=== PATIENT | male | born 1950 | race Caucasian/White ===

== ENCOUNTER 2024-08-19 22:07 | Inpatient (IN) | payer MEDICARE, OTHER ==
[2024-08-19 23:11] LABS: Basophils # (A) 0.01 10*3/uL (0.00-0.10); Basophils % (A) 0.1 %; HCT 27.6 % (39.6-50.0); HGB 8.9 g/dL (13.0-17.0); Lymphocytes # (A) 0.27 10*3/uL (0.90-5.00); MCH 24.3 pg (27.0-32.0); MCHC 32.2 g/dL (32.0-37.0); MCV 75.4 fL (80.0-97.0); Mean Platelet Volume 8.6 fL (9.5-12.2); Monocytes # (A) 0.36 10*3/uL (0.20-1.00); Monocytes % (A) 5.3 %; Neutrophils % (A) 90.2 %; Platelet Count 349 10*3/uL (140-440); RBC 3.66 10*6/uL (4.40-5.60); RDW 15.1 % (11.5-14.5); WBC 6.77 10*3/uL (4.50-10.00)
[2024-08-19] MEDS: MORPHINE SULFATE 4 MG/ML SYRINGE IVP STA (23:29)
--- NOTE | 2024-08-19 23:40 | ED ---
SOB HPI - General Chief Complaint: Shortness of Breath Stated Complaint: difficulty breathing and pain Time Seen by Provider: 08/19/24 22:28 Source: patient Mode of arrival: wheelchair Limitations: no limitations - History of Present Illness Initial Comments: 73-year-old male presenting as a transfer from [facility]. Patient reports that he initially presented to their ER because he was having right- sided rib pain. This has been ongoing for few days. Reports that a few days ago he was choking on some oatmeal and had a fairly bad coughing fit. He has been having a persistent cough and persistent pain over the right lower ribs. CT was performed at that ask that found findings concerning for metastatic disease to both adrenal glands with a right adrenal mass measuring up to 5 cm. There are also bilateral pleural effusions and evidence of pulmonary mass. Patient does have a pathological fracture involving right rib 9. He has destru ctive osseous lesions involving the right iliac bone with associated soft tissue extension asymmetric enlargement of the right iliac. Patient was sent here for further oncologic workup. He is complaining of 7 out of 10 rib pain at this time. He reports a remote history of smoking 25 years ago. - Related Data Allergies Allergy/AdvReac Type Severity Reaction Status Date / Time No Known Allergies Allergy Verified 08/19/24 22:16 Review of Systems ROS Statement: Those systems with pertinent positive or pertinent negative responses have been documented in the HPI. ROS Other: All systems not noted in ROS Statement are negative. Past Medical History Past Medical History: Coronary Artery Disease (CAD), COPD, Diabetes Mellitus Additional Past Medical History / Comment(s): type 2 DM, hiatal hernia Past Surgical History: Hernia Repair Additional Past Surgical History / Comment(s): loop recorder, hernia x 3 Past Psychological History: No Psychological Hx Reported Smoking Status: Former smoker Past Alcohol Use History: Rare Past Drug Use History: None Reported General Exam Limitations: no limitations General appearance: alert, in no apparent distress Head exam: Present: atraumatic, normocephalic, normal inspection Eye exam: Present: normal appearance, EOMI Neck exam: Present: normal inspection. Absent: meningismus Respiratory exam: Present: normal lung sounds bilaterally, chest wall tender ness. Absent: respiratory distress, wheezes, rales, rhonchi, stridor Cardiovascular Exam: Present: regular rate, normal rhythm, normal heart sounds. Absent: systolic murmur, diastolic murmur, rubs, gallop, clicks Neurological exam: Present: alert, oriented X3 Psychiatric exam: Present: normal affect, normal mood Skin exam: Present: warm, dry Course Vital Signs 08/19/24 22:17 Temperature 97.7 F Pulse Rate 109 H Respiratory 16 Rate Blood Pressure 135/77 O2 Sat by Pulse 96 Oximetry Medical Decision Making - Medical Decision Making Was pt. sent in by a medical professional or institution (, PA, ASSOCIATE SOFTWARE ENGINEER, urgent care, hospital, or shelter...) When possible be specific @ -Transfer from [facility] Did you speak to anyone other than the patient for history (EMS, parent, family, police, friend...)? What history was obtained from this source @ -Son and daughter Did you review nursing and triage notes (agree or disagree)? Why? @ -I reviewed and agree with nursing and triage notes Were old charts reviewed (outside hosp., previous admission, EMS record, old EKG, old radiological studies, urgent care reports/EKG's, shelter records)? Report findings @ -I reviewed the documents from [facility] including the provider note and CT scan Differential Diagnosis (chest pain, altered mental status, abdominal pain women, abdominal pain men, vaginal bleeding, weakness, fever, dyspnea, syncope, headache, dizziness, GI bleed, back pain, seizure, CVA, palpatations, mental health, musculoskeletal)? @ -[facility] Differential Chest Pain: Stable Angina, Unstable Angina, STEMI, NSTEMI Aortic Dissection, Pneumothorax, Musculoskeletal, Esophageal Spasm GERD, Cholecystitis, Pancreatitis, Zosterâ€¦ This is not meant to be an all-inclusive list. EKG interpreted by me (3pts min.). @ -As above X-rays interpreted by me (1pt min.). @ -None done CT interpreted by me (1pt min.). @ -None done U/S interpreted by me (1pt. min.). @ -None done What testing was considered but not performed or refused? (CT, X-rays, U/S, labs)? Why? @ -None What meds were considered but not given or refused? Why? @ -None Did you discuss the management of the patient with other professionals (professionals i.e. , EHSAN, ASSOCIATE SOFTWARE ENGINEER, lab, RT, psych nurse, social insurance adviser, shirt hemmer, teacher, title officer, family caseworker)? Give summary @ -Spoke with the sound provider on-call who accepts admission Was smoking cessation discussed for >3mins.? @ -No Was critical care preformed (if so, how long)? @ -No Were there social determinants of health that impacted care today? How? (Homelessness, low income, unemployed, alcoholism, drug addiction, transportation, low edu. Level, literacy, decrease access to med. care, [facility], rehab)? @ -No Was there de-escalation of care discussed even if they declined (Discuss DNR or withdrawal of care, Hospice)? DNR status @ -No What co-morbidities impacted this encounter? (DM, HTN, Smoking, COPD, CAD, Cancer, CVA, ARF, Chemo, Hep., AIDS, mental health diagnosis, sleep apnea, morbid obesity)? @ -None Was patient admitted / discharged? Hospital course, mention meds given and route, prescriptions, significant lab abnormalities, going to OR and other pertinent info. @ -73-year-old male presenting as a transfer from [facility]. Patient requires oncologic workup after discovering evidence of metastatic disease on CT scan. Patient is provided with pain medication and will be admitted. Consults placed to oncology and pulmonology. Patient is agreeable with this plan. I discussed this case with my attending Dr. Tena Undiagnosed new problem with uncertain prognosis? @ -No Drug Therapy requiring intensive monitoring for toxicity (Heparin, Nitro, Insulin, Cardizem)? @ -No Were any procedures done? @ -No Diagnosis/symptom? @ -Metastatic disease, pulmonary mass, pathologic rib fracture Acute, or Chronic, or Acute on Chronic? @ -Acute Uncomplicated (without systemic symptoms) or Complicated (systemic symptoms)? @ -Complicated Side effects of treatment? @ -No Exacerbation, Progression, or Severe Exacerbation? @ -No Poses a threat to life or bodily function? How? (Chest pain, USA, SD, pneumonia, PE, COPD, DKA, ARF, appy, cholecystitis, CVA, Diverticulitis, Homicidal, Suicidal, threat to staff... and all critical care pts) @ -Yes - Lab Data Result diagrams: 08/19/24 22:54 Lab Results 08/19/24 Range/Units 22:54 WBC 6.77 (4.50-10.00) 10*3/uL RBC 3.66 L (4.40-5.60) 10*6/uL Hgb 8.9 L (13.0-17.0) g/dL Hct 27.6 L (39.6-50.0) % MCV 75.4 L (80.0-97.0) fL MCH 24.3 L (27.0-32.0) pg MCHC 32.2 (32.0-37.0) g/dL Plt Count 349 (140-440) 10*3/uL MPV 8.6 L (9.5-12.2) fL Immature Gran % (Auto) 0.4 % Neutrophils % 90.2 % Lymphocytes % 4.0 % Monocytes % 5.3 % Eosinophils % 0.0 % Basophils % 0.1 % Immature Gran # 0.03 (0.00-0.04) 10*3/uL Neutrophils # 6.10 (1.80-7.70) 10*3/uL Lymphocytes # 0.27 L (0.90-5.00) 10*3/uL Monocytes # 0.36 (0.20-1.00) 10*3/uL Eosinophils # 0.00 L (0.04-0.35) 10*3/uL Basophils # 0.01 (0.00-0.10) 10*3/uL Disposition Clinical Impression: Metastatic disease, Pathologic rib fracture Disposition: ADMITTED IP TO THIS [facility] Condition: Serious Referrals: Wellington Smiley, BUNNY [Primary Care Provider] - 1-2 days Time of Disposition: 23:45
[2024-08-19 23:49] LABS: ALT 12 U/L (4-49); AST 16 U/L (17-59); African American GFR (CKD) >90 (>60 ml/min/1.73 sqM); Alkaline Phosphatase 100 U/L (38-126); Anion Gap 11 mmol/L; Blood Urea Nitrogen 19 mg/dL (9-20); Calcium 8.5 mg/dL (8.4-10.2); Carbon Dioxide 28 mmol/L (22-30); Chloride 91 mmol/L (98-107); Glucose 284 mg/dL (74-99); Non-African American GFR(CKD) >90 (>60 ml/min/1.73 sqM); Potassium 4.4 mmol/L (3.5-5.1); Sodium 130 mmol/L (137-145); Total Bilirubin 0.7 mg/dL (0.2-1.3); Total Protein 6.2 g/dL (6.3-8.2)
[2024-08-19] MEDS ORDERED: NALOXONE 0.4 MG/ML 1 ML VIAL IV PRN (23:50)
[2024-08-19] MEDS ORDERED: ACETAMINOPHEN TAB 325 MG TAB PO PRN (23:50)
[2024-08-20] MEDS ORDERED: RX INFO: IV CONTRAST WAS GIVEN 1 EACH MISC MISCELLANE PRN (00:33)
[2024-08-20] MEDS ORDERED: DEXTROSE 50% SYRINGE 50 ML IVP PRN ×2 (02:36)
--- NOTE | 2024-08-20 02:48 | P.HPIM ---
History of Present Illness H&P Date: 08/20/24 History of present illness; 73-year-old man with PMH of atrial fibrillation maintained on Eliquis, CHF, hypertension, [id number] diabetes mellitus with peripheral neuropathy, hyperlipidemia, anxiety/depression who presents to the emergency department as a transfer from [facility] for further workup after he underwent a CT abdomen/pelvis which showed findings most concerning for met astatic malignancy. He states that this overall story began approximately 1 year ago when he began having some right hip discomfort. Last fall, he noted feeling as though he had pneumonia often. He underwent a workup at [facility] which he states he underwent a CT scan of the chest as well as a PET scan, and an effort was made to biopsy a spot located in his lung. He states that at that time they were unable to get a biopsy sample. There was no additional follow-up after that until 08/19/2024. The patient notes that he choked on oatmeal, and as a result of this coughing fit had terrible right sided pain which he localizes to his right ribs. It was due to this for the patient presented to the emergency department and underwent this CT scan as mentioned above. Additionally, he endorses having had poor appetite and a 4050 lbs weight loss over the past 1-2 months. Social history: - Smoking: On and off smoker, 1.5 packs per day for ~30+ years, quit 25-30 years ago - Alcohol use: Socially - Recreational drug use: Denies Labratory review: - WBC 6.77, hemoglobin 8.9, hematocrit 27.6, MCV 75.4, platelet 349; sodium 130, potassium 4.4, chloride 91, bicarb 28, BUN 19, creatinine 0.65, lactic acid 1.5, calcium 8.5, total bilirubin 0.7, AST 16, ALT 12, alkaline phosphatase 100 Imaging: - CT abdomen/pelvis at [facility] showed concern for metastatic disease of both adrenal glands, right adrenal mass measuring up to 5.0 cm; bilateral pleural effusions and pericardial effusion (previous CTs show pulmonary masses, primary pulmonary malignancy not excluded); destructive osseous lesions involving the right iliac bone with associated soft tissue extension and asymmetric enlargement of the right iliac musculature, findings most consistent with osseous metastatic disease; fracture, possible pathological fracture involving rib #9 on the right side; recommend PET/CT for best evaluation of findings Vitals: - Blood pressure 135/77, heart rate 109, respiratory rate 16, SpO2 96% on room air Patient admitted to internal medicine service REVIEW OF SYSTEMS: Pertinent positives and negatives noted in HPI. The rest of the 14-point review of systems is negative. Physical Exam: General: nontoxic, no distress, appears at stated age Derm: warm, dry, intact Head: atraumatic, normocephalic, symmetric Eyes: EOMI, anicteric sclera Mouth: no lip lesion, mucus membranes moist Cardiovascular: S1 S2 reg, no murmur, rubs, or gallops Lungs: Some crackles bilaterally in the lower lobes, decreased breath sounds on left side Abdominal: soft, non-tender to palpataion, with distention present Extremities: no gross muscle atrophy; nonpitting edema of the bilateral lower extremities Neuro: Alert, Oriented, CNII-XII grossly intact, gait normal Psych: well appearing, appropriate affect Assessment and plan 73-year-old man with PMH of atrial fibrillation maintained on Eliquis, CHF, hypertension, [id number] diabetes mellitus with peripheral neuropathy, hyperlipidemia, anxiety/depression who presents to the emergency department as a transfer from [facility] for further workup after he underwent a CT abdomen/pelvis which showed findings most concerning for metastatic malignancy. #Diffuse metastatic disease with unknown primary - CT abdomen/pelvis ar [facility] showed concern for metastatic disease of both adrenal glands, right adrenal mass measuring up to 5.0 cm; bilateral pleural effusions and pericardial effusion (previous CTs show pulmonary masses, primary pulmonary malignancy not excluded); destructive osseous lesions involving the right iliac bone with associated soft tissue extension and asymmetric enlargement of the right iliac musculature, findings most consistent with osseous metastatic disease; fracture, possible pathological fracture involving rib #9 on the right side; recommend PET/CT for best evaluation of findings - CT chest w/contrast ordered, currently pending - Zofran as needed for nausea, [place] [id number] for pain control - Hematology/oncology and pulmonology consulted - Interventional radiology consulted for possible biopsy #Microcytic anemia - Hgb 8.9, MCV 75.4; without any previous labs and a baseline - Continue to monitor hemoglobin, if<7 transfusions - Iron studies ordered, currently pending next-continue monitor CBC #Hyponatremia - Sodium on arrival 130 - Continue to monitor BMP - Cautious with fluids secondary to history of CHF #[id number] diabetes mellitus with peripheral neuropathy - Avoid oral antihyperglycemic agents - Accu-Cheks ACHS - Sliding scale initiated - Hemoglobin A1c ordered, currently pending - Monitor for hypoglycemia #Atrial fibrillation, maintained on Eliquis - Resume Eliquis 5 mg twice daily - States he has previously had a Watchman device placed - Cardiac monitoring Chronic conditions: #CHF #Hypertension #Hyperlipidemia #Anxiety/depression - Resume home medications once verified by pharmacy GI prophylaxis: None DVT prophylaxis: Eliquis 5 mg twice daily The patient is admitted with an anticipated less than than 2 midnight stay for evaluation of metastatic malignancy. Discussed with: Patient Anticipated discharge place: Home Dictation was produced using [employer] dictation software. please excuse any grammatical, word or spelling errors. Paul Conley MD PGY-1 IM Past Medical History Past Medical History: Coronary Artery Disease (CAD), COPD, Diabetes Mellitus Additional Past Medical History / Comment(s): type 2 DM, hiatal hernia Past Surgical History: Hernia Repair Additional Past Surgical History / Comment(s): loop recorder, hernia x 3 Past Psychological History: No Psychological Hx Reported Smoking Status: Former smoker Past Alcohol Use History: Rare Past Drug Use History: None Reported Medications and Allergies Allergies Allergy/AdvReac Type Severity Reaction Status Date / Time No Known Allergies Allergy Verified 08/19/24 22:16 Physical Exam Vitals: Vital Signs Temp Pulse Resp BP Pulse Ox 08/19/24 22:17 97.7 F 109 H 16 135/77 96 Intake and Output 08/19/24 08/19/24 08/20/24 14:59 22:59 06:59 Other: Weight 92.533 kg Results CBC & Chem 7: 08/19/24 22:54 08/19/24 22:54 Labs: Abnormal Lab Results - Last 24 Hours (Table) 08/19/24 08/19/24 Range/Units 22:54 22:54 RBC 3.66 L (4.40-5.60) 10*6/uL Hgb 8.9 L (13.0-17.0) g/dL Hct 27.6 L (39.6-50.0) % MCV 75.4 L (80.0-97.0) fL MCH 24.3 L (27.0-32.0) pg MPV 8.6 L (9.5-12.2) fL Lymphocytes # 0.27 L (0.90-5.00) 10*3/uL Eosinophils # 0.00 L (0.04-0.35) 10*3/uL Sodium 130 L (137-145) mmol/L Chloride 91 L (98-107) mmol/L Creatinine 0.65 L (0.66-1.25) mg/dL Glucose 284 H (74-99) mg/dL AST 16 L (17-59) U/L Total Protein 6.2 L (6.3-8.2) g/dL Albumin 3.0 L (3.5-5.0) g/dL
[2024-08-20 03:53] LABS: Glucose,Whole Blood 334 mg/dL (70-110)
--- NOTE | 2024-08-20 04:40 | CT ---
EXAM: CT Chest With Intravenous Contrast CLINICAL HISTORY: ITS.REASON CT Reason: malignancy TECHNIQUE: Axial computed tomography images of the chest with intravenous contrast. CTDI is 12.3 mGy and DLP is 579.6 mGy-cm. This CT exam was performed using one or more of the following dose reduction techniques: automated exposure control, adjustment of the mA and/or kV according to patient size, and/or use of iterative reconstruction technique. COMPARISON: None FINDINGS: Lungs: Heterogeneous mass in the lingula measuring 5.2 x 5.0 x 8.5 cm, concerning for neoplasm. Additional 1.8 cm nodule in the left upper lobe is concerning for metastasis. Atelectasis in the left lower lobe. Pleural space: Moderate left and small right pleural effusions. No pneumothorax. Heart: Moderate pericardial effusion. Mild cardiomegaly. Coronary artery and mitral annular and aortic valve calcifications. Mediastinum: Enlarged mediastinal and left hilar lymph nodes and possible cardiophrenic lymph node, concerning for danielle metastases. Bones/joints: Degenerative changes of the spine. No acute fracture. Soft tissues: Unremarkable. Vasculature: Mild atherosclerotic changes in the aorta. No aortic aneurysm or dissection. Lymph nodes: See above. Liver: Cirrhotic liver. Spleen: Splenomegaly. Kidneys and ureters: Nonspecific hypodense lesion partially seen in the right kidney. Further evaluation could be performed with contrast- enhanced MRI or ultrasound. Excreting contrast partially seen in the renal collecting systems. IMPRESSION: 1. Heterogeneous mass in the lingula measuring 5.2 x 5.0 x 8.5 cm, concerning for neoplasm. 2. Additional 1.8 cm nodule in the left upper lobe is concerning for metastasis. 3. Enlarged mediastinal and left hilar lymph nodes and possible cardiophrenic lymph node, concerning for danielle metastases. 4. Moderate pericardial effusion. 5. Nonspecific hypodense lesion partially seen in the right kidney. Further evaluation could be performed with contrast-enhanced MRI or ultrasound. 6. Moderate left and small right pleural effusions. 7. Cirrhotic liver. 8. Splenomegaly.
--- NOTE | 2024-08-20 05:25 | P.CNPUL ---
History of Present Illness Consult date: 08/20/24 Requesting physician: Charles Reynolds Reason for consult: lung mass History of present illness: Patient transferred from [facility]. Originally, presented to the outside facility with right-sided rib pain after choking on oatmeal. Additionally, he was having issues with constipation. Workup at the outside facility including CT of the abdomen/pelvis with findings consistent with diffuse metastatic disease to both adrenal glands, with the right adrenal mass measuring up to 5 cm. Destructive osseous lesion involving the right iliac bone with associated soft tissue extension and asymmetric enlargement of the right iliac musculature. Right rib 9 fracture, possibly pathologic. Bilateral pleural effusions left greater than right. Also, a small pericardial effusion was partially visualized. Patient denies history of prior diagnosed malignancies, but states he has previously had attempted biopsies of a spot on his lung. He was recommended to get an outpatient PET scan. Patient never followed up due to insu mariann reasons. This was over 6 months ago. His primary care provider is Wellington Smiley out of the [facility]. Past medical history significant for COPD, former tobacco smoker. He quit smoking over 30 years ago, still carries a significant smoking history of over 30 pack years. Other medical history including atrial fibrillation anticoagulated on Eliquis, heart failure, hyperlipidemia, diabetes mellitus. Labs done at our facility including a CBC with a WBC count of 6.8, hemoglobin 8.9, platelets 349. CMP: Sodium 130, potassium 4.4, chloride 91, serum bicarb 28, BUN 19, creatinine 0.65, glucose 284. Lactic 1.5. LFTs unremarkable. Patient currently being evaluated in the emergency department. He is resting comfortably on room air. Does not appear in any respiratory distress. States the primary reason he came for evaluation at the outside facility was right-sided rib pain as reported above. Currently rated 7 on a 10 point numerical scale. He has also had difficulty ambulating and complaining of right hip pain. States his breathing may be slightly worse than baseline. Especially with exertion. He occasionally uses his rescue inhaler. Reports coughing with white to yellow phlegm production. Denies hemoptysis or chest pain. Denies fever/chills. Denies difficulty swallowing. His appetite has been poor. Unintentional weight loss of approximately 40 pounds in the last sheeba h. No nausea or vomiting. His last normal bowel movement was on Ashu. Denies any abdominal pain, hematochezia, melena. Does admit history of heart failure. He has lower extremity swelling. Takes Lasix on an outpatient basis. Current vital signs: Temperature 97.7 F, heart rate 109 bpm, blood pressure 135/77 mmHg, nontachypneic, SpO2 recorded 96% on room air. Review of Systems Constitutional: Reports fatigue, Reports poor appetite, Reports weight loss, Denies chills, Denies fever, Denies night sweats, Denies weight gain Ears, nose, mouth and throat: Denies dysphagia, Denies headache, Denies nasal congestion, Denies nasal discharge, Denies post-nasal drip, Denies sinus pain, Denies sinus pressure, Denies sore throat, Denies voice changes Cardiovascular: Reports leg edema, Denies chest pain, Denies lightheadedness, Denies palpitations, Denies paroxysmal nocturnal dyspnea, Denies syncope Respiratory: Reports as per HPI Gastrointestinal: Reports as per HPI Genitourinary: Denies dysuria, Denies hematuria Musculoskeletal: Reports gait dysfunction, Reports leg numbness/tingling (Chronic), Denies arm numbness/tingling, Denies limitation of motion Musculoskeletal: right: hip pain (Worse with ambulation), hip stiffness Integumentary: Denies rash, Denies unusual bruising Neurological: Reports paresthesias (Chronic bilateral lower extremity numbness/tingling), Denies head injury, Denies headaches, Denies paralysis, De nies seizures, Denies syncope, Denies visual changes Psychiatric: Denies anxiety, Denies depression Past Medical History Past Medical History: Coronary Artery Disease (CAD), COPD, Diabetes Mellitus Additional Past Medical History / Comment(s): type 2 DM, hiatal hernia Past Surgical History: Hernia Repair Additional Past Surgical History / Comment(s): loop recorder, hernia x 3 Past Psychological History: No Psychological Hx Reported Smoking Status: Former smoker Past Alcohol Use History: Rare Past Drug Use History: None Reported Medications and Allergies Allergies Allergy/AdvReac Type Severity Reaction Status Date / Time No Known Allergies Allergy Verified 08/20/24 09:56 Physical Exam Vitals: Vital Signs Temp Pulse Resp BP Pulse Ox 08/19/24 22:17 97.7 F 109 H 16 135/77 96 Intake and Output 08/19/24 08/19/24 08/20/24 14:59 22:59 06:59 Other: Weight 92.533 kg GENERAL EXAM: Alert, 73-year-old male fairly, comfortable in no apparent distress. HEAD: Normocephalic and atraumatic EYES: Normal reaction of pupils, equal size. NOSE: Clear with pink turbinates. THROAT: No erythema or exudates. NECK: No masses, no JVD. CHEST: No chest wall deformity. LUNGS: Equal air entry with bibasilar dullness. No wheezes, rhonchi, crackles. On room air. No conversational dyspnea or accessory muscle use.. CVS: S1 and S2 normal with no audible murmur, irregular rhythm. No extra heart sounds ABDOMEN: No hepatosplenomegaly, active bowel sounds, no guarding or rigidity. SPINE: No scoliosis or deformity SKIN: No rashes CENTRAL NERVOUS SYSTEM: No focal deficits, tone is normal in all 4 extremities. EXTREMITIES: There is bilateral 1+ pitting edema of the lower extremities. No clubbing or cyanosis. Peripheral pulses are intact. Results - Laboratory Findings CBC and BMP: 08/20/24 06:47 08/20/24 06:47 Abnormal lab findings: Abnormal Labs 08/19/24 08/19/24 22:54 22:54 RBC 3.66 L Hgb 8.9 L Hct 27.6 L MCV 75.4 L MCH 24.3 L MPV 8.6 L Lymphocytes # 0.27 L Eosinophils # 0.00 L Sodium 130 L Chloride 91 L Creatinine 0.65 L Glucose 284 H AST 16 L Total Protein 6.2 L Albumin 3.0 L - Diagnostic Findings CT scan - chest: image reviewed Assessment and Plan Assessment: 5.2 x 5 x 8.5 cm heterogenous mass in the lingula concerning for neoplasm, possible primary; CT of the chest showing a 5.2 x 5 x 8.5 cm heterogenous mass in the lingula, concerning for neoplasm. Additional 1.8 cm nodule in the left upper lobe. Enlarged mediastinal and left hilar lymph nodes and possible cardiophrenic lymph node enlargement concerning for metastasis. Bilateral small to moderate-sized pleural effusions left greater than right. Moderate pericardial effusion. Nonspecific hypodense lesion partially seen in the right kidney. Multiple additional findings concerning for diffuse metastatic disease; CT of the abdomen/pelvis done at outside facility remarkable for bilateral adrenal lesions, osseous involvement of the right iliac bone with associated soft tissue extension and asymmetric enlargement of the right iliac musculature, right rib 9 fracture, possibly pathologic. Bilateral pleural effusions left greater than right. Small pericardial effusion was also partially visualized. Bilateral pleural effusions left greater than right, possibly malignant fluid versus CHF Acute dyspnea, secondary to above Unintentional weight loss, 40 pounds over approximately 1 month timeframe Former tobacco smoker Chronic obstructive pulmonary disease History of heart failure, with unknown ejection Atrial fibrillation with controlled ventricular response, normally ant icoagulated on Eliquis Diabetes mellitus type 2 Microcytic anemia Hyponatremia, appears hypervolemic on clinical examination, however, consider SIADH given concerning findings for malignancy Plan: Patient CT findings reviewed with patient. Concerns for malignancy. Patient may be candidate for diagnostic left-sided thoracentesis. Last dose of Eliquis reportedly yesterday morning, continue to hold Case to be reviewed with Dr. Shukla, and further recommendations to follow Medical oncology also consulted I have personally seen and examined the patient, performed the documentation and the assessment and plan as written. Number of minutes spent on the visit:20 This is a joint evaluation that was done along with the nurse practitioner. This patient is having constitutional symptoms and weight loss in addition to worsening shortness of breath. He presented to the hospital and a CAT scan of the chest was done and showed a 5 x 8.5 heterogeneous mass in the lingula concerning for neoplasm. Additional 1.8 nodule was seen in the left upper lobe. The patient also had findings concerning for metastatic disease including osseous involvement involving the right iliac and the patient had bilateral pleural effusion. Anticoagulation is on hold and the patient will have a bedside thoracentesis for therapeutic and diagnostic purposes. He is also scheduled to undergo an iliac biopsy by interventional radiology. He is currently on 2 L of oxygen by nasal cannula with a pulse ox of 95%. Rest of the home medications have been resumed. He is receiving morphine for skeletal chest wall pain. I will plan to do the bedside thoracentesis today. Consent will be obtained. Time with Patient: Greater than 30
[2024-08-20] MEDS: HYDROcodone/APAP 5-325MG 1 EACH TAB PO PRN (06:02)
[2024-08-20 07:13] LABS: Basophils # (A) 0.01 10*3/uL (0.00-0.10); Basophils % (A) 0.1 %; HCT 33.1 % (39.6-50.0); HGB 10.3 g/dL (13.0-17.0); Lymphocytes # (A) 0.44 10*3/uL (0.90-5.00); Lymphocytes % (A) 5.2 %; MCH 23.9 pg (27.0-32.0); MCHC 31.1 g/dL (32.0-37.0); MCV 76.8 fL (80.0-97.0); Mean Platelet Volume 8.9 fL (9.5-12.2); Monocytes # (A) 0.56 10*3/uL (0.20-1.00); Monocytes % (A) 6.6 %; Neutrophils # (A) 7.44 10*3/uL (1.80-7.70); Neutrophils % (A) 87.3 %; Platelet Count 443 10*3/uL (140-440); RBC 4.31 10*6/uL (4.40-5.60); RDW 15.2 % (11.5-14.5); WBC 8.52 10*3/uL (4.50-10.00)
[2024-08-20 07:21] LABS: INR 1.2 (<1.2)
[2024-08-20 07:30] LABS: Chloride 93 mmol/L (98-107); Glucose 283 mg/dL (74-99); Potassium 3.7 mmol/L (3.5-5.1); Sodium 132 mmol/L (137-145)
[2024-08-20 07:31] LABS: African American GFR (CKD) >90 (>60 ml/min/1.73 sqM); Anion Gap 9 mmol/L; Blood Urea Nitrogen 20 mg/dL (9-20); Calcium 8.4 mg/dL (8.4-10.2); Carbon Dioxide 30 mmol/L (22-30); Magnesium 2.1 mg/dL (1.6-2.3); Non-African American GFR(CKD) >90 (>60 ml/min/1.73 sqM); Phosphorus 3.9 mg/dL (2.5-4.5)
[2024-08-20 08:24] LABS: Glucose,Whole Blood 266 mg/dL (70-110)
[2024-08-20] MEDS: INSULIN LISPRO (HumaLOG) 100 UNIT/ML 10 mL VL SQ SCH (08:58)
[2024-08-20] MEDS ORDERED: APIXABAN 5 MG TAB PO SCH (09:00)
[2024-08-20] MEDS: MORPHINE SULFATE 4 MG/ML SYRINGE IV PRN (09:03)
[2024-08-20] MEDS ORDERED: CYCLOBENZAPRINE 10 MG TAB PO PRN (10:31)
[2024-08-20] MEDS ORDERED: FLUTICASONE NASAL 50MCG/SPRAY 16GM BTL EA NOSTRIL PRN (10:31)
[2024-08-20 10:55] LABS: % Iron Saturation 13.81 (15.00-50.00); Iron 29 UG/DL (65-175); Total Iron Binding Capacity 210 UG/DL (228-460)
[2024-08-20 12:07] LABS: Glucose,Whole Blood 118 mg/dL (70-110)
[2024-08-20] MEDS: DILTIAZEM CD 120 MG CAP.ER.24H PO SCH (12:09)
[2024-08-20] MEDS: PARoxetine 20 MG TAB PO SCH (12:09)
[2024-08-20] MEDS: ATORVASTATIN 10 MG TAB PO SCH (12:09)
--- NOTE | 2024-08-20 13:26 | XR ---
EXAMINATION TYPE: XR chest 1V portable DATE OF EXAM: 08/20/2024 CLINICAL INDICATION: Male, 73 years old with history of post thoracentesis. TECHNIQUE: Single AP portable upright view of the chest is obtained. COMPARISON: Chest CT from earlier today FINDINGS: No pneumothorax after left-sided thoracentesis. Persistent cardiomegaly and overlying left sided loop recorder. Persistent suspicious 1.8 cm left lung pulmonary nodule. Persistent small left greater than right pleural effusions. Osseous structures are intact. IMPRESSION: No pneumothorax after left-sided thoracentesis. [facility], , 08/20/2024 1:24 PM
--- NOTE | 2024-08-20 14:47 | CT ---
EXAMINATION TYPE: CT biopsy bone superficial DATE OF EXAM: 08/20/2024 2:32 PM COMPARISON: CT CLINICAL INDICATION:Male, 73 years old with history of right iliac bone lesion; right iliac bone lesi on TECHNIQUE: CT guided percutaneous right iliac bone mass using coaxial method. One or more CT dose reduction stra tegies were utilized during this examination CT DLP: 934 mGycm, Automated exposure control for dose reduction was used. FINDINGS: The procedure was explained to the patient including risks of bleeding, bruising, infection, damage t o nearby organs and need for additional therapy including potential surgery. All questions were answ ered and consent was obtained. The previous studies were reviewed. The patient was placed on the CT couch in the supine position. The overlying skin was marked and prepped using sterile method. Timeout was taken per protocol. Follo wing administration of conscious sedation and local anesthesia a 19 gauge coaxial needle was introd uced on the right iliac bone soft tissue mass. The coaxial needle tip was directed into the mass wit h CT guidance. Multiple 20 gauge coaxial biopsies were then obtained. Touch prep of portions of th e specimen were reviewed by pathology department personnel during the procedure to evaluate for cellu larity of the samples. The biopsy samples were sent in appropriate containers for lab analysis. F ollowing the procedure the needle was removed and sterile dressing was applied to the percutaneous si te. Post biopsy imaging demonstrated no evidence of hemorrhage. Patient was taken for postprocedure observation in stable condition. IMPRESSIONS: Status post percutaneous LOCATION mass biopsy as described above. Pathology results pending. no SEDATION TECHNIQUE: CT guided percutaneous biopsy of using coaxial method. One or more CT dose reduction strategies were utilized during this examination. Total CT dose mGycm. Total fluoroscopy time was seconds. FINDINGS: The procedure was explained to the patient including risks of bleeding, bruising, infection, damage t o nearby organs and need for additional therapy including potential surgery. All questions were answ ered and consent was obtained. The previous studies were reviewed. The patient was placed on the CT couch in the supine position. The overlying skin was marked and prepped using sterile method. Timeout was taken per protocol. Follo wing administration of local anesthesia a 17 gauge coaxial needle was introduced on the . The coaxia l needle tip was directed into the mass with CT guidance. Multiple 18 gauge coaxial biopsies were th en obtained. Following the procedure the needle was removed and sterile dressing was applied to th e percutaneous site. Post biopsy imaging demonstrated no evidence of . Patient was taken for postpro cedure observation in stable condition. IMPRESSIONS: Status post percutaneous LOCATION mass biopsy as described above. Pathology results pending. [facility], , 08/20/2024 2:45 PM
--- NOTE | 2024-08-20 15:37 | P.PN ---
Subjective Progress Note Date: 08/20/24 Hospital course: Patient is a very pleasant 73-year-old male with a past medical history of CAD, paroxysmal atrial fibrillation on anticoagulation with Eliquis, CHF, hypertension, hyperlipidemia, Beatties mellitus, peripheral neuropathy, and anxiety with depression. He presented to the emergency department on 08/19/2024 as a transfer from [facility] where he initially presented with coughing/choking episode and right side abdominal/hip pain and underwent workup including CT abdomen and pelvis which revealed findings consistent with metastatic malignancy. Patient reported that this overall story began approximately 1 year ago when he began having some right hip discomfort. Last fall, he noted feeling as though he had pneumonia often. He underwent a workup at [facility] which he states he underwent a CT scan of the chest as well as a PET scan, and an effort was made to biopsy a spot located in his lung. He states that at that time they were unable to get a biopsy sample. There was no additional follow-up after that until 08/19/2024. The patient notes that he choked on oatmeal, and as a result of this coughing fit had terrible right sided pain which he localizes to his right ribs. It was due to this for the patient presented to the emergency department and underwent this CT scan as mentioned above. Additionally, he endorses having had poor appetite and a 4050 lbs weight loss over the past 1-2 months. Upon arrival to our facility, patient underwent evaluation in the emergency department. Vital signs on arrival show blood pressure 135/77, heart rate 109, respiratory rate 16, temp 97.7 F, and SpO2 of 96% on room air. EKG completed showing sinus tachycardia at 103 bpm. Labs completed and reviewed. CBC showing microcytic anemia with hemoglobin of 8.9. BMP showing hypochloremic hyponatremia with sodium of 130 and chloride of 91. Blood glucose 284. Lactic acid 1.5. BMP 2360. CT chest completed showing heterogeneous mass in the lingula measuring 5.2 x 5.0 x 8.5 cm concerning for neoplasm with additional 1.8 cm nodule in the left upper lobe, enlarged medi astinal and left hilar lymph nodes and possible cardiophrenic lymph node concerning for danielle metastasis, moderate pericardial effusion, nonspecific hypodense lesion partially seen in the right kidney, and moderate left and small right pleural effusions with cirrhotic liver and splenomegaly. Patient mated under services with consultation to oncology and pulmonology. Physical exam: Patient seen and evaluated at bedside this morning. He reports having a rough night and no sleep in the emergency department. Patient sitting upright in chair at this time and states he is trying to get some rest. Currently reports pain is controlled after pain medication administered by RN this morning. Vital signs reviewed and stable. General: Nontoxic, no distress and appears stated age. Derm: Skin warm and dry, normal coloration for ethnicity. Head: Atraumatic, normocephalic and symmetric. Eyes: EOM's intact, no lid lag, and anicteric sclera Mouth: no lip lesions, mucus membranes moist Cardiovascular: regular rate and rhythm with normal S1S2, no murmur, positive posterior tibial pulses bilaterally, and cap refill < 2 seconds. Lungs: Respirations even, regular, and unlabored on room air. Lungs diminished at bases, no wheezes, rhonchi, or rales noted. Abdominal: soft distended bowel sounds x 4, nontender to palpation, no guarding, no appreciable organomegaly Ext: ROM intact. No gross muscle atrophy, Bilateral lower extremity edema, no contractures Neuro: Speech clear, face symmetrical and CN II-XII grossly intact with no noted focal neuro deficits Psych: Alert and oriented to person, place, time, and situation. Appropriate and pleasant affect. Assessment and Plan of Care: Diffuse metastatic disease, unknown primary source Bilateral pleural effusions Moderate pericardial effusion Hypochloremic hyponatremia -Pulmonology consulted, Eliquis to remain held pending possible thoracentesis -Oncology consulted, appreciate recommendations -Continue symptomatic care and pain management with Tylenol 650 mg p.o. every 6 hours as needed for mild pain/fever, Carpenter 5-325 mg tablets every 4 hours as needed for moderate pain, and morphine 4 mg IVP every 4 hours as needed for severe. -Telemetry monitoring -DVT prophylaxis with RUBÉN damone and SCDs -Echocardiogram to be completed secondary to CT reports of moderate pericardial effusion Microcytic anemia, iron deficiency -Iron profile showing iron 29, TIBC 210, iron percentage saturation 13.81, and transferrin 150. -Patient started on IV Ferrlecit 125 mg daily Type II [id number] diabetes mellitus with hyperglycemia Diabetic peripheral neuropathy -Hold metformin, glipizide and pioglitazone. Patient placed on glycemic protocol with Humalog sliding scale. Paroxysmal atrial fibrillation -Eliquis held at this time pending possible thoracentesis. Patient to continue diltiazem 120 mg daily. Congestive heart failure, unknown type Hypertension Hyperlipidemia -Echocardiogram to be completed secondary to CT findings showing concerns of moderate-sized pericardial effusion. -Continue cardiac medication regimen with diltiazem 120 mg daily and simvastatin 20 mg daily. Data and imaging reviewed: Labs reviewed. Iron profile showing iron 29, TIBC 210, iron percentage saturation 13.81, and transferrin 150. CBC showing Thrombocytosis with platelet count of 443 and microcytic anemia with hemoglobin of 10.3, hematocrit 33.1, MCV 76.8, MCH 23.9, and MCHC 31.1 with RDW of 15.2. BMP showing slight improvement of hypochloremic hyponatremia with sodium of 132 and chloride of 93. Blood glucose 283. Magnesium 2.1. proBNP 2360. Vital signs reviewed. Blood pressure 130/76, heart rate 93, respiratory rate 20, temp 97.7 F, and SpO2 of 99% on room air. CODE STATUS: Full code DVT prophylaxis: RUBÉN claire and SCDs, Tessy held pending possible thoracentesis Anticipated discharge date: Pending clinical course Anticipated discharge place: Pending clinical course Patient was seen independently by Nurse Pracitioner. This document was prepared using [employer] dictation software. Please allow for errors in mica spreader, while rare they do occur. Ángel Bowling NP rendered care for this patient independently, reviewed the findings and plan as documented in the note above and agree with plan. I did not physically speak with or examine the patient on this date. Objective - Vital Signs Vital signs: Vital Signs Temp 97.7 F 08/19/24 22:17 Pulse 102 H 08/20/24 06:00 Resp 17 08/20/24 06:00 BP 135/83 08/20/24 06:00 Pulse Ox 95 08/20/24 06:00 FiO2 Intake & Output 08/19/24 08/20/24 08/20/24 18:59 06:59 18:59 Weight 92.533 kg - Labs CBC & Chem 7: 08/20/24 06:47 08/20/24 06:47 Labs: Abnormal Lab Results - Last 24 Hours (Table) 08/19/24 08/19/24 08/20/24 Range/Units 22:54 22:54 03:51 RBC 3.66 L (4.40-5.60) 10*6/uL Hgb 8.9 L (13.0-17.0) g/dL Hct 27.6 L (39.6-50.0) % MCV 75.4 L (80.0-97.0) fL MCH 24.3 L (27.0-32.0) pg MCHC (32.0-37.0) g/dL RDW (11.5-14.5) % Plt Count (140-440) 10*3/uL MPV 8.6 L (9.5-12.2) fL Immature Gran # (0.00-0.04) 10*3/uL Lymphocytes # 0.27 L (0.90-5.00) 10*3/uL Eosinophils # 0.00 L (0.04-0.35) 10*3/uL PT (10.0-12.5) sec INR (<1.2) Sodium 130 L (137-145) mmol/L Chloride 91 L (98-107) mmol/L Creatinine 0.65 L (0.66-1.25) mg/dL Glucose 284 H (74-99) mg/dL POC Glucose (mg/dL) 334 H (70-110) mg/dL AST 16 L (17-59) U/L Total Protein 6.2 L (6.3-8.2) g/dL Albumin 3.0 L (3.5-5.0) g/dL 08/20/24 08/20/24 08/20/24 Range/Units 06:47 06:47 06:47 RBC 4.31 L (4.40-5.60) 10*6/uL Hgb 10.3 L (13.0-17.0) g/dL Hct 33.1 L (39.6-50.0) % MCV 76.8 L (80.0-97.0) fL MCH 23.9 L (27.0-32.0) pg MCHC 31.1 L (32.0-37.0) g/dL RDW 15.2 H (11.5-14.5) % Plt Count 443 H (140-440) 10*3/uL MPV 8.9 L (9.5-12.2) fL Immature Gran # 0.07 H (0.00-0.04) 10*3/uL Lymphocytes # 0.44 L (0.90-5.00) 10*3/uL Eosinophils # 0.00 L (0.04-0.35) 10*3/uL PT 13.0 H (10.0-12.5) sec INR 1.2 H (<1.2) Sodium 132 L (137-145) mmol/L Chloride 93 L (98-107) mmol/L Creatinine (0.66-1.25) mg/dL Glucose 283 H (74-99) mg/dL POC Glucose (mg/dL) (70-110) mg/dL AST (17-59) U/L Total Protein (6.3-8.2) g/dL Albumin (3.5-5.0) g/dL 08/20/24 Range/Units 08:22 RBC (4.40-5.60) 10*6/uL Hgb (13.0-17.0) g/dL Hct (39.6-50.0) % MCV (80.0-97.0) fL MCH (27.0-32.0) pg MCHC (32.0-37.0) g/dL RDW (11.5-14.5) % Plt Count (140-440) 10*3/uL MPV (9.5-12.2) fL Immature Gran # (0.00-0.04) 10*3/uL Lymphocytes # (0.90-5.00) 10*3/uL Eosinophils # (0.04-0.35) 10*3/uL PT (10.0-12.5) sec INR (<1.2) Sodium (137-145) mmol/L Chloride (98-107) mmol/L Creatinine (0.66-1.25) mg/dL Glucose (74-99) mg/dL POC Glucose (mg/dL) 266 H (70-110) mg/dL AST (17-59) U/L Total Protein (6.3-8.2) g/dL Albumin (3.5-5.0) g/dL
[2024-08-20] MEDS: SODIUM FERRIC GLUCONAT-SUCROSE 125 MG in SODIUM CHLORIDE 0.9% 100 ML IVPB SCH (16:01)
[2024-08-20] MEDS: GABAPENTIN 300 MG CAP PO PRN (16:02)
[2024-08-20 17:34] LABS: Glucose,Whole Blood 244 mg/dL (70-110)
--- NOTE | 2024-08-20 18:09 | P.PCN ---
Date of Procedure: 08/20/24 Preoperative Diagnosis: Pleural effusion, left Postoperative Diagnosis: Pleural effusion, left Procedure(s) Performed: Thoracentesis, left Anesthesia: local Surgeon: Armando Shukla IV fluids (ml): 0 Pathology: other Condition: stable Disposition: floor Operative Findings: A time out was performed and the chest x-ray was reviewed, the appropriate side was confirmed and marked. My hands were washed immediately prior to the procedure. I wore a surgical cap, mask with protective eyewear, sterile gown and sterile gloves throughout the procedure. The patient was prepped and draped in a sterile manner using chlorhexidine scrub after the appropriate level was percussed and confirmed by ultrasound. 1% lidocaine was used to anesthesize the skin, subcutaneous tissue, superior aspect of the rib periosteum and parietal pleura. A finder needle was then introduced over the superior aspect of the rib to locate the pleural fluid; 2colored fluid was aspirated at a depth of approximately 2 cm. A 10-blade scalpel was used to ron the skin at the insertion site. The [id number] needle was then introduced through the skin incision into the pleural space using negative aspiration pressure and the red colometric indicator to confirm appropriate positioning of the needle. The tho racentesis catheter was then threaded without difficulty. 1700 ml of turbid colored fluid was removed without difficulty. The catheter was then removed. No immediate complications were noted during the procedure. A post-procedure chest x-ray is pending at the time of this note. The fluid will be sent for studies. Estimated blood loss is 0cc
[2024-08-20 20:35] LABS: Glucose,Whole Blood 231 mg/dL (70-110)
[2024-08-20 21:00] LABS: Appearance,BF Slightly Hazy (Clear)
--- NOTE | 2024-08-20 21:39 | P.CONS ---
History of Present Illness - Reason for Consult Consult date: 08/20/24 metastatic disease, further work up Requesting physician: Charles Reynolds - Chief Complaint SOB, back/rt flank/rib pain - History of Present Illness Mr. Pugh is a pleasant 73-year-old male we have been asked to see as a transfer from [place]. He came to the hospital with complaints of shortness of breath as well as right flank/rib pain after some significant coughing. This pain does radiate from the back. Patient had a CT showing adrenal masses, pleural effusion, pathological fracture of the ninth rib as well as a right iliac soft tissue lesion. CT of the chest showed a large lingular mass, lymphadenopathy as well as liver cirrhosis. Patient reported that he had no significant changes in his health prior to admission but, on further questioning, he reports a 45 pound weight loss in about 2 months, some early satiety and decreased appetite. He reported that his is handicapped and is a large woman and she fell on him about a year ago when they had some difficulty with transporting. He states that it has been "downhill" ever since. He denies any fevers or sweats, no pain with swallowing but he did note that he was choking on his food a few days prior. No nausea or vomiting, abdominal pain or bloating, acute changes in bowel habits. His father was at 58 for unknown causes, mother at 62 because of colon cancer. Patient has no personal history of colon cancer. Patient states that he was overall a light smoker, quitting more than 30 years ago. He does have a significant history of large colon polyps dating back to hi s 30s. He has had numerous colonoscopies, he thinks he has had at least 30. The pain in his ribs can be significant especially when he coughs or moves. No other acute physical complaints. Review of Systems 14 point review of systems is as stated in HPI Past Medical History Past Medical History: Coronary Artery Disease (CAD), COPD, Diabetes Mellitus Additional Past Medical History / Comment(s): type 2 DM, hiatal hernia, significant for large colon polyps, multiple removed History of Any Multi-Drug Resistant Organisms: None Reported Past Surgical History: Hernia Repair Additional Past Surgical History / Comment(s): loop recorder, hernia x 3,, multiple colon polyps removed Past Psychological History: No Psychological Hx Reported Smoking Status: Former smoker Past Alcohol Use History: Rare Past Drug Use History: None Reported - Past Family History Mother Family Medical History: Cancer (Colon cancer) Additional Family Medical History / Comment(s): Colon cancer Father Family Medical History: COPD, Pneumonia Medications and Allergies Home Medications Medication Instructions Recorded Confirmed Type Acetaminophen-Codeine 300-30mg 1 tab PO Q6H PRN 08/20/24 08/20/24 History [Tylenol w/codeine #3] Albuterol Inhaler [Ventolin Hfa 2 puff INHALATION RT-Q4H PRN 08/20/24 08/20/24 History Inhaler] Apixaban [Eliquis] 5 mg PO BID 08/20/24 08/20/24 History Celecoxib [CeleBREX] 200 mg PO DAILY 08/20/24 08/20/24 History Cyclobenzaprine [Flexeril] 10 mg PO BID PRN 08/20/24 08/20/24 History Fluticasone Nasal [place] [Flonase 1 spray EA NOSTRIL BID PRN 08/20/24 08/20/24 History Nasal Revere] Gabapentin 600 mg PO Q8H PRN 08/20/24 08/20/24 History Ibuprofen [Motrin] 800 mg PO Q6H PRN 08/20/24 08/20/24 History Ipratropium-Albuterol Nebulize 3 ml INHALATION RT-TID 08/20/24 08/20/24 History [Duoneb 0.5 mg-3 mg/3 ml Soln] PARoxetine [Paxil] 20 mg PO DAILY 08/20/24 08/20/24 History Pioglitazone [Actos] 30 mg PO DAILY 08/20/24 08/20/24 History Potassium Chloride ER [K-Dur 20] 20 meq PO DAILY 08/20/24 08/20/24 History Simvastatin [Zocor] 20 mg PO DAILY 08/20/24 08/20/24 History dilTIAZem HCL [Tiazac] 120 mg PO DAILY 08/20/24 08/20/24 History glipiZIDE XL [Glucotrol Xl] 10 mg PO BID 08/20/24 08/20/24 History metFORMIN HCL [Glucophage] 1,000 mg PO BID 08/20/24 08/20/24 History Allergies Allergy/AdvReac Type Severity Reaction Status Date / Time No Known Allergies Allergy Verified 08/20/24 09:56 Physical Exam Vitals: Vital Signs Temp Pulse Pulse Resp BP BP Pulse Ox 08/20/24 19:32 97.6 F 98 16 131/89 93 L 08/20/24 14:32 99 16 137/77 95 08/20/24 14:20 102 H 16 142/79 97 08/20/24 14:12 105 H 16 137/78 96 08/20/24 12:52 97.6 F 100 20 122/69 93 L 08/20/24 08:00 97.7 F 93 20 130/76 99 08/20/24 06:00 102 H 17 135/83 95 08/20/24 02:32 104 H 18 131/65 92 L 08/19/24 22:17 97.7 F 109 H 16 135/77 96 Intake and Output 08/20/24 08/20/24 08/20/24 06:59 14:59 22:59 Output Total 1800 Balance -1800 Output: Other 1800 Other: Voiding Method Toilet # Voids 2 Weight 92.533 kg - Constitutional General appearance: average body habitus, cooperative, no acute distress - EENT Eyes: anicteric sclerae, EOMI ENT: hearing grossly normal, normal oropharynx - Neck Neck: no lymphadenopathy - Respiratory Respiratory: bilateral: CTA, diminished - Cardiovascular Rhythm: regular Heart sounds: normal: S1, S2 Abnormal Heart Sounds: no systolic murmur, no diastolic murmur, no rub, no S3 Gallop, no S4 Gallop, no click, no other leg Peripheral Edema: bilateral: 1+ (Legs are very tight) - Gastrointestinal General gastrointestinal: no absent bowel sounds, no decreased bowel sounds, no distended, no hepatomegaly, no hyperactive bowel sounds, normal bowel sounds, no organomegaly, no rigid, no scaphoid, soft, no splenomegaly, no tenderness, no umbilical hernia, no ventral hernia - Integumentary Integumentary: normal - Neurologic Neurologic: CNII-XII intact - Musculoskeletal Musculoskeletal: generalized weakness, strength equal bilaterally - Psychiatric Psychiatric: A&O x's 3, appropriate affect, intact judgment & insight Results CBC & Chem 7: 08/20/24 06:47 08/20/24 06:47 Labs: Abnormal Lab Results - Last 24 Hours (Table) 08/19/24 08/19/24 08/20/24 Range/Units 22:54 22:54 03:51 RBC 3.66 L (4.40-5.60) 10*6/uL Hgb 8.9 L (13.0-17.0) g/dL Hct 27.6 L (39.6-50.0) % MCV 75.4 L (80.0-97.0) fL MCH 24.3 L (27.0-32.0) pg MCHC (32.0-37.0) g/dL RDW (11.5-14.5) % Plt Count (140-440) 10*3/uL MPV 8.6 L (9.5-12.2) fL Immature Gran # (0.00-0.04) 10*3/uL Lymphocytes # 0.27 L (0.90-5.00) 10*3/uL Eosinophils # 0.00 L (0.04-0.35) 10*3/uL PT (10.0-12.5) sec INR (<1.2) Sodium 130 L (137-145) mmol/L Chloride 91 L (98-107) mmol/L Creatinine 0.65 L (0.66-1.25) mg/dL Glucose 284 H (74-99) mg/dL POC Glucose (mg/dL) 334 H (70-110) mg/dL Iron (65-175) UG/DL TIBC (228-460) UG/DL % Saturation (15.00-50.00) Transferrin (204.0-354.0) mg/dL AST 16 L (17-59) U/L Total Protein 6.2 L (6.3-8.2) g/dL Albumin 3.0 L (3.5-5.0) g/dL Fluid Appearance (Clear) 08/20/24 08/20/24 08/20/24 Range/Units 06:47 06:47 06:47 RBC 4.31 L (4.40-5.60) 10*6/uL Hgb 10.3 L (13.0-17.0) g/dL Hct 33.1 L (39.6-50.0) % MCV 76.8 L (80.0-97.0) fL MCH 23.9 L (27.0-32.0) pg MCHC 31.1 L (32.0-37.0) g/dL RDW 15.2 H (11.5-14.5) % Plt Count 443 H (140-440) 10*3/uL MPV 8.9 L (9.5-12.2) fL Immature Gran # 0.07 H (0.00-0.04) 10*3/uL Lymphocytes # 0.44 L (0.90-5.00) 10*3/uL Eosinophils # 0.00 L (0.04-0.35) 10*3/uL PT 13.0 H (10.0-12.5) sec INR 1.2 H (<1.2) Sodium 132 L (137-145) mmol/L Chloride 93 L (98-107) mmol/L Creatinine (0.66-1.25) mg/dL Glucose 283 H (74-99) mg/dL POC Glucose (mg/dL) (70-110) mg/dL Iron 29 L (65-175) UG/DL TIBC 210 L (228-460) UG/DL % Saturation 13.81 L (15.00-50.00) Transferrin 150.0 L (204.0-354.0) mg/dL AST (17-59) U/L Total Protein (6.3-8.2) g/dL Albumin (3.5-5.0) g/dL Fluid Appearance (Clear) 08/20/24 08/20/24 08/20/24 Range/Units 08:22 12:05 13:00 RBC (4.40-5.60) 10*6/uL Hgb (13.0-17.0) g/dL Hct (39.6-50.0) % MCV (80.0-97.0) fL MCH (27.0-32.0) pg MCHC (32.0-37.0) g/dL RDW (11.5-14.5) % Plt Count (140-440) 10*3/uL MPV (9.5-12.2) fL Immature Gran # (0.00-0.04) 10*3/uL Lymphocytes # (0.90-5.00) 10*3/uL Eosinophils # (0.04-0.35) 10*3/uL PT (10.0-12.5) sec INR (<1.2) Sodium (137-145) mmol/L Chloride (98-107) mmol/L Creatinine (0.66-1.25) mg/dL Glucose (74-99) mg/dL POC Glucose (mg/dL) 266 H 118 H (70-110) mg/dL Iron (65-175) UG/DL TIBC (228-460) UG/DL % Saturation (15.00-50.00) Transferrin (204.0-354.0) mg/dL AST (17-59) U/L Total Protein (6.3-8.2) g/dL Albumin (3.5-5.0) g/dL Fluid Appearance Slightly Hazy A (Clear) 08/20/24 08/20/24 Range/Units 17:32 20:32 RBC (4.40-5.60) 10*6/uL Hgb (13.0-17.0) g/dL Hct (39.6-50.0) % MCV (80.0-97.0) fL MCH (27.0-32.0) pg MCHC (32.0-37.0) g/dL RDW (11.5-14.5) % Plt Count (140-440) 10*3/uL MPV (9.5-12.2) fL Immature Gran # (0.00-0.04) 10*3/uL Lymphocytes # (0.90-5.00) 10*3/uL Eosinophils # (0.04-0.35) 10*3/uL PT (10.0-12.5) sec INR (<1.2) Sodium (137-145) mmol/L Chloride (98-107) mmol/L Creatinine (0.66-1.25) mg/dL Glucose (74-99) mg/dL POC Glucose (mg/dL) 244 H 231 H (70-110) mg/dL Iron (65-175) UG/DL TIBC (228-460) UG/DL % Saturation (15.00-50.00) Transferrin (204.0-354.0) mg/dL AST (17-59) U/L Total Protein (6.3-8.2) g/dL Albumin (3.5-5.0) g/dL Fluid Appearance (Clear) Chest x-ray: report reviewed CT scan - chest: report reviewed Assessment and Plan (1) Pathologic rib fracture Current Visit: Yes Status: Acute Priority: High Code(s): M84.48XA - PATHOLOGICAL FRACTURE, OTHER SITE, INIT ENCNTR FOR FRACTURE SNOMED Code(s): 942044275 Plan: Rib pain. Pathological rib fracture, imaging findings concerning for malignancy and metastatic disease -Patient presented with rib pain. CT reported in documentation (as it was done at an outside facility) as concerning for metastatic disease to both adrenal glands, right adrenal mass measuring up to 5 cm. Bilateral pleural effusions. Pathological fracture of the ninth rib. Destructive osseous lesion involving the right iliac bone with associated soft tissue extension. CT of the chest with contrast performed at this facility reports a heterogenous mass in the lingula measuring 5.2 x 5 x 8.5 cm. 1.8 cm left upper lobe nodule. Moderate left and small right pleural effusion. Enlarged mediastinal and left hilar lymph nodes, possible cardiophrenic lymph node. Cirrhotic liver. Splenomegaly. - Reviewed the concerning findings with the patient. Explained that biopsy is necessary for diagnosis of what the underlying causes. Patient verbalized understanding and is agreeable to the same. - Was contacted by Interventional Radiology nurse. Interventional radiologist is going to perform a core biopsy of the iliac mass. Molecular testing can be performed on the tissue sample. - Pulmonary performed thoracentesis, fluid being sent for cytology. - It was explained to patient that once we know what the diagnosis is that we need to know where all of the disease is. From the imaging reports so far, multiple organs appear to be involved-lungs, adrenal glands, bones. Will collect information regarding what all scans have been performed. Further imaging will be ordered as necessary. Possibly PET scan outpatient, MRI of the brain. Will update the chart once we have that information and order the appropriate staging testing. -Will follow-up with the patient. -In regards to pain control, will add a Lidoderm patch. - Referral/consult to Radiation Oncology once we have diagnosis. They will likely be able to provide palliative radiation for pain control.
[2024-08-20 21:55] LABS: Glucose, Body Fluid 236 mg/dL; Total Protein, Body Fluid 3590 mg/dL
[2024-08-20] MEDS: LIDOCAINE 4% PATCH TOPICAL SCH (21:59)
[2024-08-20 22:28] LABS: Glucose, BF Source Pleural fluid; LDH, Body Fluid Source Pleural fluid; T. Protein, Body Fluid Source Pleural fluid
[2024-08-21 07:40] LABS: Glucose,Whole Blood 148 mg/dL (70-110)
[2024-08-21 08:15] LABS: HCT 33.3 % (39.6-50.0); HGB 9.8 g/dL (13.0-17.0); MCH 23.7 pg (27.0-32.0); MCHC 29.4 g/dL (32.0-37.0); MCV 80.4 FL (80.0-97.0); Mean Platelet Volume 8.9 FL (9.5-12.2); NRBC Per 100 WBC 0 X 10*3/uL (0.00-0.01); Platelet Count 418 X 10*3/uL (140-440); RBC 4.14 X 10*6/uL (4.40-5.60); RDW 15.3 % (11.5-14.5); WBC 7.28 X 10*3/uL (4.50-10.00)
[2024-08-21 08:30] LABS: ALT 7 U/L (10-49); AST 13 U/L (14-35); Albumin/Globulin Ratio 0.97 Ratio (1.60-3.17); Alkaline Phosphatase 93 U/L (41-126); BUN/Creat Ratio 21.29 Ratio (12.00-20.00); Blood Urea Nitrogen 14.9 mg/dL (9.0-27.0); Calcium 8.5 mg/dL (8.7-10.3); Chloride 94 mmol/L (96-109); Globulin 3.1 g/dL (1.6-3.3); Glucose 158 mg/dL (70-110); Magnesium 2.2 mg/dL (1.5-2.4); Potassium 4.5 mmol/L (3.5-5.5); Sodium 134 mmol/L (135-145); Total Bilirubin 0.5 mg/dL (0.3-1.2); Total Protein 6.1 g/dL (6.2-8.2)
--- NOTE | 2024-08-21 11:34 | CA ---
Transthoracic Echo Report Name: Kd Pugh Age: 73 Gender: M : 1950 Exam Date: 08/20/2024 13:07 Exam Location: [facility] Ht (in): 69 Wt (lb): 204 Ordering Physician: Ángel Bowling Attending/Referring Phys: Scooper Becky Estrada RDCS Procedure CPT: Indications: ct showing mod pericardial effusion, please eval, Pericardial effusion (noninflammatory) Cardiac Hx: Technical Quality: Fair Contrast 1: Total Dose (mL): Contrast 2: Total Dose (mL): MEASUREMENTS (Male / Female) Normal Values 2D ECHO LV Diastolic Diameter PLAX 5.3 cm 4.2 - 5.9 / 3.9 - 5.3 cm LV Systolic Diameter PLAX 3.8 cm IVS Diastolic Thickness 1.4 cm 0.6 - 1.0 / 0.6 - 0.9 cm LVPW Diastolic Thickness 1.5 cm 0.6 - 1.0 / 0.6 - 0.9 cm LV Relative Wall Thickness 0.6 RV Internal Dim ED PLAX 2.8 cm LVOT Diameter 2.3 cm Aortic Root Diameter 3.7 cm LA Systolic Diameter LX 5.6 cm 3.0 - 4.0 / 2.7 - 3.8 cm LV Diastolic Volume MOD BP 57.4 cm??? 67 - 155 / 56 - 104 cm??? LV Systolic Volume MOD BP 33.4 cm??? 22 - 58 / 19 - 49 cm??? LV Ejection Fraction MOD BP 41.9 % >= 55 % LV Diastolic Volume MOD 4C 69.5 cm??? LV Systolic Volume MOD 4C 36.6 cm??? LV Ejection Fraction MOD 4C 47.3 % LV Diastolic Length 4C 6.8 cm LV Systolic Length 4C 6.6 cm LV Diastolic Volume MOD 2C 47.4 cm??? LV Systolic Volume MOD 2C 21.3 cm??? LV Ejection Fraction MOD 2C 54.9 % LV Diastolic Length 2C 6.8 cm LV Systolic Length 2C 5.4 cm LA Volume 100.7 cm??? 18 - 58 / 22 - 52 cm??? LA Volume Index 46.9 cm???/m??? 16 - 28 cm???/m??? M-MODE Aortic Root Diameter MM 3.6 cm LA Systolic Diameter MM 5.1 cm LA Ao Ratio MM 1.4 AV Cusp Separation MM 1.4 cm DOPPLER AV Peak Velocity 229.1 cm/s AV Peak Gradient 21.0 mmHg AV Mean Velocity 153.1 cm/s AV Mean Gradient 10.9 mmHg AV Velocity Time Integral 42.4 cm LVOT Peak Velocity 124.9 cm/s LVOT Peak Gradient 6.2 mmHg LVOT Velocity Time Integral 22.6 cm LVOT Stroke Volume 94.3 cm??? LVOT Stroke Volume Index 45.3 ml/m??? AV Area Cont Eq vti 2.2 cm??? AV Area Cont Eq pk 2.3 cm??? MV Area PHT 3.5 cm??? Mitral E Point Velocity 123.9 cm/s Mitral A Point Velocity 1.9 cm/s Mitral E to A Ratio 66.9 MV Deceleration Time 218.2 ms TR Peak Velocity 327.2 cm/s TR Peak Gradient 42.8 mmHg Right Ventricular Systolic Press 52.8 mmHg FINDINGS Left Ventricle Left ventricular ejection fraction is estimated at 45-50 %. Moderately increased septal wall thickness. Moderately decreased left ventricular ejection fraction. Left ventricular cavity size normal. Right Ventricle Mild RV dilatation with mild dysfunction. Moderate pulmonary hypertension. Right Atrium Moderate right atrial dilatation. Left Atrium Severely increased left atrial diameter. Severely increased left atrial volume. Mildly increased left atrial area. Mitral Valve Structurally normal mitral valve. Mild mitral regurgitation. No mitral stenosis. Mitral annular calcification. Aortic Valve Trileaflet aortic valve. Mild aortic stenosis with a peak gradient of 21mmHg and a mean gradient of 11 mmHg. Tricuspid Valve Structurally normal tricuspid valve. Mild tricuspid regurgitation. No tricuspid stenosis. Pulmonic Valve Structurally normal pulmonic valve. Mild pulmonic regurgitation. No pulmonic stenosis. Pericardium Moderate pericardial effusion. No pleural effusion. Respiratory variation of tricuspid flow. Aorta Aorta at upper limits of normal. CONCLUSIONS LVEF 45 to 50% Mild concentric LVH Mild RV dilatation with reduced systolic function. Moderate pulmonary hypertension. RVSP estimated at 53 mmHg Moderate biatrial dilatation Mild mitral regurgitation, mild tricuspid regurgitation Mild aortic stenosis mean gradient of 11 mmHg Moderate pericardial effusion with respiratory variation of tricuspid inflow suggestive of mild tamponade physiology. Dilated IVC with lack of respiratory variation Previewed by: Dr Colton Levine (Electronically Signed) Final Date: 21 August 2024 11:33
[2024-08-21 12:23] VITALS: BMI 30.1
[2024-08-21 12:43] LABS: Glucose,Whole Blood 224 mg/dL (70-110)
--- NOTE | 2024-08-21 16:12 | P.PN ---
Subjective Progress Note Date: 08/21/24 Patient transferred from [facility]. Originally, presented to the outside facility with right-sided rib pain after choking on oatmeal. Additionally, he was having issues with constipation. Workup at the outside facility including CT of the abdomen/pelvis with findings consistent with diffuse metastatic disease to both adrenal glands, with the right adrenal mass measuring up to 5 cm. Destructive osseous lesion involving the right iliac bone with associated soft tissue extension and asymmetric enlargement of the right iliac musculature. Right rib 9 fracture, possibly pathologic. Bilateral pleural effusions left greater than right. Also, a small pericardial effusion was partially visualized. Patient denies history of prior diagnosed malignancies, but states he has previously had attempted biopsies of a spot on his lung. He was recommended to get an outpatient PET scan. Patient never followed up due to insurance reasons. This was over 6 months ago. His primary care provider is Wellington Smiley out of the [facility]. Past medical history significant for COPD, former tobacco smoker. He quit smoking over 30 years ago, still carries a significant smoking history of over 30 pack years. Other medical history including atrial fibrillation anticoagulated on Eliquis, heart failure, hyperlipidemia, diabetes mellitus. Labs done at our facility including a CBC with a WBC count of 6.8, hemoglobin 8.9, platelets 349. CMP: Sodium 130, potassium 4.4, chloride 91, serum bicarb 28, BUN 19, creatinine 0.65, glucose 284. Lactic 1.5. LFTs unremarkable. Patient currently being evaluated in the emergency department. He is resting comfortably on room air. Does not appear in any respiratory dis tress. States the primary reason he came for evaluation at the outside facility was right-sided rib pain as reported above. Currently rated 7 on a 10 point numerical scale. He has also had difficulty ambulating and complaining of right hip pain. States his breathing may be slightly worse than baseline. Especially with exertion. He occasionally uses his rescue inhaler. Reports coughing with white to yellow phlegm production. Denies hemoptysis or chest pain. Denies fever/chills. Denies difficulty swallowing. His appetite has been poor. Unintentional weight loss of approximately 40 pounds in the last month. No nausea or vomiting. His last normal bowel movement was on Monday. Denies any abdominal pain, hematochezia, melena. Does admit history of heart failure. He has lower extremity swelling. Takes Lasix on an outpatient basis. Current vital signs: Temperature 97.7 F, heart rate 109 bpm, blood pressure 135/77 mmHg, nontachypneic, SpO2 recorded 96% on room air. On today's evaluation of 08/21/2024, the patient is stable. Feels slightly improved compared to yesterday and the patient seems to be less short of breath as the patient underwent a thoracentesis yesterday and the procedure was successful with a total of 1.7 L of fluid being removed. The patient also has a iliac bone biopsy, awaiting final pathology. The patient was also seen by medical oncology. Awaiting final pathology results. The white cell count 7.2 with a hemoglobin 9.8 and platelet count of 418. BUN is 14 with a creatinine of 0.7 and the sodium level is 134. LFTs are not elevated. Albumin level is at 3.0. The patient remains on oxygen and is currently on 2 L with a pulse ox of 95%. Home medication resumed. Objective - Vital Signs Vital signs: Vital Signs Temp 97.8 F 08/21/24 07:47 Pulse 88 08/21/24 07:47 Resp 20 08/21/24 07:47 BP 111/69 08/21/24 07:47 Pulse Ox 97 08/21/24 07:47 FiO2 Intake & Output 08/20/24 08/21/24 08/21/24 18:59 06:59 18:59 Intake Total 240 Output Total 1800 Balance -1800 240 Weight 92.533 kg Intake: Oral 240 Output: Other 1800 Other: Voiding Method Toilet Toilet # Voids 2 1 - Exam GENERAL EXAM: Alert, 73-year-old male fairly, comfortable in no apparent distress. HEAD: Normocephalic and atraumatic EYES: Normal reaction of pupils, equal size. NOSE: Clear with pink turbinates. THROAT: No erythema or exudates. NECK: No masses, no JVD. CHEST: No chest wall deformity. LUNGS: Equal air entry with bibasilar dullness. No wheezes, rhonchi, crackles. On room air. No conversational dyspnea or accessory muscle use.. CVS: S1 and S2 normal with no audible murmur, irregular rhythm. No extra heart sounds ABDOMEN: No hepatosplenomegaly, active bowel sounds, no guarding or rigidity. SPINE: No scoliosis or deformity SKIN: No rashes CENTRAL NERVOUS SYSTEM: No focal deficits, tone is normal in all 4 extremities. EXTREMITIES: There is bilateral 1+ pitting edema of the lower extremities. No clubbing or cyanosis. Peripheral pulses are intact. - Labs CBC & Chem 7: 08/21/24 05:25 08/21/24 05:25 Labs: Abnormal Lab Results - Last 24 Hours (Table) 08/20/24 08/20/24 08/20/24 Range/Units 12:05 13:00 17:32 RBC (4.40-5.60) X 10*6/uL Hgb (13.0-17.0) g/dL Hct (39.6-50.0) % MCH (27.0-32.0) pg MCHC (32.0-37.0) g/dL RDW (11.5-14.5) % MPV (9.5-12.2) FL Sodium (135-145) mmol/L Chloride (96-109) mmol/L BUN/Creatinine Ratio (12.00-20.00) Ratio Glucose (70-110) mg/dL POC Glucose (mg/dL) 118 H 244 H (70-110) mg/dL Hemoglobin A1c (<=6.0) % Calcium (8.7-10.3) mg/dL Ferritin (22.0-322.0) ng/mL AST (14-35) U/L ALT (10-49) U/L Total Protein (6.2-8.2) g/dL Albumin (3.8-4.9) g/dL Albumin/Globulin Ratio (1.60-3.17) Ratio Fluid Appearance Slightly Hazy A (Clear) 08/20/24 08/21/24 08/21/24 Range/Units 20:32 05:25 05:25 RBC 4.14 L (4.40-5.60) X 10*6/uL Hgb 9.8 L (13.0-17.0) g/dL Hct 33.3 L (39.6-50.0) % MCH 23.7 L (27.0-32.0) pg MCHC 29.4 L (32.0-37.0) g/dL RDW 15.3 H (11.5-14.5) % MPV 8.9 L (9.5-12.2) FL Sodium (135-145) mmol/L Chloride (96-109) mmol/L BUN/Creatinine Ratio (12.00-20.00) Ratio Glucose (70-110) mg/dL POC Glucose (mg/dL) 231 H (70-110) mg/dL Hemoglobin A1c 7.5 H (<=6.0) % Calcium (8.7-10.3) mg/dL Ferritin (22.0-322.0) ng/mL AST (14-35) U/L ALT (10-49) U/L Total Protein (6.2-8.2) g/dL Albumin (3.8-4.9) g/dL Albumin/Globulin Ratio (1.60-3.17) Ratio Fluid Appearance (Clear) 08/21/24 08/21/24 Range/Units 05:25 07:38 RBC (4.40-5.60) X 10*6/uL Hgb (13.0-17.0) g/dL Hct (39.6-50.0) % MCH (27.0-32.0) pg MCHC (32.0-37.0) g/dL RDW (11.5-14.5) % MPV (9.5-12.2) FL Sodium 134 L (135-145) mmol/L Chloride 94 L (96-109) mmol/L BUN/Creatinine Ratio 21.29 H (12.00-20.00) Ratio Glucose 158 H (70-110) mg/dL POC Glucose (mg/dL) 148 H (70-110) mg/dL Hemoglobin A1c (<=6.0) % Calcium 8.5 L (8.7-10.3) mg/dL Ferritin 725.0 H (22.0-322.0) ng/mL AST 13 L (14-35) U/L ALT 7 L (10-49) U/L Total Protein 6.1 L (6.2-8.2) g/dL Albumin 3.0 L (3.8-4.9) g/dL Albumin/Globulin Ratio 0.97 L (1.60-3.17) Ratio Fluid Appearance (Clear) Microbiology - Last 24 Hours (Table) 08/20/24 13:00 Gram Stain - Preliminary Pleural Fluid Body Fluid Culture - Preliminary Assessment and Plan Assessment: 5.2 x 5 x 8.5 cm heterogenous mass in the lingula concerning for neoplasm, possible primary; CT of the chest showing a 5.2 x 5 x 8.5 cm heterogenous mass in the lingula, concerning for neoplasm. Additional 1.8 cm nodule in the left upper lobe. Enlarged mediastinal and left hilar lymph nodes and possible cardiophrenic lymph node enlargement concerning for metastasis. Bilateral pleural effusion left more than right status post thoracentesis and removal of 1.7 L of pleural fluid. Awaiting pleural fluid cytology. Multiple additional findings concerning for diffuse metastatic disease; CT of the abdomen/pelvis done at outside facility remarkable for bilateral adrenal lesions, osseous involvement of the right iliac bone with associated soft tissue extension and asymmetric enlargement of the right iliac musculature, right rib 9 fracture, possibly pathologic. Bilateral pleural effusions left greater than right. Small pericardial effusion was also partially visualized. Right iliac bone metastatic lesion post IR guided biopsy, awaiting final pathology. History of congestion heart failure Acute dyspnea, secondary to above, improved postthoracentesis Unintentional weight loss, 40 pounds over approximately 1 month timeframe Former tobacco smoker Chronic obstructive pulmonary disease History of heart failure, with unknown ejection Atrial fibrillation with controlled ventricular response, normally anticoagulated on Eliquis Diabetes mellitus type 2 Microcytic anemia Hyponatremia, appears hypervolemic on clinical examination, however, consider SIADH given concerning findings for malignancy Plan: Thoracentesis was done with a total of 1.7 L of fluid removed from the left lung, awaiting final cytology Right iliac bone biopsy was done by interventional radiology, awaiting final pathology May restart anticoagulation with Eliquis Shortness of breath is improved postthoracentesis and this was done without any complications Currently on 2 L of oxygen by nasal cannula Medical oncology also consulted He is receiving morphine for skeletal chest wall pain. Will continue to follow.
[2024-08-21 17:13] LABS: Glucose,Whole Blood 207 mg/dL (70-110)
--- NOTE | 2024-08-21 17:17 | P.PN ---
Subjective Progress Note Date: 08/21/24 Hospital course: Patient is a very pleasant 73-year-old male with a past medical history of CAD, paroxysmal atrial fibrillation on anticoagulation with Eliquis, CHF, hypertension, hyperlipidemia, Beatties mellitus, peripheral neuropathy, and anxiety with depression. He presented to the emergency department on 08/19/2024 as a transfer from [facility] where he initially presented with coughing/choking episode and right side abdominal/hip pain and underwent workup including CT abdomen and pelvis which revealed findings consistent with metastatic malignancy. Patient reported that this overall story began approximately 1 year ago when he began having some right hip discomfort. Last fall, he noted feeling as though he had pneumonia often. He underwent a workup at [facility] which he states he underwent a CT scan of the chest as well as a PET scan, and an effort was made to biopsy a spot located in his lung. He states that at that time they were unable to get a biopsy sample. There was no additional follow-up after that until 08/19/2024. The patient notes that he choked on oatmeal, and as a result of this coughing fit had terrible right sided pain which he localizes to his right ribs. It was due to this for the patient presented to the emergency department and underwent this CT scan as mentioned above. Additionally, he endorses having had poor appetite and a 4050 lbs weight loss over the past 1-2 months. Upon arrival to our facility, patient underwent evaluation in the emergency department. Vital signs on arrival show blood pressure 135/77, heart rate 109, respiratory rate 16, temp 97.7 F, and SpO2 of 96% on room air. EKG completed showing sinus tachycardia at 103 bpm. Labs completed and reviewed. CBC showing microcytic anemia with hemoglobin of 8.9. BMP showing hypochloremic hyponatremia with sodium of 130 and chloride of 91. Blood glucose 284. Lactic acid 1.5. BMP 2360. CT chest completed showing heterogeneous mass in the lingula measuring 5.2 x 5.0 x 8.5 cm concerning for neoplasm with additional 1.8 cm nodule in the left upper lobe, enlarged medi astinal and left hilar lymph nodes and possible cardiophrenic lymph node concerning for danielle metastasis, moderate pericardial effusion, nonspecific hypodense lesion partially seen in the right kidney, and moderate left and small right pleural effusions with cirrhotic liver and splenomegaly. Patient admitted under services with consultation to oncology and pulmonology. Pulmonology performed thoracentesis on 08/20/2024 with removal of a documented 1700 cc of pleural fluid. Patient also underwent CT-guided percutaneous right iliac bone mass biopsy by interventional radiology on 08/20/2024. Pathology specimens pending. Physical exam: Patient seen and evaluated at bedside this morning. He was sitting up in chair visiting with family at bedside. Patient reports having a much better night la night and states he is amazed with how well he is able to move and breathe this morning. Vital signs reviewed and stable. General: Nontoxic, no distress and appears stated age. Derm: Skin warm and dry, normal coloration for ethnicity. Head: Atraumatic, normocephalic and symmetric. Eyes: EOM's intact, no lid lag, and anicteric sclera Mouth: no lip lesions, mucus membranes moist Cardiovascular: regular rate and rhythm with normal S1S2, no murmur, positive posterior tibial pulses bilaterally, and cap refill < 2 seconds. Lungs: Respirations even, regular, and unlabored on room air. Lungs diminished at bases, no wheezes, rhonchi, or rales noted. Abdominal: soft distended bowel sounds x 4, nontender to palpation, no guarding, no appreciable organomegaly Ext: ROM intact. No gross muscle atrophy, Bilateral lower extremity edema, no contractures Neuro: Speech clear, face symmetrical and CN II-XII grossly intact with no noted focal neuro deficits Psych: Alert and oriented to person, place, time, and situation. Appropriate and pleasant affect. Assessment and Plan of Care: Diffuse metastatic disease, unknown primary source Bilateral pleural effusions Moderate pericardial effusion Hypochloremic hyponatremia -Pulmonology following and performed thoracentesis on 08/20/2024 with removal of 1700 cc of pleural fluid -Interventional radiology was consulted and performed CT-guided percutaneous right iliac bone mass biopsy on 08/20/2024. Pathology specimens pending. 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 every 6 hours as needed for mild pain/fever, Cosby 5-325 mg tablets every 4 hours as needed for moderate pain, and morphine 4 mg IVP every 4 hours as needed for severe. -Telemetry monitoring -DVT prophylaxis with RUBÉN claire and SCDs -Echocardiogram completed showing an EF of 45 to 50% with moderate pulmonary hypertension, mild right ventricular dilation, moderate biatrial dilation, mild tricuspid and mitral regurgitation, and mild aortic stenosis with moderate pericardial effusion with respiratory variation of tricuspid inflow suggestive of mild tamponade physiology. -Cardiology consulted Microcytic anemia, iron deficiency -Iron profile showing iron 29, TIBC 210, iron percentage saturation 13.81, and transferrin 150. -Patient started on IV Ferrlecit 125 mg daily Type II [id number] diabetes mellitus with hyperglycemia Diabetic peripheral neuropathy -Hold metformin, glipizide and pioglitazone. Continue glycemic protocol with Humalog sliding scale. Hemoglobin A1c 8.5% Paroxysmal atrial fibrillation -Eliquis held at this time pending possible thoracentesis. Patient to continue diltiazem 120 mg daily. Congestive heart failure, unknown type Hypertension Hyperlipidemia -Echocardiogram to be completed secondary to CT findings showing concerns of moderate-sized pericardial effusion. -Continue cardiac medication regimen with diltiazem 120 mg daily and simvastatin 20 mg daily. Data and imaging reviewed: Morning labs reviewed. CBC showing stable anemia with hemoglobin of 9.8. BMP showing sodium 134, chloride 94 and blood glucose of 158. Hemoglobin A1c was elevated at 8.5%. Vital signs reviewed. Blood pressure 111/69, heart rate 88, respiratory rate 20, temp 97.8 F, and SpO2 of 97% on room air. Echocardiogram completed showing an EF of 45 to 50% with moderate pulmonary hypertension, mild right ventricular dilation, moderate biatrial dilation, mild tricuspid and mitral regurgitation, and mild aortic stenosis with moderate pericardial effusion with respiratory variation of tricuspid inflow suggestive of mild tamponade physiology. CODE STATUS: Full code DVT prophylaxis: RUBÉN [place] and SCDs, Eliquis held pending evaluation by cardiology for moderate-sized pericardial effusion with reports of respiratory variation of tricuspid inflow suggestive of mild tamponade physiology Anticipated discharge date: Pending clinical course Anticipated discharge place: Pending clinical course Patient was seen independently by Nurse Pracitioner. This document was prepared using [employer] dictation software. Please allow for errors in medication aid, while rare they do occur. Ángel Bowling NP rendered care for this patient independently, reviewed the findings and plan as documented in the note above and agree with plan. I did not physically speak with or examine the patient on this date. Objective - Vital Signs Vital signs: Vital Signs Temp 97.8 F 08/21/24 07:47 Pulse 88 08/21/24 07:47 Resp 20 08/21/24 07:47 BP 111/69 08/21/24 07:47 Pulse Ox 97 08/21/24 07:47 FiO2 Intake & Output 08/20/24 08/21/24 08/21/24 18:59 06:59 18:59 Intake Total 240 Output Total 1800 Balance -1800 240 Weight 92.533 kg Intake: Oral 240 Output: Other 1800 Other: Voiding Method Toilet Toilet # Voids 2 1 - Labs CBC & Chem 7: 08/21/24 05:25 08/21/24 05:25 Labs: Abnormal Lab Results - Last 24 Hours (Table) 08/20/24 08/20/24 08/20/24 Range/Units 06:47 12:05 13:00 RBC (4.40-5.60) X 10*6/uL Hgb (13.0-17.0) g/dL Hct (39.6-50.0) % MCH (27.0-32.0) pg MCHC (32.0-37.0) g/dL RDW (11.5-14.5) % MPV (9.5-12.2) FL Sodium (135-145) mmol/L Chloride (96-109) mmol/L BUN/Creatinine Ratio (12.00-20.00) Ratio Glucose (70-110) mg/dL POC Glucose (mg/dL) 118 H (70-110) mg/dL Hemoglobin A1c (<=6.0) % Calcium (8.7-10.3) mg/dL Iron 29 L (65-175) UG/DL TIBC 210 L (228-460) UG/DL % Saturation 13.81 L (15.00-50.00) Transferrin 150.0 L (204.0-354.0) mg/dL Ferritin (22.0-322.0) ng/mL AST (14-35) U/L ALT (10-49) U/L Total Protein (6.2-8.2) g/dL Albumin (3.8-4.9) g/dL Albumin/Globulin Ratio (1.60-3.17) Ratio Fluid Appearance Slightly Hazy A (Clear) 08/20/24 08/20/24 08/21/24 Range/Units 17:32 20:32 05:25 RBC (4.40-5.60) X 10*6/uL Hgb (13.0-17.0) g/dL Hct (39.6-50.0) % MCH (27.0-32.0) pg MCHC (32.0-37.0) g/dL RDW (11.5-14.5) % MPV (9.5-12.2) FL Sodium (135-145) mmol/L Chloride (96-109) mmol/L BUN/Creatinine Ratio (12.00-20.00) Ratio Glucose (70-110) mg/dL POC Glucose (mg/dL) 244 H 231 H (70-110) mg/dL Hemoglobin A1c 7.5 H (<=6.0) % Calcium (8.7-10.3) mg/dL Iron (65-175) UG/DL TIBC (228-460) UG/DL % Saturation (15.00-50.00) Transferrin (204.0-354.0) mg/dL Ferritin (22.0-322.0) ng/mL AST (14-35) U/L ALT (10-49) U/L Total Protein (6.2-8.2) g/dL Albumin (3.8-4.9) g/dL Albumin/Globulin Ratio (1.60-3.17) Ratio Fluid Appearance (Clear) 08/21/24 08/21/24 08/21/24 Range/Units 05:25 05:25 07:38 RBC 4.14 L (4.40-5.60) X 10*6/uL Hgb 9.8 L (13.0-17.0) g/dL Hct 33.3 L (39.6-50.0) % MCH 23.7 L (27.0-32.0) pg MCHC 29.4 L (32.0-37.0) g/dL RDW 15.3 H (11.5-14.5) % MPV 8.9 L (9.5-12.2) FL Sodium 134 L (135-145) mmol/L Chloride 94 L (96-109) mmol/L BUN/Creatinine Ratio 21.29 H (12.00-20.00) Ratio Glucose 158 H (70-110) mg/dL POC Glucose (mg/dL) 148 H (70-110) mg/dL Hemoglobin A1c (<=6.0) % Calcium 8.5 L (8.7-10.3) mg/dL Iron (65-175) UG/DL TIBC (228-460) UG/DL % Saturation (15.00-50.00) Transferrin (204.0-354.0) mg/dL Ferritin 725.0 H (22.0-322.0) ng/mL AST 13 L (14-35) U/L ALT 7 L (10-49) U/L Total Protein 6.1 L (6.2-8.2) g/dL Albumin 3.0 L (3.8-4.9) g/dL Albumin/Globulin Ratio 0.97 L (1.60-3.17) Ratio Fluid Appearance (Clear) Microbiology - Last 24 Hours (Table) 08/20/24 13:00 Gram Stain - Preliminary Pleural Fluid Body Fluid Culture - Preliminary
[2024-08-21 20:47] LABS: Glucose,Whole Blood 223 mg/dL (70-110)
--- NOTE | 2024-08-21 22:13 | P.PN ---
Subjective Progress Note Date: 08/21/24 Principal diagnosis: Intractable rib pain, bone lesions, pleural effusion, adrenal masses In follow-up today patient reports little better pain control, he is trying to get moving the little more, he is tolerating oral intake, denies any fevers, nausea or vomiting, chest pain. No acute changes in bowel or bladder habits. Objective - Vital Signs Vital signs: Vital Signs Temp 97.9 F 08/21/24 13:11 Pulse 111 H 08/21/24 13:11 Resp 20 08/21/24 13:11 BP 106/55 08/21/24 13:11 Pulse Ox 95 08/21/24 13:11 FiO2 Intake & Output 08/20/24 08/21/24 08/21/24 18:59 06:59 18:59 Intake Total 240 Output Total 1800 Balance -1800 240 Weight 92.533 kg 92.533 kg Intake: Oral 240 Output: Other 1800 Other: Voiding Method Toilet Toilet # Voids 2 1 - Constitutional General appearance: Present: average body habitus, cooperative, no acute distress - EENT Eyes: Present: anicteric sclerae, EOMI ENT: Present: hearing grossly normal - Respiratory Details: resp mildly labored with minimal activity - Cardiovascular Details: skin warm, well perfused - Peripheral edema leg Peripheral Edema: bilateral: 1+ - Integumentary Integumentary: Present: normal - Neurologic Neurologic: Present: CNII-XII intact - Musculoskeletal Musculoskeletal: Present: generalized weakness - Psychiatric Psychiatric: Present: A&O x's 3, appropriate affect, intact judgment & insight - Labs CBC & Chem 7: 08/21/24 05:25 08/21/24 05:25 Labs: Abnormal Lab Results - Last 24 Hours (Table) 08/20/24 08/20/24 08/20/24 Range/Units 13:00 17:32 20:32 RBC (4.40-5.60) X 10*6/uL Hgb (13.0-17.0) g/dL Hct (39.6-50.0) % MCH (27.0-32.0) pg MCHC (32.0-37.0) g/dL RDW (11.5-14.5) % MPV (9.5-12.2) FL Sodium (135-145) mmol/L Chloride (96-109) mmol/L BUN/Creatinine Ratio (12.00-20.00) Ratio Glucose (70-110) mg/dL POC Glucose (mg/dL) 244 H 231 H (70-110) mg/dL Hemoglobin A1c (<=6.0) % Calcium (8.7-10.3) mg/dL Ferritin (22.0-322.0) ng/mL AST (14-35) U/L ALT (10-49) U/L Total Protein (6.2-8.2) g/dL Albumin (3.8-4.9) g/dL Albumin/Globulin Ratio (1.60-3.17) Ratio Fluid Appearance Slightly Hazy A (Clear) 08/21/24 08/21/24 08/21/24 Range/Units 05:25 05:25 05:25 RBC 4.14 L (4.40-5.60) X 10*6/uL Hgb 9.8 L (13.0-17.0) g/dL Hct 33.3 L (39.6-50.0) % MCH 23.7 L (27.0-32.0) pg MCHC 29.4 L (32.0-37.0) g/dL RDW 15.3 H (11.5-14.5) % MPV 8.9 L (9.5-12.2) FL Sodium 134 L (135-145) mmol/L Chloride 94 L (96-109) mmol/L BUN/Creatinine Ratio 21.29 H (12.00-20.00) Ratio Glucose 158 H (70-110) mg/dL POC Glucose (mg/dL) (70-110) mg/dL Hemoglobin A1c 7.5 H (<=6.0) % Calcium 8.5 L (8.7-10.3) mg/dL Ferritin 725.0 H (22.0-322.0) ng/mL AST 13 L (14-35) U/L ALT 7 L (10-49) U/L Total Protein 6.1 L (6.2-8.2) g/dL Albumin 3.0 L (3.8-4.9) g/dL Albumin/Globulin Ratio 0.97 L (1.60-3.17) Ratio Fluid Appearance (Clear) 06/07/1208/21/24 08/21/24 Range/Units 07:38 12:41 17:11 RBC (4.40-5.60) X 10*6/uL Hgb (13.0-17.0) g/dL Hct (39.6-50.0) % MCH (27.0-32.0) pg MCHC (32.0-37.0) g/dL RDW (11.5-14.5) % MPV (9.5-12.2) FL Sodium (135-145) mmol/L Chloride (96-109) mmol/L BUN/Creatinine Ratio (12.00-20.00) Ratio Glucose (70-110) mg/dL POC Glucose (mg/dL) 148 H 224 H 207 H (70-110) mg/dL Hemoglobin A1c (<=6.0) % Calcium (8.7-10.3) mg/dL Ferritin (22.0-322.0) ng/mL AST (14-35) U/L ALT (10-49) U/L Total Protein (6.2-8.2) g/dL Albumin (3.8-4.9) g/dL Albumin/Globulin Ratio (1.60-3.17) Ratio Fluid Appearance (Clear) Microbiology - Last 24 Hours (Table) 08/20/24 13:00 Gram Stain - Preliminary Pleural Fluid Body Fluid Culture - Preliminary Assessment and Plan (1) Pathologic rib fracture Current Visit: Yes Status: Acute Priority: High Code(s): M84.48XA - PATHOLOGICAL FRACTURE, OTHER SITE, INIT ENCNTR FOR FRACTURE SNOMED Code(s): 363346427 Plan: Rib pain. Pathological rib fracture, imaging findings concerning for malignancy and metastatic disease -Patient presented with rib pain. CT reported in documentation (as it was done at an outside facility) as concerning for metastatic disease to both adrenal glands, right adrenal mass measuring up to 5 cm. Bilateral pleural effusions. Pathological fracture of the ninth rib. Destructive osseous lesion involving the right iliac bone with associated soft tissue extension. CT of the chest with contrast performed at this facility reports a heterogenous mass in the lingula measuring 5.2 x 5 x 8.5 cm. 1.8 cm left upper lobe nodule. Moderate left and small right pleural effusion. Enlarged mediastinal and left hilar lymph nodes, possible cardiophrenic lymph node. Cirrhotic liver. Splenomegaly. - Reviewed the concerning findings with the patient previously. He is status post core biopsy of the iliac mass as well as thoracentesis. Pathology/cytology pending. -MRI of the brain has been ordered to complete staging. - Follow-up with Medical Oncology once all of the information has been obtained, radiation has been completed, and molecular testing has been performed, for a final treatment plan Malignancy related pain - Patient is currently on Chrisman, Neurontin, Lidoderm patch for pain, only used a few doses of IV morphine. - Medications added for the prevention of narcotic induced constipation - Referral/consult to Radiation Oncology once we have diagnosis. They will likely be able to provide palliative radiation for pain control.
[2024-08-22] MEDS: SENNOSIDES-DOCUSATE SODIUM 1 EACH TAB PO SCH (00:13)
[2024-08-22 07:21] LABS: Glucose,Whole Blood 176 mg/dL (70-110)
[2024-08-22 08:59] LABS: HCT 31.3 % (39.6-50.0); HGB 9.4 g/dL (13.0-17.0); MCH 23.7 pg (27.0-32.0); MCV 78.8 FL (80.0-97.0); Mean Platelet Volume 8.9 FL (9.5-12.2); NRBC Per 100 WBC 0 X 10*3/uL (0.00-0.01); Platelet Count 375 X 10*3/uL (140-440); RBC 3.97 X 10*6/uL (4.40-5.60); RDW 15.3 % (11.5-14.5); WBC 6.79 X 10*3/uL (4.50-10.00)
[2024-08-22 09:01] LABS: ALT 6 U/L (10-49); AST 12 U/L (14-35); Albumin 2.9 g/dL (3.8-4.9); Alkaline Phosphatase 97 U/L (41-126); Blood Urea Nitrogen 12.6 mg/dL (9.0-27.0); Calcium 8.4 mg/dL (8.7-10.3); Chloride 93 mmol/L (96-109); Globulin 2.9 g/dL (1.6-3.3); Glucose 164 mg/dL (70-110); Magnesium 2.2 mg/dL (1.5-2.4); Potassium 3.7 mmol/L (3.5-5.5); Sodium 133 mmol/L (135-145); Total Bilirubin 0.6 mg/dL (0.3-1.2); Total Protein 5.8 g/dL (6.2-8.2)
[2024-08-22] MEDS: FUROSEMIDE 20 MG TAB PO SCH (11:05)
[2024-08-22] MEDS: METOPROLOL TARTRATE 50 MG TAB PO SCH (11:05)
[2024-08-22] MEDS: DAPAGLIFLOZIN PROPANEDIOL 10 MG TABLET PO SCH (11:05)
[2024-08-22] MEDS: SPIRONOLACTONE 25 MG TAB PO SCH (11:05)
--- NOTE | 2024-08-22 11:26 | P.CRDCN ---
History of Present Illness History of present illness: HISTORY OF PRESENT ILLNESS: This is a 73-year-old male with a past medical history significant for paroxysmal atrial fibrillation, diabetes, and hyperlipidemia. Patient does not follow with a scallop shucker. We have been asked to see the patient in consultation for moderate pericardial effusion. Patient examined at the bedside. Patient initially presented to the hospital with right sided rib pain. He also reports choking on some oatmeal and having a cough. Patient underwent CT which was concerning for malignancy. He underwent thoracentesis and cytology is currently pending. He also underwent CT-guided percutaneous right iliac bone mass biopsy. Pathology is currently pending. At the time of examination, patient currently denies chest pain or pressure. He denies shortness of breath. He does report having some lower extremity edema. Denies having any palpitations. DIAGNOSTICS: - EKG reveals atrial fibrillation with nonspecific ST-T wave changes. - Chest xray 08/20/2024 no pneumothorax after left-sided thoracentesis - Laboratory data: WBC 6.79. Hemoglobin 9.4. Platelet count 375. Sodium 133. Potassium 3.7. BUN 12.6. Creatinine 0.7. proBNP 2360. - Current home cardiac medications include Cardizem 120 mg daily, simvastatin 20 mg daily, Eliquis 5 mg twice a day. - Echocardiogram completed on 08/20/2024 revealing ejection fraction 45 to 50%, moderate pulmonary hypertension, mild MR, mild aortic stenosis with peak gradient 21 mmHg mean gradient 11 mmHg, mild TR, and moderate pericardial effusion with respiratory variation of tricuspid inflow suggestive of mild tamponade physiology. - Cardiac catheterization history: Unknown REVIEW OF SYSTEMS: At the time of my exam: CONSTITUTIONAL: Denies fever or chills. HEENT: Denies blurred vision, vision changes, or eye pain. Denies hemoptysis CARDIOVASCULAR: Denies chest pain. Denies orthopnea. Denies PND. Denies palpitations RESPIRATORY: Denies shortness of breath. GASTROINTESTINAL: Denies abdominal pain. Denies nausea or vomiting. HEMATOLOGIC: Denies bleeding disorders. GENITOURINARY: Denies any blood in urine. SKIN: Denies pruitis. Denies rash. PHYSICAL EXAM: VITAL SIGNS: Reviewed. GENERAL: Well-developed in no acute distress. HEENT: Head is normocephalic. Pupils are equal, round. Sclerae anicteric. Mucous membranes of the mouth are moist. Neck supple. Mild JVD LUNGS: Respirations even and unlabored. Lungs essentially clear to auscultation bilaterally. HEART: Irregular rate and rhythm. S1 and S2 heard. ABDOMEN: Soft. Nondistended. Nontender. EXTREMITIES: Normal range of motion. No clubbing or cyanosis. Peripheral pulses intact. 1+ bilateral pitting lower extremity edema NEUROLOGIC: Awake and alert. Oriented x 3. ASSESSMENT: Diffuse metastatic disease, unknown primary source, status post CT-guided percutaneous right iliac bone mass biopsy, pathology pending Bilateral pleural effusion status post thoracentesis, cytology pending, exudative fluid Moderate pericardial effusion Mild cardiomyopathy, 45%, ischemic versus nonischemic Mild acute heart failure with mildly reduced EF 45% Paroxysmal atrial fibrillation, on Eliquis outpatient Moderate pulmonary hypertension Hyperlipidemia Diabetes Microcytic anemia Hyponatremia, improving PLAN: Discontinue Cardizem Add metoprolol tartrate 50 mg twice daily Add Farxiga 10 mg daily Add Aldactone 12.5 mg daily Add Lasix 20 mg daily Okay to resume Eliquis per primary medicine No plans for pericardial drainage at this time Further recommendations pending patient course Nurse practitioner note has been reviewed by physician. Signing provider agrees with the documented findings, assessment, and plan of care documented by [employer] as a scribe. Past Medical History Past Medical History: Coronary Artery Disease (CAD), COPD, Diabetes Mellitus Additional Past Medical History / Comment(s): type 2 DM, hiatal hernia, significant for large colon polyps, multiple removed History of Any Multi-Drug Resistant Organisms: None Reported Past Surgical History: Hernia Repair Additional Past Surgical History / Comment(s): loop recorder, hernia x 3,, multiple colon polyps removed Past Psychological History: No Psychological Hx Reported Smoking Status: Former smoker Past Alcohol Use History: Rare Past Drug Use History: None Reported - Past Family History Mother Family Medical History: Cancer (Colon cancer) Additional Family Medical History / Comment(s): Colon cancer Father Family Medical History: COPD, Pneumonia Medications and Allergies Home Medications Medication Instructions Recorded Confirmed Type Acetaminophen-Codeine 300-30mg 1 tab PO Q6H PRN 08/20/24 08/20/24 History [Tylenol w/codeine #3] Albuterol Inhaler [Ventolin Hfa 2 puff INHALATION RT-Q4H PRN 08/20/24 08/20/24 History Inhaler] Apixaban [Eliquis] 5 mg PO BID 08/20/24 08/20/24 History Celecoxib [CeleBREX] 200 mg PO DAILY 08/20/24 08/20/24 History Cyclobenzaprine [Flexeril] 10 mg PO BID PRN 08/20/24 08/20/24 History Fluticasone Nasal [place] [Flonase 1 spray EA NOSTRIL BID PRN 08/20/24 08/20/24 History Nasal [place]] Gabapentin 600 mg PO Q8H PRN 08/20/24 08/20/24 History Ibuprofen [Motrin] 800 mg PO Q6H PRN 08/20/24 08/20/24 History Ipratropium-Albuterol Nebulize 3 ml INHALATION RT-TID 08/20/24 08/20/24 History [Duoneb 0.5 mg-3 mg/3 ml Soln] PARoxetine [Paxil] 20 mg PO DAILY 08/20/24 08/20/24 History Pioglitazone [Actos] 30 mg PO DAILY 08/20/24 08/20/24 History Potassium Chloride ER [K-Dur 20] 20 meq PO DAILY 08/20/24 08/20/24 History Simvastatin [Zocor] 20 mg PO DAILY 08/20/24 08/20/24 History dilTIAZem HCL [Tiazac] 120 mg PO DAILY 08/20/24 08/20/24 History glipiZIDE XL [Glucotrol Xl] 10 mg PO BID 08/20/24 08/20/24 History metFORMIN HCL [Glucophage] 1,000 mg PO BID 08/20/24 08/20/24 History Allergies Allergy/AdvReac Type Severity Reaction Status Date / Time No Known Allergies Allergy Verified 08/20/24 09:56 Physical Exam Vitals: Vital Signs Temp Pulse Resp BP BP Pulse Ox 08/22/24 07:16 97.7 F 90 20 118/64 97 08/22/24 00:35 97.7 F 98 14 121/76 95 08/21/24 18:29 98.7 F 104 H 20 103/64 92 L 08/21/24 13:11 97.9 F 111 H 20 106/55 95 Intake and Output 08/21/24 08/22/24 08/22/24 22:59 06:59 14:59 Intake Total 100 Balance 100 Intake: Intake, IV Titration 100 Amount Sodium Ferric Gluconat- 100 Sucrose 125 mg In Sodium Chloride 0.9% 100 ml @ 100 mls/hr IVPB DAILY [facility] Rx#:[id number] Other: Voiding Method Toilet # Voids 1 3 Results 08/22/24 04:58 08/22/24 04:58 Cardiac Enzymes 08/22/24 Range/Units 04:58 AST 12 L (14-35) U/L CBC 08/22/24 Range/Units 04:58 WBC 6.79 (4.50-10.00) X 10*3/uL RBC 3.97 L (4.40-5.60) X 10*6/uL Hgb 9.4 L (13.0-17.0) g/dL Hct 31.3 L (39.6-50.0) % Plt Count 375 (140-440) X 10*3/uL Comprehensive Metabolic Panel 08/22/24 Range/Units 04:58 Sodium 133 L (135-145) mmol/L Potassium 3.7 (3.5-5.5) mmol/L Chloride 93 L (96-109) mmol/L Carbon Dioxide 29.0 (21.6-31.8) mmol/L BUN 12.6 (9.0-27.0) mg/dL Creatinine 0.7 (0.6-1.5) mg/dL Glucose 164 H (70-110) mg/dL Calcium 8.4 L (8.7-10.3) mg/dL AST 12 L (14-35) U/L ALT 6 L (10-49) U/L Alkaline Phosphatase 97 (41-126) U/L Total Protein 5.8 L (6.2-8.2) g/dL Albumin 2.9 L (3.8-4.9) g/dL Current Medications Generic Name Dose Route Start Last Admin Trade Name Freq PRN Reason Stop Dose Admin Acetaminophen 650 mg 08/19/24 23:50 Acetaminophen Tab 325 Mg Tab PO Q6HR PRN Mild Pain or Fever > 100.5 Hydrocodone Bitart/Acetaminophen 1 each 08/19/24 23:50 08/22/24 08:29 Hydrocodone/Apap 5-325mg 1 Each Tab PO 1 each Q4HR PRN Administration Moderate Pain (Scale 4 to 6) Atorvastatin Calcium 10 mg 08/20/24 11:00 08/22/24 08:30 Atorvastatin 10 Mg Tab PO 10 mg DAILY [facility] Administration Cyclobenzaprine HCl 10 mg 08/20/24 10:31 Cyclobenzaprine 10 Mg Tab PO BID PRN Muscle Spasm Dapagliflozin 10 mg 08/22/24 10:30 08/22/24 11:05 Dapagliflozin Propanediol 10 Mg Tablet PO 10 mg DAILY [facility] Administration Dextrose/Water 25 ml 08/20/24 02:36 Dextrose 50% Syringe 50 Ml IVP PER PROTOCOL PRN Hypoglycemia Protocol Dextrose/Water 50 ml 08/20/24 02:36 Dextrose 50% Syringe 50 Ml IVP PER PROTOCOL PRN Hypoglycemia Protocol Fluticasone Propionate 1 spray 08/20/24 10:31 Fluticasone Nasal 50mcg/[place] 16gm Btl EA NOSTRIL BID PRN Allergy Symptoms Furosemide 20 mg 08/22/24 10:30 08/22/24 11:05 Furosemide 20 Mg Tab PO 20 mg DAILY [facility] Administration Gabapentin 600 mg 08/20/24 10:31 08/22/24 08:29 Gabapentin 300 Mg Cap PO 600 mg Q8H PRN Administration Neuropathy Ferric Sodium Gluconate 125 mg 110 mls @ 100 mls/hr 08/20/24 15:30 08/22/24 08:30 / Sodium Chloride IVPB 100 mls/hr DAILY [facility] Administration Insulin Human Lispro 0 unit 08/20/24 07:30 08/22/24 08:29 Insulin Lispro (Humalog) 100 Unit/Ml 10 Ml Vl SQ 2 unit ACHS [facility] Administration Protocol Lidocaine 1 patch 08/20/24 21:45 08/21/24 22:22 Lidocaine 4% Patch TOPICAL 1 patch HS PREMA Administration Protocol Metoprolol Tartrate 50 mg 08/22/24 10:30 08/22/24 11:05 Metoprolol Tartrate 50 Mg Tab PO 50 mg BID [facility] Administration Morphine Sulfate 4 mg 08/19/24 23:50 08/21/24 18:53 Morphine Sulfate 4 Mg/Ml Syringe IV 4 mg Q4HR PRN Administration Severe Pain (Scale 7 to 10) Naloxone HCl 0.2 mg 08/19/24 23:50 Naloxone 0.4 Mg/Ml 1 Ml Vial IV Q2M PRN Opioid Reversal Paroxetine HCl 20 mg 08/20/24 11:00 08/22/24 08:30 Paroxetine 20 Mg Tab PO 20 mg DAILY [facility] Administration Senna/Docusate Sodium 1 each 08/21/24 22:30 08/22/24 08:29 Sennosides-Docusate Sodium 1 Each Tab PO 1 each BID PRE[facility] Administration Spironolactone 12.5 mg 08/22/24 10:30 08/22/24 11:05 Spironolactone 25 Mg Tab PO 12.5 mg DAILY PRE[facility] Administration Intake and Output 08/21/24 08/22/24 08/22/24 22:59 06:59 14:59 Intake Total 100 Balance 100 Intake: Intake, IV Titration 100 Amount Sodium Ferric Gluconat- 100 Sucrose 125 mg In Sodium Chloride 0.9% 100 ml @ 100 mls/hr IVPB DAILY [facility] Rx#:[id number] Other: Voiding Method Toilet # Voids 1 3 08/22/24 04:58 08/22/24 04:58
[2024-08-22 12:21] LABS: Glucose,Whole Blood 184 mg/dL (70-110)
[2024-08-22] MEDS: APIXABAN 5 MG TAB PO SCH (12:47)
--- NOTE | 2024-08-22 14:20 | P.CONS ---
History of Present Illness - Reason for Consult Consult date: 08/22/24 - Chief Complaint interactable pain in the right ribs and right hip - History of Present Illness Mr. Pugh is a 73 years old gentleman who admitted to the hospital with complaint of shortness of breath and sharp right flank pain. CT of the chest showed a large lingular mass, lymphadenopathy and diffuse osseous metastatic disease. The patient underwent biopsy of the right iliac bone , the results of the biopsy still pending. The patient presented With a pleural effusion and shortness of breath, status post thoracentesis, the fluid was sent for pathology , and the results still pending as well. The patient had relief after thoracentesis, the pain is fairly controlled using pain medication. He complains of pain in the right flank anterior lower ribs, and complains of sharp pain in the right hip. Review of Systems Constitutional: Reports as per HPI Ears, nose, mouth and throat: Reports as per HPI Cardiovascular: Reports as per HPI Respiratory: Reports cough, Reports cough with sputum, Reports dyspnea Gastrointestinal: Reports as per HPI Genitourinary: Reports as per HPI Musculoskeletal: Reports as per HPI, Reports low back pain Integumentary: Reports as per HPI Neurological: Reports as per HPI Psychiatric: Reports as per HPI Endocrine: Reports as per HPI Past Medical History Past Medical History: Coronary Artery Disease (CAD), COPD, Diabetes Mellitus Additional Past Medical History / Comment(s): type 2 DM, hiatal hernia, significant for large colon polyps, multiple removed History of Any Multi-Drug Resistant Organisms: None Reported Past Surgical History: Hernia Repair Additional Past Surgical History / Comment(s): loop recorder, hernia x 3,, multiple colon polyps removed Past Psychological History: No Psychological Hx Reported Smoking Status: Former smoker Past Alcohol Use History: Rare Past Drug Use History: None Reported - Past Family History Mother Family Medical History: Cancer (Colon cancer) Additional Family Medical History / Comment(s): Colon cancer Father Family Medical History: COPD, Pneumonia Medications and Allergies Home Medications Medication Instructions Recorded Confirmed Type Acetaminophen-Codeine 300-30mg 1 tab PO Q6H PRN 08/20/24 08/20/24 History [Tylenol w/codeine #3] Albuterol Inhaler [Ventolin Hfa 2 puff INHALATION RT-Q4H PRN 08/20/24 08/20/24 History Inhaler] Apixaban [Eliquis] 5 mg PO BID 08/20/24 08/20/24 History Celecoxib [CeleBREX] 200 mg PO DAILY 08/20/24 08/20/24 History Cyclobenzaprine [Flexeril] 10 mg PO BID PRN 08/20/24 08/20/24 History Fluticasone Nasal [place] [Flonase 1 spray EA NOSTRIL BID PRN 08/20/24 08/20/24 History Nasal [place]] Gabapentin 600 mg PO Q8H PRN 08/20/24 08/20/24 History Ibuprofen [Motrin] 800 mg PO Q6H PRN 08/20/24 08/20/24 History Ipratropium-Albuterol Nebulize 3 ml INHALATION RT-TID 08/20/24 08/20/24 History [Duoneb 0.5 mg-3 mg/3 ml Soln] PARoxetine [Paxil] 20 mg PO DAILY 08/20/24 08/20/24 History Pioglitazone [Actos] 30 mg PO DAILY 08/20/24 08/20/24 History Potassium Chloride ER [K-Dur 20] 20 meq PO DAILY 08/20/24 08/20/24 History Simvastatin [Zocor] 20 mg PO DAILY 08/20/24 08/20/24 History dilTIAZem HCL [Tiazac] 120 mg PO DAILY 08/20/24 08/20/24 History glipiZIDE XL [Glucotrol Xl] 10 mg PO BID 08/20/24 08/20/24 History metFORMIN HCL [Glucophage] 1,000 mg PO BID 08/20/24 08/20/24 History Allergies Allergy/AdvReac Type Severity Reaction Status Date / Time No Known Allergies Allergy Verified 08/20/24 09:56 Physical Exam Vitals: Vital Signs Temp Pulse Resp BP BP Pulse Ox 08/22/24 13:19 97.5 F L 78 18 98/62 92 L 08/22/24 07:16 97.7 F 90 20 118/64 97 08/22/24 00:35 97.7 F 98 14 121/76 95 08/21/24 18:29 98.7 F 104 H 20 103/64 92 L Intake and Output 08/21/24 08/22/24 08/22/24 22:59 06:59 14:59 Intake Total 100 Balance 100 Intake: Intake, IV Titration 100 Amount Sodium Ferric Gluconat- 100 Sucrose 125 mg In Sodium Chloride 0.9% 100 ml @ 100 mls/hr IVPB DAILY [facility] Rx#:[id number] Other: Voiding Method Toilet # Voids 1 3 - Constitutional General appearance: average body habitus - EENT Eyes: PERRLA - Neck Neck: normal ROM - Respiratory Respiratory: bilateral: rales - Cardiovascular Rhythm: regular - Gastrointestinal General gastrointestinal: normal bowel sounds - Psychiatric Psychiatric: A&O x's 3, appropriate affect Results CBC & Chem 7: 08/22/24 04:58 08/22/24 04:58 Labs: Abnormal Lab Results - Last 24 Hours (Table) 08/21/24 08/21/24 08/22/24 Range/Units 17:11 20:45 04:58 RBC 3.97 L (4.40-5.60) X 10*6/uL Hgb 9.4 L (13.0-17.0) g/dL Hct 31.3 L (39.6-50.0) % MCV 78.8 L (80.0-97.0) FL MCH 23.7 L (27.0-32.0) pg MCHC 30.0 L (32.0-37.0) g/dL RDW 15.3 H (11.5-14.5) % MPV 8.9 L (9.5-12.2) FL Sodium (135-145) mmol/L Chloride (96-109) mmol/L Glucose (70-110) mg/dL POC Glucose (mg/dL) 207 H 223 H (70-110) mg/dL Calcium (8.7-10.3) mg/dL AST (14-35) U/L ALT (10-49) U/L Total Protein (6.2-8.2) g/dL Albumin (3.8-4.9) g/dL Albumin/Globulin Ratio (1.60-3.17) Ratio 08/22/24 08/22/24 08/22/24 Range/Units 04:58 07:20 12:19 RBC (4.40-5.60) X 10*6/uL Hgb (13.0-17.0) g/dL Hct (39.6-50.0) % MCV (80.0-97.0) FL MCH (27.0-32.0) pg MCHC (32.0-37.0) g/dL RDW (11.5-14.5) % MPV (9.5-12.2) FL Sodium 133 L (135-145) mmol/L Chloride 93 L (96-109) mmol/L Glucose 164 H (70-110) mg/dL POC Glucose (mg/dL) 176 H 184 H (70-110) mg/dL Calcium 8.4 L (8.7-10.3) mg/dL AST 12 L (14-35) U/L ALT 6 L (10-49) U/L Total Protein 5.8 L (6.2-8.2) g/dL Albumin 2.9 L (3.8-4.9) g/dL Albumin/Globulin Ratio 1.00 L (1.60-3.17) Ratio Microbiology - Last 24 Hours (Table) 08/20/24 13:00 Gram Stain - Preliminary Pleural Fluid Body Fluid Culture - Preliminary Assessment and Plan Assessment: Highly suspicious malignancy of the lung with metastatic disease to the bone, biopsy of the right iliac bone still pending. Plan: Images reviewed and discussed with the patient , we can offer palliative external beam radiation therapy to the anterior right lower ribs and right hip to control his pain. I talked to the patient about the rationale, the technique, and the potential acute and late side effects of the radiation, he agreed to proceed for pain relief. Waiting for the results of the biopsy, we hope he can proceed with the treatment in the coming week for 2 sites , the right anterior lower lips and right hip, each side needs 5 treatments of palliative external beam radiation therapy.
--- NOTE | 2024-08-22 17:02 | P.PN ---
Subjective Progress Note Date: 08/22/24 Hospital course: Patient is a very pleasant 73-year-old male with a past medical history of CAD, paroxysmal atrial fibrillation on anticoagulation with Eliquis, CHF, hypertension, hyperlipidemia, Beatties mellitus, peripheral neuropathy, and anxiety with depression. He presented to the emergency department on 08/19/2024 as a transfer from [facility] where he initially presented with coughing/choking episode and right side abdominal/hip pain and underwent workup including CT abdomen and pelvis which revealed findings consistent with metastatic malignancy. Patient reported that this overall story began approximately 1 year ago when he began having some right hip discomfort. Last fall, he noted feeling as though he had pneumonia often. He underwent a workup at [facility] which he states he underwent a CT scan of the chest as well as a PET scan, and an effort was made to biopsy a spot located in his lung. He states that at that time they were unable to get a biopsy sample. There was no additional follow-up after that until 08/19/2024. The patient notes that he choked on oatmeal, and as a result of this coughing fit had terrible right sided pain which he localizes to his right ribs. It was due to this for the patient presented to the emergency department and underwent this CT scan as mentioned above. Additionally, he endorses having had poor appetite and a 4050 lbs weight loss over the past 1-2 months. Upon arrival to our facility, patient underwent evaluation in the emergency department. Vital signs on arrival show blood pressure 135/77, heart rate 109, respiratory rate 16, temp 97.7 F, and SpO2 of 96% on room air. EKG completed showing sinus tachycardia at 103 bpm. Labs completed and reviewed. CBC showing microcytic anemia with hemoglobin of 8.9. BMP showing hypochloremic hyponatremia with sodium of 130 and chloride of 91. Blood glucose 284. Lactic acid 1.5. BMP 2360. CT chest completed showing heterogeneous mass in the lingula measuring 5.2 x 5.0 x 8.5 cm concerning for neoplasm with additional 1.8 cm nodule in the left upper lobe, enlarged mediastinal and left hilar lymph nodes and possible cardiophrenic lymph node c oncerning for danielle metastasis, moderate pericardial effusion, nonspecific hypodense lesion partially seen in the right kidney, and moderate left and small right pleural effusions with cirrhotic liver and splenomegaly. Patient admitted under services with consultation to oncology and pulmonology. Pulmonology performed thoracentesis on 08/20/2024 with removal of a documented 1700 cc of pleural fluid. Patient also underwent CT-guided percutaneous right iliac bone mass biopsy by interventional radiology on 08/20/2024. Pathology specimens pending. Physical exam: Patient seen and evaluated at bedside this morning. He was resting in bed this morning and currently reports feeling a little more tired and short of breath than yesterday. He reports decreased appetite today as well. Vital signs reviewed and stable. General: Nontoxic, no distress and appears stated age. Derm: Skin warm and dry, normal coloration for ethnicity. Head: Atraumatic, normocephalic and symmetric. Eyes: EOM's intact, no lid lag, and anicteric sclera Mouth: no lip lesions, mucus membranes moist Cardiovascular: regular rate and rhythm with normal S1S2, no murmur, positive posterior tibial pulses bilaterally, and cap refill < 2 seconds. Lungs: Respirations even, regular, and unlabored on room air. Lungs diminished at bases, no wheezes, rhonchi, or rales noted. Abdominal: soft distended bowel sounds x 4, nontender to palpation, no guarding, no appreciable organomegaly Ext: ROM intact. No gross muscle atrophy, Bilateral lower extremity edema, no contractures Neuro: Speech clear, face symmetrical and CN II-XII grossly intact with no noted focal neuro deficits Psych: Alert and oriented to person, place, time, and situation. Appropriate and pleasant affect. Assessment and Plan of Care: Diffuse metastatic disease, unknown primary source Bilateral pleural effusions Moderate pericardial effusion Hypochloremic hyponatremia -Pulmonology following and performed thoracentesis on 08/20/2024 with removal of 1700 cc of pleural fluid -Interventional radiology was consulted and performed CT-guided percutaneous right iliac bone mass biopsy on 08/20/2024. Pathology specimens pending. -Oncology discussed plan of care with oncology SUPERVISOR EXTRUDING DEPARTMENT -Continue symptomatic care and pain management with Tylenol 650 mg p.o. every 6 hours as needed for mild pain/fever, Jewell 5-325 mg tablets every 4 hours as needed for moderate pain, and morphine 4 mg IVP every 4 hours as needed for severe. -Telemetry monitoring -DVT prophylaxis with RUBÉN claire and SCDs -Echocardiogram completed showing an EF of 45 to 50% with moderate pulmonary hypertension, mild right ventricular dilation, moderate biatrial dilation, mild tricuspid and mitral regurgitation, and mild aortic stenosis with moderate pericardial effusion with respiratory variation of tricuspid inflow suggestive of mild tamponade physiology. -Cardiology consulted Microcytic anemia, iron deficiency -Iron profile showing iron 29, TIBC 210, iron percentage saturation 13.81, and transferrin 150. -Patient completed 3 doses of IV Ferrlecit 125 mg daily Type II [id number] diabetes mellitus with hyperglycemia Diabetic peripheral neuropathy -Hold metformin, glipizide and pioglitazone. Continue glycemic protocol with Humalog sliding scale. Hemoglobin A1c 8.5% Paroxysmal atrial fibrillation -Eliquis held at this time pending evaluation by cardiology for pericardial effusion. Patient to continue diltiazem 120 mg daily. Congestive heart failure, unknown type Hypertension Hyperlipidemia -Echocardiogram completed showing an EF of 45 to 50% with moderate pulmonary hypertension, mild right ventricular dilation, moderate biatrial dilation, mild tricuspid and mitral regurgitation, and mild aortic stenosis with moderate pericardial effusion with respiratory variation of tricuspid inflow suggestive of mild tamponade physiology. -Continue cardiac medication regimen with diltiazem 120 mg daily and simvastatin 20 mg daily. Data and imaging reviewed: Morning labs reviewed. CBC showing stable microcytic anemia with hemoglobin of 9.4. BMP showing sodium 133, chloride 93 and blood glucose of 164. Magnesium was 2.2. Liver profile showing low AST of 12 and ALT of 6, low total protein of 5.8 and low albumin of 2.9. Vital signs reviewed. Blood pressure 118/64, heart rate 90, respiratory rate 20, temp 97.7 F, and SpO2 of 97% on 2 L Echocardiogram completed showing an EF of 45 to 50% with moderate pulmonary hypertension, mild right ventricular dilation, moderate biatrial dilation, mild tricuspid and mitral regurgitation, and mild aortic stenosis with moderate pericardial effusion with respiratory variation of tricuspid inflow suggestive of mild tamponade physiology. CODE STATUS: Full code DVT prophylaxis: RUBÉN claire and SCDs, Eliquis held pending evaluation by cardiology for moderate-sized pericardial effusion with reports of respiratory variation of tricuspid inflow suggestive of mild tamponade physiology Anticipated discharge date: Pending clinical course Anticipated discharge place: Pending clinical course Patient was seen independently by Nurse Pracitioner. This document was prepared using [employer] dictation software. 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 Ángel Tawnya, SUPERVISOR EXTRUDING DEPARTMENT rendered care for this patient independently, reviewed the findings and plan as documented in the note above and agree with plan. I did not physically speak with or examine the patient on this date. Objective - Vital Signs Vital signs: Vital Signs Temp 97.7 F 08/22/24 07:16 Pulse 90 08/22/24 07:16 Resp 20 08/22/24 07:16 BP 118/64 08/22/24 07:16 Pulse Ox 97 08/22/24 07:16 FiO2 Intake & Output 08/21/24 08/22/24 08/22/24 18:59 06:59 18:59 Intake Total 340 Balance 340 Weight 92.533 kg Intake: Intake, IV Titration 100 Amount Sodium Ferric Gluconat- 100 Sucrose 125 mg In Sodium Chloride 0.9% 100 ml @ 100 mls/hr IVPB DAILY [facility] Rx#:[id number] Oral 240 Other: Voiding Method Toilet # Voids 1 3 - Labs CBC & Chem 7: 08/22/24 04:58 08/22/24 04:58 Labs: Abnormal Lab Results - Last 24 Hours (Table) 08/21/24 08/21/24 08/21/24 Range/Units 12:41 17:11 20:45 POC Glucose (mg/dL) 224 H 207 H 223 H (70-110) mg/dL 08/22/24 Range/Units 07:20 POC Glucose (mg/dL) 176 H (70-110) mg/dL Microbiology - Last 24 Hours (Table) 08/20/24 13:00 Gram Stain - Preliminary Pleural Fluid Body Fluid Culture - Preliminary
[2024-08-22 17:09] LABS: Glucose,Whole Blood 228 mg/dL (70-110)
--- NOTE | 2024-08-22 18:03 | P.PN ---
Subjective Progress Note Date: 08/22/24 Patient transferred from [facility]. Originally, presented to the outside facility with right-sided rib pain after choking on oatmeal. Additionally, he was having issues with constipation. Workup at the outside facility including CT of the abdomen/pelvis with findings consistent with diffuse metastatic disease to both adrenal glands, with the right adrenal mass measuring up to 5 cm. Destructive osseous lesion involving the right iliac bone with associated soft tissue extension and asymmetric enlargement of the right iliac musculature. Right rib 9 fracture, possibly pathologic. Bilateral pleural effusions left greater than right. Also, a small pericardial effusion was partially visualized. Patient denies history of prior diagnosed malignancies, but states he has previously had attempted biopsies of a spot on his lung. He was recommended to get an outpatient PET scan. Patient never followed up due to insurance reasons. This was over 6 months ago. His primary care provider is Wellington Smiley out of the [facility]. Past medical history significant for COPD, former tobacco smoker. He quit smoking over 30 years ago, still carries a significant smoking history of over 30 pack years. Other medical history including atrial fibrillation anticoagulated on Eliquis, heart failure, hyperlipidemia, diabetes mellitus. Labs done at our facility including a CBC with a WBC count of 6.8, hemoglobin 8.9, platelets 349. CMP: Sodium 130, potassium 4.4, chloride 91, serum bicarb 28, BUN 19, creatinine 0.65, glucose 284. Lactic 1.5. LFTs unremarkable. Patient currently being evaluated in the emergency department. He is resting comfortably on room air. Does not appear in any respiratory dis tress. States the primary reason he came for evaluation at the outside facility was right-sided rib pain as reported above. Currently rated 7 on a 10 point numerical scale. He has also had difficulty ambulating and complaining of right hip pain. States his breathing may be slightly worse than baseline. Especially with exertion. He occasionally uses his rescue inhaler. Reports coughing with white to yellow phlegm production. Denies hemoptysis or chest pain. Denies fever/chills. Denies difficulty swallowing. His appetite has been poor. Unintentional weight loss of approximately 40 pounds in the last month. No nausea or vomiting. His last normal bowel movement was on Monday. Denies any abdominal pain, hematochezia, melena. Does admit history of heart failure. He has lower extremity swelling. Takes Lasix on an outpatient basis. Current vital signs: Temperature 97.7 F, heart rate 109 bpm, blood pressure 135/77 mmHg, nontachypneic, SpO2 recorded 96% on room air. On today's evaluation of 08/21/2024, the patient is stable. Feels slightly improved compared to yesterday and the patient seems to be less short of breath as the patient underwent a thoracentesis yesterday and the procedure was successful with a total of 1.7 L of fluid being removed. The patient also has a iliac bone biopsy, awaiting final pathology. The patient was also seen by medical oncology. Awaiting final pathology results. The white cell count 7.2 with a hemoglobin 9.8 and platelet count of 418. BUN is 14 with a creatinine of 0.7 and the sodium level is 134. LFTs are not elevated. Albumin level is at 3.0. The patient remains on oxygen and is currently on 2 L with a pulse ox of 95%. Home medication resumed. On 08/22/2024, the patient is being seen for a follow-up. No significant res piratory distress. The pleural fluid cytology still pending from the left lung. Meanwhile, the biopsy of the iliac balloon lesion was positive for metastatic well-differentiated non-small cell lung cancer. The results of the tumor immunohistochemistry showed a positive CK7. The tumor was negative for TTF-1, CK20 and Napsin A and S100. The tumor is predominantly negative for CK5/6 and p40. There are some rare cells showing positive staining for both markers. Based on those luminal staining results, diagnosis of metastatic non-small cell lung cancer was made possibly with squamous differentiation. Meanwhile, the patient is resting comfortably in bed. The patient was seen by radiation oncology for palliative radiation therapy to his iliac bone and right hip area for pain control. The patient currently is on 2 L of oxygen by nasal cannula. Hemodynamically stable. Electrolytes are within normal limits. BUN is 12 with a creatinine of 0.7. White cell count is 6.2 with a hemoglobin 9.4. Calcium level is at 8.4. No other significant events overnight. Objective - Vital Signs Vital signs: Vital Signs Temp 97.5 F L 08/22/24 13:19 Pulse 78 08/22/24 13:19 Resp 18 08/22/24 13:19 BP 98/62 08/22/24 13:19 Pulse Ox 92 L 08/22/24 13:19 FiO2 Intake & Output 08/21/24 08/22/24 08/22/24 18:59 06:59 18:59 Intake Total 340 Balance 340 Weight 92.533 kg Intake: Intake, IV Titration 100 Amount Sodium Ferric Gluconat- 100 Sucrose 125 mg In Sodium Chloride 0.9% 100 ml @ 100 mls/hr IVPB DAILY [facility] Rx#:[id number] Oral 240 Other: Voiding Method Toilet # Voids 1 3 2 - Exam GENERAL EXAM: Alert, 73-year-old male fairly, comfortable in no apparent distress. HEAD: Normocephalic and atraumatic EYES: Normal reaction of pupils, equal size. NOSE: Clear with pink turbinates. THROAT: No erythema or exudates. NECK: No masses, no JVD. CHEST: No chest wall deformity. LUNGS: Equal air entry with bibasilar dullness. No wheezes, rhonchi, crackles. On room air. No conversational dyspnea or accessory muscle use.. CVS: S1 and S2 normal with no audible murmur, irregular rhythm. No extra heart sounds ABDOMEN: No hepatosplenomegaly, active bowel sounds, no guarding or rigidity. SPINE: No scoliosis or deformity SKIN: No rashes CENTRAL NERVOUS SYSTEM: No focal deficits, tone is normal in all 4 extremities. EXTREMITIES: There is bilateral 1+ pitting edema of the lower extremities. No clubbing or cyanosis. Peripheral pulses are intact. - Labs CBC & Chem 7: 08/22/24 04:58 08/22/24 04:58 Labs: Abnormal Lab Results - Last 24 Hours (Table) 08/21/24 08/22/24 08/22/24 Range/Units 20:45 04:58 04:58 RBC 3.97 L (4.40-5.60) X 10*6/uL Hgb 9.4 L (13.0-17.0) g/dL Hct 31.3 L (39.6-50.0) % MCV 78.8 L (80.0-97.0) FL MCH 23.7 L (27.0-32.0) pg MCHC 30.0 L (32.0-37.0) g/dL RDW 15.3 H (11.5-14.5) % MPV 8.9 L (9.5-12.2) FL Sodium 133 L (135-145) mmol/L Chloride 93 L (96-109) mmol/L Glucose 164 H (70-110) mg/dL POC Glucose (mg/dL) 223 H (70-110) mg/dL Calcium 8.4 L (8.7-10.3) mg/dL AST 12 L (14-35) U/L ALT 6 L (10-49) U/L Total Protein 5.8 L (6.2-8.2) g/dL Albumin 2.9 L (3.8-4.9) g/dL Albumin/Globulin Ratio 1.00 L (1.60-3.17) Ratio 08/22/24 08/22/24 08/22/24 Range/Units 07:20 12:19 17:08 RBC (4.40-5.60) X 10*6/uL Hgb (13.0-17.0) g/dL Hct (39.6-50.0) % MCV (80.0-97.0) FL MCH (27.0-32.0) pg MCHC (32.0-37.0) g/dL RDW (11.5-14.5) % MPV (9.5-12.2) FL Sodium (135-145) mmol/L Chloride (96-109) mmol/L Glucose (70-110) mg/dL POC Glucose (mg/dL) 176 H 184 H 228 H (70-110) mg/dL Calcium (8.7-10.3) mg/dL AST (14-35) U/L ALT (10-49) U/L Total Protein (6.2-8.2) g/dL Albumin (3.8-4.9) g/dL Albumin/Globulin Ratio (1.60-3.17) Ratio Microbiology - Last 24 Hours (Table) 08/20/24 13:00 Gram Stain - Preliminary Pleural Fluid Body Fluid Culture - Preliminary Assessment and Plan Assessment: Poorly-differentiated non-small cell lung cancer. The patient has a 5.2 x 5 x 8.5 cm heterogenous mass in the lingula concerning for neoplasm, possible primary; CT of the chest showing a 5.2 x 5 x 8.5 cm heterogenous mass in the lingula, concerning for neoplasm. Additional 1.8 cm nodule in the left upper lobe. Enlarged mediastinal and left hilar lymph nodes and possible cardiophrenic lymph node enlargement concerning for metastasis. Pleural fluid cytology still pending. Iliac bone biopsy was positive for metastatic non-small cell lung cancer with possible squamous cell differentiation. Bilateral pleural effusion left more than right status post thoracentesis and removal of 1.7 L of pleural fluid. Awaiting pleural fluid cytology. Multiple additional findings concerning for diffuse metastatic disease; CT of the abdomen/pelvis done at outside facility remarkable for bilateral adrenal lesions, osseous involvement of the right iliac bone with associated soft tissue extension and asymmetric enlargement of the right iliac musculature, right rib 9 fracture, possibly pathologic. Bilateral pleural effusions left greater than right. Small pericardial effusion was also partially visualized. Right iliac bone metastatic lesion post IR guided biopsy History of congestion heart failure Acute dyspnea, secondary to above, improved postthoracentesis Unintentional weight loss, 40 pounds over approximately 1 month timeframe Former tobacco smoker Chronic obstructive pulmonary disease History of heart failure, with unknown ejection Atrial fibrillation with controlled ventricular response, normally anticoagulated on Eliquis Diabetes mellitus type 2 Microcytic anemia Hyponatremia, appears hypervolemic on clinical examination, however, consider SI ADH given concerning findings for malignancy Plan: Thoracentesis was done with a total of 1.7 L of fluid removed from the left lung, awaiting final cytology Right iliac bone biopsy was done by interventional radiology, results are consistent with non-small cell lung cancer Medical oncology consult Radiation oncology consult Continue anticoagulation with Eliquis Shortness of breath is improved postthoracentesis and this was done without any complications Currently on 2 L of oxygen by nasal cannula He is receiving morphine for skeletal chest wall pain. Will continue to follow.
[2024-08-22 20:28] LABS: Glucose,Whole Blood 252 mg/dL (70-110)
[2024-08-23 07:24] LABS: Glucose,Whole Blood 178 mg/dL (70-110)
[2024-08-23 08:25] LABS: HCT 31.1 % (39.6-50.0); HGB 9.2 g/dL (13.0-17.0); MCH 23.3 pg (27.0-32.0); MCHC 29.6 g/dL (32.0-37.0); MCV 78.7 FL (80.0-97.0); Mean Platelet Volume 9.4 FL (9.5-12.2); NRBC Per 100 WBC 0 X 10*3/uL (0.00-0.01); Platelet Count 384 X 10*3/uL (140-440); RBC 3.95 X 10*6/uL (4.40-5.60); RDW 15.3 % (11.5-14.5); WBC 7.07 X 10*3/uL (4.50-10.00)
[2024-08-23 08:30] LABS: BUN/Creat Ratio 20.57 Ratio (12.00-20.00); Blood Urea Nitrogen 14.4 mg/dL (9.0-27.0); Glucose 186 mg/dL (70-110)
[2024-08-23 08:31] LABS: ALT 7 U/L (10-49); AST 11 U/L (14-35); Alkaline Phosphatase 100 U/L (41-126); Calcium 8.4 mg/dL (8.7-10.3); Carbon Dioxide 27.5 mmol/L (21.6-31.8); Chloride 92 mmol/L (96-109); Magnesium 2.2 mg/dL (1.5-2.4); Potassium 3.9 mmol/L (3.5-5.5); Sodium 130 mmol/L (135-145); Total Bilirubin 0.6 mg/dL (0.3-1.2)
--- NOTE | 2024-08-23 10:07 | P.PN ---
Subjective HISTORY OF PRESENT ILLNESS: This is a 73-year-old male with a past medical history significant for paroxysmal atrial fibrillation, diabetes, and hyperlipidemia. 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 We have been asked to see the patient in consultation for moderate pericardial effusion. Patient examined at the bedside. Patient initially presented to the hospital with right sided rib pain. He also reports choking on some oatmeal and having a cough. Patient underwent CT which was concerning for malignancy. He underwent thoracentesis and cytology is currently pending. He also underwent CT-guided percutaneous right iliac bone mass biopsy. Pathology is currently pending. At the time of examination, patient currently denies chest pain or pressure. He denies shortness of breath. He does report having some lower extremity edema. Denies having any palpitations. DIAGNOSTICS: - EKG reveals atrial fibrillation with nonspecific ST-T wave changes. - Chest xray 08/20/2024 no pneumothorax after left-sided thoracentesis - Laboratory data: WBC 6.79. Hemoglobin 9.4. Platelet count 375. Sodium 133. Potassium 3.7. BUN 12.6. Creatinine 0.7. proBNP 2360. - Current home cardiac medications include Cardizem 120 mg daily, simvastatin 20 mg daily, Eliquis 5 mg twice a day. - Echocardiogram completed on 08/20/2024 revealing ejection fraction 45 to 50%, moderate pulmonary hypertension, mild MR, mild aortic stenosis with peak grad ient 21 mmHg mean gradient 11 mmHg, mild TR, and moderate pericardial effusion with respiratory variation of tricuspid inflow suggestive of mild tamponade physiology. - Cardiac catheterization history: Unknown 08/23/2024 Patient examined this morning at bedside. Patient currently denies chest pain o r pressure. He denies shortness of breath. Vital signs are stable. Telemetry reveals atrial fibrillation with controlled ventricular rate PHYSICAL EXAM: VITAL SIGNS: Reviewed. GENERAL: Well-developed in no acute distress. HEENT: Head is normocephalic. Pupils are equal, round. Sclerae anicteric. Mucous membranes of the mouth are moist. Neck supple. Mild JVD LUNGS: Respirations even and unlabored. Lungs essentially clear to auscultation bilaterally. HEART: Irregular rate and rhythm. S1 and S2 heard. ABDOMEN: Soft. Nondistended. Nontender. EXTREMITIES: Normal range of motion. No clubbing or cyanosis. Peripheral pulses intact. 1+ bilateral pitting lower extremity edema NEUROLOGIC: Awake and alert. Oriented x 3. ASSESSMENT: Diffuse metastatic disease, unknown primary source, status post CT-guided percutaneous right iliac bone mass biopsy, pathology pending Bilateral pleural effusion status post thoracentesis, cytology pending, exudative fluid Moderate pericardial effusion Mild cardiomyopathy, 45%, ischemic versus nonischemic Mild acute heart failure with mildly reduced EF 45% Paroxysmal atrial fibrillation, on Eliquis outpatient Moderate pulmonary hypertension Hyperlipidemia Diabetes Microcytic anemia Hyponatremia, improving PLAN: Continue current cardiac medications including Eliquis, Lipitor, Farxiga, Lasix, Aldactone No plans for pericardial drainage at this time No further inpatient recommendations from a cardiac standpoint We will sign off. Please reconsult if needed. Nurse practitioner note has been reviewed by physician. Signing provider agrees with the documented findings, assessment, and plan of care documented by LEAD INSTALLER as a scribe. Objective - Vital Signs Vital signs: Vital Signs Temp 97.5 F L 08/23/24 07:14 Pulse 77 08/23/24 07:14 Resp 16 08/23/24 07:14 BP 113/58 08/23/24 07:14 Pulse Ox 95 08/23/24 07:14 FiO2 Intake & Output 08/22/24 08/23/24 08/23/24 18:59 06:59 18:59 Other: Voiding Method Toilet # Voids 2 3 - Labs CBC & Chem 7: 08/23/24 05:15 08/23/24 05:15 Labs: Abnormal Lab Results - Last 24 Hours (Table) 08/22/24 08/22/24 08/22/24 Range/Units 12:19 17:08 20:25 RBC (4.40-5.60) X 10*6/uL Hgb (13.0-17.0) g/dL Hct (39.6-50.0) % MCV (80.0-97.0) FL MCH (27.0-32.0) pg MCHC (32.0-37.0) g/dL RDW (11.5-14.5) % MPV (9.5-12.2) FL Sodium (135-145) mmol/L Chloride (96-109) mmol/L BUN/Creatinine Ratio (12.00-20.00) Ratio Glucose (70-110) mg/dL POC Glucose (mg/dL) 184 H 228 H 252 H (70-110) mg/dL Calcium (8.7-10.3) mg/dL AST (14-35) U/L ALT (10-49) U/L Total Protein (6.2-8.2) g/dL Albumin (3.8-4.9) g/dL Albumin/Globulin Ratio (1.60-3.17) Ratio 08/23/24 08/23/24 08/23/24 Range/Units 05:15 05:15 07:17 RBC 3.95 L (4.40-5.60) X 10*6/uL Hgb 9.2 L (13.0-17.0) g/dL Hct 31.1 L (39.6-50.0) % MCV 78.7 L (80.0-97.0) FL MCH 23.3 L (27.0-32.0) pg MCHC 29.6 L (32.0-37.0) g/dL RDW 15.3 H (11.5-14.5) % MPV 9.4 L (9.5-12.2) FL Sodium 130 L (135-145) mmol/L Chloride 92 L (96-109) mmol/L BUN/Creatinine Ratio 20.57 H (12.00-20.00) Ratio Glucose 186 H (70-110) mg/dL POC Glucose (mg/dL) 178 H (70-110) mg/dL Calcium 8.4 L (8.7-10.3) mg/dL AST 11 L (14-35) U/L ALT 7 L (10-49) U/L Total Protein 6.0 L (6.2-8.2) g/dL Albumin 3.0 L (3.8-4.9) g/dL Albumin/Globulin Ratio 1.00 L (1.60-3.17) Ratio Microbiology - Last 24 Hours (Table) 08/20/24 13:00 Gram Stain - Preliminary Pleural Fluid Body Fluid Culture - Preliminary
--- NOTE | 2024-08-23 12:32 | XR ---
EXAMINATION TYPE: XR chest 1V portable DATE OF EXAM: 08/23/2024 CLINICAL INDICATION: Male, 73 years old with history of decreased breath sounds, increased SOB lung c ancer, progress study. TECHNIQUE: Single AP portable upright view of the chest is obtained. COMPARISON: Chest x-ray and CT from 3 days earlier FINDINGS: Persistent cardiomegaly with small to moderate-sized left-sided pleural fluid collection. There is associated left basilar compressive atelectasis. Persistent 2.3 cm left upper lung pulmonary nodule. Stable small to tiny right pleural effusion. Mild central vascular congestion remains presen t. Osseous structures are intact. IMPRESSION: Findings are consistent with continued CHF exacerbation and underlying left lung neoplas m . [facility], , 08/23/2024 12:30 PM
[2024-08-23 12:37] LABS: Glucose,Whole Blood 179 mg/dL (70-110)
[2024-08-23] MEDS ORDERED: PROCHLORPERAZINE INJ 10 MG/2 ML VIAL IVP PRN (13:25)
[2024-08-23 17:14] LABS: Glucose,Whole Blood 201 mg/dL (70-110)
--- NOTE | 2024-08-23 17:20 | P.PN ---
Subjective Progress Note Date: 08/23/24 Hospital course: Patient is a very pleasant 73-year-old male with a past medical history of CAD, paroxysmal atrial fibrillation on anticoagulation with Eliquis, CHF, hypertension, hyperlipidemia, Beatties mellitus, peripheral neuropathy, and anxiety with depression. He presented to the emergency department on 08/19/2024 as a transfer from [facility] where he initially presented with coughing/choking episode and right side abdominal/hip pain and underwent workup including CT abdomen and pelvis which revealed findings consistent with metastatic malignancy. Patient reported that this overall story began approximately 1 year ago when he began having some right hip discomfort. Last fall, he noted feeling as though he had pneumonia often. He underwent a workup at [facility] which he states he underwent a CT scan of the chest as well as a PET scan, and an effort was made to biopsy a spot located in his lung. He states that at that time they were unable to get a biopsy sample. There was no additional follow-up after that until 08/19/2024. The patient notes that he choked on oatmeal, and as a result of this coughing fit had terrible right sided pain which he localizes to his right ribs. It was due to this for the patient presented to the emergency department and underwent this CT scan as mentioned above. Additionally, he endorses having had poor appetite and a 4050 lbs weight loss over the past 1-2 months. Upon arrival to our facility, patient underwent evaluation in the emergency department. Vital signs on arrival show blood pressure 135/77, heart rate 109, respiratory rate 16, temp 97.7 F, and SpO2 of 96% on room air. EKG completed showing sinus tachycardia at 103 bpm. Labs completed and reviewed. CBC showing microcytic anemia with hemoglobin of 8.9. BMP showing hypochloremic hyponatremia with sodium of 130 and chloride of 91. Blood glucose 284. Lactic acid 1.5. BMP 2360. CT chest completed showing heterogeneous mass in the lingula measuring 5.2 x 5.0 x 8.5 cm concerning for neoplasm with additional 1.8 cm nodule in the left upper lobe, enlarged mediastinal and left hilar lymph nodes and possible cardiophrenic lymph node c oncerning for danielle metastasis, moderate pericardial effusion, nonspecific hypodense lesion partially seen in the right kidney, and moderate left and small right pleural effusions with cirrhotic liver and splenomegaly. Patient admitted under services with consultation to oncology and pulmonology. Pulmonology performed thoracentesis on 08/20/2024 with removal of a documented 1700 cc of pleural fluid. Patient also underwent CT-guided percutaneous right iliac bone mass biopsy by interventional radiology on 08/20/2024. Pathology specimens pending. Physical exam: Patient seen and evaluated at bedside this morning. He was sitting up at the edge of bed this morning and currently reports again feeling a little more tired and short of breath than yesterday and coughing/spitting up more phlegm. Vital signs reviewed and stable. General: Nontoxic, no distress and appears stated age. Derm: Skin warm and dry, normal coloration for ethnicity. Head: Atraumatic, normocephalic and symmetric. Eyes: EOM's intact, no lid lag, and anicteric sclera Mouth: no lip lesions, mucus membranes moist Cardiovascular: regular rate and rhythm with normal S1S2, no murmur, positive posterior tibial pulses bilaterally, and cap refill < 2 seconds. Lungs: Respirations even, regular, and unlabored on room air. Lungs diminished with bibasilar crackles. No wheezes, rhonchi, or rales noted. Abdominal: soft distended bowel sounds x 4, nontender to palpation, no guarding, no appreciable organomegaly Ext: ROM intact. No gross muscle atrophy, Bilateral lower extremity edema, no co ntractures Neuro: Speech clear, face symmetrical and CN II-XII grossly intact with no noted focal neuro deficits Psych: Alert and oriented to person, place, time, and situation. Appropriate and pleasant affect. Assessment and Plan of Care: Diffuse metastatic disease, unknown primary source Bilateral pleural effusions Hypochloremic hyponatremia -Pulmonology following and performed thoracentesis on 08/20/2024 with removal of 1700 cc of pleural fluid -Interventional radiology was consulted and performed CT-guided percutaneous right iliac bone mass biopsy on 08/20/2024. Pathology specimens pending. 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 every 6 hours as needed for mild pain/fever, [place] 5-325 mg tablets every 4 hours as needed for moderate pain, and morphine 4 mg IVP every 4 hours as needed for severe. -Telemetry monitoring. -Order placed for repeat chest x-ray Chronic systolic congestive heart failure, with mild exacerbation Moderate pericardial effusion Paroxysmal atrial fibrillation Hypertension Hyperlipidemia -Echocardiogram completed showing an EF of 45 to 50% with moderate pulmonary hypertension, mild right ventricular dilation, moderate biatrial dilation, mild tricuspid and mitral regurgitation, and mild aortic stenosis with moderate pericardial effusion with respiratory variation of tricuspid inflow suggestive of mild tamponade physiology. -Continue cardiac medication regimen with diltiazem 120 mg daily and simvastatin 20 mg daily. -Echocardiogram completed showing an EF of 45 to 50% with moderate pulmonary hypertension, mild right ventricular dilation, moderate biatrial dilation, mild tricuspid and mitral regurgitation, and mild aortic stenosis with moderate pericardial effusion with respiratory variation of tricuspid inflow suggestive of mild tamponade physiology. 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 Microcytic anemia, iron deficiency -Iron profile showing iron 29, TIBC 210, iron percentage saturation 13.81, and transferrin 150. -Patient completed 3 doses of IV Ferrlecit 125 mg daily Type II [id number] diabetes mellitus with hyperglycemia Diabetic peripheral neuropathy -Hold metformin, glipizide and pioglitazone. Continue glycemic protocol with Humalog sliding scale. Hemoglobin A1c 8.5% Data and imaging reviewed: Morning labs reviewed. CBC showing stable microcytic anemia with hemoglobin of 9.2. BMP showing sodium 130, chloride 92 and blood glucose of 186. Magnesium was 2.2. Liver profile showing low AST of 11 and ALT of 7, low total protein of 6.0 and low albumin of 3.0. Vital signs reviewed. Blood pressure 113/58, heart rate 77, respiratory rate 16, temp 97.5 F, and SpO2 of 95% on 2 L Echocardiogram completed showing an EF of 45 to 50% with moderate pulmonary hypertension, mild right ventricular dilation, moderate biatrial dilation, mild tricuspid and mitral regurgitation, and mild aortic stenosis with moderate pericardial effusion with respiratory variation of tricuspid inflow suggestive of mild tamponade physiology. CODE STATUS: Full code DVT prophylaxis: Eliquis Anticipated discharge date: Pending clinical course Anticipated discharge place: Pending clinical course Patient was seen independently by Nurse Pracitioner. This document was prepared using [employer] dictation software. Please allow for errors in grades 1 thru 6 visiting teacher, while rare they do occur. Ángel Bowling NP rendered care for this patient independently, reviewed the findings and plan as documented in the note above and agree with plan. I did not physically speak with or examine the patient on this date. Objective - Vital Signs Vital signs: Vital Signs Temp 97.5 F L 08/23/24 07:14 Pulse 77 08/23/24 07:14 Resp 16 08/23/24 07:14 BP 113/58 08/23/24 07:14 Pulse Ox 95 08/23/24 07:14 FiO2 Intake & Output 08/22/24 08/23/24 08/23/24 18:59 06:59 18:59 Other: Voiding Method Toilet # Voids 2 3 - Labs CBC & Chem 7: 08/23/24 05:15 08/23/24 05:15 Labs: Abnormal Lab Results - Last 24 Hours (Table) 08/22/24 08/22/24 08/22/24 Range/Units 04:58 04:58 12:19 RBC 3.97 L (4.40-5.60) X 10*6/uL Hgb 9.4 L (13.0-17.0) g/dL Hct 31.3 L (39.6-50.0) % MCV 78.8 L (80.0-97.0) FL MCH 23.7 L (27.0-32.0) pg MCHC 30.0 L (32.0-37.0) g/dL RDW 15.3 H (11.5-14.5) % MPV 8.9 L (9.5-12.2) FL Sodium 133 L (135-145) mmol/L Chloride 93 L (96-109) mmol/L BUN/Creatinine Ratio (12.00-20.00) Ratio Glucose 164 H (70-110) mg/dL POC Glucose (mg/dL) 184 H (70-110) mg/dL Calcium 8.4 L (8.7-10.3) mg/dL AST 12 L (14-35) U/L ALT 6 L (10-49) U/L Total Protein 5.8 L (6.2-8.2) g/dL Albumin 2.9 L (3.8-4.9) g/dL Albumin/Globulin Ratio 1.00 L (1.60-3.17) Ratio 08/22/24 08/22/24 08/23/24 Range/Units 17:08 20:25 05:15 RBC 3.95 L (4.40-5.60) X 10*6/uL Hgb 9.2 L (13.0-17.0) g/dL Hct 31.1 L (39.6-50.0) % MCV 78.7 L (80.0-97.0) FL MCH 23.3 L (27.0-32.0) pg MCHC 29.6 L (32.0-37.0) g/dL RDW 15.3 H (11.5-14.5) % MPV 9.4 L (9.5-12.2) FL Sodium (135-145) mmol/L Chloride (96-109) mmol/L BUN/Creatinine Ratio (12.00-20.00) Ratio Glucose (70-110) mg/dL POC Glucose (mg/dL) 228 H 252 H (70-110) mg/dL Calcium (8.7-10.3) mg/dL AST (14-35) U/L ALT (10-49) U/L Total Protein (6.2-8.2) g/dL Albumin (3.8-4.9) g/dL Albumin/Globulin Ratio (1.60-3.17) Ratio 08/23/24 08/23/24 Range/Units 05:15 07:17 RBC (4.40-5.60) X 10*6/uL Hgb (13.0-17.0) g/dL Hct (39.6-50.0) % MCV (80.0-97.0) FL MCH (27.0-32.0) pg MCHC (32.0-37.0) g/dL RDW (11.5-14.5) % MPV (9.5-12.2) FL Sodium 130 L (135-145) mmol/L Chloride 92 L (96-109) mmol/L BUN/Creatinine Ratio 20.57 H (12.00-20.00) Ratio Glucose 186 H (70-110) mg/dL POC Glucose (mg/dL) 178 H (70-110) mg/dL Calcium 8.4 L (8.7-10.3) mg/dL AST 11 L (14-35) U/L ALT 7 L (10-49) U/L Total Protein 6.0 L (6.2-8.2) g/dL Albumin 3.0 L (3.8-4.9) g/dL Albumin/Globulin Ratio 1.00 L (1.60-3.17) Ratio Microbiology - Last 24 Hours (Table) 08/20/24 13:00 Gram Stain - Preliminary Pleural Fluid Body Fluid Culture - Preliminary
[2024-08-23 20:30] LABS: Glucose,Whole Blood 225 mg/dL (70-110)
--- NOTE | 2024-08-23 21:39 | P.PN ---
Subjective Progress Note Date: 08/23/24 Objective - Vital Signs Vital signs: Vital Signs Temp 98.2 F 08/23/24 12:31 Pulse 72 08/23/24 12:31 Resp 16 08/23/24 12:31 BP 100/53 08/23/24 12:31 Pulse Ox 98 08/23/24 12:31 FiO2 Intake & Output 08/22/24 08/23/24 08/23/24 18:59 06:59 18:59 Other: Voiding Method Toilet Toilet # Voids 2 3 - Labs CBC & Chem 7: 08/23/24 05:15 08/23/24 05:15 Labs: Abnormal Lab Results - Last 24 Hours (Table) 08/22/24 08/22/24 08/23/24 Range/Units 17:08 20:25 05:15 RBC 3.95 L (4.40-5.60) X 10*6/uL Hgb 9.2 L (13.0-17.0) g/dL Hct 31.1 L (39.6-50.0) % MCV 78.7 L (80.0-97.0) FL MCH 23.3 L (27.0-32.0) pg MCHC 29.6 L (32.0-37.0) g/dL RDW 15.3 H (11.5-14.5) % MPV 9.4 L (9.5-12.2) FL Sodium (135-145) mmol/L Chloride (96-109) mmol/L BUN/Creatinine Ratio (12.00-20.00) Ratio Glucose (70-110) mg/dL POC Glucose (mg/dL) 228 H 252 H (70-110) mg/dL Calcium (8.7-10.3) mg/dL AST (14-35) U/L ALT (10-49) U/L Total Protein (6.2-8.2) g/dL Albumin (3.8-4.9) g/dL Albumin/Globulin Ratio (1.60-3.17) Ratio 08/23/24 08/23/24 08/23/24 Range/Units 05:15 07:17 12:34 RBC (4.40-5.60) X 10*6/uL Hgb (13.0-17.0) g/dL Hct (39.6-50.0) % MCV (80.0-97.0) FL MCH (27.0-32.0) pg MCHC (32.0-37.0) g/dL RDW (11.5-14.5) % MPV (9.5-12.2) FL Sodium 130 L (135-145) mmol/L Chloride 92 L (96-109) mmol/L BUN/Creatinine Ratio 20.57 H (12.00-20.00) Ratio Glucose 186 H (70-110) mg/dL POC Glucose (mg/dL) 178 H 179 H (70-110) mg/dL Calcium 8.4 L (8.7-10.3) mg/dL AST 11 L (14-35) U/L ALT 7 L (10-49) U/L Total Protein 6.0 L (6.2-8.2) g/dL Albumin 3.0 L (3.8-4.9) g/dL Albumin/Globulin Ratio 1.00 L (1.60-3.17) Ratio Microbiology - Last 24 Hours (Table) 08/20/24 13:00 Gram Stain - Preliminary Pleural Fluid Body Fluid Culture - Preliminary Assessment and Plan Plan: Rib pain. Pathological rib fracture, imaging findings concerning for malignancy and metastatic disease -Patient presented with rib pain. CT reported in documentation (as it was done at an outside facility) as concerning for metastatic disease to both adrenal glands, right adrenal mass measuring up to 5 cm. Bilateral pleural effusions. Pathological fracture of the ninth rib. Destructive osseous lesion involving the right iliac bone with associated soft tissue extension. CT of the chest with contrast performed at this facility reports a heterogenous mass in the lingula measuring 5.2 x 5 x 8.5 cm. 1.8 cm left upper lobe nodule. Moderate left and small right pleural effusion. Enlarged mediastinal and left hilar lymph nodes, possible cardiophrenic lymph node. Cirrhotic liver. Splenomegaly. - Reviewed the concerning findings with the patient previously. He is status post core biopsy of the iliac mass as well as thoracentesis. 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 Based on overall clinical picture and path, likely lung primary. Cytology still pending. -[id number] requested on path -MRI of the brain has been ordered to complete staging. - Follow-up with Medical Oncology upon discharge Malignancy related pain - Reporting pain is controlled, continue current regimen - Medications added for the prevention of narcotic induced constipation - Referral/consult to Radiation Oncology placed. Plan for XRT to right ribs and right hip Case discussed with admitting team. Once brain MRI obtained, pt cleared from hem/onc standpoint for discharge Doctor attests: I performed a history and physical examination of this patient, developed impression and plan of care. Discussed with dictator. I agree with dictators note, documented as a scribe
--- NOTE | 2024-08-23 22:11 | P.PN ---
Subjective Progress Note Date: 08/23/24 Patient transferred from [facility]. Originally, presented to the outside facility with right-sided rib pain after choking on oatmeal. Additionally, he was having issues with constipation. Workup at the outside facility including CT of the abdomen/pelvis with findings consistent with diffuse metastatic disease to both adrenal glands, with the right adrenal mass measuring up to 5 cm. Destructive osseous lesion involving the right iliac bone with associated soft tissue extension and asymmetric enlargement of the right iliac musculature. Right rib 9 fracture, possibly pathologic. Bilateral pleural effusions left greater than right. Also, a small pericardial effusion was partially visualized. Patient denies history of prior diagnosed malignancies, but states he has previously had attempted biopsies of a spot on his lung. He was recommended to get an outpatient PET scan. Patient never followed up due to insurance reasons. This was over 6 months ago. His primary care provider is Wellington Smiley out of the [facility]. Past medical history significant for COPD, former tobacco smoker. He quit smoking over 30 years ago, still carries a significant smoking history of over 30 pack years. Other medical history including atrial fibrillation anticoagulated on Eliquis, heart failure, hyperlipidemia, diabetes mellitus. Labs done at our facility including a CBC with a WBC count of 6.8, hemoglobin 8.9, platelets 349. CMP: Sodium 130, potassium 4.4, chloride 91, serum bicarb 28, BUN 19, creatinine 0.65, glucose 284. Lactic 1.5. LFTs unremarkable. Patient currently being evaluated in the emergency department. He is resting comfortably on room air. Does not appear in any respiratory dis tress. States the primary reason he came for evaluation at the outside facility was right-sided rib pain as reported above. Currently rated 7 on a 10 point numerical scale. He has also had difficulty ambulating and complaining of right hip pain. States his breathing may be slightly worse than baseline. Especially with exertion. He occasionally uses his rescue inhaler. Reports coughing with white to yellow phlegm production. Denies hemoptysis or chest pain. Denies fever/chills. Denies difficulty swallowing. His appetite has been poor. Unintentional weight loss of approximately 40 pounds in the last month. No nausea or vomiting. His last normal bowel movement was on Monday. Denies any abdominal pain, hematochezia, melena. Does admit history of heart failure. He has lower extremity swelling. Takes Lasix on an outpatient basis. Current vital signs: Temperature 97.7 F, heart rate 109 bpm, blood pressure 135/77 mmHg, nontachypneic, SpO2 recorded 96% on room air. On today's evaluation of 08/21/2024, the patient is stable. Feels slightly improved compared to yesterday and the patient seems to be less short of breath as the patient underwent a thoracentesis yesterday and the procedure was successful with a total of 1.7 L of fluid being removed. The patient also has a iliac bone biopsy, awaiting final pathology. The patient was also seen by medical oncology. Awaiting final pathology results. The white cell count 7.2 with a hemoglobin 9.8 and platelet count of 418. BUN is 14 with a creatinine of 0.7 and the sodium level is 134. LFTs are not elevated. Albumin level is at 3.0. The patient remains on oxygen and is currently on 2 L with a pulse ox of 95%. Home medication resumed. On 08/22/2024, the patient is being seen for a follow-up. No significant res piratory distress. The pleural fluid cytology still pending from the left lung. Meanwhile, the biopsy of the iliac balloon lesion was positive for metastatic well-differentiated non-small cell lung cancer. The results of the tumor immunohistochemistry showed a positive CK7. The tumor was negative for TTF-1, CK20 and Napsin A and S100. The tumor is predominantly negative for CK5/6 and p40. There are some rare cells showing positive staining for both markers. Based on those luminal staining results, diagnosis of metastatic non-small cell lung cancer was made possibly with squamous differentiation. Meanwhile, the patient is resting comfortably in bed. The patient was seen by radiation oncology for palliative radiation therapy to his iliac bone and right hip area for pain control. The patient currently is on 2 L of oxygen by nasal cannula. Hemodynamically stable. Electrolytes are within normal limits. BUN is 12 with a creatinine of 0.7. White cell count is 6.2 with a hemoglobin 9.4. Calcium level is at 8.4. No other significant events overnight. On 08/23/2024, the patient is being seen for a follow-up. The patient is stable. No new complaints. Awaiting further recommendation by radiation oncology and medical oncology. The patient has adequate pain control for now. The patient will receive radiation therapy to his right recurrent iliac/hip area. Meanwhile, the pleural fluid cytology still pending. Repeat chest x-ray done on 08/23/2024 showed a left lung neoplasm with a satellite lesion in the left upper lobe and a left-sided pleural effusion. The patient remains on oxygen 2 L with a pulse ox of 98%. MRI of the brain was also ordered to complete staging. The white cell count at 7 with a hemoglobin 9.2 and a platelet count of 384. BUN is 40 with a creatinine of 0.7. Sodium is at 130. LFTs are normal. Objective - Vital Signs Vital signs: Vital Signs Temp 97.9 F 08/23/24 20:00 Pulse 90 08/23/24 20:00 Resp 16 08/23/24 20:00 BP 111/65 08/23/24 20:00 Pulse Ox 92 L 08/23/24 20:00 FiO2 Intake & Output 08/23/24 08/23/24 08/24/24 06:59 18:59 06:59 Intake Total 1054 Balance 1054 Intake: Oral 1054 Other: Voiding Method Toilet Toilet Toilet # Voids 3 4 # Bowel Movements 8 - Exam GENERAL EXAM: Alert, 73-year-old male fairly, comfortable in no apparent distress. HEAD: Normocephalic and atraumatic EYES: Normal reaction of pupils, equal size. NOSE: Clear with pink turbinates. THROAT: No erythema or exudates. NECK: No masses, no JVD. CHEST: No chest wall deformity. LUNGS: Equal air entry with bibasilar dullness. No wheezes, rhonchi, crackles. On room air. No conversational dyspnea or accessory muscle use.. CVS: S1 and S2 normal with no audible murmur, irregular rhythm. No extra heart sounds ABDOMEN: No hepatosplenomegaly, active bowel sounds, no guarding or rigidity. SPINE: No scoliosis or deformity SKIN: No rashes CENTRAL NERVOUS SYSTEM: No focal deficits, tone is normal in all 4 extremities. EXTREMITIES: There is bilateral 1+ pitting edema of the lower extremities. No clubbing or cyanosis. Peripheral pulses are intact. - Labs CBC & Chem 7: 08/23/24 05:15 08/23/24 05:15 Labs: Abnormal Lab Results - Last 24 Hours (Table) 08/23/24 08/23/24 08/23/24 Range/Units 05:15 05:15 07:17 RBC 3.95 L (4.40-5.60) X 10*6/uL Hgb 9.2 L (13.0-17.0) g/dL Hct 31.1 L (39.6-50.0) % MCV 78.7 L (80.0-97.0) FL MCH 23.3 L (27.0-32.0) pg MCHC 29.6 L (32.0-37.0) g/dL RDW 15.3 H (11.5-14.5) % MPV 9.4 L (9.5-12.2) FL Sodium 130 L (135-145) mmol/L Chloride 92 L (96-109) mmol/L BUN/Creatinine Ratio 20.57 H (12.00-20.00) Ratio Glucose 186 H (70-110) mg/dL POC Glucose (mg/dL) 178 H (70-110) mg/dL Calcium 8.4 L (8.7-10.3) mg/dL AST 11 L (14-35) U/L ALT 7 L (10-49) U/L Total Protein 6.0 L (6.2-8.2) g/dL Albumin 3.0 L (3.8-4.9) g/dL Albumin/Globulin Ratio 1.00 L (1.60-3.17) Ratio 08/23/24 08/23/24 08/23/24 Range/Units 12:34 17:13 20:28 RBC (4.40-5.60) X 10*6/uL Hgb (13.0-17.0) g/dL Hct (39.6-50.0) % MCV (80.0-97.0) FL MCH (27.0-32.0) pg MCHC (32.0-37.0) g/dL RDW (11.5-14.5) % MPV (9.5-12.2) FL Sodium (135-145) mmol/L Chloride (96-109) mmol/L BUN/Creatinine Ratio (12.00-20.00) Ratio Glucose (70-110) mg/dL POC Glucose (mg/dL) 179 H 201 H 225 H (70-110) mg/dL Calcium (8.7-10.3) mg/dL AST (14-35) U/L ALT (10-49) U/L Total Protein (6.2-8.2) g/dL Albumin (3.8-4.9) g/dL Albumin/Globulin Ratio (1.60-3.17) Ratio Microbiology - Last 24 Hours (Table) 08/20/24 13:00 Gram Stain - Preliminary Pleural Fluid Body Fluid Culture - Preliminary Assessment and Plan Assessment: Poorly-differentiated non-small cell lung cancer. The patient has a 5.2 x 5 x 8.5 cm heterogenous mass in the lingula concerning for neoplasm, possible primary; CT of the chest showing a 5.2 x 5 x 8.5 cm heterogenous mass in the lingula, concerning for neoplasm. Additional 1.8 cm nodule in the left upper lobe. Enlarged mediastinal and left hilar lymph nodes and possible cardiophrenic lymph node enlargement concerning for metastasis. Pleural fluid cytology still pending. Iliac bone biopsy was positive for metastatic non-small cell lung cancer with possible squamous cell differentiation. Bilateral pleural effusion left more than right status post thoracentesis and removal of 1.7 L of pleural fluid. Awaiting pleural fluid cytology. Multiple additional findings concerning for diffuse metastatic disease; CT of the abdomen/pelvis done at outside facility remarkable for bilateral adrenal lesions, osseous involvement of the right iliac bone with associated soft tissue extension and asymmetric enlargement of the right iliac musculature, right rib 9 fracture, possibly pathologic. Bilateral pleural effusions left greater than right. Small pericardial effusion was also partially visualized. Right iliac bone metastatic lesion post IR guided biopsy History of congestion heart failure Acute dyspnea, secondary to above, improved postthoracentesis Unintentional weight loss, 40 pounds over approximately 1 month timeframe Former tobacco smoker Chronic obstructive pulmonary disease History of heart failure, with unknown ejection Atrial fibrillation with controlled ventricular response, normally anticoagulated on Eliquis Diabetes mellitus type 2 Microcytic anemia Hyponatremia, appears hypervolemic on clinical examination, however, consider SI ADH given concerning findings for malignancy Plan: Thoracentesis was done with a total of 1.7 L of fluid removed from the left lung, awaiting final cytology Chest x-ray findings are stable and the patient has a stable mass in the left lingula and the left upper lobe Right iliac bone biopsy was done by interventional radiology, results are consistent with non-small cell lung cancer Medical oncology consult Radiation oncology consult, the patient was seen by radiation oncology Continue anticoagulation with Eliquis Shortness of breath is improved postthoracentesis and this was done without any complications Currently on 2 L of oxygen by nasal cannula He is receiving morphine for skeletal chest wall pain. Will continue to follow.
[2024-08-24 07:46] LABS: Glucose,Whole Blood 214 mg/dL (70-110)
[2024-08-24 12:26] LABS: Glucose,Whole Blood 173 mg/dL (70-110)
--- NOTE | 2024-08-24 12:54 | P.PN ---
Subjective Progress Note Date: 08/24/24 Patient transferred from [facility]. Originally, presented to the outside facility with right-sided rib pain after choking on oatmeal. Additionally, he was having issues with constipation. Workup at the outside facility including CT of the abdomen/pelvis with findings consistent with diffuse metastatic disease to both adrenal glands, with the right adrenal mass measuring up to 5 cm. Destructive osseous lesion involving the right iliac bone with associated soft tissue extension and asymmetric enlargement of the right iliac musculature. Right rib 9 fracture, possibly pathologic. Bilateral pleural effusions left greater than right. Also, a small pericardial effusion was partially visualized. Patient denies history of prior diagnosed malignancies, but states he has previously had attempted biopsies of a spot on his lung. He was recommended to get an outpatient PET scan. Patient never followed up due to insurance reasons. This was over 6 months ago. His primary care provider is Wellington Smiley out of the [facility]. Past medical history significant for COPD, former tobacco smoker. He quit smoking over 30 years ago, still carries a significant smoking history of over 30 pack years. Other medical history including atrial fibrillation anticoagulated on Eliquis, heart failure, hyperlipidemia, diabetes mellitus. Labs done at our facility including a CBC with a WBC count of 6.8, hemoglobin 8.9, platelets 349. CMP: Sodium 130, potassium 4.4, chloride 91, serum bicarb 28, BUN 19, creatinine 0.65, glucose 284. Lactic 1.5. LFTs unremarkable. Patient currently being evaluated in the emergency department. He is resting comfortably on room air. Does not appear in any respiratory dis tress. States the primary reason he came for evaluation at the outside facility was right-sided rib pain as reported above. Currently rated 7 on a 10 point numerical scale. He has also had difficulty ambulating and complaining of right hip pain. States his breathing may be slightly worse than baseline. Especially with exertion. He occasionally uses his rescue inhaler. Reports coughing with white to yellow phlegm production. Denies hemoptysis or chest pain. Denies fever/chills. Denies difficulty swallowing. His appetite has been poor. Unintentional weight loss of approximately 40 pounds in the last month. No nausea or vomiting. His last normal bowel movement was on Monday. Denies any abdominal pain, hematochezia, melena. Does admit history of heart failure. He has lower extremity swelling. Takes Lasix on an outpatient basis. Current vital signs: Temperature 97.7 F, heart rate 109 bpm, blood pressure 135/77 mmHg, nontachypneic, SpO2 recorded 96% on room air. On today's evaluation of 08/21/2024, the patient is stable. Feels slightly improved compared to yesterday and the patient seems to be less short of breath as the patient underwent a thoracentesis yesterday and the procedure was successful with a total of 1.7 L of fluid being removed. The patient also has a iliac bone biopsy, awaiting final pathology. The patient was also seen by medical oncology. Awaiting final pathology results. The white cell count 7.2 with a hemoglobin 9.8 and platelet count of 418. BUN is 14 with a creatinine of 0.7 and the sodium level is 134. LFTs are not elevated. Albumin level is at 3.0. The patient remains on oxygen and is currently on 2 L with a pulse ox of 95%. Home medication resumed. On 08/22/2024, the patient is being seen for a follow-up. No significant res piratory distress. The pleural fluid cytology still pending from the left lung. Meanwhile, the biopsy of the iliac balloon lesion was positive for metastatic well-differentiated non-small cell lung cancer. The results of the tumor immunohistochemistry showed a positive CK7. The tumor was negative for TTF-1, CK20 and Napsin A and S100. The tumor is predominantly negative for CK5/6 and p40. There are some rare cells showing positive staining for both markers. Based on those luminal staining results, diagnosis of metastatic non-small cell lung cancer was made possibly with squamous differentiation. Meanwhile, the patient is resting comfortably in bed. The patient was seen by radiation oncology for palliative radiation therapy to his iliac bone and right hip area for pain control. The patient currently is on 2 L of oxygen by nasal cannula. Hemodynamically stable. Electrolytes are within normal limits. BUN is 12 with a creatinine of 0.7. White cell count is 6.2 with a hemoglobin 9.4. Calcium level is at 8.4. No other significant events overnight. On 08/23/2024, the patient is being seen for a follow-up. The patient is stable. No new complaints. Awaiting further recommendation by radiation oncology and medical oncology. The patient has adequate pain control for now. The patient will receive radiation therapy to his right recurrent iliac/hip area. Meanwhile, the pleural fluid cytology still pending. Repeat chest x-ray done on 08/23/2024 showed a left lung neoplasm with a satellite lesion in the left upper lobe and a left-sided pleural effusion. The patient remains on oxygen 2 L with a pulse ox of 98%. MRI of the brain was also ordered to complete staging. The white cell count at 7 with a hemoglobin 9.2 and a platelet count of 384. BUN is 40 with a creatinine of 0.7. Sodium is at 130. LFTs are normal. On 08/24/2024, the patient is being seen for a follow-up. No new complaints. Respiratory has remained stable and the patient will have a MRI of the brain as part of his metastatic workup. Pain is under adequate control. He remains on oxygen and is still on 2 L although on room air oxygen the patient's pulse ox is 92%. Home O2 evaluation will be done. No new labs are available from today. The patient was seen by medical oncology and radiation oncology. Meanwhile, the pleural fluid cytology is still pending. Objective - Vital Signs Vital signs: Vital Signs Temp 98.0 F 08/24/24 12:22 Pulse 89 08/24/24 12:22 Resp 15 08/24/24 12:22 BP 108/67 08/24/24 12:22 Pulse Ox 92 L 08/24/24 12:22 FiO2 Intake & Output 08/23/24 08/24/24 08/24/24 18:59 06:59 18:59 Intake Total 1054 Balance 1054 Intake: Oral 1054 Other: Voiding Method Toilet Toilet Toilet # Voids 4 3 # Bowel Movements 8 2 - Exam GENERAL EXAM: Alert, 73-year-old male fairly, comfortable in no apparent di stress. HEAD: Normocephalic and atraumatic EYES: Normal reaction of pupils, equal size. NOSE: Clear with pink turbinates. THROAT: No erythema or exudates. NECK: No masses, no JVD. CHEST: No chest wall deformity. LUNGS: Equal air entry with bibasilar dullness. No wheezes, rhonchi, crackles. On room air. No conversational dyspnea or accessory muscle use.. CVS: S1 and S2 normal with no audible murmur, irregular rhythm. No extra heart sounds ABDOMEN: No hepatosplenomegaly, active bowel sounds, no guarding or rigidity. SPINE: No scoliosis or deformity SKIN: No rashes CENTRAL NERVOUS SYSTEM: No focal deficits, tone is normal in all 4 extremities. EXTREMITIES: There is bilateral 1+ pitting edema of the lower extremities. No clubbing or cyanosis. Peripheral pulses are intact. - Labs CBC & Chem 7: 08/23/24 05:15 08/23/24 05:15 Labs: Abnormal Lab Results - Last 24 Hours (Table) 08/23/24 08/23/24 08/24/24 Range/Units 17:13 20:28 07:35 POC Glucose (mg/dL) 201 H 225 H 214 H (70-110) mg/dL 08/24/24 Range/Units 12:25 POC Glucose (mg/dL) 173 H (70-110) mg/dL Microbiology - Last 24 Hours (Table) 08/20/24 13:00 Gram Stain - Final Pleural Fluid Body Fluid Culture - Final Assessment and Plan Assessment: Poorly-differentiated non-small cell lung cancer. The patient has a 5.2 x 5 x 8.5 cm heterogenous mass in the lingula concerning for neoplasm, possible primary; CT of the chest showing a 5.2 x 5 x 8.5 cm heterogenous mass in the lingula, concerning for neoplasm. Additional 1.8 cm nodule in the left upper l obe. Enlarged mediastinal and left hilar lymph nodes and possible cardiophrenic lymph node enlargement concerning for metastasis. Pleural fluid cytology still pending. Iliac bone biopsy was positive for metastatic non-small cell lung cancer with possible squamous cell differentiation. Bilateral pleural effusion left more than right status post thoracentesis and removal of 1.7 L of pleural fluid. Awaiting pleural fluid cytology. Multiple additional findings concerning for diffuse metastatic disease; CT of the abdomen/pelvis done at outside facility remarkable for bilateral adrenal lesions, osseous involvement of the right iliac bone with associated soft tissue extension and asymmetric enlargement of the right iliac musculature, right rib 9 fracture, possibly pathologic. Bilateral pleural effusions left greater than right. Small pericardial effusion was also partially visualized. Right iliac bone metastatic lesion post IR guided biopsy History of congestion heart failure Acute dyspnea, secondary to above, improved postthoracentesis Unintentional weight loss, 40 pounds over approximately 1 month timeframe Former tobacco smoker Chronic obstructive pulmonary disease History of heart failure, with unknown ejection Atrial fibrillation with controlled ventricular response, normally anticoagulated on Eliquis Diabetes mellitus type 2 Microcytic anemia Hyponatremia, appears hypervolemic on clinical examination, however, consider SIADH given concerning findings for malignancy Plan: Clinically stable and the patient will have a home O2 evaluation. Thoracentesis was done with a total of 1.7 L of fluid removed from the left lung, awaiting final cytology Chest x-ray findings are stable and the patient has a stable mass in the left lingula and the left upper lobe Right iliac bone biopsy was done by interventional radiology, results are consistent with non-small cell lung cancer Medical oncology consult Radiation oncology consult, the patient was seen by radiation oncology Continue anticoagulation with Eliquis Shortness of breath is improved postthoracentesis and this was done without any complications Currently on 2 L of oxygen by nasal cannula He is receiving morphine for skeletal chest wall pain. MRI of the brain today as part of the metastatic workup. Will continue to follow.
[2024-08-24 17:12] LABS: Glucose,Whole Blood 193 mg/dL (70-110)
--- NOTE | 2024-08-24 17:19 | P.PN ---
Subjective Progress Note Date: 08/24/24 Hospital course: Patient is a very pleasant 73-year-old male with a past medical history of CAD, paroxysmal atrial fibrillation on anticoagulation with Eliquis, CHF, hypertension, hyperlipidemia, Beatties mellitus, peripheral neuropathy, and anxiety with depression. He presented to the emergency department on 08/19/2024 as a transfer from [facility] where he initially presented with coughing/choking episode and right side abdominal/hip pain and underwent workup including CT abdomen and pelvis which revealed findings consistent with metastatic malignancy. Patient reported that this overall story began approximately 1 year ago when he began having some right hip discomfort. Last fall, he noted feeling as though he had pneumonia often. He underwent a workup at [facility] which he states he underwent a CT scan of the chest as well as a PET scan, and an effort was made to biopsy a spot located in his lung. He states that at that time they were unable to get a biopsy sample. There was no additional follow-up after that until 08/19/2024. The patient notes that he choked on oatmeal, and as a result of this coughing fit had terrible right sided pain which he localizes to his right ribs. It was due to this for the patient presented to the emergency department and underwent this CT scan as mentioned above. Additionally, he endorses having had poor appetite and a 4050 lbs weight loss over the past 1-2 months. Upon arrival to our facility, patient underwent evaluation in the emergency department. Vital signs on arrival show blood pressure 135/77, heart rate 109, respiratory rate 16, temp 97.7 F, and SpO2 of 96% on room air. EKG completed showing sinus tachycardia at 103 bpm. Labs completed and reviewed. CBC showing microcytic anemia with hemoglobin of 8.9. BMP showing hypochloremic hyponatremia with sodium of 130 and chloride of 91. Blood glucose 284. Lactic acid 1.5. BMP 2360. CT chest completed showing heterogeneous mass in the lingula measuring 5.2 x 5.0 x 8.5 cm concerning for neoplasm with additional 1.8 cm nodule in the left upper lobe, enlarged mediastinal and left hilar lymph nodes and possible cardiophrenic lymph node c oncerning for danielle metastasis, moderate pericardial effusion, nonspecific hypodense lesion partially seen in the right kidney, and moderate left and small right pleural effusions with cirrhotic liver and splenomegaly. Patient admitted under services with consultation to oncology and pulmonology. Pulmonology performed thoracentesis on 08/20/2024 with removal of a documented 1700 cc of pleural fluid. Patient also underwent CT-guided percutaneous right iliac bone mass biopsy by interventional radiology on 08/20/2024. Pathology specimens pending. Physical exam: Patient seen and evaluated at bedside this morning. He was resting in bed and continues to be short of breath. Has been getting up and ambulating to and from bathroom but is extremely short of breath upon reaching destination and returned to bed and/or chair. He is awaiting to be taken down for MRI brain later today. Denies any new complaints or concerns at this time. Vital signs reviewed and stable. General: Nontoxic, no distress and appears stated age. Derm: Skin warm and dry, normal coloration for ethnicity. Head: Atraumatic, normocephalic and symmetric. Eyes: EOM's intact, no lid lag, and anicteric sclera Mouth: no lip lesions, mucus membranes moist Cardiovascular: regular rate and rhythm with normal S1S2, no murmur, positive posterior tibial pulses bilaterally, and cap refill < 2 seconds. Lungs: Respirations even, regular, and unlabored on 2 L O2 upon returning from restroom. Lungs diminished No wheezes, rhonchi, or rales noted. Abdominal: soft distended bowel sounds x 4, nontender to palpation, no guarding, no appreciable organomegaly Ext: ROM intact. No gross muscle atrophy, Bilateral lower extremity edema, no contractures Neuro: Speech clear, face symmetrical and CN II-XII grossly intact with no noted focal neuro deficits Psych: Alert and oriented to person, place, time, and situation. Appropriate and pleasant affect. Assessment and Plan of Care: Small cell lung cancer with diffuse metastatic disease Bilateral pleural effusions Hypochloremic hyponatremia -Pulmonology following and performed thoracentesis on 08/20/2024 with removal of 1700 cc of pleural fluid. Discussed plan of care and plans for home on oxygen in detail with health care aide, Dr. Shukla. -Interventional radiology was consulted and performed CT-guided percutaneous right iliac bone mass biopsy on 08/20/2024. -Pathology results positive for poorly differentiated non-small cell carcinoma. -Oncology following, discussed plan of care with oncology MEDICAL INFORMATION SPECIALIST -Continue supplemental oxygen as needed to maintain SpO2 equal to or greater than 90%. -Continue symptomatic care and pain management with Tylenol 650 mg p.o. every 6 hours as needed for mild pain/fever, [place] 5-325 mg tablets every 4 hours as needed for moderate pain, and morphine 4 mg IVP every 4 hours as needed for severe. -Telemetry monitoring. -Order placed for repeat chest x-ray Chronic systolic congestive heart failure, with mild exacerbation Moderate pericardial effusion Paroxysmal atrial fibrillation Hypertension Hyperlipidemia -Echocardiogram completed showing an EF of 45 to 50% with moderate pulmonary hypertension, mild right ventricular dilation, moderate biatrial dilation, mild tricuspid and mitral regurgitation, and mild aortic stenosis with moderate pericardial effusion with respiratory variation of tricuspid inflow suggestive of mild tamponade physiology. -Continue cardiac medication regimen with diltiazem 120 mg daily and simvastatin 20 mg daily. -Cardiology evaluated and discontinued Cardizem and stated no need for intervention for pericardial drainage at this time. Recommending patient resume Eliquis and starting patient on Farxiga 10 mg daily, metoprolol 50 mg twice daily, and Aldactone 12.5 mg daily. Microcytic anemia, iron deficiency -Iron profile showing iron 29, TIBC 210, iron percentage saturation 13.81, and transferrin 150. -Patient completed 3 doses of IV Ferrlecit 125 mg daily Type II iah-tjxeeks-pjbeimgte diabetes mellitus with hyperglycemia Diabetic peripheral neuropathy -Hold metformin, glipizide and pioglitazone. Continue glycemic protocol with Humalog sliding scale. Hemoglobin A1c 8.5% Data and imaging reviewed: Labs reviewed. CBC showing stable microcytic anemia with hemoglobin of 9.2. BMP showing sodium 130, chloride 92 and blood glucose of 186. Magnesium was 2.2. Liver profile showing low AST of 11 and ALT of 7, low total protein of 6.0 and low albumin of 3.0. Vital signs reviewed. Blood pressure 110/62, heart rate 81, respiratory rate 16, temp 98.0 F, and SpO2 of 93% on room air Echocardiogram completed showing an EF of 45 to 50% with moderate pulmonary hypertension, mild right ventricular dilation, moderate biatrial dilation, mild tricuspid and mitral regurgitation, and mild aortic stenosis with moderate pericardial effusion with respiratory variation of tricuspid inflow suggestive of mild tamponade physiology. CODE STATUS: Full code DVT prophylaxis: Eliquis Anticipated discharge date: Pending clinical course Anticipated discharge place: Pending clinical course Patient was seen independently by Nurse Pracitioner. This document was prepared using [email or web address] software. Please allow for errors in aircrewman, while rare they do occur. Ángel Bowling MEDICAL INFORMATION SPECIALIST rendered care for this patient independently, reviewed the findings and plan as documented in the note above and agree with plan. I did not physically speak with or examine the patient on this date. Objective - Vital Signs Vital signs: Vital Signs Temp 98.0 F 08/24/24 07:32 Pulse 81 08/24/24 07:32 Resp 16 08/24/24 07:32 BP 110/62 08/24/24 07:32 Pulse Ox 93 L 08/24/24 07:32 FiO2 Intake & Output 08/23/24 08/24/24 08/24/24 18:59 06:59 18:59 Intake Total 1054 Balance 1054 Intake: Oral 1054 Other: Voiding Method Toilet Toilet # Voids 4 3 # Bowel Movements 8 - Labs CBC & Chem 7: 08/23/24 05:15 08/23/24 05:15 Labs: Abnormal Lab Results - Last 24 Hours (Table) 08/23/24 08/23/24 08/23/24 Range/Units 12:34 17:13 20:28 POC Glucose (mg/dL) 179 H 201 H 225 H (70-110) mg/dL 08/24/24 Range/Units 07:35 POC Glucose (mg/dL) 214 H (70-110) mg/dL Microbiology - Last 24 Hours (Table) 08/20/24 13:00 Gram Stain - Final Pleural Fluid Body Fluid Culture - Final
--- NOTE | 2024-08-24 19:36 | MR ---
EXAMINATION TYPE: MR brain wo/w con DATE OF EXAM: 08/24/2024 7:07 PM COMPARISON: None. CLINICAL INDICATION: Male, 73 years old with history of staging, malignancy, staging, malignancy TECHNIQUE: Multiplanar, multiecho imaging on a 3.0 Rosie magnet is performed through the brain. Stud y is performed within 24 hours of arrival to the hospital.Multiplanar, multiecho imaging on a 3.0 Dian la magnet is performed through the knee. IV Contrast: 9 mL Gadobutrol (None, if empty) FINDINGS: The craniovertebral junction is normal. The pituitary is normal. Diffusion-weighted imaging is performed. No abnormal hyperintensity is present to suggest an acute i ntracranial infarct or acute ischemic change. There are scattered punctate areas of hyperintensity on T2 and Inversion Recovery weighted sequences which are non-specific but can be related to microvascular ischemic changes. Ventricles and sulci are appropriate for the patient age. Following contrast, no abnormal enhancement is evident. IMPRESSION: 1. Scattered subcortical and deep white matter changes are nonspecific but can be related to chronic white matter ischemic-type changes. 2. No suspicious acute intracranial changes pre- and postcontrast MRI brain [facility], , 08/24/2024 7:34 PM
[2024-08-24 20:30] LABS: Glucose,Whole Blood 205 mg/dL (70-110)
[2024-08-25 07:33] LABS: Glucose,Whole Blood 159 mg/dL (70-110)
[2024-08-25 09:17] LABS: ALT 7 U/L (10-49); AST 15 U/L (14-35); Albumin/Globulin Ratio 0.94 Ratio (1.60-3.17); Alkaline Phosphatase 104 U/L (41-126); Blood Urea Nitrogen 12.9 mg/dL (9.0-27.0); Calcium 8.8 mg/dL (8.7-10.3); Carbon Dioxide 28.1 mmol/L (21.6-31.8); Chloride 93 mmol/L (96-109); Globulin 3.2 g/dL (1.6-3.3); Glucose 157 mg/dL (70-110); Magnesium 2.1 mg/dL (1.5-2.4); Potassium 3.7 mmol/L (3.5-5.5); Sodium 135 mmol/L (135-145); Total Bilirubin 0.6 mg/dL (0.3-1.2); Total Protein 6.2 g/dL (6.2-8.2)
[2024-08-25 10:02] LABS: HCT 33.2 % (39.6-50.0); HGB 9.9 g/dL (13.0-17.0); MCH 23.6 pg (27.0-32.0); MCHC 29.8 g/dL (32.0-37.0); Mean Platelet Volume 8.7 FL (9.5-12.2); NRBC Per 100 WBC 0 X 10*3/uL (0.00-0.01); Platelet Count 425 X 10*3/uL (140-440); RDW 15.9 % (11.5-14.5); WBC 7.75 X 10*3/uL (4.50-10.00)
[2024-08-25 12:44] LABS: Glucose,Whole Blood 169 mg/dL (70-110)
[2024-08-25] MEDS: FERROUS SULFATE 325 MG TAB PO SCH (13:05)
--- NOTE | 2024-08-25 14:07 | P.PN ---
Subjective Progress Note Date: 08/25/24 Principal diagnosis: Intractable rib pain, bone lesions, pleural effusion, adrenal masses In follow-up today patient reports rib pain is manageable, he is moving about in the room, he is tolerating oral intake. MRI brain neg for mets. Objective - Vital Signs Vital signs: Vital Signs Temp 97.5 F L 08/25/24 12:37 Pulse 74 08/25/24 12:37 Resp 16 08/25/24 12:37 BP 109/70 08/25/24 12:37 Pulse Ox 94 L 08/25/24 12:37 FiO2 Intake & Output 08/24/24 08/25/24 08/25/24 18:59 06:59 18:59 Intake Total 1054 Balance 1054 Intake: Oral 1054 Other: Voiding Method Toilet Toilet Toilet # Voids 1 3 # Bowel Movements 6 - Constitutional General appearance: Present: average body habitus, cooperative, no acute distress - EENT Eyes: Present: anicteric sclerae, EOMI ENT: Present: hearing grossly normal - Respiratory Details: Respirations even and unlabored at rest - Cardiovascular Details: Skin warm, dry, well-perfused - Integumentary Integumentary: Present: normal - Neurologic Neurologic: Present: CNII-XII intact - Psychiatric Psychiatric: Present: A&O x's 3, appropriate affect, intact judgment & insight - Labs CBC & Chem 7: 08/25/24 03:36 08/25/24 03:36 Labs: Abnormal Lab Results - Last 24 Hours (Table) 08/24/24 08/24/24 08/25/24 Range/Units 17:09 20:25 03:36 RBC 4.20 L (4.40-5.60) X 10*6/uL Hgb 9.9 L (13.0-17.0) g/dL Hct 33.2 L (39.6-50.0) % MCV 79.0 L (80.0-97.0) FL MCH 23.6 L (27.0-32.0) pg MCHC 29.8 L (32.0-37.0) g/dL RDW 15.9 H (11.5-14.5) % MPV 8.7 L (9.5-12.2) FL Chloride (96-109) mmol/L Anion Gap (4.00-12.00) mmol/L BUN/Creatinine Ratio (12.00-20.00) Ratio Glucose (70-110) mg/dL POC Glucose (mg/dL) 193 H 205 H (70-110) mg/dL ALT (10-49) U/L Albumin (3.8-4.9) g/dL Albumin/Globulin Ratio (1.60-3.17) Ratio 08/25/24 08/25/24 08/25/24 Range/Units 03:36 07:25 12:40 RBC (4.40-5.60) X 10*6/uL Hgb (13.0-17.0) g/dL Hct (39.6-50.0) % MCV (80.0-97.0) FL MCH (27.0-32.0) pg MCHC (32.0-37.0) g/dL RDW (11.5-14.5) % MPV (9.5-12.2) FL Chloride 93 L (96-109) mmol/L Anion Gap 13.90 H (4.00-12.00) mmol/L BUN/Creatinine Ratio 21.50 H (12.00-20.00) Ratio Glucose 157 H (70-110) mg/dL POC Glucose (mg/dL) 159 H 169 H (70-110) mg/dL ALT 7 L (10-49) U/L Albumin 3.0 L (3.8-4.9) g/dL Albumin/Globulin Ratio 0.94 L (1.60-3.17) Ratio - Imaging and Cardiology MRI - head: report reviewed Assessment and Plan (1) Non-small cell lung cancer (NSCLC) Current Visit: Yes Status: Acute Priority: High Code(s): C34.90 - MALIGNANT NEOPLASM OF UNSP PART OF UNSP BRONCHUS OR LUNG SNOMED Code(s): 569107830 (2) Pathologic rib fracture Current Visit: Yes Status: Acute Priority: High Code(s): M84.48XA - PATHO LOGICAL FRACTURE, OTHER SITE, INIT ENCNTR FOR FRACTURE SNOMED Code(s): 70 2825383 Plan: Pathological rib fracture. Bone biopsy positive for metastatic poorly differentiated NSCLC -Patient presented with rib pain. CT reported in documentation (as it was done at an outside facility) as concerning for metastatic disease to both adrenal glands, right adrenal mass measuring up to 5 cm. Bilateral pleural effusions. Pathological fracture of the ninth rib. Destructive osseous lesion involving the right iliac bone with associated soft tissue extension. CT of the chest with contrast performed at this facility reports a heterogenous mass in the lingula measuring 5.2 x 5 x 8.5 cm. 1.8 cm left upper lobe nodule. Moderate left and small right pleural effusion. Enlarged mediastinal and left hilar lymph nodes, possible cardiophrenic lymph node. Cirrhotic liver. Splenomegaly. - Core biopsy of the iliac mass positive fr poorly differentiated adenocarcinoma. Tissue block requested for NGS/PDL1. Thoracentesis cytology pending. -MRI of the brain ordered to complete staging, neg for metastatic disease. - Follow-up with Medical Oncology once all of the information has been obtained, radiation has been completed, and molecular testing has been performed, for a final treatment plan -Radiation Oncology has saw the patient last week. They were waiting last week for the results of the biopsy before beginning radiation. Each site is going to be receiving 5 treatments. This can be done outpatient. Malignancy related pain - Patient is currently on [place], Neurontin, Lidoderm patch for pain, only used a few doses of IV morphine. - Medications for the prevention of narcotic induced constipation -Radiation to painful bone sites will likely start next week. Patient understands all of the above and is agreeable to the same. Patient is okay for discharge from a medical Oncology standpoint once cleared by Attending and all consulting Physicians.
--- NOTE | 2024-08-25 14:46 | P.PN ---
Subjective Progress Note Date: 08/25/24 Hospital course: Patient is a very pleasant 73-year-old male with a past medical history of CAD, paroxysmal atrial fibrillation on anticoagulation with Eliquis, CHF, hypertension, hyperlipidemia, Beatties mellitus, peripheral neuropathy, and anxiety with depression. He presented to the emergency department on 08/19/[address] from [facility] where he initially presented with coughing/choking episode and right side abdominal/hip pain and underwent workup including CT abdomen and pelvis which revealed findings consistent with metastatic malignancy. Patient reported that this overall story began approximately 1 year ago when he began having some right hip discomfort. Last fall, he noted feeling as though he had pneumonia often. He underwent a workup at [facility] which he states he underwent a CT scan of the chest as well as a PET scan, and an effort was made to biopsy a spot located in his lung. He states that at that time they were unable to get a biopsy sample. There was no additional follow-up after that until 08/19/2024. The patient notes that he choked on oatmeal, and as a result of this coughing fit had terrible right sided pain which he localizes to his right ribs. It was due to this for the patient presented to the emergency department and underwent this CT scan as mentioned above. Additionally, he endorses having had poor appetite and a 4050 lbs weight loss over the past 1-2 months. Upon arrival to our facility, patient underwent evaluation in the emergency department. Vital signs on arrival show blood pressure 135/77, heart rate 109, respiratory rate 16, temp 97.7 F, and SpO2 of 96% on room air. EKG completed showing sinus tachycardia at 103 bpm. Labs completed and reviewed. CBC showing microcytic anemia with hemoglobin of 8.9. BMP showing hypochloremic hyponatremia with sodium of 130 and chloride of 91. Blood glucose 284. Lactic acid 1.5. BMP 2360. CT chest completed showing heterogeneous mass in the lingula measuring 5.2 x 5.0 x 8.5 cm concerning for neoplasm with additional 1.8 cm nodule in the left upper lobe, enlarged mediastinal and left hilar lymph nodes and possible cardiophrenic lymph node c oncerning for danielle metastasis, moderate pericardial effusion, nonspecific hypodense lesion partially seen in the right kidney, and moderate left and small right pleural effusions with cirrhotic liver and splenomegaly. Patient admitted under services with consultation to oncology and pulmonology. Pulmonology performed thoracentesis on 08/20/2024 with removal of a documented 1700 cc of pleural fluid. Patient also underwent CT-guided percutaneous right iliac bone mass biopsy by interventional radiology on 08/20/2024. Echocardiogram completed showing an EF of 45 to 50% with moderate pulmonary hypertension, mild right ventricular dilation, moderate biatrial dilation, mild tricuspid and mitral re gurgitation, and mild aortic stenosis with moderate pericardial effusion with respiratory variation of tricuspid inflow suggestive of mild tamponade physiology.Pathology results positive for poorly differentiated non-small cell carcinoma. MRI brain negative for metastasis. Hematology/oncology recommending patient begin radiation treatment this week and clearing patient from their perspective for discharge, life sciences manager clearing patient at this time. Patient is medically optimized for discharge however will require home oxygen which is not available for delivery on Monday. Plan for discharge tomorrow morning. Physical exam: Patient seen and evaluated at bedside this morning. He was resting in bed and shortness of breath at this time. He reports shortness of breath controlled at rest but continues with any exertion such as walking to the restroom. RN shaila clemente patient can walk to the restroom and then has to sit for a while to catch his breath prior to walking back to bed and again takes a few minutes to recover upon returning to bed. Patient denies having any new complaints or concerns at this time. Vital signs reviewed and stable. General: Nontoxic, no distress and appears stated age. Derm: Skin warm and dry, normal coloration for ethnicity. Head: Atraumatic, normocephalic and symmetric. Eyes: EOM's intact, no lid lag, and anicteric sclera Mouth: no lip lesions, mucus membranes moist Cardiovascular: regular rate and rhythm with normal S1S2, no murmur, positive posterior tibial pulses bilaterally, and cap refill < 2 seconds. Lungs: Respirations even, regular, and unlabored on 2 L O2 upon returning from restroom. Lungs diminished No wheezes, rhonchi, or rales noted. Abdominal: soft distended bowel sounds x 4, nontender to palpation, no guarding, no appreciable organomegaly Ext: ROM intact. No gross muscle atrophy, Bilateral lower extremity edema, no contractures Neuro: Speech clear, face symmetrical and CN II-XII grossly intact with no noted focal neuro deficits Psych: Alert and oriented to person, place, time, and situation. Appropriate and pleasant affect. Assessment and Plan of Care: Small cell lung cancer with diffuse metastatic disease Bilateral pleural effusions Hypochloremic hyponatremia -Pulmonology following and performed thoracentesis on 08/20/2024 with removal of 1700 cc of pleural fluid. Discussed plan of care and plans for home on oxygen in detail with life sciences manager, Dr. Shukla. -Interventional radiology was consulted and performed CT-guided percutaneous ri ght iliac bone mass biopsy on 08/20/2024. -Pathology results positive for poorly differentiated non-small cell carcinoma. -Oncology following, discussed plan of care with oncology COCOA ROASTER clearing patient from their perspective stating patient to begin radiation treatment this week. -Continue supplemental oxygen as needed to maintain SpO2 equal to or greater than 90%. -Continue symptomatic care and pain management with Tylenol 650 mg p.o. every 6 hours as needed for mild pain/fever, Aneta 5-325 mg tablets every 4 hours as needed for moderate pain, and morphine 4 mg IVP every 4 hours as needed for s evere. -Telemetry monitoring. Chronic systolic congestive heart failure, with mild exacerbation Moderate pericardial effusion Paroxysmal atrial fibrillation Hypertension Hyperlipidemia -Echocardiogram completed showing an EF of 45 to 50% with moderate pulmonary hypertension, mild right ventricular dilation, moderate biatrial dilation, mild tricuspid and mitral regurgitation, and mild aortic stenosis with moderate pericardial effusion with respiratory variation of tricuspid inflow suggestive of mild tamponade physiology. -Continue cardiac medication regimen with diltiazem 120 mg daily and simvastatin 20 mg daily. -Cardiology evaluated and discontinued Cardizem and stated no need for intervention for pericardial drainage at this time. Recommending patient resume Eliquis and starting patient on Farxiga 10 mg daily, metoprolol 50 mg twice daily, and Aldactone 12.5 mg daily. Microcytic anemia, iron deficiency -Iron profile showing iron 29, TIBC 210, iron percentage saturation 13.81, and transferrin 150. -Patient completed 3 doses of IV Ferrlecit 125 mg daily and started on ferrous sulfate 325 mg daily. Type II [id number] diabetes mellitus with hyperglycemia Diabetic peripheral neuropathy -Hold metformin, glipizide and pioglitazone. Continue glycemic protocol with Humalog sliding scale. Hemoglobin A1c 8.5% Data and imaging reviewed: Labs reviewed. CBC showing stable microcytic anemia with hemoglobin of 9.9. BMP showing sodium 135, potassium 3.7, chloride 93, bicarb 28.1, and slightly elevated anion gap of 13.90. Blood glucose 157. Magnesium 2.1. Liver profile unremarkable. Vital signs reviewed. Blood pressure 106/59, heart rate 85, respiratory rate 16, temp 97.7 F, and SpO2 of 92% on room air. MRI brain negative for metastatic lesions. Hematology/oncology recommending patient begin radiation treatment outpatient starting this week and clearing patient from their perspective for discharge, life sciences manager clearing patient for discharge as well. Patient is medically optimized for discharge, however will require home oxygen which is not available for delivery on Monday. Plan for discharge tomorrow morning. CODE STATUS: Full code DVT prophylaxis: Eliquis Anticipated discharge date: Pending clinical course Anticipated discharge place: Pending clinical course Patient was seen independently by Nurse Pracitioner. This document was prepared using [employer] dictation software. Please allow for errors in cruller maker, while rare they do occur. Ángel Bowling NP rendered care for this patient independently, reviewed the findings and plan as documented in the note above and agree with plan. I did not physically speak with or examine the patient on this date. Objective - Vital Signs Vital signs: Vital Signs Temp 97.7 F 08/25/24 07:21 Pulse 85 08/25/24 07:21 Resp 16 08/25/24 07:21 BP 106/59 08/25/24 07:21 Pulse Ox 92 L 08/25/24 07:21 FiO2 Intake & Output 08/24/24 08/25/24 08/25/24 18:59 06:59 18:59 Intake Total 1054 Balance 1054 Intake: Oral 1054 Other: Voiding Method Toilet Toilet Toilet # Voids 1 3 # Bowel Movements 6 - Labs CBC & Chem 7: 08/25/24 03:36 08/25/24 03:36 Labs: Abnormal Lab Results - Last 24 Hours (Table) 08/24/24 08/24/24 08/24/24 Range/Units 12:25 17:09 20:25 Chloride (96-109) mmol/L Anion Gap (4.00-12.00) mmol/L BUN/Creatinine Ratio (12.00-20.00) Ratio Glucose (70-110) mg/dL POC Glucose (mg/dL) 173 H 193 H 205 H (70-110) mg/dL ALT (10-49) U/L Albumin (3.8-4.9) g/dL Albumin/Globulin Ratio (1.60-3.17) Ratio 08/25/24 08/25/24 Range/Units 03:36 07:25 Chloride 93 L (96-109) mmol/L Anion Gap 13.90 H (4.00-12.00) mmol/L BUN/Creatinine Ratio 21.50 H (12.00-20.00) Ratio Glucose 157 H (70-110) mg/dL POC Glucose (mg/dL) 159 H (70-110) mg/dL ALT 7 L (10-49) U/L Albumin 3.0 L (3.8-4.9) g/dL Albumin/Globulin Ratio 0.94 L (1.60-3.17) Ratio Microbiology - Last 24 Hours (Table) 08/20/24 13:00 Gram Stain - Final Pleural Fluid Body Fluid Culture - Final
--- NOTE | 2024-08-25 15:03 | P.PN ---
Subjective Progress Note Date: 08/25/24 Patient transferred from [facility]. Originally, presented to the outside facility with right-sided rib pain after choking on oatmeal. Additionally, he was having issues with constipation. Workup at the outside facility including CT of the abdomen/pelvis with findings consistent with diffuse metastatic disease to both adrenal glands, with the right adrenal mass measuring up to 5 cm. Destructive osseous lesion involving the right iliac bone with associated soft tissue extension and asymmetric enlargement of the right iliac musculature. Right rib 9 fracture, possibly pathologic. Bilateral pleural effusions left greater than right. Also, a small pericardial effusion was partially visualized. Patient denies history of prior diagnosed malignancies, but states he has previously had attempted biopsies of a spot on his lung. He was recommended to get an outpatient PET scan. Patient never followed up due to insurance reasons. This was over 6 months ago. His primary care provider is Wellington Smiley out of the [facility]. Past medical history significant for COPD, former tobacco smoker. He quit smoking over 30 years ago, still carries a significant smoking history of over 30 pack years. Other medical history including atrial fibrillation anticoagulated on Eliquis, heart failure, hyperlipidemia, diabetes mellitus. Labs done at our facility including a CBC with a WBC count of 6.8, hemoglobin 8.9, platelets 349. CMP: Sodium 130, potassium 4.4, chloride 91, serum bicarb 28, BUN 19, creatinine 0.65, glucose 284. Lactic 1.5. LFTs unremarkable. Patient currently being evaluated in the emergency department. He is resting comfortably on room air. Does not appear in any respiratory dis tress. States the primary reason he came for evaluation at the outside facility was right-sided rib pain as reported above. Currently rated 7 on a 10 point numerical scale. He has also had difficulty ambulating and complaining of right hip pain. States his breathing may be slightly worse than baseline. Especially with exertion. He occasionally uses his rescue inhaler. Reports coughing with white to yellow phlegm production. Denies hemoptysis or chest pain. Denies fever/chills. Denies difficulty swallowing. His appetite has been poor. Unintentional weight loss of approximately 40 pounds in the last month. No nausea or vomiting. His last normal bowel movement was on Monday. Denies any abdominal pain, hematochezia, melena. Does admit history of heart failure. He has lower extremity swelling. Takes Lasix on an outpatient basis. Current vital signs: Temperature 97.7 F, heart rate 109 bpm, blood pressure 135/77 mmHg, nontachypneic, SpO2 recorded 96% on room air. On today's evaluation of 08/21/2024, the patient is stable. Feels slightly improved compared to yesterday and the patient seems to be less short of breath as the patient underwent a thoracentesis yesterday and the procedure was successful with a total of 1.7 L of fluid being removed. The patient also has a iliac bone biopsy, awaiting final pathology. The patient was also seen by medical oncology. Awaiting final pathology results. The white cell count 7.2 with a hemoglobin 9.8 and platelet count of 418. BUN is 14 with a creatinine of 0.7 and the sodium level is 134. LFTs are not elevated. Albumin level is at 3.0. The patient remains on oxygen and is currently on 2 L with a pulse ox of 95%. Home medication resumed. On 08/22/2024, the patient is being seen for a follow-up. No significant res piratory distress. The pleural fluid cytology still pending from the left lung. Meanwhile, the biopsy of the iliac balloon lesion was positive for metastatic well-differentiated non-small cell lung cancer. The results of the tumor immunohistochemistry showed a positive CK7. The tumor was negative for TTF-1, CK20 and Napsin A and S100. The tumor is predominantly negative for CK5/6 and p40. There are some rare cells showing positive staining for both markers. Based on those luminal staining results, diagnosis of metastatic non-small cell lung cancer was made possibly with squamous differentiation. Meanwhile, the patient is resting comfortably in bed. The patient was seen by radiation oncology for palliative radiation therapy to his iliac bone and right hip area for pain control. The patient currently is on 2 L of oxygen by nasal cannula. Hemodynamically stable. Electrolytes are within normal limits. BUN is 12 with a creatinine of 0.7. White cell count is 6.2 with a hemoglobin 9.4. Calcium level is at 8.4. No other significant events overnight. On 08/23/2024, the patient is being seen for a follow-up. The patient is stable. No new complaints. Awaiting further recommendation by radiation oncology and medical oncology. The patient has adequate pain control for now. The patient will receive radiation therapy to his right recurrent iliac/hip area. Meanwhile, the pleural fluid cytology still pending. Repeat chest x-ray done on 08/23/2024 showed a left lung neoplasm with a satellite lesion in the left upper lobe and a left-sided pleural effusion. The patient remains on oxygen 2 L with a pulse ox of 98%. MRI of the brain was also ordered to complete staging. The white cell count at 7 with a hemoglobin 9.2 and a platelet count of 384. BUN is 40 with a creatinine of 0.7. Sodium is at 130. LFTs are normal. On 08/24/2024, the patient is being seen for a follow-up. No new complaints. Respiratory has remained stable and the patient will have a MRI of the brain as part of his metastatic workup. Pain is under adequate control. He remains on oxygen and is still on 2 L although on room air oxygen the patient's pulse ox is 92%. Home O2 evaluation will be done. No new labs are available from today. The patient was seen by medical oncology and radiation oncology. Meanwhile, the pleural fluid cytology is still pending. On 09/16/2024, the patient is essentially unchanged. He is being treated for pain. MRI of the brain was negative for metastases. Respiratory status is stable and the patient is currently on 2 L of oxygen by nasal cannula. The patient will need home O2. Pleural fluid cytology has not completely resulted yet. Objective - Vital Signs Vital signs: Vital Signs Temp 97.7 F 08/25/24 07:21 Pulse 85 08/25/24 07:21 Resp 16 08/25/24 07:21 BP 106/59 08/25/24 07:21 Pulse Ox 94 L 08/25/24 10:19 FiO2 Intake & Output 08/24/24 08/25/24 08/25/24 18:59 06:59 18:59 Intake Total 1054 Balance 1054 Intake: Oral 1054 Other: Voiding Method Toilet Toilet Toilet # Voids 1 3 # Bowel Movements 6 - Exam GENERAL EXAM: Alert, 73-year-old male fairly, comfortable in no apparent distress. HEAD: Normocephalic and atraumatic EYES: Normal reaction of pupils, equal size. NOSE: Clear with pink turbinates. THROAT: No erythema or exudates. NECK: No masses, no JVD. CHEST: No chest wall deformity. LUNGS: Equal air entry with bibasilar dullness. No wheezes, rhonchi, crackles. On room air. No conversational dyspnea or accessory muscle use.. CVS: S1 and S2 normal with no audible murmur, irregular rhythm. No extra heart sounds ABDOMEN: No hepatosplenomegaly, active bowel sounds, no guarding or rigidity. SPINE: No scoliosis or deformity SKIN: No rashes CENTRAL NERVOUS SYSTEM: No focal deficits, tone is normal in all 4 extremities. EXTREMITIES: There is bilateral 1+ pitting edema of the lower extremities. No clubbing or cyanosis. Peripheral pulses are intact. - Labs CBC & Chem 7: 08/25/24 03:36 08/25/24 03:36 Labs: Abnormal Lab Results - Last 24 Hours (Table) 08/24/24 08/24/24 08/24/24 Range/Units 12:25 17:09 20:25 RBC (4.40-5.60) X 10*6/uL Hgb (13.0-17.0) g/dL Hct (39.6-50.0) % MCV (80.0-97.0) FL MCH (27.0-32.0) pg MCHC (32.0-37.0) g/dL RDW (11.5-14.5) % MPV (9.5-12.2) FL Chloride (96-109) mmol/L Anion Gap (4.00-12.00) mmol/L BUN/Creatinine Ratio (12.00-20.00) Ratio Glucose (70-110) mg/dL POC Glucose (mg/dL) 173 H 193 H 205 H (70-110) mg/dL ALT (10-49) U/L Albumin (3.8-4.9) g/dL Albumin/Globulin Ratio (1.60-3.17) Ratio 08/25/24 08/25/24 08/25/24 Range/Units 03:36 03:36 07:25 RBC 4.20 L (4.40-5.60) X 10*6/uL Hgb 9.9 L (13.0-17.0) g/dL Hct 33.2 L (39.6-50.0) % MCV 79.0 L (80.0-97.0) FL MCH 23.6 L (27.0-32.0) pg MCHC 29.8 L (32.0-37.0) g/dL RDW 15.9 H (11.5-14.5) % MPV 8.7 L (9.5-12.2) FL Chloride 93 L (96-109) mmol/L Anion Gap 13.90 H (4.00-12.00) mmol/L BUN/Creatinine Ratio 21.50 H (12.00-20.00) Ratio Glucose 157 H (70-110) mg/dL POC Glucose (mg/dL) 159 H (70-110) mg/dL ALT 7 L (10-49) U/L Albumin 3.0 L (3.8-4.9) g/dL Albumin/Globulin Ratio 0.94 L (1.60-3.17) Ratio Microbiology - Last 24 Hours (Table) 08/20/24 13:00 Gram Stain - Final Pleural Fluid Body Fluid Culture - Final Assessment and Plan Assessment: Poorly-differentiated non-small cell lung cancer. The patient has a 5.2 x 5 x 8.5 cm heterogenous mass in the lingula concerning for neoplasm, possible primary; CT of the chest showing a 5.2 x 5 x 8.5 cm heterogenous mass in the lingula, concerning for neoplasm. Additional 1.8 cm nodule in the left upper lobe. Enlarged mediastinal and left hilar lymph nodes and possible cardiophrenic lymph node enlargement concerning for metastasis. Pleural fluid cytology still pending. Iliac bone biopsy was positive for metastatic non-small cell lung cancer with possible squamous cell differentiation. Bilateral pleural effusion left more than right status post thoracentesis and removal of 1.7 L of pleural fluid. Awaiting pleural fluid cytology. Multiple additional findings concerning for diffuse metastatic disease; CT of the abdomen/pelvis done at outside facility remarkable for bilateral adrenal lesions, osseous involvement of the right iliac bone with associated soft tissue extension and asymmetric enlargement of the right iliac musculature, right rib 9 fracture, possibly pathologic. Bilateral pleural effusions left greater than right. Small pericardial effusion was also partially visualized. Right iliac bone metastatic lesion post IR guided biopsy History of congestion heart failure Acute dyspnea, secondary to above, improved postthoracentesis Unintentional weight loss, 40 pounds over approximately 1 month timeframe Former tobacco smoker Chronic obstructive pulmonary disease History of heart failure, with unknown ejection Atrial fibrillation with controlled ventricular response, normally anticoagulated on Eliquis Diabetes mellitus type 2 Microcytic anemia Hyponatremia, appears hypervolemic on clinical examination, however, consider SIADH given concerning findings for malignancy Plan: Clinically stable and the patient will have a home O2 evaluation. The patient will likely need home O2. Thoracentesis was done with a total of 1.7 L of fluid removed from the left lung, awaiting final cytology Chest x-ray findings are stable and the patient has a stable mass in the left lingula and the left upper lobe Right iliac bone biopsy was done by interventional radiology, results are consistent with non-small cell lung cancer Medical oncology consult Radiation oncology consult, the patient was seen by radiation oncology Continue anticoagulation with Eliquis Shortness of breath is improved postthoracentesis and this was done without any complications Currently on 2 L of oxygen by nasal cannula He is receiving morphine for skeletal chest wall pain. MRI of the brain shows no evidence of any metastases Will likely get discharged to be followed up on outpatient basis for treatment of metastatic non-small cell lung cancer.
[2024-08-25 17:28] LABS: Glucose,Whole Blood 172 mg/dL (70-110)
[2024-08-25 21:39] LABS: Glucose,Whole Blood 197 mg/dL (70-110)
[2024-08-26 07:27] LABS: Glucose,Whole Blood 155 mg/dL (70-110)
[2024-08-26 07:36] VITALS: RESP 18
[2024-08-26 12:07] LABS: Glucose,Whole Blood 216 mg/dL (70-110)
[2024-08-26 12:29] VITALS: BP 108/67; PULSE 82; TEMP 97.7
[2024-08-26] MEDS: ZINC OXIDE PASTE (Z-GUARD) 1 APPLIC TOPICAL SCH (12:43)
--- NOTE | 2024-08-26 15:09 | P.DS ---
Providers Date of admission: 08/19/24 23:51 Expected date of discharge: 08/26/24 Attending physician: Bunny Espinal MD Consults: 08/19/24 23:50 Consult Physician Urgent Consulting Provider: Armando Shukla Consult Reason/Comments: pulmonary mass Do you want consulting provider notified?: Yes, Notify in am Consult Physician Urgent Consulting Provider: Leobardo Witt Consult Reason/Comments: Metastatic disease, further workup Do you want consulting provider notified?: Yes, Notify in am 08/21/24 14:11 Consult Physician Routine Consulting Provider: Loree Abraham Consult Reason/Comments: painful bone mets-rt ribs, rt iliac Do you want consulting provider notified?: Yes Primary care physician: Wellington Smiley Hospital Course: Discharge Diagnosis: 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 Bilateral pleural effusions Hypochloremic hyponatremia Chronic systolic congestive heart failure, with mild exacerbation Moderate pericardial effusion Paroxysmal atrial fibrillation Hypertension Hyperlipidemia Microcytic anemia, iron deficiency 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 He presented to the emergency department on 08/19/2024 as a transfer from [facility] where he initially presented with coughing/choking episode and right side abdominal/hip pain and underwent workup including CT abdomen and pelvis which revealed findings consistent with metastatic malignancy. Patient reported that this overall story began approximately 1 year ago when he began having some right hip discomfort. Last fall, he noted feeling as though he had pneumonia often. He underwent a workup at [facility] which he states he underwent a CT scan of the chest as well as a PET scan, and an effort was made to biopsy a spot located in his lung. He states that at that time they were unable to get a biopsy sample. There was no additional follow-up after that until 08/19/2024. The patient notes that he choked on oatmeal, and as a result of this coughing fit had terrible right sided pain which he localizes to his right ribs. It was due to this for the patient presented to the emergency department and underwent this CT scan as mentioned above. Additionally, he endorses having had poor appetite and a 4050 lbs weight loss over the past 1-2 months. Upon arrival to our facility, patient underwent evaluation in the emergency department. Vital signs on arrival show blood pressure 135/77, heart rate 109, respiratory rate 16, temp 97.7 F, and SpO2 of 96% on room air. EKG completed showing sinus tachycardia at 103 bpm. L abs completed and reviewed. CBC showing microcytic anemia with hemoglobin of 8.9. BMP showing hypochloremic hyponatremia with sodium of 130 and chloride of 91. Blood glucose 284. Lactic acid 1.5. BMP 2360. CT chest completed showing heterogeneous mass in the lingula measuring 5.2 x 5.0 x 8.5 cm concerning for neoplasm with additional 1.8 cm nodule in the left upper lobe, enlarged mediastinal and left hilar lymph nodes and possible cardiophrenic lymph node concerning for danielle metastasis, moderate pericardial effusion, nonspecific hypodense lesion partially seen in the right kidney, and moderate left and small right pleural effusions with cirrhotic liver and splenomegaly. Patient admitted under services with consultation to oncology and pulmonology. Pulmonology performed thoracentesis on 08/20/2024 with removal of a documented 1700 cc of pleural fluid. Patient also underwent CT-guided percutaneous right iliac bone mass biopsy by interventional radiology on 08/20/2024. Echocardiogram completed showing an EF of 45 to 50% with moderate pulmonary hypertension, mild right ventricular dilation, moderate biatrial dilation, mild tricuspid and mitral regurgitation, and mild aortic stenosis with moderate pericardial effusion with respiratory variation of tricuspid inflow suggestive of mild tamponade physiology.Pathology results positive for poorly differentiated non-small cell carcinoma. MRI brain negative for metastasis. Hematology/oncology recommending patient begin radiation treatment this week and clearing patient from their perspective for discharge, instructional coordinator clearing patient at this time. Patient is medically optimized for discharge and does require home oxygen. Arrangements have been made with case management for possible [facility] for patient to undergo 5-day course of radiation therapy. Patient to follow-up outpatient with PCP, hematology/oncology, radiation oncology, cardiology, and pulmonology. Patient discharged home with oxygen. Physical exam: Vital signs reviewed and stable. General: Nontoxic, no distress and appears stated age. Derm: Skin warm and dry, normal coloration for ethnicity. Head: Atraumatic, normocephalic and symmetric. Eyes: EOM's intact, no lid lag, and anicteric sclera Mouth: no lip lesions, mucus membranes moist Cardiovascular: regular rate and rhythm with normal S1S2, no murmur, positive posterior tibial pulses bilaterally, and cap refill < 2 seconds. Lungs: Respirations even, regular, and unlabored on 2 L O2 Lungs diminished No wheezes, rhonchi, or rales noted. Abdominal: soft distended bowel sounds x 4, nontender to palpation, no guarding, no appreciable organomegaly Ext: ROM intact. No gross muscle atrophy, Bilateral lower extremity edema, no contractures Neuro: Speech clear, face symmetrical and CN II-XII grossly intact with no noted focal neuro deficits Psych: Alert and oriented to person, place, time, and situation. Appropriate and pleasant affect. A total of 41 minutes of time were spent preparing this complex discharge summary. Pt was discharged on 08/26/2024 at 3:07 PM Patient was seen independently by Nurse Practitioner. This document was prepared using [employer] dictation software. Please allow for errors in planner scheduler while rare they do occur. Ángel Bowling NP rendered care for this patient independently, reviewed the findings and plan as documented in the note above. I did not physically speak with or examine the patient on this date. Patient Condition at Discharge: Stable Plan - Discharge Summary New Discharge Prescriptions: New Spironolactone [Aldactone] 12.5 mg PO DAILY 30 Days #15 tab Furosemide [Lasix] 20 mg PO DAILY 30 Days #30 tab Lidocaine 4% Patch 1 patch TOPICAL HS 30 Days #30 patch HYDROcodone/APAP 5-325MG [Mobile 5-325] 1 tab PO Q4HR PRN #60 tab PRN Reason: Pain Dapagliflozin Propanediol [Farxiga] 10 mg PO DAILY 30 Days #30 tab Ferrous Sulfate [Iron (65 MG Elemental)] 325 mg PO W/LUNCH 30 Days #30 tab Metoprolol Tartrate [Lopressor] 50 mg PO BID 30 Days #60 tab Continue Albuterol Inhaler [Ventolin Hfa Inhaler] 2 puff INHALATION RT-Q4H PRN PRN Reason: Shortness Of Breath Simvastatin [Zocor] 20 mg PO DAILY Pioglitazone [Actos] 30 mg PO DAILY Gabapentin 600 mg PO Q8H PRN PRN Reason: Neuropathy Fluticasone Nasal [place] [Flonase Nasal [place]] 1 spray EA NOSTRIL BID PRN PRN Reason: Allergy Symptoms Apixaban [Eliquis] 5 mg PO BID Ipratropium-Albuterol Nebulize [Duoneb 0.5 mg-3 mg/3 ml Soln] 3 ml INHALATION RT-TID Cyclobenzaprine [Flexeril] 10 mg PO BID PRN PRN Reason: Muscle Spasm Acetaminophen-Codeine 300-30mg [Tylenol w/codeine #3] 1 tab PO Q6H PRN PRN Reason: Pain metFORMIN HCL [Glucophage] 1,000 mg PO BID Celecoxib [CeleBREX] 200 mg PO DAILY glipiZIDE XL [Glucotrol XL] 10 mg PO BID PARoxetine [Paxil] 20 mg PO DAILY Discontinued Potassium Chloride ER [K-Dur 20] 20 meq PO DAILY dilTIAZem HCL [Tiazac] 120 mg PO DAILY Ibuprofen [Motrin] 800 mg PO Q6H PRN PRN Reason: Pain Discharge Medication List Acetaminophen-Codeine 300-30mg [Tylenol w/codeine #3] 1 tab PO Q6H PRN 08/20/24 [History] Albuterol Inhaler [Ventolin Hfa Inhaler] 2 puff INHALATION RT-Q4H PRN 08/20/24 [History] Apixaban [Eliquis] 5 mg PO BID 08/20/24 [History] Celecoxib [CeleBREX] 200 mg PO DAILY 08/20/24 [History] Cyclobenzaprine [Flexeril] 10 mg PO BID PRN 08/20/24 [History] Fluticasone Nasal [place] [Flonase Nasal [place]] 1 spray EA NOSTRIL BID PRN 08/20/24 [History] Gabapentin 600 mg PO Q8H PRN 08/20/24 [History] Ipratropium-Albuterol Nebulize [Duoneb 0.5 mg-3 mg/3 ml Soln] 3 ml INHALATION R T-TID 08/20/24 [History] PARoxetine [Paxil] 20 mg PO DAILY 08/20/24 [History] Pioglitazone [Actos] 30 mg PO DAILY 08/20/24 [History] Simvastatin [Zocor] 20 mg PO DAILY 08/20/24 [History] glipiZIDE XL [Glucotrol XL] 10 mg PO BID 08/20/24 [History] metFORMIN HCL [Glucophage] 1,000 mg PO BID 08/20/24 [History] Dapagliflozin Propanediol [Farxiga] 10 mg PO DAILY 30 Days #30 tab 08/26/24 [Rx] Ferrous Sulfate [Iron (65 MG Elemental)] 325 mg PO W/LUNCH 30 Days #30 tab 08/26/24 [Rx] Furosemide [Lasix] 20 mg PO DAILY 30 Days #30 tab 08/26/24 [Rx] HYDROcodone/APAP 5-325MG [Mobile 5-325] 1 tab PO Q4HR PRN #60 tab 08/26/24 [Rx] Lidocaine 4% Patch 1 patch TOPICAL HS 30 Days #30 patch 08/26/24 [Rx] Metoprolol Tartrate [Lopressor] 50 mg PO BID 30 Days #60 tab 08/26/24 [Rx] Spironolactone [Aldactone] 12.5 mg PO DAILY 30 Days #15 tab 08/26/24 [Rx] Follow up Appointment(s)/Referral(s): Colton Levine MD [Medical Doctor] - 1 Week Leobardo Witt [STAFF PHYSICIAN] - 09/18/24 2:45 pm [facility],Equipment [NON-STAFF] - As Needed (*Call [facility] once home to arrange delivery of the oxygen concentrator today. ) Wellington Smiley PAC [Primary Care Provider] - 09/02/24 2:30 pm Armando Shukla MD [STAFF PHYSICIAN] - 1 Week Patient Instructions/Handouts: COPD (Chronic Obstructive Pulmonary Disease) (DC), Non-Small Cell Lung Cancer (DC) Activity/Diet/Wound Care/Special Instructions: Activity: As tolerated. Take breaks as needed. Diet: Heart healthy and carb consistent diet. Avoid salts, or foods with hidden salts such as canned or boxed foods and frozen dinners. Extra salt makes your heart work harder and traps the fluid in your body for longer. Special Instructions: Take all of your medications as directed and remember to keep all of your doctor's appointments and follow-up as needed. Thank you for allowing us to participate in your care, it was truly a pleasure having you for our patient!!! Discharge Disposition: HOME WITH HOME HEALTH SERVICES
== END 2024-08-26 16:59 | disposition home or self-care (01) | DRG 477 ==
LOC: EC 22:07 → 5NMEDONC 23:50 → OBSVTOIN 23:51 → 5NMEDONC 08-20 01:49
PROVIDERS: ADMIT Internal Medicine; ATTEND Internal Medicine
PROC: 0QB23ZX Excision of Right Pelvic Bone, Percutaneous Approach, Diagnostic (ICD-10-PCS; principal; 2024-08-20)
PROC: 0W9B3ZZ Drainage of Left Pleural Cavity, Percutaneous Approach (ICD-10-PCS; 2024-08-20)
DX: C79.51 Secondary malignant neoplasm of bone (principal); I50.23 Acute on chronic systolic (congestive) heart failure; I31.39 Other pericardial effusion (noninflammatory); C79.71 Secondary malignant neoplasm of right adrenal gland; E87.1 Hypo-osmolality and hyponatremia; C79.72 Secondary malignant neoplasm of left adrenal gland; M84.48XA Pathological fracture, other site, initial encounter for fracture; J90 Pleural effusion, not elsewhere classified; C80.1 Malignant (primary) neoplasm, unspecified; I27.20 Pulmonary hypertension, unspecified; E11.42 Type 2 diabetes mellitus with diabetic polyneuropathy; I11.0 Hypertensive heart disease with heart failure; J44.9 Chronic obstructive pulmonary disease, unspecified; D50.9 Iron deficiency anemia, unspecified; I42.9 Cardiomyopathy, unspecified; E11.65 Type 2 diabetes mellitus with hyperglycemia; I48.0 Paroxysmal atrial fibrillation; E87.8 Other disorders of electrolyte and fluid balance, not elsewhere classified; E78.5 Hyperlipidemia, unspecified; G89.3 Neoplasm related pain (acute) (chronic); I25.10 Atherosclerotic heart disease of native coronary artery without angina pectoris; Z79.01 Long term (current) use of anticoagulants; Z87.891 Personal history of nicotine dependence; Z79.84 Long term (current) use of oral hypoglycemic drugs; Z79.899 Other long term (current) drug therapy; Z79.1 Long term (current) use of non-steroidal anti-inflammatories (NSAID)
CPT/HCPCS: 20220; 36415; 70553; 71045; 71260; 77012; 80048; 80053; 82728; 82945; 83036; 83540; 83550; 83605; 83615; 83735; 83880; 84100; 84157; 85025; 85027; 85610; 87070; 87205; 88108; 88305; 88341; 88342; 89050; 93005; 93306; 94760; 96374; 99285

== ENCOUNTER 2024-09-12 17:30 | Inpatient (IN) | payer MEDICARE ==
--- NOTE | 2024-09-12 19:08 | ED ---
General Adult HPI - General Chief complaint: Shortness of Breath Stated complaint: SOB Time Seen by Provider: 09/12/24 18:26 Source: patient, family Mode of arrival: wheelchair Limitations: physical limitation - History of Present Illness Initial comments: Patient is a 74-year-old male, past medical history of metastatic small cell lung cancer presenting today for shortness of breath. Patient states that he had fluid in his lung drained about 2 and half weeks ago. Has had worsening shortness of breath since being discharged 2 and half weeks ago. Was seen by his PCP today and noted to have hypotension and decreased breath sounds on the right side. Patient's family states patient had new blood pressure medication started at discharge from the hospital when he was discharged 2 and half weeks ago. Patient endorses cough productive of green sputum, denies hemoptysis. Endorses exertional dyspnea and shortness of breath with lying flat. States he can no longer lie flat due to degree of shortness of breath with trying to lie flat. Denies fevers, endorses chills. Denies abdominal pain, vomiting, nausea, chest pain, melena, hematochezia. Endorses severe lower extremity swelling with leaking clear fluid. - Related Data Home Medications Medication Instructions Recorded Confirmed Acetaminophen-Codeine 300-30mg 1 tab PO Q6H PRN 08/20/24 09/13/24 [Tylenol w/codeine #3] Albuterol Inhaler [Ventolin Hfa 2 puff INHALATION RT-Q4H PRN 08/20/24 09/13/24 Inhaler] Apixaban [Eliquis] 5 mg PO BID 08/20/24 09/13/24 Celecoxib [CeleBREX] 200 mg PO DAILY 08/20/24 09/13/24 Cyclobenzaprine [Flexeril] 10 mg PO BID PRN 08/20/24 09/13/24 Fluticasone Nasal Cato [Flonase 1 spray EA NOSTRIL BID PRN 08/20/24 09/13/24 Nasal Cato] Gabapentin 600 mg PO Q8H PRN 08/20/24 09/13/24 Ipratropium-Albuterol Nebulize 3 ml INHALATION RT-TID 08/20/24 09/13/24 [Duoneb 0.5 mg-3 mg/3 ml Soln] PARoxetine [Paxil] 20 mg PO DAILY 08/20/24 09/13/24 Pioglitazone [Actos] 30 mg PO DAILY 08/20/24 09/13/24 Simvastatin [Zocor] 20 mg PO DAILY 08/20/24 09/13/24 glipiZIDE XL [Glucotrol XL] 10 mg PO BID 08/20/24 09/13/24 metFORMIN HCL [Glucophage] 1,000 mg PO BID 08/20/24 09/13/24 Furosemide [Lasix] 40 mg PO DIRECTED 09/13/24 09/13/24 Sulfamethox-Tmp 800-160Mg [Bactrim 1 tab PO DIRECTED 09/13/24 09/13/24 DS 800-160 mg] ondansetron HCL [Zofran] 8 mg PO Q12HR PRN 09/13/24 09/13/24 Previous Rx's Medication Instructions Recorded Dapagliflozin Propanediol [Farxiga] 10 mg PO DAILY 30 Days #30 tab 08/26/24 Ferrous Sulfate [Iron (65 MG 325 mg PO W/LUNCH 30 Days #30 tab 08/26/24 Elemental)] Furosemide [Lasix] 20 mg PO DAILY 30 Days #30 tab 08/26/24 Lidocaine 4% Patch 1 patch TOPICAL HS 30 Days #30 08/26/24 patch Metoprolol Tartrate [Lopressor] 50 mg PO BID 30 Days #60 tab 08/26/24 Spironolactone [Aldactone] 12.5 mg PO DAILY 30 Days #15 tab 08/26/24 Allergies Allergy/AdvReac Type Severity Reaction Status Date / Time No Known Allergies Allergy Verified 09/13/24 11:45 Review of Systems ROS Statement: Those systems with pertinent positive or pertinent negative responses have been documented in the HPI. ROS Other: All systems not noted in ROS Statement are negative. Past Medical History Past Medical History: Coronary Artery Disease (CAD), Cancer, COPD, Diabetes Mellitus Additional Past Medical History / Comment(s): type 2 DM, hiatal hernia, significant for large colon polyps, multiple removed History of Any Multi-Drug Resistant Organisms: None Reported Past Surgical History: Hernia Repair Additional Past Surgical History / Comment(s): loop recorder, hernia x 3,, multiple colon polyps removed Past Psychological History: No Psychological Hx Reported Smoking Status: Former smoker Past Alcohol Use History: Rare Past Drug Use History: None Reported - Past Family History Mother Family Medical History: Cancer (Colon cancer) Additional Family Medical History / Comment(s): Colon cancer Father Family Medical History: COPD, Pneumonia General Exam - General Exam Comments Initial Comments: PE: CONSTITUTIONAL: [no apparent distress, chronically ill-appearing, nontoxic] SKIN: [warm, dry, no jaundice, hives or petechiae stage II superficial small pressure ulcer at the sacrum] EYES:[ pupils are equally round, extraocular movements intact without nystagmus, clear conjunctiva, non-icteric sclera] HENT: [normocephalic, atraumatic, moist mucus membranes, oropharynx clear without exudates] NECK: , [Full range of motion, normal appearance] PULMONARY: [Decreased breath sounds at the right lung field, lung clear to auscultation left side, no wheezes, rhonchi or stridor no accessory muscle use, mild tachypnea] CARDIOVASCULAR:[ regular rate, rhythm, normal S1 and S2. No appreciated murmurs, rubs or gallops. Strong radial pulses with intact distal perfusion. 3+ lower extremity pitting edema up to the thighs] GASTROINTESTINAL: [soft, active bowel sounds throughout, non-tender, non- distended, no palpable masses, no rebound or guarding. No hepatosplenomegaly] MUSCULOSKELETAL: [Extremities have no gross deformity No calf swelling ] NEUROLOGIC: [_a/o x 3, GCS 15, normal mentation and speech. Moves all extremities x 4 without motor or sensory deficit] PSYCHIATRIC:[ _normal mood and affect, thought process is clear and linear] Limitations: physical limitation Course Vital Signs 09/12/24 09/12/24 09/12/24 17:56 20:13 20:18 Temperature 98 F Pulse Rate 95 95 Respiratory 18 Rate Blood Pressure 88/58 O2 Sat by Pulse 78 L Oximetry Fraction of 40 Inspired Oxygen (FIO2) 09/12/24 09/12/24 09/13/24 20:28 22:00 03:00 Temperature Pulse Rate 98 91 105 H Respiratory 19 19 Rate Blood Pressure 114/65 113/60 O2 Sat by Pulse 98 98 Oximetry Fraction of Inspired Oxygen (FIO2) 09/13/24 09/13/24 09/13/24 06:00 08:41 08:55 Temperature Pulse Rate 106 H 110 H 112 H Respiratory 19 Rate Blood Pressure 100/62 O2 Sat by Pulse 98 Oximetry Fraction of Inspired Oxygen (FIO2) 09/13/24 09/13/24 09/13/24 09:53 10:10 11:27 Temperature Pulse Rate 112 H 84 Respiratory 18 Rate Blood Pressure 90/61 111/64 O2 Sat by Pulse 98 Oximetry Fraction of Inspired Oxygen (FIO2) 09/13/24 09/13/24 09/13/24 11:39 16:13 16:28 Temperature Pulse Rate 82 90 98 Respiratory Rate Blood Pressure O2 Sat by Pulse Oximetry Fraction of Inspired Oxygen (FIO2) 09/13/24 09/13/24 09/13/24 17:25 19:25 19:42 Temperature 98.8 F Pulse Rate 85 87 98 Respiratory 17 16 Rate Blood Pressure 102/70 114/70 O2 Sat by Pulse 98 96 Oximetry Fraction of 35 Inspired Oxygen (FIO2) 09/13/24 19:55 Temperature Pulse Rate 99 Respiratory Rate Blood Pressure O2 Sat by Pulse Oximetry Fraction of Inspired Oxygen (FIO2) EKG Findings - EKG Comments: EKG Findings:: Atrial fibrillation with rapid ventricular response, heart rate 103bpm intervals within acceptable limits, normal axis, no significant ST el evations or depressions, some artifact present, T wave inversion lead V2 Medical Decision Making - Medical Decision Making Was pt. sent in by a medical professional or institution (, PA, COMBER TENDER, urgent care, hospital, or senior care...) When possible be specific @ -No Did you speak to anyone other than the patient for history (EMS, parent, family, police, friend...)? What history was obtained from this source @ -spoke with pt's son and daughter who noted pt is to wear O2 only as needed but has required 2-3 L NC O2 continuously Did you review nursing and triage notes (agree or disagree)? Why? @ -I reviewed nursing and triage notes Were old charts reviewed (outside hosp., previous admission, EMS record, old EKG, old radiological studies, urgent care reports/EKG's, senior care records)? Report findings @ -Medical records reviewed-reviewed prior chest x-ray on 08/23/2024, showed small right-sided pleural effusion, moderate size left pleural effusion Differential Diagnosis (chest pain, altered mental status, abdominal pain women, abdominal pain men, vaginal bleeding, weakness, fever, dyspnea, syncope, headache, dizziness, GI bleed, back pain, seizure, CVA, palpatations, mental health, musculoskeletal)? Differential Dyspnea: Coronary syndrome, arrhythmia, tamponade, asthma, COPD, pulmonary embolism, pneumonia, pneumothorax, pulmonary effusion, anaphylaxis, diabetic ketoacidosis, flailed chest, pulmonary contusion, diaphragmatic rupture, anemia, neuromuscular, this is not meant to be an all-inclusive list. EKG interpreted by me (3pts min.). @ -As above X-rays interpreted by me (1pt min.). @Personally reviewed chest x-ray, shows large left-sided pleural effusion, small right sided pleural effusion, chest x-ray from 08/23/24 was reviewed, pleural effusion has worsened on the left compared to prior CT interpreted by me (1pt min.). @ -None done U/S interpreted by me (1pt. min.). @ -None done What testing was considered but not performed or refused? (CT, X-rays, U/S, labs)? Why? @ -None What meds were considered but not given or refused? Why? @ -None Did you discuss the management of the patient with other professionals (professionals i.e. , PA, COMBER TENDER, lab, RT, psych nurse, community mental health social worker, colliery clerk, teacher, correctional officer sergeant, correctional case records supervisor)? Give summary @ -No Was smoking cessation discussed for >3mins.? @ -No Was critical care preformed (if so, how long)? @ Yes 35 minutes Were there social determinants of health that impacted care today? How? (Homelessness, low income, unemployed, alcoholism, drug addiction, trans portation, low edu. Level, literacy, decrease access to med. care, residential, rehab)? @ -No Was there de-escalation of care discussed even if they declined (Discuss DNR or withdrawal of care, Hospice)? @ -No What co-morbidities impacted this encounter? (DM, HTN, Smoking, COPD, CAD, Cancer, CVA, ARF, Chemo, Hep., AIDS, mental health diagnosis, sleep apnea, morbid obesity)? @Non-small cell lung cancer with metastases, CHF, COPD, diabetes Was patient admitted / discharged? Hospital course, mention meds given and route, prescriptions, significant lab abnormalities, going to OR and other pertinent info. Admission-this is a 74-year-old gentleman with a past medical history of congestive heart failure, non-small cell lung cancer with multiple metastases, currently undergoing radiation, COPD, diabetes typically not on home oxygen presenting today for shortness of breath. Pulse ox on arrival was 78% on room air. Patient is supposed to wear 2 to 3 L oxygen as needed at home but does not typically need it continuously. Patient's family states was admitted 2.5 weeks ago due to left-sided pleural effusion and had fluid drained from it. Shortness of breath is continued to worsen over last 2-1/2 weeks. He was sent in by his PCP today due to hypotension.Blood pressure on arrival 88/58, however maps have been consistently in the 70s. Patient is sitting on the end of his bed and has mild conversational dyspnea but no acute distress. He states he cannot lie flat due to shortness of breath. He is currently resting comfortably on 3 L ox nasal cannula however due to his lower extremity swelling, shortness with lying flat I suspect component of congestive heart failure and fluid overload contributing to his difficulty in breathing, discussed with patient plan for application of BiPAP to which he was agreeable. Patient was placed on BiPAP at 12/5 with improved work of breathing. Discussed with patient and family plan for chest x- ray, labs anticipate admission they were agreeable with plan. Chest a significant for worsening left-sided pleural effusion, labs significant for hemoglobin of 9.7, this is approximately baseline patient previously on 08/25/2024 was 9.9, BNP 6320, this is worsened from 08/20/2024 1 was 2360, troponin undetectable. 80 mg IV Lasix ordered. On reassessment blood pressure up to 114/85 without intervention. Case was discussed with ETELVINA Cid who kindly accepted patient for admission Undiagnosed new problem with uncertain prognosis? @ -No Drug Therapy requiring intensive monitoring for toxicity (Heparin, Nitro, Insulin, Cardizem)? @ -No Were any procedures done? @ -No Diagnosis/symptom? @Left-sided pleural effusion, acute on chronic respiratory failure, acute exacerbation of chronic CHF Acute, or Chronic, or Acute on Chronic? @Acute, acute on chronic Uncomplicated (without systemic symptoms) or Complicated (systemic symptoms)? @Complicated Side effects of treatment? @ -No Exacerbation, Progression, or Severe Exacerbation? @ -No Poses a threat to life or bodily function? How? (Chest pain, [place], [place], pneumonia, PE, COPD, DKA, ARF, appy, cholecystitis, CVA, Diverticulitis, Homicidal, Suicidal, threat to staff... and all critical care pts) @Yes - Lab Data Result diagrams: 09/15/24 06:39 09/15/24 06:39 Lab Results 09/12/24 09/12/24 09/12/24 Range/Units 19:59 19:59 19:59 WBC 6.00 (4.50-10.00) 10*3/uL RBC 4.19 L (4.40-5.60) 10*6/uL Hgb 9.7 L (13.0-17.0) g/dL Hct 33.2 L (39.6-50.0) % MCV 79.2 L (80.0-97.0) fL MCH 23.2 L (27.0-32.0) pg MCHC 29.2 L (32.0-37.0) g/dL Plt Count 336 (140-440) 10*3/uL MPV 8.5 L (9.5-12.2) fL Immature Gran % (Auto) 0.5 % Neutrophils % 86.1 % Lymphocytes % 5.3 % Monocytes % 6.8 % Eosinophils % 0.8 % Basophils % 0.5 % Immature Gran # 0.03 (0.00-0.04) 10*3/uL Neutrophils # 5.16 (1.80-7.70) 10*3/uL Lymphocytes # 0.32 L (0.90-5.00) 10*3/uL Monocytes # 0.41 (0.20-1.00) 10*3/uL Eosinophils # 0.05 (0.04-0.35) 10*3/uL Basophils # 0.03 (0.00-0.10) 10*3/uL PT 12.4 (10.0-12.5) sec INR 1.2 H (<1.2) APTT 30.3 H (22.0-30.0) sec Sodium 131 L (137-145) mmol/L Potassium 4.8 (3.5-5.1) mmol/L Chloride 86 L (98-107) mmol/L Carbon Dioxide 36 H (22-30) mmol/L Anion Gap 9 mmol/L BUN 24 H (9-20) mg/dL Creatinine 0.91 (0.66-1.25) mg/dL Est GFR (CKD-EPI)AfAm >90 (>60 ml/min/1.73 sqM) Est GFR (CKD-EPI)NonAf 82 (>60 ml/min/1.73 sqM) Glucose 152 H (74-99) mg/dL Plasma Lactic Acid Nam (0.7-2.0) mmol/L Calcium 8.6 (8.4-10.2) mg/dL Magnesium 2.2 (1.6-2.3) mg/dL Total Bilirubin 1.0 (0.2-1.3) mg/dL AST 21 (17-59) U/L ALT 10 (4-49) U/L Alkaline Phosphatase 145 H (38-126) U/L Troponin I (0.000-0.034) ng/mL NT-Pro-B Natriuret Pep 6320 pg/mL Total Protein 7.9 (6.3-8.2) g/dL Albumin 3.6 (3.5-5.0) g/dL 09/12/24 09/12/24 Range/Units 19:59 19:59 WBC (4.50-10.00) 10*3/uL RBC (4.40-5.60) 10*6/uL Hgb (13.0-17.0) g/dL Hct (39.6-50.0) % MCV (80.0-97.0) fL MCH (27.0-32.0) pg MCHC (32.0-37.0) g/dL Plt Count (140-440) 10*3/uL MPV (9.5-12.2) fL Immature Gran % (Auto) % Neutrophils % % Lymphocytes % % Monocytes % % Eosinophils % % Basophils % % Immature Gran # (0.00-0.04) 10*3/uL Neutrophils # (1.80-7.70) 10*3/uL Lymphocytes # (0.90-5.00) 10*3/uL Monocytes # (0.20-1.00) 10*3/uL Eosinophils # (0.04-0.35) 10*3/uL Basophils # (0.00-0.10) 10*3/uL PT (10.0-12.5) sec INR (<1.2) APTT (22.0-30.0) sec Sodium (137-145) mmol/L Potassium (3.5-5.1) mmol/L Chloride (98-107) mmol/L Carbon Dioxide (22-30) mmol/L Anion Gap mmol/L BUN (9-20) mg/dL Creatinine (0.66-1.25) mg/dL Est GFR (CKD-EPI)AfAm (>60 ml/min/1.73 sqM) Est GFR (CKD-EPI)NonAf (>60 ml/min/1.73 sqM) Glucose (74-99) mg/dL Plasma Lactic Acid Nam 1.6 (0.7-2.0) mmol/L Calcium (8.4-10.2) mg/dL Magnesium (1.6-2.3) mg/dL Total Bilirubin (0.2-1.3) mg/dL AST (17-59) U/L ALT (4-49) U/L Alkaline Phosphatase (38-126) U/L Troponin I <0.012 (0.000-0.034) ng/mL NT-Pro-B Natriuret Pep pg/mL Total Protein (6.3-8.2) g/dL Albumin (3.5-5.0) g/dL Disposition Clinical Impression: Acute exacerbation of chronic heart failure, Acute and chronic respiratory failure, Pleural effusion Disposition: ADMITTED IP TO THIS [facility] Condition: Stable
[2024-09-12] MEDS: IPRATROPIUM-ALBUTEROL 3 ML NEB INHALATION STA (20:18)
[2024-09-12 20:20] LABS: Basophils # (A) 0.03 10*3/uL (0.00-0.10); Basophils % (A) 0.5 %; Eosinophils # (A) 0.05 10*3/uL (0.04-0.35); Eosinophils % (A) 0.8 %; HCT 33.2 % (39.6-50.0); HGB 9.7 g/dL (13.0-17.0); Lymphocytes # (A) 0.32 10*3/uL (0.90-5.00); Lymphocytes % (A) 5.3 %; MCH 23.2 pg (27.0-32.0); MCHC 29.2 g/dL (32.0-37.0); MCV 79.2 fL (80.0-97.0); Monocytes # (A) 0.41 10*3/uL (0.20-1.00); Monocytes % (A) 6.8 %; Neutrophils # (A) 5.16 10*3/uL (1.80-7.70); Neutrophils % (A) 86.1 %; Platelet Count 336 10*3/uL (140-440); RBC 4.19 10*6/uL (4.40-5.60); RDW 17.3 % (11.5-14.5); WBC 6.00 10*3/uL (4.50-10.00)
[2024-09-12 20:27] LABS: INR 1.2 (<1.2); Partial Thromboplastin Time 30.3 sec (22.0-30.0); Prothrombin Time 12.4 sec (10.0-12.5)
--- NOTE | 2024-09-12 20:31 | XR ---
EXAMINATION TYPE: XR chest 1V DATE OF EXAM: 09/12/2024 8:21 PM CLINICAL INDICATION:Male, 74 years old with history of difficulty breathing; [facility] COMPARISON: Chest radiograph 08/23/2024. CT chest 08/20/2024 TECHNIQUE: XR chest 1V Frontal view of the chest. FINDINGS: Redemonstrated cardiomegaly with effacement of the majority of the left heart. There is interval incr ease in the conspicuity and extent of the left hemithorax opacification with mild rightward shifting of the mediastinal structures when compared to the chest radiograph in reference. Ovoid radiodensity is seen in the left upper lung zone stable in size measuring 2.3 cm. No acute osseous abnormality. Lo op recorder device is seen overlying the left hemithorax. Small right pleural effusion is seen. No pn eumothorax. IMPRESSION: There is interval increase in size and conspicuity of the previously seen opacification within the le ft hemithorax which may relate to increase in pleural effusion superimposed on known lingular mass. T here is a right trace pleural effusion. Heart and other mediastinal structures are effaced and not vi sualized. [facility], , 09/12/2024 8:28 PM
[2024-09-12 20:33] LABS: ALT 10 U/L (4-49); AST 21 U/L (17-59); African American GFR (CKD) >90 (>60 ml/min/1.73 sqM); Albumin 3.6 g/dL (3.5-5.0); Alkaline Phosphatase 145 U/L (38-126); Anion Gap 9 mmol/L; Blood Urea Nitrogen 24 mg/dL (9-20); Calcium 8.6 mg/dL (8.4-10.2); Carbon Dioxide 36 mmol/L (22-30); Chloride 86 mmol/L (98-107); Glucose 152 mg/dL (74-99); Magnesium 2.2 mg/dL (1.6-2.3); Non-African American GFR(CKD) 82 (>60 ml/min/1.73 sqM); Potassium 4.8 mmol/L (3.5-5.1); Sodium 131 mmol/L (137-145); Total Protein 7.9 g/dL (6.3-8.2)
[2024-09-12 20:42] LABS: NT-Pro-B-Type Natriuretic Pept 6320 pg/mL
[2024-09-12] MEDS: FUROSEMIDE 10 MG/ML 10 ML VIAL IV STA (21:18)
[2024-09-12] MEDS ORDERED: MAG HYDROX/AL HYDROX/SIMETH 30 ML CUP PO PRN (22:09)
[2024-09-12] MEDS ORDERED: NALOXONE 0.4 MG/ML 1 ML VIAL IV PRN (22:09)
[2024-09-12] MEDS ORDERED: ACETAMINOPHEN TAB 325 MG TAB PO PRN (22:09)
[2024-09-12] MEDS ORDERED: ONDANSETRON 4 MG/2 ML VIAL IVP PRN (22:09)
--- NOTE | 2024-09-13 04:48 | P.CNPUL ---
History of Present Illness Consult date: 09/13/24 Requesting physician: Chika Jerez Reason for consult: pleural effusion Chief complaint: Progressive shortness of breath History of present illness: Patient is a 74-year-old male with past medical history significant hypertension, hyperlipidemia, diabetes mellitus, atrial fibrillation anticoa gulated Eliquis, heart failure, COPD, former tobacco use, and also recent diagnosis of lung cancer. Chest CT from his previous hospitalization earlier this August remarkable for heterogenous mass in the lingula measuring 5.2 x 5 x 8.5 cm. Additional 1.8 cm nodule in the left upper lobe concerning for metastasis. Enlarged mediastinal and left hilar lymph nodes and possible cardiophrenic lymph node. Moderate pericardial effusion. Nonspecific hypodense lesion in the right kidney. Bilateral pleural effusions, moderate on the left and small on the right. Did have a left-sided thoracentesis done on 08/20/2024 and a total of 1.7 L was removed from the pleural space. Pathology was nondiagnostic for malignancy. Pleural fluid was an exudate based on lights criteria. Patient does have history of heart failure. Most recent available echocardiogram from his previous hospitalization here estimating left ventricular ejection fraction of 45 to 50%. Mild MR and TR. Mild aortic stenosis. Moderate pulmonary hypertension with an RVSP 53 mmHg. Also, a moderate-sized pericardial effusion was noted. CT performed at outside facility concerning for additional osseous involvement of the right iliac bone with associated soft tissue extension and asymmetric enlargement of the right iliac musculature, right rib 9 fracture, possibly pathologic. Small pericardial effusion was also partially visualized. Patient ended up having biopsy of right iliac bone positive for metastatic poorly differentiated non-small cell carcinoma. He has been following with radiation oncology for palliative radiation. Patient return to the emergency department yesterday evening complaining of increasing worsening shortness of breath since his hospital discharge approximately 2 and half weeks ago. He was at his primary care provider's office and noted to be hypotensive. Chronic cough with occasional yellow-green sputum production. No hemoptysis. No reported fevers. Denies abdominal pain, nausea or vomiting, diarrhea. Also, increased lower extremity swelling and orthopnea. Patient was placed on BiPAP in the ED. Workup including a chest x- ray remarkable for increased in size of left-sided opacification within the left hemithorax. Increase in pleural effusion with superimposed noted lingular mass. Trace right-sided pleural effusion. Labs including CBC with a WBC count of 6, hemoglobin stable at 9.7 g/dL, platelets 336. CMP: Sodium 131, potassium 4.8, chloride 86, serum bicarb 36, BUN 24, creatinine 0.91, glucose 152. Lactic 1.6. Troponin less than 0.012. NT proBNP elevated at 6320. Patient received a one- time dose of 80 mg of IV Lasix in the ED. He is currently being evaluated in r oom 27. He is on BiPAP with settings 12/5 and FiO2 35%. Does not appear to be any respiratory distress. Able to carry out full conversation. States he is currently undergoing radiation treatments on outpatient basis and has 5 rounds of radiation left. He has not started any chemotherapy. Endorses above- mentioned symptoms. Denies any chest pain. Denies missing any doses of his diuretics. He has bilateral lower extremity edema. His current heart rhythm is atrial fibrillation with controlled ventricular response. Blood pressure is normotensive. He has been peeing often and has an external urinary catheter. Review of Systems Constitutional: Reports fatigue, Reports poor appetite, Reports weight loss (Actually 40 pounds in the last 1 and half months), Denies chills, Denies fever, Denies night sweats Ears, nose, mouth and throat: Denies dysphagia, Denies headache, Denies nasal congestion, Denies nasal discharge, Denies post-nasal drip, Denies sinus pain, Denies sinus pressure, Denies sore throat Cardiovascular: Reports dyspnea on exertion, Reports leg edema, Denies chest pain, Denies lightheadedness, Denies orthopnea, Denies palpitations, Denies paroxysmal nocturnal dyspnea, Denies syncope Respiratory: Reports congestion, Reports cough, Reports cough with sputum, Reports dyspnea, Denies excessive sputum, Denies hemoptysis Gastrointestinal: Denies abdominal pain, Denies diarrhea, Denies nausea, Denies vomiting Genitourinary: Denies dysuria Musculoskeletal: Denies limitation of motion Integumentary: Reports wounds (Superficial wound on buttocks), Denies rash Neurological: Reports weakness (Generalized), Denies head injury, Denies numbness, Denies paralysis, Denies paresthesias, Denies seizures, Denies visual changes Psychiatric: Denies anxiety, Denies depression Past Medical History Past Medical History: Coronary Artery Disease (CAD), Cancer, COPD, Diabetes Manjit pabon Additional Past Medical History / Comment(s): type 2 DM, hiatal hernia, significant for large colon polyps, multiple removed History of Any Multi-Drug Resistant Organisms: None Reported Past Surgical History: Hernia Repair Additional Past Surgical History / Comment(s): loop recorder, hernia x 3,, multiple colon polyps removed Past Psychological History: No Psychological Hx Reported Smoking Status: Former smoker Past Alcohol Use History: Rare Past Drug Use History: None Reported - Past Family History Mother Family Medical History: Cancer (Colon cancer) Additional Family Medical History / Comment(s): Colon cancer Father Family Medical History: COPD, Pneumonia Medications and Allergies Home Medications Medication Instructions Recorded Confirmed Type Acetaminophen-Codeine 300-30mg 1 tab PO Q6H PRN 08/20/24 09/13/24 History [Tylenol w/codeine #3] Albuterol Inhaler [Ventolin Hfa 2 puff INHALATION RT-Q4H PRN 08/20/24 09/13/24 History Inhaler] Apixaban [Eliquis] 5 mg PO BID 08/20/24 09/13/24 History Celecoxib [CeleBREX] 200 mg PO DAILY 08/20/24 09/13/24 History Cyclobenzaprine [Flexeril] 10 mg PO BID PRN 08/20/24 09/13/24 History Fluticasone Nasal [place] [Flonase 1 spray EA NOSTRIL BID PRN 08/20/24 09/13/24 History Nasal [place]] Gabapentin 600 mg PO Q8H PRN 08/20/24 09/13/24 History Ipratropium-Albuterol Nebulize 3 ml INHALATION RT-TID 08/20/24 09/13/24 History [Duoneb 0.5 mg-3 mg/3 ml Soln] PARoxetine [Paxil] 20 mg PO DAILY 08/20/24 09/13/24 History Pioglitazone [Actos] 30 mg PO DAILY 08/20/24 09/13/24 History Simvastatin [Zocor] 20 mg PO DAILY 08/20/24 09/13/24 History glipiZIDE XL [Glucotrol XL] 10 mg PO BID 08/20/24 09/13/24 History metFORMIN HCL [Glucophage] 1,000 mg PO BID 08/20/24 09/13/24 History Dapagliflozin Propanediol [Farxiga] 10 mg PO DAILY 30 Days #30 tab 08/26/24 09/13/24 Rx Ferrous Sulfate [Iron (65 MG 325 mg PO W/LUNCH 30 Days #30 tab 08/26/24 09/13/24 Rx Elemental)] Furosemide [Lasix] 20 mg PO DAILY 30 Days #30 tab 08/26/24 09/13/24 Rx Lidocaine 4% Patch 1 patch TOPICAL HS 30 Days #30 08/26/24 09/13/24 Rx patch Metoprolol Tartrate [Lopressor] 50 mg PO BID 30 Days #60 tab 08/26/24 09/13/24 Rx Spironolactone [Aldactone] 12.5 mg PO DAILY 30 Days #15 tab 08/26/24 09/13/24 Rx Furosemide [Lasix] 40 mg PO DIRECTED 09/13/24 09/13/24 History Sulfamethox-Tmp 800-160Mg [Bactrim 1 tab PO DIRECTED 09/13/24 09/13/24 History DS 800-160 mg] ondansetron HCL [Zofran] 8 mg PO Q12HR PRN 09/13/24 09/13/24 History Allergies Allergy/AdvReac Type Severity Reaction Status Date / Time No Known Allergies Allergy Verified 09/13/24 11:45 Physical Exam Vitals: Vital Signs Temp Pulse Resp BP Pulse Ox FiO2 09/12/24 22:00 91 19 114/65 98 09/12/24 20:28 98 09/12/24 20:18 95 09/12/24 20:13 40 09/12/24 17:56 98 F 95 18 88/58 78 L Intake and Output 09/12/24 09/12/24 09/13/24 14:59 22:59 06:59 Other: Weight 93.44 kg GENERAL EXAM: Alert, 74-year-old male, on BiPAP with settings 12/5 and FiO2 of 35%, comfortable in no apparent distress, no signs of CO2 narcosis. HEAD: Normocephalic and atraumatic EYES: Normal reaction of pupils, equal size. NOSE: Clear with pink turbinates. THROAT: No erythema or exudates. NECK: No masses, no JVD. CHEST: No chest wall deformity. LUNGS: Equal air entry with diminished left basilar lung sounds. No conversa tional dyspnea or accessory muscle use.. CVS: S1 and S2 normal with no audible murmur, irregular rhythm. No extra heart sounds ABDOMEN: No hepatosplenomegaly, active bowel sounds, no guarding or rigidity. SPINE: No scoliosis or deformity SKIN: No rashes CENTRAL NERVOUS SYSTEM: No focal deficits, tone is normal in all 4 extremities. EXTREMITIES: There is 2+ bilateral lower extremity edema. No clubbing or cyanosis. Peripheral pulses are intact. Results - Laboratory Findings CBC and BMP: 09/13/24 10:57 09/13/24 10:57 PT/INR, D-dimer PT 12.4 sec (10.0-12.5) 09/12/24 19:59 INR 1.2 (<1.2) H 09/12/24 19:59 Abnormal lab findings: Abnormal Labs 09/12/24 09/12/24 09/12/24 19:59 19:59 19:59 RBC 4.19 L Hgb 9.7 L Hct 33.2 L MCV 79.2 L MCH 23.2 L MCHC 29.2 L MPV 8.5 L Lymphocytes # 0.32 L INR 1.2 H APTT 30.3 H Sodium 131 L Chloride 86 L Carbon Dioxide 36 H BUN 24 H Glucose 152 H Alkaline Phosphatase 145 H - Diagnostic Findings Chest x-ray: image reviewed Assessment and Plan Assessment: Poorly-differentiated non-small cell lung cancer, CT of the chest showing a 5.2 x 5 x 8.5 cm heterogenous mass in the lingula, concerning for neoplasm. Additional 1.8 cm nodule in the left upper lobe. Enlarged mediastinal and left hilar lymph nodes and possible cardiophrenic lymph node enlargement concerning for metastasis. Multiple additional findings concerning for diffuse metastatic disease from an abdominal/pelvis CT done at outside facility remarkable for bilateral adrenal lesions, osseous involvement of the right iliac bone with associated soft tissue extension and asymmetric enlargement of the right iliac musculature, right rib 9 fracture, possibly pathologic. right iliac bone positive for metastatic poorly differentiated non-small cell carcinoma. He has been following with radiation oncology for palliative radiation. Bilateral pleural effusion left more than right, malignant versus fluid of heart failure, status post thoracentesis on the left 08/20/2024 and a total of 1.7 L was removed from the pleural space. Pleural fluid was an exudate based on lights criteria. Pathology was nondiagnostic for malignancy. Heart failure with mildly reduced left ventricular ejection fraction, most recent available echocardiogram from his previous hospitalization earlier this month left ventricular ejection fraction of 45 to 50%. Mild MR and TR. Mild aortic stenosis. Moderate pulmonary hypertension with an RVSP 53 mmHg. Also, a moderate-sized pericardial effusion was noted. Acute hypoxemic respiratory failure, currently on BiPAP, chest x-ray remarkable for increased in size of left-sided opacification within the left hemithorax. Increase in pleural effusion with superimposed noted lingular mass. Trace right-sided pleural effusion. Right iliac bone metastatic lesion post IR guided biopsy Moderate size pericardial effusion Unintentional weight loss, 40 pounds over approximately 1.5 month timeframe Former tobacco smoker Chronic obstructive pulmonary disease Atrial fibrillation with controlled ventricular response, normally anticoagulated on Eliquis Diabetes mellitus type 2 Microcytic, hypochromic anemia Hyponatremia, appears hypervolemic on clinical examination, however, consider SIADH given concerning findings for malignancy Plan: Continue on BiPAP at current settings Patient's medications, labs, chest x-ray reviewed There is reveal increase in size of left-sided pleural effusion, superimposed on patient's known lung mass. Also additional trace right-sided pleural effusion. Previous thoracentesis on the left and pathology was nondiagnostic for malignant fluid. NT-proBNP significantly elevated 6320 Recent available echocardiogram reviewed Continue IV diuretics in the form of Lasix 40 mg twice daily Consider repeat thoracentesis on the left, to be discussed with Dr. Gayla Still until decision on thoracentesis Consult oncology Case reviewed with Dr. Shukla, further recommendations to follow I have personally seen and examined the patient, performed the documentation and the assessment and plan as written. Number of minutes spent on the visit:20 On 09/13/2024, the patient is being seen in joint evaluation along with the nurse practitioner. This patient is known to have metastatic non-small cell lung cancer. The patient presented to hospital because of worsening shortness of breath and the patient is currently on a BiPAP at a pressure of 12 or 5 with an FiO2 of 35%. Chest x-ray was reviewed and there is significant opacification of the left lower lobe. Noted the patient has a lingular mass and a large left- sided pleural effusion that was drained on previous admission. The pleural fluid cytology was negative for malignancy. The patient was diagnosed having non-small cell lung cancer based on a biopsy of the iliac crest and the patient is currently r receiving radiation therapy through radiation oncology. In any rate, the patient came into the hospital because of worsening shortness of b reath. Ultrasound marking of the left chest was obtained and the patient has a 7 cm pocket consistent with recurrent effusion. Currently, the patient is on empiric antibiotic coverage with IV cefepime. Started on DuoNeb the regiment [id number]. Started on Lasix 40 mg IV push every 12 hours. Hemoglobin is low at 8.8. White cell count not elevated. Electrolytes are stable and the patient has chronic metabolic alkalosis with a serum bicarb of 37 and sodium is at 130, BUN 23 and a creatinine of 0.79. proBNP level is elevated. Troponins are negative. Echocardiogram from 08/20/2024 showed a left-ventricular ejection fraction of 45 to 50%. Mild RV dilatation. Moderate pulmonary hypertension. Thoracentesis is to follow. This evaluation was done in 35 minutes. Time with Patient: Greater than 30
[2024-09-13] MEDS: IPRATROPIUM-ALBUTEROL 3 ML NEB INHALATION SCH (08:41)
[2024-09-13] MEDS ORDERED: DEXTROSE 50% SYRINGE 50 ML IVP PRN ×2 (08:45)
[2024-09-13 09:09] LABS: Glucose,Whole Blood 122 mg/dL (70-110)
[2024-09-13] MEDS: INSULIN LISPRO (HumaLOG) 100 UNIT/ML 10 mL VL SQ SCH ×2 (09:48→20:59)
[2024-09-13] MEDS: FAMOTIDINE 20 MG TAB PO SCH (09:50)
[2024-09-13] MEDS: METOPROLOL TARTRATE 50 MG TAB PO SCH (09:50)
[2024-09-13] MEDS: APIXABAN 5 MG TAB PO SCH (09:50)
[2024-09-13] MEDS: FUROSEMIDE 10 MG/ML 4 ML VIAL IV SCH (09:51)
[2024-09-13 11:23] LABS: Basophils # (A) 0.01 10*3/uL (0.00-0.10); Basophils % (A) 0.2 %; Eosinophils # (A) 0.05 10*3/uL (0.04-0.35); Eosinophils % (A) 0.9 %; HCT 29.6 % (39.6-50.0); HGB 8.8 g/dL (13.0-17.0); Lymphocytes # (A) 0.28 10*3/uL (0.90-5.00); Lymphocytes % (A) 5.0 %; MCH 24.0 pg (27.0-32.0); MCHC 29.7 g/dL (32.0-37.0); MCV 80.7 fL (80.0-97.0); Monocytes # (A) 0.40 10*3/uL (0.20-1.00); Monocytes % (A) 7.2 %; Neutrophils # (A) 4.76 10*3/uL (1.80-7.70); Neutrophils % (A) 85.6 %; Platelet Count 311 10*3/uL (140-440); RBC 3.67 10*6/uL (4.40-5.60); RDW 17.4 % (11.5-14.5); WBC 5.56 10*3/uL (4.50-10.00)
[2024-09-13 11:39] LABS: African American GFR (CKD) >90 (>60 ml/min/1.73 sqM); Anion Gap 8 mmol/L; Blood Urea Nitrogen 23 mg/dL (9-20); Calcium 8.4 mg/dL (8.4-10.2); Carbon Dioxide 37 mmol/L (22-30); Chloride 85 mmol/L (98-107); Glucose 120 mg/dL (74-99); Non-African American GFR(CKD) 88 (>60 ml/min/1.73 sqM); Potassium 4.4 mmol/L (3.5-5.1); Sodium 130 mmol/L (137-145)
[2024-09-13 12:03] LABS: Glucose,Whole Blood 116 mg/dL (70-110)
--- NOTE | 2024-09-13 12:11 | US ---
EXAMINATION TYPE: US chest DATE OF EXAM: 09/13/2024 COMPARISON: XR (09/12/2024) CLINICAL INDICATION: Male, 74 years old with history of Left sided pleural effusion; TECHNIQUE: Grayscale imaging of the chest. Targeted ultrasound of the posterior lower left hemithora x FINDINGS: EXAM MEASUREMENTS: Left Pleural Effusion pocket size: 7.4 cm Left skin surface to fluid distance: 3.6 cm Fluid to lung tissue: 5.4cm Left side marked for possible thoracentesis outside the dept. Pulmonologists are able to review the images in the patient?s EMR. IMPRESSIONS: At least a moderate left pleural effusion. [facility], , 09/13/2024 12:08 PM
[2024-09-13] MEDS: CEFEPIME 2 GM in SODIUM CHLORIDE 0.9% 100 ML IVPB SCH (13:02)
[2024-09-13] MEDS ORDERED: CYCLOBENZAPRINE 10 MG TAB PO PRN (15:29)
[2024-09-13] MEDS ORDERED: ONDANSETRON ODT 8 MG TAB.RAPDIS PO PRN (15:29)
--- NOTE | 2024-09-13 15:49 | P.HPIM ---
History of Present Illness H&P Date: 09/13/24 Patient is a 74-year-old male with metastatic small cell lung cancer, recurrent pleural effusions, atrial fibrillation (on Eliquis), CHF (EF 45 to 50%), CAD, COPD, diabetes here for evaluation of shortness of breath. Patient was reported to be seeing his PCP on day of admission was noted to have hypotension and decreased breath sounds on the right side with associated productive cough of green sputum and worsening shortness of breath with lying flat. He is also having severe lower extremity swelling. Denied chest pain, fever, chills, abdominal pain, nausea, vomiting, focal weakness. Patient's family reported that he recently admitted on 08/26/2024 ago due to shortness of breath with bilate ral pleural effusions and was drained on 08/20/2024 removal of 1700 cc of pleural fluid. On admission: Vitals: Temp 98 Fahrenheit, NV 95, RR 18, BP 88/58, O2 saturation 78% on room air, increased to 98% on BiPAP Labs: WBC 6, hemoglobin 9.7 MCV 79.2, platelet count 336, sodium 131, potassium 4.8, bicarb 36, BUN 24, creatinine 0.9, glucose 152, lactic acid 1.6. Liver enzymes within normal limits, troponin less than 0.12 Imaging: EKG showed atrial fibrillation 103 bpm, no ST-T changes, QTc 435 MS. Chest x-ray showed worsening of left pleural effusion with increased size of previously known opacifications with spiculations.. ED documentation reviewed. Review of systems: Pertinent positives and negatives as discussed in HPI, a complete review of systems was performed and all other systems are negative. Physical examination: Vital signs reviewed General: non toxic, no distress, appears at stated age, on BiPAP Derm: no unusual rashes/lesions, warm Head: atraumatic, normocephalic, symmetric Eyes: EOMI, anicteric sclera, pupils equal round reactive to light ENT: Nose and ears atraumatic Neck: No cervical lymphadenopathy, trachea midline, supple Mouth: no lip lesion, mucus membranes moist Cardiovascular: S1S2 irregularly irregular, no murmur Lungs: decreased lung sounds left lung, expiratory wheeze upper right lung, no accessory muscle use Abdominal: soft, nondistended, nontender to palpation, no guarding Ext: muscle strength 5 out of 5 in all 4 extremities grossly, no gross muscle atrophy, no contractures, positive dorsalis pedis pulse bilateral, no edema Neuro: CN II-XI grossly intact, no gross focal neuro deficits Psych: Alert and oriented x 3, appropriate affect and mood Assessment/Plan: The patient is admitted with an anticipated greater than 2 midnight stay for evaluation of acute respiratory failure requiring BiPAP Active: # Acute hypoxic respiratory failure secondary to pleural effusions, BiPAP dependent #Metastatic small cell lung cancer Chest x-ray showed worsening of left pleural effusion with increased size of previously known opacifications with spiculations Continuing supplemental oxygenation Cardiac monitoring Lasix IV every 12 hours and cefepime IV initiated by pulmonology Consult pulmonology #Microcytic anemia, at baseline Hgb 9.7 on admission. 8.8 today. Monitor for now. Transfuse if hgb <7 Chronic Conditions: # Atrial fibrillation (on Eliquis) #CHF (EF 45 to 50%) #CAD #COPD Continue DuoNebs, Ventolin inhalers, Flexeril, metoprolol, Farxiga, gabapentin and Zofran Hold Eliquis if will procedd with thoracentesis #Diabetes mellitus Hemoglobin A1c Hold home medications Glucose Accu-Cheks ACHS Initiate Insulin sliding scale ACHS Monitor for hypoglycemia DVT ppx: Eliquis p.o twice daily CODE STATUS: DNR Discussed with: patient Anticipated discharge place: home Palak Saenz MD PGY-1 Internal Medicine Dictation was produced using [employer] dictation software. please excuse any grammatical, word or spelling errors. Attestation: I have seen and examined this patient with my resident, assessment and plan discussed with the resident, agree with assessment and plan as written above. Dr. Nieves Past Medical History Past Medical History: Coronary Artery Disease (CAD), Cancer, COPD, Diabetes Mellitus Additional Past Medical History / Comment(s): type 2 DM, hiatal hernia, s ignificant for large colon polyps, multiple removed History of Any Multi-Drug Resistant Organisms: None Reported Past Surgical History: Hernia Repair Additional Past Surgical History / Comment(s): loop recorder, hernia x 3,, multiple colon polyps removed Past Psychological History: No Psychological Hx Reported Smoking Status: Former smoker Past Alcohol Use History: Rare Past Drug Use History: None Reported - Past Family History Mother Family Medical History: Cancer (Colon cancer) Additional Family Medical History / Comment(s): Colon cancer Father Family Medical History: COPD, Pneumonia Medications and Allergies Home Medications Medication Instructions Recorded Confirmed Type Acetaminophen-Codeine 300-30mg 1 tab PO Q6H PRN 08/20/24 09/13/24 History [Tylenol w/codeine #3] Albuterol Inhaler [Ventolin Hfa 2 puff INHALATION RT-Q4H PRN 08/20/24 09/13/24 History Inhaler] Apixaban [Eliquis] 5 mg PO BID 08/20/24 09/13/24 History Celecoxib [CeleBREX] 200 mg PO DAILY 08/20/24 09/13/24 History Cyclobenzaprine [Flexeril] 10 mg PO BID PRN 08/20/24 09/13/24 History Fluticasone Nasal [place] [Flonase 1 spray EA NOSTRIL BID PRN 08/20/24 09/13/24 History Nasal [place]] Gabapentin 600 mg PO Q8H PRN 08/20/24 09/13/24 History Ipratropium-Albuterol Nebulize 3 ml INHALATION RT-TID 08/20/24 09/13/24 History [Duoneb 0.5 mg-3 mg/3 ml Soln] PARoxetine [Paxil] 20 mg PO DAILY 08/20/24 09/13/24 History Pioglitazone [Actos] 30 mg PO DAILY 08/20/24 09/13/24 History Simvastatin [Zocor] 20 mg PO DAILY 08/20/24 09/13/24 History glipiZIDE XL [Glucotrol XL] 10 mg PO BID 08/20/24 09/13/24 History metFORMIN HCL [Glucophage] 1,000 mg PO BID 08/20/24 09/13/24 History Dapagliflozin Propanediol [Farxiga] 10 mg PO DAILY 30 Days #30 tab 08/26/24 09/13/24 Rx Ferrous Sulfate [Iron (65 MG 325 mg PO W/LUNCH 30 Days #30 tab 08/26/24 09/13/24 Rx Elemental)] Furosemide [Lasix] 20 mg PO DAILY 30 Days #30 tab 08/26/24 09/13/24 Rx Lidocaine 4% Patch 1 patch TOPICAL HS 30 Days #30 08/26/24 09/13/24 Rx patch Metoprolol Tartrate [Lopressor] 50 mg PO BID 30 Days #60 tab 08/26/24 09/13/24 Rx Spironolactone [Aldactone] 12.5 mg PO DAILY 30 Days #15 tab 08/26/24 09/13/24 Rx Furosemide [Lasix] 40 mg PO DIRECTED 09/13/24 09/13/24 History Sulfamethox-Tmp 800-160Mg [Bactrim 1 tab PO DIRECTED 09/13/24 09/13/24 Histor y DS 800-160 mg] ondansetron HCL [Zofran] 8 mg PO Q12HR PRN 09/13/24 09/13/24 History Allergies Allergy/AdvReac Type Severity Reaction Status Date / Time No Known Allergies Allergy Verified 09/13/24 11:45 Physical Exam Vitals: Vital Signs Temp Pulse Resp BP Pulse Ox FiO2 09/13/24 06:00 106 H 19 100/62 98 09/13/24 03:00 105 H 19 113/60 98 09/12/24 22:00 91 19 114/65 98 09/12/24 20:28 98 09/12/24 20:18 95 09/12/24 20:13 40 09/12/24 17:56 98 F 95 18 88/58 78 L Intake and Output 09/12/24 09/13/24 09/13/24 22:59 06:59 14:59 Other: Weight 93.44 kg Results CBC & Chem 7: 09/13/24 10:57 09/13/24 10:57 Labs: Abnormal Lab Results - Last 24 Hours (Table) 09/12/24 09/12/24 09/12/24 Range/Units 19:59 19:59 19:59 RBC 4.19 L (4.40-5.60) 10*6/uL Hgb 9.7 L (13.0-17.0) g/dL Hct 33.2 L (39.6-50.0) % MCV 79.2 L (80.0-97.0) fL MCH 23.2 L (27.0-32.0) pg MCHC 29.2 L (32.0-37.0) g/dL MPV 8.5 L (9.5-12.2) fL Lymphocytes # 0.32 L (0.90-5.00) 10*3/uL INR 1.2 H (<1.2) APTT 30.3 H (22.0-30.0) sec Sodium 131 L (137-145) mmol/L Chloride 86 L (98-107) mmol/L Carbon Dioxide 36 H (22-30) mmol/L BUN 24 H (9-20) mg/dL Glucose 152 H (74-99) mg/dL Alkaline Phosphatase 145 H (38-126) U/L
[2024-09-13] MEDS: PARoxetine 20 MG TAB PO SCH (17:23)
[2024-09-13 17:24] LABS: Glucose,Whole Blood 154 mg/dL (70-110)
[2024-09-13] MEDS: HYDROmorphone 1 MG/ML 1 ML SYRINGE IVP PRN (18:49)
[2024-09-13 20:15] LABS: Glucose,Whole Blood 115 mg/dL (70-110)
[2024-09-13] MEDS: HYDROcodone/APAP 5-325MG 1 EACH TAB PO PRN (21:06)
[2024-09-14 06:30] LABS: Glucose,Whole Blood 113 mg/dL (70-110)
[2024-09-14 07:39] LABS: Basophils # (A) 0.02 10*3/uL (0.00-0.10); Basophils % (A) 0.3 %; Eosinophils # (A) 0.04 10*3/uL (0.04-0.35); Eosinophils % (A) 0.7 %; HCT 29.4 % (39.6-50.0); HGB 8.5 g/dL (13.0-17.0); Lymphocytes # (A) 0.43 10*3/uL (0.90-5.00); Lymphocytes % (A) 7.1 %; MCH 23.4 pg (27.0-32.0); MCHC 28.9 g/dL (32.0-37.0); MCV 80.8 fL (80.0-97.0); Monocytes # (A) 0.43 10*3/uL (0.20-1.00); Monocytes % (A) 7.1 %; Neutrophils # (A) 5.11 10*3/uL (1.80-7.70); Neutrophils % (A) 83.8 %; Platelet Count 323 10*3/uL (140-440); RBC 3.64 10*6/uL (4.40-5.60); RDW 17.6 % (11.5-14.5); WBC 6.09 10*3/uL (4.50-10.00)
[2024-09-14 07:51] LABS: African American GFR (CKD) >90 (>60 ml/min/1.73 sqM); Anion Gap 7 mmol/L; Blood Urea Nitrogen 23 mg/dL (9-20); Calcium 8.2 mg/dL (8.4-10.2); Carbon Dioxide 36 mmol/L (22-30); Chloride 89 mmol/L (98-107); Glucose 103 mg/dL (74-99); Non-African American GFR(CKD) 89 (>60 ml/min/1.73 sqM); Potassium 4.1 mmol/L (3.5-5.1); Sodium 132 mmol/L (137-145)
[2024-09-14] MEDS ORDERED: ZINC OXIDE PASTE (Z-GUARD) 1 APPLIC TOPICAL PRN (08:06)
[2024-09-14] MEDS: GABAPENTIN 300 MG CAP PO PRN (08:22)
[2024-09-14] MEDS: DAPAGLIFLOZIN PROPANEDIOL 10 MG TABLET PO SCH (08:22)
[2024-09-14] MEDS: ATORVASTATIN 10 MG TAB PO SCH (08:22)
[2024-09-14 11:43] LABS: Glucose,Whole Blood 150 mg/dL (70-110)
--- NOTE | 2024-09-14 12:42 | XR ---
EXAMINATION TYPE: XR chest 1V portable DATE OF EXAM: 09/14/2024 12:10 PM COMPARISON: Chest radiographs from 09/12/2024. CLINICAL INDICATION: Male, 74 years old with history of post thoracentesis; TECHNIQUE: XR chest 1V portable Frontal view of the chest. FINDINGS: Lungs/Pleura: No evidence of focal consolidation or pneumothorax. Blunting of the costophrenic angles is present. Pulmonary vascularity: Pulmonary vascular congestion. Heart/mediastinum: Cardiomediastinal silhouette is enlarged. A loop recorder projects over the left t horax over the heart. Musculoskeletal: No acute osseous pathology. IMPRESSION: Persistent left pleural effusion without evidence for pneumothorax. [facility], , 09/14/2024 12:40 PM
[2024-09-14] MEDS: FERROUS SULFATE 325 MG TAB PO SCH (12:43)
--- NOTE | 2024-09-14 16:06 | P.PN ---
Subjective Progress Note Date: 09/14/24 Patient is a 74-year-old male with past medical history significant hypertension, hyperlipidemia, diabetes mellitus, atrial fibrillation anticoagulated Eliquis, heart failure, COPD, former tobacco use, and also recent diagnosis of lung cancer. Chest CT from his previous hospitalization earlier this August remarkable for heterogenous mass in the lingula measuring 5.2 x 5 x 8.5 cm. Additional 1.8 cm nodule in the left upper lobe concerning for metastasis. Enlarged mediastinal and left hilar lymph nodes and possible cardiophrenic lymph node. Moderate pericardial effusion. Nonspecific hypodense lesion in the right kidney. Bilateral pleural effusions, moderate on the left and small on the right. Did have a left-sided thoracentesis done on 08/20/2024 and a total of 1.7 L was removed from the pleural space. Pathology was nondiagnostic for malignancy. Pleural fluid was an exudate based on lights criteria. Patient does have history of heart failure. Most recent available echocardiogram from his previous hospitalization here estimating left ventricular ejection fraction of 45 to 50%. Mild MR and TR. Mild aortic stenosis. Moderate pulmonary hypertension with an RVSP 53 mmHg. Also, a mod erate-sized pericardial effusion was noted. CT performed at outside facility concerning for additional osseous involvement of the right iliac bone with associated soft tissue extension and asymmetric enlargement of the right iliac musculature, right rib 9 fracture, possibly pathologic. Small pericardial effusion was also partially visualized. Patient ended up having biopsy of right iliac bone positive for metastatic poorly differentiated non-small cell carcinoma. He has been following with radiation oncology for palliative radiation. Patient return to the emergency department yesterday evening complaining of increasing worsening shortness of breath since his hospital discharge approximately 2 and half weeks ago. He was at his primary care provider's office and noted to be hypotensive. Chronic cough with occasional yellow-green sputum production. No hemoptysis. No reported fevers. Denies abdominal pain, nausea or vomiting, diarrhea. Also, increased lower extremity swelling and orthopnea. Patient was placed on BiPAP in the ED. Workup including a chest x- ray remarkable for increased in size of left-sided opacification within the left hemithorax. Increase in pleural effusion with superimposed noted lingular mass. Trace right-sided pleural effusion. Labs including CBC with a WBC count of 6, hemoglobin stable at 9.7 g/dL, platelets 336. CMP: Sodium 131, potassium 4.8, c hloride 86, serum bicarb 36, BUN 24, creatinine 0.91, glucose 152. Lactic 1.6. Troponin less than 0.012. NT proBNP elevated at 6320. Patient received a one- time dose of 80 mg of IV Lasix in the ED. He is currently being evaluated in room 27. He is on BiPAP with settings 12/5 and FiO2 35%. Does not appear to be any respiratory distress. Able to carry out full conversation. States he is currently undergoing radiation treatments on outpatient basis and has 5 rounds of radiation left. He has not started any chemotherapy. Endorses above- mentioned symptoms. Denies any chest pain. Denies missing any doses of his diuretics. He has bilateral lower extremity edema. His current heart rhythm is atrial fibrillation with controlled ventricular response. Blood pressure is normotensive. He has been peeing often and has an external urinary catheter. 09/14/2024, the patient is off the BiPAP and the patient is currently on oxygen and he is on 3 L of oxygen nasal cannula with a pulse ox of 99%. I performed a bedside thoracentesis this patient and a total of 2 L of pleural fluid was asp irated without any complications. The follow-up chest x-ray showed improvement in the left lung findings. There is also a persistent left-sided pleural effusion/mass in the left lung base. There is blunting of the left costophrenic angle. The patient tolerated the procedure well. The sodium is at 132, BUN 23 with a creatinine of 0.7. White cell count of 6 with a hemoglobin of 8.4. No other new complaints otherwise for now. The patient is on empiric antibiotic coverage with IV cefepime. The patient is also on Lasix 40 mg IV every 12 hours. The patient is in negative fluid balance. Awake and alert and communicating. Objective - Vital Signs Vital signs: Vital Signs Temp 97.5 F L 09/14/24 08:15 Pulse 81 09/14/24 08:15 Resp 19 09/14/24 08:15 BP 114/77 09/14/24 08:15 Pulse Ox 98 09/14/24 08:15 FiO2 35 09/14/24 06:30 Intake & Output 09/13/24 09/14/24 09/14/24 18:59 06:59 18:59 Output Total 250 Balance -250 Weight 94.1 kg Output: Urine 250 Other: Voiding Method External Catheter External Catheter - Exam GENERAL EXAM: Alert, 74-year-old male, on 3 L O2 nasal cannula HEAD: Normocephalic and atraumatic EYES: Normal reaction of pupils, equal size. NOSE: Clear with pink turbinates. THROAT: No erythema or exudates. NECK: No masses, no JVD. CHEST: No chest wall deformity. LUNGS: Equal air entry with diminished left basilar lung sounds. No conversational dyspnea or accessory muscle use.. CVS: S1 and S2 normal with no audible murmur, irregular rhythm. No extra heart sounds ABDOMEN: No hepatosplenomegaly, active bowel sounds, no guarding or rigidity. SPINE: No scoliosis or deformity SKIN: No rashes CENTRAL NERVOUS SYSTEM: No focal deficits, tone is normal in all 4 extremities. EXTREMITIES: There is 2+ bilateral lower extremity edema. No clubbing or cyanosis. Peripheral pulses are intact. - Labs CBC & Chem 7: 09/14/24 06:59 09/14/24 06:59 Labs: Abnormal Lab Results - Last 24 Hours (Table) 09/13/24 09/13/24 09/13/24 Range/Units 10:57 10:57 11:53 RBC 3.67 L (4.40-5.60) 10*6/uL Hgb 8.8 L (13.0-17.0) g/dL Hct 29.6 L (39.6-50.0) % MCH 24.0 L (27.0-32.0) pg MCHC 29.7 L (32.0-37.0) g/dL MPV 8.6 L (9.5-12.2) fL Immature Gran # 0.06 H (0.00-0.04) 10*3/uL Lymphocytes # 0.28 L (0.90-5.00) 10*3/uL Sodium 130 L (137-145) mmol/L Chloride 85 L (98-107) mmol/L Carbon Dioxide 37 H (22-30) mmol/L BUN 23 H (9-20) mg/dL Glucose 120 H (74-99) mg/dL POC Glucose (mg/dL) 116 H (70-110) mg/dL Calcium (8.4-10.2) mg/dL 09/13/24 09/13/24 09/14/24 Range/Units 17:22 20:13 06:27 RBC (4.40-5.60) 10*6/uL Hgb (13.0-17.0) g/dL Hct (39.6-50.0) % MCH (27.0-32.0) pg MCHC (32.0-37.0) g/dL MPV (9.5-12.2) fL Immature Gran # (0.00-0.04) 10*3/uL Lymphocytes # (0.90-5.00) 10*3/uL Sodium (137-145) mmol/L Chloride (98-107) mmol/L Carbon Dioxide (22-30) mmol/L BUN (9-20) mg/dL Glucose (74-99) mg/dL POC Glucose (mg/dL) 154 H 115 H 113 H (70-110) mg/dL Calcium (8.4-10.2) mg/dL 09/14/24 09/14/24 Range/Units 06:59 06:59 RBC 3.64 L (4.40-5.60) 10*6/uL Hgb 8.5 L (13.0-17.0) g/dL Hct 29.4 L (39.6-50.0) % MCH 23.4 L (27.0-32.0) pg MCHC 28.9 L (32.0-37.0) g/dL MPV 8.9 L (9.5-12.2) fL Immature Gran # 0.06 H (0.00-0.04) 10*3/uL Lymphocytes # 0.43 L (0.90-5.00) 10*3/uL Sodium 132 L (137-145) mmol/L Chloride 89 L (98-107) mmol/L Carbon Dioxide 36 H (22-30) mmol/L BUN 23 H (9-20) mg/dL Glucose 103 H (74-99) mg/dL POC Glucose (mg/dL) (70-110) mg/dL Calcium 8.2 L (8.4-10.2) mg/dL Microbiology - Last 24 Hours (Table) 09/12/24 20:13 Blood Culture - Preliminary Blood Assessment and Plan Assessment: Poorly-differentiated non-small cell lung cancer, CT of the chest showing a 5.2 x 5 x 8.5 cm heterogenous mass in the lingula, concerning for neoplasm. Ad ditional 1.8 cm nodule in the left upper lobe. Enlarged mediastinal and left hilar lymph nodes and possible cardiophrenic lymph node enlargement concerning for metastasis. Multiple additional findings concerning for diffuse metastatic disease from an abdominal/pelvis CT done at outside facility remarkable for bilateral adrenal lesions, osseous involvement of the right iliac bone with associated soft tissue extension and asymmetric enlargement of the right iliac musculature, right rib 9 fracture, possibly pathologic. right iliac bone positive for metastatic poorly differentiated non-small cell carcinoma. He has been following with radiation oncology for palliative radiation. Bilateral pleural effusion left more than right, malignant versus fluid of heart failure, status post thoracentesis on the left 08/20/2024 and a total of 1.7 L was removed from the pleural space. Pleural fluid was an exudate based on lights criteria. Pathology was nondiagnostic for malignancy. Heart failure with mildly reduced left ventricular ejection fraction, most recent available echocardiogram from his previous hospitalization earlier this month left ventricular ejection fraction of 45 to 50%. Mild MR and TR. Mild aortic stenosis. Moderate pulmonary hypertension with an RVSP 53 mmHg. Also, a moderate-sized pericardial effusion was noted. Acute hypoxemic respiratory failure, currently on off BiPAP on 3 L of oxygen by nasal cannula. The patient has developed a recurrent left-sided pleural ef fusion and another thoracentesis was done today with a total of 2 L of pleural fluid was again aspirated from the left lung. Right iliac bone metastatic lesion post IR guided biopsy Moderate size pericardial effusion Unintentional weight loss, 40 pounds over approximately 1.5 month timeframe Former tobacco smoker Chronic obstructive pulmonary disease Atrial fibrillation with controlled ventricular response, normally anticoagulated on Eliquis Diabetes mellitus type 2 Microcytic, hypochromic anemia Hyponatremia, appears hypervolemic on clinical examination, however, consider SIADH given concerning findings for malignancy Plan: Keep the patient off BiPAP and the patient is currently on 3 L of O2 nasal cannula. Ultrasound-guided thoracentesis of the left lung was done, a total of 2 L of fluid Previous thoracentesis on the left and pathology was nondiagnostic for malignant fluid. NT-proBNP significantly elevated 6320 Recent available echocardiogram reviewed Continue IV diuretics in the form of Lasix 40 mg twice daily Anticoagulation can be restarted Consult oncology Echocardiogram from 08/20/2024 showed a left-ventricular ejection fraction of 45 to 50%. Mild RV dilatation. Moderate pulmonary hypertension. Prognosis remains poor based on the above-mentioned comorbidities.
--- NOTE | 2024-09-14 16:08 | P.PCN ---
Date of Procedure: 09/14/24 Preoperative Diagnosis: Pleural effusion, left Postoperative Diagnosis: Pleural effusion, left Procedure(s) Performed: Thoracentesis, left Anesthesia: local Surgeon: Armando Shukla Estimated Blood Loss (ml): 0 Pathology: other Condition: stable Disposition: floor Operative Findings: The procedure was done with ultrasound marking and ultrasound guidance A time out was performed and the chest x-ray was reviewed, the appropriate side was confirmed and marked. My hands were washed immediately prior to the procedure. I wore a surgical cap, mask with protective eyewear, sterile gown and sterile gloves throughout the procedure. The patient was prepped and draped in a sterile manner using chlorhexidine scrub after the appropriate level was percussed and confirmed by ultrasound. 1% lidocaine was used to anesthesize the skin, subcutaneous tissue, superior aspect of the rib periosteum and parietal pleura. A finder needle was then introduced over the superior aspect of the rib to locate the pleural fluid; 2colored fluid was aspirated at a depth of approximately 2 cm. A 10-blade scalpel was used to ron the skin at the insertion site. The [id number] needle was then introduced through the skin incision into the pleural space using negative aspiration pressure and the red colometric indicator to confirm appropriate positioning of the needle. The thoracentesis catheter was then threaded without difficulty. 2000 ml of turbid colored fluid was removed without difficulty. The catheter was then removed. No immediate complications were noted during the procedure. A post-procedure chest x-ray is pending at the time of this note. The fluid will be sent for studies. Estimated blood loss is 0cc
[2024-09-14 16:38] LABS: Glucose,Whole Blood 189 mg/dL (70-110)
--- NOTE | 2024-09-14 18:57 | US ---
EXAMINATION TYPE: US venous doppler duplex LE BI DATE OF EXAM: 09/14/2024 6:37 PM COMPARISON: NONE CLINICAL INDICATION: Male, 74 years old with history of dvt; Patient had very swollen legs but after thoracentesis was performed, the swelling has gone down but not gone, no h/o dvt TECHNIQUE: The lower extremity deep venous system is examined utilizing real time linear array sonog cordell with graded compression, color doppler sonography, and spectral doppler. SIDE PERFORMED: Bilateral FINDINGS: VESSELS IMAGED: Common Femoral Vein Deep Femoral Vein Greater Saphenous Vein * Femoral Vein Popliteal Vein Small Saphenous Vein * Proximal Calf Veins (* superficial vessels) Right Leg: Negative for DVT, Color Doppler imaging shows patency of the vessels. Spectral waveforms are within normal limits. Left Leg: Negative for DVT, Color Doppler imaging shows patency of the vessels. Spectral waveforms a re within normal limits. IMPRESSION: No ultrasound evidence for deep venous thrombosis. [facility], , 09/14/2024 6:54 PM
[2024-09-14 20:31] LABS: Glucose,Whole Blood 171 mg/dL (70-110)
[2024-09-15 05:57] LABS: Glucose,Whole Blood 164 mg/dL (70-110)
[2024-09-15 07:30] LABS: Basophils # (A) 0.02 10*3/uL (0.00-0.10); Basophils % (A) 0.4 %; Eosinophils # (A) 0.03 10*3/uL (0.04-0.35); Eosinophils % (A) 0.6 %; HCT 29.8 % (39.6-50.0); HGB 8.7 g/dL (13.0-17.0); Lymphocytes # (A) 0.32 10*3/uL (0.90-5.00); Lymphocytes % (A) 6.3 %; MCH 23.5 pg (27.0-32.0); MCHC 29.2 g/dL (32.0-37.0); MCV 80.5 fL (80.0-97.0); Monocytes # (A) 0.34 10*3/uL (0.20-1.00); Monocytes % (A) 6.6 %; Neutrophils # (A) 4.37 10*3/uL (1.80-7.70); Neutrophils % (A) 85.3 %; Platelet Count 328 10*3/uL (140-440); RBC 3.70 10*6/uL (4.40-5.60); RDW 17.3 % (11.5-14.5); WBC 5.12 10*3/uL (4.50-10.00)
[2024-09-15 07:49] LABS: African American GFR (CKD) >90 (>60 ml/min/1.73 sqM); Anion Gap 8 mmol/L; Blood Urea Nitrogen 23 mg/dL (9-20); Calcium 8.1 mg/dL (8.4-10.2); Carbon Dioxide 33 mmol/L (22-30); Chloride 89 mmol/L (98-107); Glucose 140 mg/dL (74-99); Non-African American GFR(CKD) 87 (>60 ml/min/1.73 sqM); Potassium 4.3 mmol/L (3.5-5.1); Sodium 130 mmol/L (137-145)
--- NOTE | 2024-09-15 10:38 | PN ---
PROGRESS NOTE DATE OF SERVICE: 09/14/2024 SUBJECTIVE: This 74-year-old gentleman, admitted with shortness of breath and left pleural effusion. Underwent thoracocentesis by Dr. Shukla. No chest pain. No palpitations. No fever. PHYSICAL EXAM: VITAL SIGNS: Pulse is 86, blood pressure 90/66, respirations 20. HEENT: Conjunctivae normal. NECK: No jugular venous distention. CARDIOVASCULAR: S1, S2 muffled. RESPIRATION: Breath sounds diminished at the bases. ABDOMEN: Soft, nontender. LABORATORY DATA: Reviewed. ASSESSMENT: 1. Large bilateral pleural effusions, left more than right, status post thoracocentesis on the left. 2. History of congestive heart failure with mildly reduced ejection fraction. 3. Poorly differentiated non-small lung cancer. 4. Atrial fibrillation. 5. Multiple complex medical issues. RECOMMENDATIONS AND DISCUSSION: To continue current management and repeat labs are noted. Recommend repeat labs and closely monitor with Cardiology. I would also continue with IV diuretics, fluid restriction. Guarded prognosis. Further recommendations to follow. MMODL / IJN: [id number] / [email or web address]
[2024-09-15 11:15] LABS: Glucose,Whole Blood 159 mg/dL (70-110)
[2024-09-15 16:33] LABS: Glucose,Whole Blood 162 mg/dL (70-110)
--- NOTE | 2024-09-15 18:50 | P.PN ---
Subjective Progress Note Date: 09/15/24 Patient is a 74-year-old male with past medical history significant hypertension, hyperlipidemia, diabetes mellitus, atrial fibrillation anticoagulated Eliquis, heart failure, COPD, former tobacco use, and also recent diagnosis of lung cancer. Chest CT from his previous hospitalization earlier this August remarkable for heterogenous mass in the lingula measuring 5.2 x 5 x 8.5 cm. Additional 1.8 cm nodule in the left upper lobe concerning for metastasis. Enlarged mediastinal and left hilar lymph nodes and possible cardiophrenic lymph node. Moderate pericardial effusion. Nonspecific hypodense lesion in the right kidney. Bilateral pleural effusions, moderate on the left and small on the right. Did have a left-sided thoracentesis done on 08/20/2024 and a total of 1.7 L was removed from the pleural space. Pathology was nondiagnostic for malignancy. Pleural fluid was an exudate based on lights criteria. Patient does have history of heart failure. Most recent available echocardiogram from his previous hospitalization here estimating left ventricular ejection fraction of 45 to 50%. Mild MR and TR. Mild aortic stenosis. Moderate pulmonary hypertension with an RVSP 53 mmHg. Also, a mod erate-sized pericardial effusion was noted. CT performed at outside facility concerning for additional osseous involvement of the right iliac bone with associated soft tissue extension and asymmetric enlargement of the right iliac musculature, right rib 9 fracture, possibly pathologic. Small pericardial effusion was also partially visualized. Patient ended up having biopsy of right iliac bone positive for metastatic poorly differentiated non-small cell carcinoma. He has been following with radiation oncology for palliative radiation. Patient return to the emergency department yesterday evening complaining of increasing worsening shortness of breath since his hospital discharge approximately 2 and half weeks ago. He was at his primary care provider's office and noted to be hypotensive. Chronic cough with occasional yellow-green sputum production. No hemoptysis. No reported fevers. Denies abdominal pain, nausea or vomiting, diarrhea. Also, increased lower extremity swelling and orthopnea. Patient was placed on BiPAP in the ED. Workup including a chest x- ray remarkable for increased in size of left-sided opacification within the left hemithorax. Increase in pleural effusion with superimposed noted lingular mass. Trace right-sided pleural effusion. Labs including CBC with a WBC count of 6, hemoglobin stable at 9.7 g/dL, platelets 336. CMP: Sodium 131, potassium 4.8, c hloride 86, serum bicarb 36, BUN 24, creatinine 0.91, glucose 152. Lactic 1.6. Troponin less than 0.012. NT proBNP elevated at 6320. Patient received a one- time dose of 80 mg of IV Lasix in the ED. He is currently being evaluated in room 27. He is on BiPAP with settings 12/5 and FiO2 35%. Does not appear to be any respiratory distress. Able to carry out full conversation. States he is currently undergoing radiation treatments on outpatient basis and has 5 rounds of radiation left. He has not started any chemotherapy. Endorses above- mentioned symptoms. Denies any chest pain. Denies missing any doses of his diuretics. He has bilateral lower extremity edema. His current heart rhythm is atrial fibrillation with controlled ventricular response. Blood pressure is normotensive. He has been peeing often and has an external urinary catheter. 09/14/2024, the patient is off the BiPAP and the patient is currently on oxygen and he is on 3 L of oxygen nasal cannula with a pulse ox of 99%. I performed a bedside thoracentesis this patient and a total of 2 L of pleural fluid was asp irated without any complications. The follow-up chest x-ray showed improvement in the left lung findings. There is also a persistent left-sided pleural effusion/mass in the left lung base. There is blunting of the left costophrenic angle. The patient tolerated the procedure well. The sodium is at 132, BUN 23 with a creatinine of 0.7. White cell count of 6 with a hemoglobin of 8.4. No other new complaints otherwise for now. The patient is on empiric antibiotic coverage with IV cefepime. The patient is also on Lasix 40 mg IV every 12 hours. The patient is in negative fluid balance. Awake and alert and communicating. On today's evaluation of 09/15/2024, the patient is being seen for a follow-up. The patient is postthoracentesis. A total of 2 L of fluid was aspirated from the left lung and the patient is currently stable on 2 L of oxygen by nasal cannula with a pulse ox of 99%. Remains on IV Lasix. Continues to produce excellent urine output and the patient has been in negative fluid balance. The white cell count is 5.1 with a hemoglobin 8.7 and the platelet count 328. S odium is at 130, BUN 23 and creatinine 0.8 and a serum bicarb is at 33. No other significant events otherwise for now. Much improved following the thoracentesis. Objective - Vital Signs Vital signs: Vital Signs Temp 98.2 F 09/15/24 08:11 Pulse 88 09/15/24 11:49 Resp 18 09/15/24 11:23 BP 112/73 09/15/24 08:11 Pulse Ox 99 09/15/24 11:23 FiO2 35 09/14/24 06:30 Intake & Output 09/14/24 09/15/24 09/15/24 18:59 06:59 18:59 Intake Total 236 40 240 Output Total 300 500 Balance -64 -460 240 Weight 91.1 kg Intake: Oral 236 40 240 Output: Urine 300 500 Other: Voiding Method External Catheter External Catheter External Catheter - Exam GENERAL EXAM: Alert, 74-year-old male, on 3 L O2 nasal cannula HEAD: Normocephalic and atraumatic EYES: Normal reaction of pupils, equal size. NOSE: Clear with pink turbinates. THROAT: No erythema or exudates. NECK: No masses, no JVD. CHEST: No chest wall deformity. LUNGS: Equal air entry with diminished left basilar lung sounds. No conversational dyspnea or accessory muscle use.. CVS: S1 and S2 normal with no audible murmur, irregular rhythm. No extra heart sounds ABDOMEN: No hepatosplenomegaly, active bowel sounds, no guarding or rigidity. SPINE: No scoliosis or deformity SKIN: No rashes CENTRAL NERVOUS SYSTEM: No focal deficits, tone is normal in all 4 extremities. EXTREMITIES: There is 2+ bilateral lower extremity edema. No clubbing or cyanosis. Peripheral pulses are intact. - Labs CBC & Chem 7: 09/15/24 06:39 09/15/24 06:39 Labs: Abnormal Lab Results - Last 24 Hours (Table) 09/14/24 09/14/24 09/15/24 Range/Units 16:34 20:30 05:55 RBC (4.40-5.60) 10*6/uL Hgb (13.0-17.0) g/dL Hct (39.6-50.0) % MCH (27.0-32.0) pg MCHC (32.0-37.0) g/dL MPV (9.5-12.2) fL Lymphocytes # (0.90-5.00) 10*3/uL Eosinophils # (0.04-0.35) 10*3/uL Sodium (137-145) mmol/L Chloride (98-107) mmol/L Carbon Dioxide (22-30) mmol/L BUN (9-20) mg/dL Glucose (74-99) mg/dL POC Glucose (mg/dL) 189 H 171 H 164 H (70-110) mg/dL Calcium (8.4-10.2) mg/dL 09/15/24 09/15/24 09/15/24 Range/Units 06:39 06:39 11:14 RBC 3.70 L (4.40-5.60) 10*6/uL Hgb 8.7 L (13.0-17.0) g/dL Hct 29.8 L (39.6-50.0) % MCH 23.5 L (27.0-32.0) pg MCHC 29.2 L (32.0-37.0) g/dL MPV 8.8 L (9.5-12.2) fL Lymphocytes # 0.32 L (0.90-5.00) 10*3/uL Eosinophils # 0.03 L (0.04-0.35) 10*3/uL Sodium 130 L (137-145) mmol/L Chloride 89 L (98-107) mmol/L Carbon Dioxide 33 H (22-30) mmol/L BUN 23 H (9-20) mg/dL Glucose 140 H (74-99) mg/dL POC Glucose (mg/dL) 159 H (70-110) mg/dL Calcium 8.1 L (8.4-10.2) mg/dL Microbiology - Last 24 Hours (Table) 09/12/24 20:13 Blood Culture - Preliminary Blood Assessment and Plan Assessment: Poorly-differentiated non-small cell lung cancer, CT of the chest showing a 5.2 x 5 x 8.5 cm heterogenous mass in the lingula, concerning for neoplasm. Additional 1.8 cm nodule in the left upper lobe. Enlarged mediastinal and left hilar lymph nodes and possible cardiophrenic lymph node enlargement concerning for metastasis. Multiple additional findings concerning for diffuse metastatic disease from an abdominal/pelvis CT done at outside facility remarkable for bilateral adrenal lesions, osseous involvement of the right iliac bone with associated soft tissue extension and asymmetric enlargement of the right iliac musculature, right rib 9 fracture, possibly pathologic. right iliac bone positive for metastatic poorly differentiated non-small cell carcinoma. He has been following with radiation oncology for palliative radiation. Bilateral pleural effusion left more than right, malignant versus fluid of heart failure, status post thoracentesis on the left 08/20/2024 and a total of 1.7 L was removed from the pleural space. Pleural fluid was an exudate based on lights criteria. Pathology was nondiagnostic for malignancy. A second thoracentesis was done on 09/06/2024 and removal of total of 2 L of pleural fluid. No complications. Shortness of breath is improved. Heart failure with mildly reduced left ventricular ejection fraction, most recent available echocardiogram from his previous hospitalization earlier this month left ventricular ejection fraction of 45 to 50%. Mild MR and TR. Mild aortic stenosis. Moderate pulmonary hypertension with an RVSP 53 mmHg. Also, a moderate-sized pericardial effusion was noted. Acute hypoxemic respiratory failure, currently on off BiPAP on 3 L of oxygen by nasal cannula. The patient has developed a recurrent left-sided pleural effusion and another thoracentesis was done today with a total of 2 L of pleural fluid was again aspirated from the left lung. Right iliac bone metastatic lesion post IR guided biopsy Moderate size pericardial effusion Unintentional weight loss, 40 pounds over approximately 1.5 month timeframe Former tobacco smoker Chronic obstructive pulmonary disease Atrial fibrillation with controlled ventricular response, normally anticoag ulated on Eliquis Diabetes mellitus type 2 Microcytic, hypochromic anemia Hyponatremia, appears hypervolemic on clinical examination, however, consider SIADH given concerning findings for malignancy Plan: Clinically stable and the patient is currently on 3 L of O2 nasal cannula. Ultrasound-guided thoracentesis of the left lung was done, a total of 2 L of fluid Previous thoracentesis on the left and pathology was nondiagnostic for malignant fluid. NT-proBNP significantly elevated 6320 Recent available echocardiogram reviewed Continue IV diuretics in the form of Lasix 40 mg twice daily Anticoagulation can be restarted Consult oncology Echocardiogram from 08/20/2024 showed a left-ventricular ejection fraction of 45 to 50%. Mild RV dilatation. Moderate pulmonary hypertension. Follow-up with radiation oncology and medical oncology. The patient will need to start systemic treatment in addition to radiation therapy. Consider a Pleurx catheter if the pleural effusion remains recurrent on the left. Prognosis remains poor based on the above-mentioned comorbidities.
[2024-09-15 20:05] LABS: Glucose,Whole Blood 176 mg/dL (70-110)
--- NOTE | 2024-09-15 22:36 | PN ---
PROGRESS NOTE DATE OF SERVICE: 09/15/2024 SUBJECTIVE: This 74-year-old gentleman, admitted with large bilateral pleural effusion, also had features of acute respiratory failure. Currently, the patient is requesting hospice consultation family. No chest pain or palpitation. PHYSICAL EXAMINATION: VITAL SIGNS: Pulse is 94, blood pressure 98/66, and respirations 18. CHEST: Bilateral scattered rhonchi and crackles. ABDOMEN: Soft. NERVOUS SYSTEM: Nonfocal. LABORATORY DATA: Reviewed. ASSESSMENT: 1. Large bilateral pleural effusion, left more than the right with status post thoracocenteses on the left. 2. Acute respiratory failure. 3. History of congestive heart failure with mildly reduced ejection fraction. 4. Poorly differentiated non-small lung cancer history. 5. Atrial fibrillation. 6. Multiple complex medical issues. 7. No code, no CPR, no vent. RECOMMENDATIONS AND DISCUSSION: Recommended to continue current management and continue symptomatic treatment. Recommended informational visit from hospice. Discussed with 1 of the sons as well as the patient. The patient apparently lives with the daughter. The Case Management and discharge planning team to discuss with family, with the daughter and informational hospice visit. Prognosis guarded. Further recommendations to follow. MMODL / IJN: [id number] / SHARA
[2024-09-16 05:54] LABS: Glucose,Whole Blood 128 mg/dL (70-110)
[2024-09-16 11:18] LABS: Glucose,Whole Blood 166 mg/dL (70-110)
[2024-09-16 16:40] LABS: Glucose,Whole Blood 207 mg/dL (70-110)
--- NOTE | 2024-09-16 18:13 | P.PN ---
Subjective Progress Note Date: 09/16/24 Principal diagnosis: Acute hypoxic respiratory failure secondary to poorly differentiated non-small cell lung cancer and pleural effusions Patient is a 74-year-old male with past medical history significant hypertension, hyperlipidemia, diabetes mellitus, atrial fibrillation an ticoagulated Eliquis, heart failure, COPD, former tobacco use, and also recent diagnosis of lung cancer. Chest CT from his previous hospitalization earlier this August remarkable for heterogenous mass in the lingula measuring 5.2 x 5 x 8.5 cm. Additional 1.8 cm nodule in the left upper lobe concerning for metastasis. Enlarged mediastinal and left hilar lymph nodes and possible cardiophrenic lymph node. Moderate pericardial effusion. Nonspecific hypodense lesion in the right kidney. Bilateral pleural effusions, moderate on the left and small on the right. Did have a left-sided thoracentesis done on 08/20/2024 and a total of 1.7 L was removed from the pleural space. Pathology was nondiagn ostic for malignancy. Pleural fluid was an exudate based on lights criteria. Patient does have history of heart failure. Most recent available echocardiogram from his previous hospitalization here estimating left ventricular ejection fraction of 45 to 50%. Mild MR and TR. Mild aortic stenosis. Moderate pulmonary hypertension with an RVSP 53 mmHg. Also, a moderate-sized pericardial effusion was noted. CT performed at outside facility concerning for additional osseous involvement of the right iliac bone with associated soft tissue extension and asymmetric enlargement of the right iliac musculature, right rib 9 fracture, possibly pathologic. Small pericardial effusion was also partially visualized. Patient ended up having biopsy of right iliac bone positive for metastatic poorly differentiated non-small cell carcinoma. He has been following with radiation oncology for palliative rad iation. Patient return to the emergency department yesterday evening complaining of increasing worsening shortness of breath since his hospital discharge approximately 2 and half weeks ago. He was at his primary care provider's office and noted to be hypotensive. Chronic cough with occasional yellow-green sputum production. No hemoptysis. No reported fevers. Denies abdominal pain, nausea or vomiting, diarrhea. Also, increased lower extremity swelling and orthopnea. Patient was placed on BiPAP in the ED. Workup including a chest x- ray remarkable for increased in size of left-sided opacification within the left hemithorax. Increase in pleural effusion with superimposed noted lingular mass. Trace right-sided pleural effusion. Labs including CBC with a WBC count of 6, hemoglobin stable at 9.7 g/dL, platelets 336. CMP: Sodium 131, potassium 4.8, chloride 86, serum bicarb 36, BUN 24, creatinine 0.91, glucose 152. Lactic 1.6. Troponin less than 0.012. NT proBNP elevated at 6320. Patient received a one- time dose of 80 mg of IV Lasix in the ED. He is currently being evaluated in room 27. He is on BiPAP with settings 12/5 and FiO2 35%. Does not appear to be any respiratory distress. Able to carry out full conversation. States he is currently undergoing radiation treatments on outpatient basis and has 5 rounds of radiation left. He has not started any chemotherapy. Endorses above- mentioned symptoms. Denies any chest pain. Denies missing any doses of his diuretics. He has bilateral lower extremity edema. His current heart rhythm is atrial fibrillation with controlled ventricular response. Blood pressure is normotensive. He has been peeing often and has an external urinary catheter. 09/14/2024, the patient is off the BiPAP and the patient is currently on oxygen and he is on 3 L of oxygen nasal cannula with a pulse ox of 99%. I performed a bedside thoracentesis this patient and a total of 2 L of pleural fluid was aspirated without any complications. The follow-up chest x-ray showed improvement in the left lung findings. There is also a persistent left-sided pleural effusion/mass in the left lung base. There is blunting of the left costophrenic angle. The patient tolerated the procedure well. The sodium is at 132, BUN 23 with a creatinine of 0.7. White cell count of 6 with a hemoglobin of 8.4. No other new complaints otherwise for now. The patient is on empiric antibiotic coverage with IV cefepime. The patient is also on Lasix 40 mg IV every 12 hours. The patient is in negative fluid balance. Awake and alert and communicating. On today's evaluation of 09/15/2024, the patient is being seen for a follow-up. The patient is postthoracentesis. A total of 2 L of fluid was aspirated from the left lung and the patient is currently stable on 2 L of oxygen by nasal cannula with a pulse ox of 99%. Remains on IV Lasix. Continues to produce excellent urine output and the patient has been in negative fluid balance. The white cell count is 5.1 with a hemoglobin 8.7 and the platelet count 328. Sodium is at 130, BUN 23 and creatinine 0.8 and a serum bicarb is at 33. No other significant events otherwise for now. Much improved following the thoracentesis. Seen today on 09/16/2024, patient is comfortable, does not seem to be in distress. Presently on room air, O2 saturations in the 90s. Patient did have thoracentesis done by Dr. Kuo he had 2 L removed from the left pleural space. Objective - Vital Signs Vital signs: Vital Signs Temp 98.0 F 09/16/24 08:00 Pulse 84 09/16/24 15:48 Resp 16 09/16/24 14:00 BP 91/52 09/16/24 12:00 Pulse Ox 84 L 09/16/24 12:00 FiO2 35 09/14/24 06:30 Intake & Output 09/15/24 09/16/24 09/16/24 18:59 06:59 18:59 Intake Total 1020 360 Output Total 600 600 Balance 420 -600 360 Weight 91 kg Intake: Oral 1020 360 Output: Urine 600 600 Other: Voiding Method External Catheter External Catheter External Catheter - Exam GENERAL EXAM: 74-year-old in no distress on room air HEAD: Normocephalic and atraumatic EYES: Normal reaction of pupils, equal size. NOSE: Clear with pink turbinates. THROAT: No erythema or exudates. NECK: No masses, no JVD. CHEST: No chest wall deformity. LUNGS: Slightly diminished breath sounds at the bases no rhonchi no wheezes CVS: S1 and S2 normal with no audible murmur, irregular rhythm. No extra heart sounds ABDOMEN: No hepatosplenomegaly, active bowel sounds, no guarding or rigidity. SKIN: No rashes CENTRAL NERVOUS SYSTEM: alert and oriented x 3 no focal deficit EXTREMITIES: 1+ bipedal edema - Labs CBC & Chem 7: 09/15/24 06:39 09/15/24 06:39 Labs: Abnormal Lab Results - Last 24 Hours (Table) 09/15/24 09/16/24 09/16/24 Range/Units 20:03 05:43 11:17 POC Glucose (mg/dL) 176 H 128 H 166 H (70-110) mg/dL 09/16/24 Range/Units 16:38 POC Glucose (mg/dL) 207 H (70-110) mg/dL Microbiology - Last 24 Hours (Table) 09/14/24 06:30 Gram Stain - Final Sputum Sputum Culture - Final 09/12/24 20:13 Blood Culture - Preliminary Blood Assessment and Plan Assessment: Impression: Acute hypoxic respiratory failure Bilateral pleural effusions status post thoracentesis, patient was found to have exudative pleural effusion on the left patient had thoracentesis x 2 History of congestive heart failure and reduced ejection fraction Right iliac bone metastatic deposits Moderate size pericardial effusion Ex-smoker Chronic obstructive pulmonary disease presently inactive Chronic atrial fibrillation anticoagulated Type 2 diabetes Hyponatremia likely secondary to hypervolemia possible SIADH secondary to malignancy Moderate pulmonary hypertension Recommendation: Continue present supportive care measures Continue to titrate oxygen presently is on room air Awaiting results on pleural effusion is likely malignant/exudative Continue Lasix 40 mg twice daily Resume anticoagulation Oncology consultation is pending Patient to follow-up upon discharge with radiation oncology and medical oncology If the patient develops worsening pleural effusion and it is malignant may have to be considered for Pleurx catheter placement. Continues to have multiple complex issues We will continue to follow Time with Patient: Less than 30
[2024-09-16 20:12] LABS: Glucose,Whole Blood 161 mg/dL (70-110)
[2024-09-17] MEDS: ALBUTEROL NEBULIZED 2.5 MG/3 ML INHALATION PRN (01:26)
[2024-09-17 06:03] LABS: Glucose,Whole Blood 151 mg/dL (70-110)
[2024-09-17 08:14] LABS: ALT 9 U/L (4-49); AST 20 U/L (17-59); African American GFR (CKD) >90 (>60 ml/min/1.73 sqM); Albumin 2.9 g/dL (3.5-5.0); Alkaline Phosphatase 113 U/L (38-126); Anion Gap 12 mmol/L; Blood Urea Nitrogen 25 mg/dL (9-20); Calcium 8.0 mg/dL (8.4-10.2); Carbon Dioxide 29 mmol/L (22-30); Chloride 91 mmol/L (98-107); Glucose 129 mg/dL (74-99); Magnesium 2.1 mg/dL (1.6-2.3); Non-African American GFR(CKD) 90 (>60 ml/min/1.73 sqM); Potassium 3.8 mmol/L (3.5-5.1); Sodium 132 mmol/L (137-145); Total Protein 6.4 g/dL (6.3-8.2)
[2024-09-17] MEDS: APIXABAN 5 MG TAB PO SCH (08:55)
--- NOTE | 2024-09-17 09:11 | P.PN ---
Subjective Progress Note Date: 09/16/24 This is a 74-year-old male who was admitted with bilateral pleural effusion also with features of acute respiratory failure and was considering possible hospice for informational. Patient reports he would like to continue with treatment and is requesting to speak with oncology and radiation oncology as he was reportedly only left with for radiation treatments. Patient is significantly weak and is status post thoracentesis while awaiting fluid culture and cytology. Pulmonary is following closely and weaning FiO2 as tolerated. Patient evaluated by PT/OT therapy and will likely need rehab. Patient to complete radiation treatments prior to going to physical therapy ECF. Review of systems: Constitutional: No reports of fatigue, fever, or chills Cardiovascular: No reports of chest pain or palpitations Respiratory: reports of continued shortness of breath with cough GI: No reports of nausea, vomiting, or diarrhea : No reports of dysuria or retention Neurovascular: reports of weakness and extreme exertion with shortness of breath All medications have been reviewed Physical exam: Gen: This is a 74-year-old male who is sitting up in the chair, awake, alert and oriented x 3, well-developed, elderly appearing, ill-appearing, obese HEENT: Head is atraumatic, normocephalic. Pupils equal, round. Sclerae is anicteric. NECK: Supple. No JVD. No lymphadenopathy. No thyromegaly. LUNGS: Diminished breath sounds bilaterally with some scattered rhonchi, expiratory wheezing, and crackles noted at the bases. No intercostal retractions. HEART: S1, S2 are muffled ABDOMEN: Soft. Bowel sounds are present. No masses. No tenderness. EXTREMITIES: No pedal edema. No calf tenderness. NEUROLOGICAL: Patient is awake, alert and oriented x3. Cranial nerves 2 through 12 are grossly intact. Diffusely weak Assessment: Large bilateral pleural effusion, left more than right with status post thor acentesis on the left, cytology pending Acute respiratory failure secondary to above as well as lung cancer History of congestive heart failure with mildly reduced EF Poorly differentiated non-small cell lung cancer history, scheduled for 4 radiation treatments left History of atrial fibrillation History of coronary artery disease History of COPD, not in exacerbation Diabetes mellitus, type II, uncontrolled with hyper and hypoglycemia Former smoker Anxiety/depression Obesity with a BMI of 30.6 GI prophylaxis DVT prophylaxis No code Plan: Patient was initially discussing possible hospice informational for lung cancer. Patient reported to case management that he would like to discuss with oncology and radiation oncology as he only had 4 treatments left of radiation therapy and would like to resume. Patient was evaluated by physical therapy recommending rehab although patient needs to be agreeable that he will not receive oncological care during rehab. Patient will likely complete 4 rounds of radiation here before considering going to ECF. Recommend PT/OT therapy daily Wean FiO2 as tolerated Continue supportive care Radiation oncology/hematology consulted and pending Due to multiple complex medical issues and recent diagnosis, overall prognosis is poor and guarded at this time The impression and plan of care has been dictated by Palak Sim, Nurse Practitioner as directed. Dr. Tiburcio MD I have performed a history and examination and MDM of this patient, discussed the same with the dictator, and agree with the dictator's assessment and plan as written ,documented as a scribe. Based on total visit time, I have performed more than 50% of the visit. Objective - Vital Signs Vital signs: Vital Signs Temp 97.8 F 09/17/24 04:00 Pulse 99 09/17/24 04:00 Resp 18 09/17/24 04:00 BP 106/66 09/17/24 04:00 Pulse Ox 95 09/17/24 04:00 FiO2 35 09/14/24 06:30 Intake & Output 09/16/24 09/17/24 09/17/24 18:59 06:59 18:59 Intake Total 460 Output Total 200 Balance 460 -200 Weight 94.1 kg Intake: Intake, IV Titration 100 Amount Cefepime 2 gm In Sodium 100 Chloride 0.9% 100 ml @ 25 mls/hr IVPB Q8HR [facility] Rx# :[id number] Oral 360 Output: Urine 200 Other: Voiding Method External Catheter External Catheter - Labs CBC & Chem 7: 09/15/24 06:39 09/17/24 07:23 Labs: Abnormal Lab Results - Last 24 Hours (Table) 09/16/24 09/16/24 09/16/24 Range/Units 11:17 16:38 20:10 Sodium (137-145) mmol/L Chloride (98-107) mmol/L BUN (9-20) mg/dL Glucose (74-99) mg/dL POC Glucose (mg/dL) 166 H 207 H 161 H (70-110) mg/dL Calcium (8.4-10.2) mg/dL Albumin (3.5-5.0) g/dL 09/17/24 09/17/24 Range/Units 06:00 07:23 Sodium 132 L (137-145) mmol/L Chloride 91 L (98-107) mmol/L BUN 25 H (9-20) mg/dL Glucose 129 H (74-99) mg/dL POC Glucose (mg/dL) 151 H (70-110) mg/dL Calcium 8.0 L (8.4-10.2) mg/dL Albumin 2.9 L (3.5-5.0) g/dL Microbiology - Last 24 Hours (Table) 09/14/24 06:30 Gram Stain - Final Sputum Sputum Culture - Final
[2024-09-17 09:31] LABS: Basophils # (A) 0.02 10*3/uL (0.00-0.10); Basophils % (A) 0.4 %; Eosinophils # (A) 0.06 10*3/uL (0.04-0.35); Eosinophils % (A) 1.1 %; HCT 27.2 % (39.6-50.0); HGB 8.2 g/dL (13.0-17.0); Lymphocytes # (A) 0.34 10*3/uL (0.90-5.00); Lymphocytes % (A) 6.0 %; MCH 23.8 pg (27.0-32.0); MCHC 30.1 g/dL (32.0-37.0); MCV 79.1 fL (80.0-97.0); Monocytes # (A) 0.43 10*3/uL (0.20-1.00); Monocytes % (A) 7.5 %; Neutrophils # (A) 4.80 10*3/uL (1.80-7.70); Neutrophils % (A) 83.9 %; Platelet Count 274 10*3/uL (140-440); RBC 3.44 10*6/uL (4.40-5.60); RDW 17.4 % (11.5-14.5); WBC 5.71 10*3/uL (4.50-10.00)
[2024-09-17 11:26] LABS: Glucose,Whole Blood 145 mg/dL (70-110)
[2024-09-17] MEDS: IPRATROPIUM-ALBUTEROL 3 ML NEB INHALATION SCH (13:02)
--- NOTE | 2024-09-17 14:07 | P.CONS ---
History of Present Illness - Reason for Consult Consult date: 09/17/24 history of non-small cell carcinoma - History of Present Illness Patient is a pleasant 74-year-old male with past medical history significant for non-small cell lung carcinoma and recurrent pleural effusions. Onset of disease was first worked up on last hospital visit on 08/20/2024 due to pathological rib fracture. Bone biopsy positive for metastatic poorly differentiated NSCLC. MRI of the brain was negative for metastatic disease. Core biopsy of the iliac mass positive poorly differentiated adenocarcinoma. He regularly follows up with radiation oncology, and he was scheduled to receive radiation therapy today. P atient with chief complaint of dyspnea. Admitted for acute hypoxic respiratory failure secondary to poorly differentiated non-small cell lung cancer and pleural effusions. Patient poor historian due to being encephalopathic per nursing she was scheduled for have radiation first treatment yesterday. However, patient's respiratory status started to decline and he ultimately required to be placed on BiPAP. When seen today patient was confused and unable to answer questions. Radiation treatment was rescheduled for today, however he remains on BiPAP. Previous pathology report for pleural fluid analysis on 08/20/2024 showed no cytologic malignant cells identified. Venous Doppler displaying no evidence of DVT. Cytology from 09/16/2024 pending. Past Medical History Past Medical History: Coronary Artery Disease (CAD), Cancer, COPD, Diabetes Mellitus Additional Past Medical History / Comment(s): type 2 DM, hiatal hernia, signifi cant for large colon polyps, multiple removed History of Any Multi-Drug Resistant Organisms: None Reported Past Surgical History: Hernia Repair Additional Past Surgical History / Comment(s): loop recorder, hernia x 3,, multiple colon polyps removed Past Anesthesia/Blood Transfusion Reactions: No Reported Reaction Past Psychological History: No Psychological Hx Reported Smoking Status: Former smoker Past Alcohol Use History: Rare Past Drug Use History: None Reported - Past Family History Mother Family Medical History: Cancer (Colon cancer) Additional Family Medical History / Comment(s): Colon cancer Father Family Medical History: COPD, Pneumonia Medications and Allergies Home Medications Medication Instructions Recorded Confirmed Type Acetaminophen-Codeine 300-30mg 1 tab PO Q6H PRN 08/20/24 09/13/24 History [Tylenol w/codeine #3] Albuterol Inhaler [Ventolin Hfa 2 puff INHALATION RT-Q4H PRN 08/20/24 09/13/24 History Inhaler] Apixaban [Eliquis] 5 mg PO BID 08/20/24 09/13/24 History Celecoxib [CeleBREX] 200 mg PO DAILY 08/20/24 09/13/24 History Cyclobenzaprine [Flexeril] 10 mg PO BID PRN 08/20/24 09/13/24 History Fluticasone Nasal [place] [Flonase 1 spray EA NOSTRIL BID PRN 08/20/24 09/13/24 History Nasal [place]] Gabapentin 600 mg PO Q8H PRN 08/20/24 09/13/24 History Ipratropium-Albuterol Nebulize 3 ml INHALATION RT-TID 08/20/24 09/13/24 History [Duoneb 0.5 mg-3 mg/3 ml Soln] PARoxetine [Paxil] 20 mg PO DAILY 08/20/24 09/13/24 History Pioglitazone [Actos] 30 mg PO DAILY 08/20/24 09/13/24 History Simvastatin [Zocor] 20 mg PO DAILY 08/20/24 09/13/24 History glipiZIDE XL [Glucotrol XL] 10 mg PO BID 08/20/24 09/13/24 History metFORMIN HCL [Glucophage] 1,000 mg PO BID 08/20/24 09/13/24 History Dapagliflozin Propanediol [Farxiga] 10 mg PO DAILY 30 Days #30 tab 08/26/2408/19 Rx Ferrous Sulfate [Iron (65 MG 325 mg PO W/LUNCH 30 Days #30 tab 08/26/24 09/13/24 Rx Elemental)] Furosemide [Lasix] 20 mg PO DAILY 30 Days #30 tab 08/26/24 09/13/24 Rx Lidocaine 4% Patch 1 patch TOPICAL HS 30 Days #30 08/26/24 09/13/24 Rx patch Metoprolol Tartrate [Lopressor] 50 mg PO BID 30 Days #60 tab 08/26/24 09/13/24 Rx Spironolactone [Aldactone] 12.5 mg PO DAILY 30 Days #15 tab 08/26/24 09/13/24 Rx Furosemide [Lasix] 40 mg PO DIRECTED 09/13/24 09/13/24 History Sulfamethox-Tmp 800-160Mg [Bactrim 1 tab PO DIRECTED 09/13/24 09/13/24 History DS 800-160 mg] ondansetron HCL [Zofran] 8 mg PO Q12HR PRN 09/13/24 09/13/24 History Allergies Allergy/AdvReac Type Severity Reaction Status Date / Time No Known Allergies Allergy Verified 09/13/24 11:45 Physical Exam Vitals: Vital Signs Temp Pulse Pulse Resp BP Pulse Ox FiO2 09/17/24 09:06 104 H 18 100 35 09/17/24 08:00 98.2 F 107 H 18 111/58 98 09/17/24 04:00 97.8 F 99 18 106/66 95 09/17/24 01:36 80 09/17/24 01:27 78 09/17/24 00:00 85 18 91/51 99 09/16/24 20:00 98.1 F 100 18 102/66 99 09/16/24 16:00 98 81/51 100 09/16/24 15:48 84 09/16/24 15:38 80 09/16/24 14:00 85 16 09/16/24 12:00 85 91/52 84 L 09/16/24 11:57 96 Intake and Output 09/16/24 09/17/24 09/17/24 22:59 06:59 14:59 Intake Total 100 120 Output Total 200 Balance 100 -200 120 Intake: Intake, IV Titration 100 Amount Cefepime 2 gm In Sodium 100 Chloride 0.9% 100 ml @ 25 mls/hr IVPB Q8HR [facility] Rx# :[id number] Oral 120 Output: Urine 200 Other: Voiding Method External Catheter External Catheter External Catheter Weight 94.1 kg Vitals: Signs Reviewed Physical Exam: General: confused, on BiPAP Cardiovascular: S1 S2 reg, no murmur Lungs: CTA bilateral, no rhonchi, no rales Abdominal: soft, non-tender to palpataion Extremities: no gross muscle atrophy, no edema, no contractures Results CBC & Chem 7: 09/17/24 08:59 09/17/24 07:23 Labs: Abnormal Lab Results - Last 24 Hours (Table) 09/16/24 09/16/24 09/17/24 Range/Units 16:38 20:10 06:00 RBC (4.40-5.60) 10*6/uL Hgb (13.0-17.0) g/dL Hct (39.6-50.0) % MCV (80.0-97.0) fL MCH (27.0-32.0) pg MCHC (32.0-37.0) g/dL MPV (9.5-12.2) fL Immature Gran # (0.00-0.04) 10*3/uL Lymphocytes # (0.90-5.00) 10*3/uL Sodium (137-145) mmol/L Chloride (98-107) mmol/L BUN (9-20) mg/dL Glucose (74-99) mg/dL POC Glucose (mg/dL) 207 H 161 H 151 H (70-110) mg/dL Calcium (8.4-10.2) mg/dL Albumin (3.5-5.0) g/dL 09/17/24 09/17/24 09/17/24 Range/Units 07:23 08:59 11:24 RBC 3.44 L (4.40-5.60) 10*6/uL Hgb 8.2 L (13.0-17.0) g/dL Hct 27.2 L (39.6-50.0) % MCV 79.1 L (80.0-97.0) fL MCH 23.8 L (27.0-32.0) pg MCHC 30.1 L (32.0-37.0) g/dL MPV 8.2 L (9.5-12.2) fL Immature Gran # 0.06 H (0.00-0.04) 10*3/uL Lymphocytes # 0.34 L (0.90-5.00) 10*3/uL Sodium 132 L (137-145) mmol/L Chloride 91 L (98-107) mmol/L BUN 25 H (9-20) mg/dL Glucose 129 H (74-99) mg/dL POC Glucose (mg/dL) 145 H (70-110) mg/dL Calcium 8.0 L (8.4-10.2) mg/dL Albumin 2.9 L (3.5-5.0) g/dL Microbiology - Last 24 Hours (Table) 09/14/24 06:30 Gram Stain - Final Sputum Sputum Culture - Final Assessment and Plan Assessment: #. Acute hypoxic respiratory failure requiring BiPAP in the setting of poorly differentiated non-small cell lung cancer #. Bilateral pleural effusion status post thoracentesis x 2 #. Moderate sized pericardial effusion Patient scheduled for radiation treatment yesterday however it was canceled due to patient requiring BiPAP for acute hypoxic respiratory failure. Radiation was postponed to today however patient still on BiPAP due to worsening respiratory status. He is currently DNR. Previous pathology report for pleural fluid analysis on 08/20/2024 showed no cytologic malignant cells identified. Cytology from 09/16/2024 pending. If pleural fluid worsens, will consider Pleurx catheter placement. Bilateral pleural effusion likely related moderate-sized pericardial effusion especially if there is persistent negative cytology. Will await results for thoracentesis pathology report. Evaluate need for potential pericardial window. Thank you for this consultation. We will continue to follow this patient throughout his admission. Does not hesitate to ask any further questions.
--- NOTE | 2024-09-17 15:11 | CT ---
EXAMINATION TYPE: CT brain wo con DATE OF EXAM: 09/17/2024 COMPARISON: None CLINICAL INDICATION: Male, 74 years old with history of ams; PHH, AMS CT DLP: 1156.7 mGycm Automated exposure control for dose reduction was used. Findings: The ventricles, basal cisterns and sulci over convexities are moderately enlarged consistent with mod erate generalized atrophy. There is mild decreased density in the periventricular white matter consistent with chronic ischemic white matter demyelination. There is no mass effect or shift of midline structures. There is no acute intra or extra-axial hemorrhage. The posterior fossa including the brainstem, fourth ventricle and cerebellopontine angles appear baltazar sly normal. The intraorbital contents appear normal symmetric Visualized paranasal sinuses and mastoid air cells are well aerated. Calvarium is intact. IMPRESSION: 1. Moderate generalized atrophy. 2. Mild ischemic white matter demyelination. 3. No acute bleed or mass effect. [facility], , 09/17/2024 3:09 PM
--- NOTE | 2024-09-17 15:21 | P.PN ---
Subjective Progress Note Date: 09/17/24 Principal diagnosis: Acute hypoxic respiratory failure secondary to poorly differentiated non-small cell lung cancer and pleural effusions Patient is a 74-year-old male with past medical history significant hypertension, hyperlipidemia, diabetes mellitus, atrial fibrillation an ticoagulated Eliquis, heart failure, COPD, former tobacco use, and also recent diagnosis of lung cancer. Chest CT from his previous hospitalization earlier this August remarkable for heterogenous mass in the lingula measuring 5.2 x 5 x 8.5 cm. Additional 1.8 cm nodule in the left upper lobe concerning for metastasis. Enlarged mediastinal and left hilar lymph nodes and possible cardiophrenic lymph node. Moderate pericardial effusion. Nonspecific hypodense lesion in the right kidney. Bilateral pleural effusions, moderate on the left and small on the right. Did have a left-sided thoracentesis done on 08/20/2024 and a total of 1.7 L was removed from the pleural space. Pathology was nondiagn ostic for malignancy. Pleural fluid was an exudate based on lights criteria. Patient does have history of heart failure. Most recent available echocardiogram from his previous hospitalization here estimating left ventricular ejection fraction of 45 to 50%. Mild MR and TR. Mild aortic stenosis. Moderate pulmonary hypertension with an RVSP 53 mmHg. Also, a moderate-sized pericardial effusion was noted. CT performed at outside facility concerning for additional osseous involvement of the right iliac bone with associated soft tissue extension and asymmetric enlargement of the right iliac musculature, right rib 9 fracture, possibly pathologic. Small pericardial effusion was also partially visualized. Patient ended up having biopsy of right iliac bone positive for metastatic poorly differentiated non-small cell carcinoma. He has been following with radiation oncology for palliative rad iation. Patient return to the emergency department yesterday evening complaining of increasing worsening shortness of breath since his hospital discharge approximately 2 and half weeks ago. He was at his primary care provider's office and noted to be hypotensive. Chronic cough with occasional yellow-green sputum production. No hemoptysis. No reported fevers. Denies abdominal pain, nausea or vomiting, diarrhea. Also, increased lower extremity swelling and orthopnea. Patient was placed on BiPAP in the ED. Workup including a chest x- ray remarkable for increased in size of left-sided opacification within the left hemithorax. Increase in pleural effusion with superimposed noted lingular mass. Trace right-sided pleural effusion. Labs including CBC with a WBC count of 6, hemoglobin stable at 9.7 g/dL, platelets 336. CMP: Sodium 131, potassium 4.8, chloride 86, serum bicarb 36, BUN 24, creatinine 0.91, glucose 152. Lactic 1.6. Troponin less than 0.012. NT proBNP elevated at 6320. Patient received a one- time dose of 80 mg of IV Lasix in the ED. He is currently being evaluated in room 27. He is on BiPAP with settings 12/5 and FiO2 35%. Does not appear to be any respiratory distress. Able to carry out full conversation. States he is currently undergoing radiation treatments on outpatient basis and has 5 rounds of radiation left. He has not started any chemotherapy. Endorses above- mentioned symptoms. Denies any chest pain. Denies missing any doses of his diuretics. He has bilateral lower extremity edema. His current heart rhythm is atrial fibrillation with controlled ventricular response. Blood pressure is normotensive. He has been peeing often and has an external urinary catheter. 09/14/2024, the patient is off the BiPAP and the patient is currently on oxygen and he is on 3 L of oxygen nasal cannula with a pulse ox of 99%. I performed a bedside thoracentesis this patient and a total of 2 L of pleural fluid was aspirated without any complications. The follow-up chest x-ray showed improvement in the left lung findings. There is also a persistent left-sided pleural effusion/mass in the left lung base. There is blunting of the left costophrenic angle. The patient tolerated the procedure well. The sodium is at 132, BUN 23 with a creatinine of 0.7. White cell count of 6 with a hemoglobin of 8.4. No other new complaints otherwise for now. The patient is on empiric antibiotic coverage with IV cefepime. The patient is also on Lasix 40 mg IV every 12 hours. The patient is in negative fluid balance. Awake and alert and communicating. On today's evaluation of 09/15/2024, the patient is being seen for a follow-up. The patient is postthoracentesis. A total of 2 L of fluid was aspirated from the left lung and the patient is currently stable on 2 L of oxygen by nasal cannula with a pulse ox of 99%. Remains on IV Lasix. Continues to produce excellent urine output and the patient has been in negative fluid balance. The white cell count is 5.1 with a hemoglobin 8.7 and the platelet count 328. Sodium is at 130, BUN 23 and creatinine 0.8 and a serum bicarb is at 33. No other significant events otherwise for now. Much improved following the thoracentesis. Seen today on 09/16/2024, patient is comfortable, does not seem to be in distress. Presently on room air, O2 saturations in the 90s. Patient did have thoracentesis done by Dr. Kuo he had 2 L removed from the left pleural space. Seen today on 09/17/2024, remains fairly comfortable, not in distress, cytology on the pleural effusion is still pending. Patient had 2 L of fluid removed from his left pleural space few days ago, patient is on 2 L nasal cannula with O2 sat of 93% WBC count is 5.7 hemoglobin 8.2 electrolytes are normal renal profile is normal. Today's head CT showed moderate generalized atrophy, no acute bleed or mass effect. Objective - Vital Signs Vital signs: Vital Signs Temp 98.2 F 09/17/24 08:00 Pulse 88 09/17/24 13:09 Resp 18 09/17/24 13:09 BP 97/58 09/17/24 12:00 Pulse Ox 93 L 09/17/24 12:05 FiO2 35 09/17/24 09:06 Intake & Output 09/16/24 09/17/24 09/17/24 18:59 06:59 18:59 Intake Total 460 120 Output Total 200 Balance 460 -200 120 Weight 94.1 kg Intake: Intake, IV Titration 100 Amount Cefepime 2 gm In Sodium 100 Chloride 0.9% 100 ml @ 25 mls/hr IVPB Q8HR [facility] Rx# :[id number] Oral 360 120 Output: Urine 200 Other: Voiding Method External Catheter External Catheter External Catheter - Exam GENERAL EXAM: 74-year-old in no distress on 2 L nasal cannula HEAD: Normocephalic and atraumatic EYES: Normal reaction of pupils, equal size. NOSE: Clear with pink turbinates. THROAT: No erythema or exudates. NECK: No masses, no JVD. CHEST: No chest wall deformity. LUNGS: diminished breath sounds at the bases no rhonchi no wheezes CVS: S1 and S2 normal with no audible murmur, irregular rhythm. No extra heart sounds ABDOMEN: No hepatosplenomegaly, active bowel sounds, no guarding or rigidity. SKIN: No rashes CENTRAL NERVOUS SYSTEM: alert and oriented x 3 no focal deficit EXTREMITIES: 1+ bipedal edema - Labs CBC & Chem 7: 09/17/24 08:59 09/17/24 07:23 Labs: Abnormal Lab Results - Last 24 Hours (Table) 09/16/24 09/16/24 09/17/24 Range/Units 16:38 20:10 06:00 RBC (4.40-5.60) 10*6/uL Hgb (13.0-17.0) g/dL Hct (39.6-50.0) % MCV (80.0-97.0) fL MCH (27.0-32.0) pg MCHC (32.0-37.0) g/dL MPV (9.5-12.2) fL Immature Gran # (0.00-0.04) 10*3/uL Lymphocytes # (0.90-5.00) 10*3/uL Sodium (137-145) mmol/L Chloride (98-107) mmol/L BUN (9-20) mg/dL Glucose (74-99) mg/dL POC Glucose (mg/dL) 207 H 161 H 151 H (70-110) mg/dL Calcium (8.4-10.2) mg/dL Albumin (3.5-5.0) g/dL 09/17/24 09/17/24 09/17/24 Range/Units 07:23 08:59 11:24 RBC 3.44 L (4.40-5.60) 10*6/uL Hgb 8.2 L (13.0-17.0) g/dL Hct 27.2 L (39.6-50.0) % MCV 79.1 L (80.0-97.0) fL MCH 23.8 L (27.0-32.0) pg MCHC 30.1 L (32.0-37.0) g/dL MPV 8.2 L (9.5-12.2) fL Immature Gran # 0.06 H (0.00-0.04) 10*3/uL Lymphocytes # 0.34 L (0.90-5.00) 10*3/uL Sodium 132 L (137-145) mmol/L Chloride 91 L (98-107) mmol/L BUN 25 H (9-20) mg/dL Glucose 129 H (74-99) mg/dL POC Glucose (mg/dL) 145 H (70-110) mg/dL Calcium 8.0 L (8.4-10.2) mg/dL Albumin 2.9 L (3.5-5.0) g/dL Assessment and Plan Assessment: Impression: Acute hypoxic respiratory failure Bilateral pleural effusions status post thoracentesis, patient was found to have exudative pleural effusion on the left patient had thoracentesis x 2 History of congestive heart failure and reduced ejection fraction Right iliac bone metastatic deposits Moderate size pericardial effusion Ex-smoker Chronic obstructive pulmonary disease presently inactive Chronic atrial fibrillation anticoagulated Type 2 diabetes Hyponatremia likely secondary to hypervolemia possible SIADH secondary to malignancy Moderate pulmonary hypertension Recommendation: Awaiting cytology on the pleural effusion in the meantime: Continue present supportive care measures Continue to titrate oxygen presently is on room air Continue Lasix 40 mg twice daily Continue anticoagulation Patient is being followed by oncology Patient to follow-up upon discharge with radiation oncology and medical oncology If the patient develops worsening pleural effusion and it is malignant may have to be considered for Pleurx catheter placement. Overall long-term prognosis is poor, patient has multiple complex issues as noted above. We will continue to follow Time with Patient: Less than 30
[2024-09-17 16:37] LABS: Glucose,Whole Blood 138 mg/dL (70-110)
[2024-09-17 16:52] LABS: ABG HCO3 32 mmol/L (21-25); ABG PCO2 44 mmHg (35-45); ABG PH 7.47 (7.35-7.45); ABG PO2 93 mmHg (83-108); ABG TCO2 33 mmol/L (19-24); Allen Test Performed? Yes
[2024-09-17] MEDS: LACTULOSE 20 GM/30 ML CUP PO SCH (18:18)
[2024-09-17 20:55] LABS: Glucose,Whole Blood 156 mg/dL (70-110)
--- NOTE | 2024-09-18 04:57 | P.PN ---
Subjective Progress Note Date: 09/17/24 This is a 74-year-old male who was admitted with bilateral pleural effusion also with features of acute respiratory failure and was considering possible hospice for informational. Patient reports he would like to continue with treatment and is requesting to speak with oncology and radiation oncology as he was reportedly only left with for radiation treatments. Patient is significantly weak and is status post thoracentesis while awaiting fluid culture and cytology. Pulmonary is following closely and weaning FiO2 as tolerated. Patient evaluated by PT/OT therapy and will likely need rehab. Patient to complete radiation treatments prior to going to physical therapy [facility]. 09/17/2024 Patient is seen in follow-up today with multiple consultations following. Radiation oncology as well as oncology consulted as patient would like to continue with treatment and has 4 remaining sessions left from radiation. Awaiting callback from scheduling to determine time of treatment. Per nursing staff patient is more confused today and will obtain CT brain as well as ABG. Patient is continued on oxygen with no reports of worsening shortness of breath. Pulmonary also following as patient is status post thoracentesis with approximately 2 L removed from the left and awaiting cytology at this time. Patient is afebrile with no reports of chest pain or palpitations. Patient reports tolerating diet and denies any nausea or vomiting. Would recommend PT/OT therapy daily as well as sitting up in the chair frequently. Review of systems: Constitutional: No reports of fatigue, fever, or chills Cardiovascular: No reports of chest pain or palpitations Respiratory: reports of continued shortness of breath with cough, reports to feeling slightly improved GI: No reports of nausea, vomiting, or diarrhea : No reports of dysuria or retention Neurovascular: reports of weakness and extreme exertion with shortness of breath All medications have been reviewed Physical exam: Gen: This is a 74-year-old male who is sitting up in the chair, awake, alert and oriented x 2-3, well-developed, elderly appearing, ill-appearing, obese HEENT: Head is atraumatic, normocephalic. Pupils equal, round. Sclerae is anicteric. NECK: Supple. No JVD. No lymphadenopathy. No thyromegaly. LUNGS: Diminished breath sounds bilaterally with some scattered rhonchi, expiratory wheezing, and crackles noted at the bases. No intercostal retractions. HEART: S1, S2 are muffled ABDOMEN: Soft. Bowel sounds are present. No masses. No tenderness. EXTREMITIES: No pedal edema. No calf tenderness. NEUROLOGICAL: Patient is awake, alert and oriented x3. Cranial nerves 2 through 12 are grossly intact. Diffusely weak Assessment: Large bilateral pleural effusion, left more than right with status post thoracentesis on the left with approximately 2 L removed, cytology pending Acute respiratory failure secondary to above as well as lung cancer History of congestive heart failure with mildly reduced EF Poorly differentiated non-small cell lung cancer history, scheduled for 4 radiation treatments left History of atrial fibrillation History of coronary artery disease History of COPD, not in exacerbation Diabetes mellitus, type II, uncontrolled with hyper and hypoglycemia Former smoker Anxiety/depression Obesity with a BMI of 30.6 GI prophylaxis DVT prophylaxis No code Plan: Patient was initially discussing possible hospice informational for lung cancer. Patient reported to case management that he would like to discuss with oncology and radiation oncology as he only had 4 treatments left of radiation therapy and would like to resume. Patient was evaluated by physical therapy recommending rehab although patient needs to be agreeable that he will not receive oncological care during rehab. Patient will likely complete 4 rounds of radiation here before considering going to [facility]. Recommend PT/OT therapy daily Per nursing staff patient is somewhat more confused and acting strange at times, CT brain ordered as well as ABGs which is pending at this time. Wean FiO2 as tolerated Continue supportive care Radiation oncology/hematology following and awaiting a treatment time for radiation Due to multiple complex medical issues and recent diagnosis, overall prognosis is poor and guarded at this time The impression and plan of care has been dictated by Palak Sim, Nurse Practitioner as directed. Dr. Tiburcio MD I have performed a history and examination and MDM of this patient, discussed the same with the dictator, and agree with the dictator's assessment and plan as written ,documented as a scribe. Based on total visit time, I have performed more than 50% of the visit. Objective - Vital Signs Vital signs: Vital Signs Temp 98.2 F 09/17/24 08:00 Pulse 88 09/17/24 13:09 Resp 18 09/17/24 13:09 BP 97/58 09/17/24 12:00 Pulse Ox 93 L 09/17/24 12:05 FiO2 35 09/17/24 09:06 Intake & Output 06/09/17/24 09/17/24 18:59 06:59 18:59 Intake Total 460 120 Output Total 200 Balance 460 -200 120 Weight 94.1 kg Intake: Intake, IV Titration 100 Amount Cefepime 2 gm In Sodium 100 Chloride 0.9% 100 ml @ 25 mls/hr IVPB Q8HR [facility] Rx# :[id number] Oral 360 120 Output: Urine 200 Other: Voiding Method External Catheter External Catheter External Catheter - Labs CBC & Chem 7: 09/17/24 08:59 09/17/24 07:23 Labs: Abnormal Lab Results - Last 24 Hours (Table) 09/16/24 09/16/24 09/17/24 Range/Units 16:38 20:10 06:00 RBC (4.40-5.60) 10*6/uL Hgb (13.0-17.0) g/dL Hct (39.6-50.0) % MCV (80.0-97.0) fL MCH (27.0-32.0) pg MCHC (32.0-37.0) g/dL MPV (9.5-12.2) fL Immature Gran # (0.00-0.04) 10*3/uL Lymphocytes # (0.90-5.00) 10*3/uL Sodium (137-145) mmol/L Chloride (98-107) mmol/L BUN (9-20) mg/dL Glucose (74-99) mg/dL POC Glucose (mg/dL) 207 H 161 H 151 H (70-110) mg/dL Calcium (8.4-10.2) mg/dL Albumin (3.5-5.0) g/dL 09/17/24 09/17/24 09/17/24 Range/Units 07:23 08:59 11:24 RBC 3.44 L (4.40-5.60) 10*6/uL Hgb 8.2 L (13.0-17.0) g/dL Hct 27.2 L (39.6-50.0) % MCV 79.1 L (80.0-97.0) fL MCH 23.8 L (27.0-32.0) pg MCHC 30.1 L (32.0-37.0) g/dL MPV 8.2 L (9.5-12.2) fL Immature Gran # 0.06 H (0.00-0.04) 10*3/uL Lymphocytes # 0.34 L (0.90-5.00) 10*3/uL Sodium 132 L (137-145) mmol/L Chloride 91 L (98-107) mmol/L BUN 25 H (9-20) mg/dL Glucose 129 H (74-99) mg/dL POC Glucose (mg/dL) 145 H (70-110) mg/dL Calcium 8.0 L (8.4-10.2) mg/dL Albumin 2.9 L (3.5-5.0) g/dL
[2024-09-18 06:19] LABS: Glucose,Whole Blood 130 mg/dL (70-110)
[2024-09-18 11:44] LABS: Glucose,Whole Blood 144 mg/dL (70-110)
[2024-09-18 12:14] VITALS: BMI 29.4
--- NOTE | 2024-09-18 13:12 | P.PN ---
Subjective Progress Note Date: 09/18/24 Patient seen and evaluated bedside. Patient unable to answer questions due to altered mental status. Currently on BiPAP. Objective - Vital Signs Vital signs: Vital Signs Temp 98.1 F 09/18/24 04:00 Pulse 84 09/18/24 04:00 Resp 19 09/18/24 04:00 BP 95/51 09/18/24 04:00 Pulse Ox 94 L 09/18/24 04:00 FiO2 35 09/17/24 09:06 Intake & Output 09/17/24 09/18/24 09/18/24 18:59 06:59 18:59 Intake Total 120 Balance 120 Weight 90.3 kg Intake: Oral 120 Other: Voiding Method External Catheter Diaper External Catheter # Voids 1 2 - Exam Vitals: Signs Reviewed Physical Exam: General: confused, on BiPAP, AAO x 1 Cardiovascular: S1 S2 reg, no murmur Lungs: CTA bilateral, no rhonchi, no rales Abdominal: soft, non-tender to palpataion Extremities: no gross muscle atrophy, no edema, no contractures - Labs CBC & Chem 7: 09/17/24 08:59 09/17/24 07:23 Labs: Abnormal Lab Results - Last 24 Hours (Table) 09/17/24 09/17/24 09/17/24 Range/Units 07:23 08:59 11:24 RBC 3.44 L (4.40-5.60) 10*6/uL Hgb 8.2 L (13.0-17.0) g/dL Hct 27.2 L (39.6-50.0) % MCV 79.1 L (80.0-97.0) fL MCH 23.8 L (27.0-32.0) pg MCHC 30.1 L (32.0-37.0) g/dL MPV 8.2 L (9.5-12.2) fL Immature Gran # 0.06 H (0.00-0.04) 10*3/uL Lymphocytes # 0.34 L (0.90-5.00) 10*3/uL ABG pH (7.35-7.45) ABG HCO3 (21-25) mmol/L ABG Total CO2 (19-24) mmol/L ABG O2 Saturation (94-97) % Hemoglobin (13.0-17.5) gm/dL Sodium 132 L (137-145) mmol/L Chloride 91 L (98-107) mmol/L BUN 25 H (9-20) mg/dL Glucose 129 H (74-99) mg/dL POC Glucose (mg/dL) 145 H (70-110) mg/dL Calcium 8.0 L (8.4-10.2) mg/dL Albumin 2.9 L (3.5-5.0) g/dL 09/17/24 09/17/24 09/17/24 Range/Units 16:36 16:46 20:53 RBC (4.40-5.60) 10*6/uL Hgb (13.0-17.0) g/dL Hct (39.6-50.0) % MCV (80.0-97.0) fL MCH (27.0-32.0) pg MCHC (32.0-37.0) g/dL MPV (9.5-12.2) fL Immature Gran # (0.00-0.04) 10*3/uL Lymphocytes # (0.90-5.00) 10*3/uL ABG pH 7.47 H (7.35-7.45) ABG HCO3 32 H (21-25) mmol/L ABG Total CO2 33 H (19-24) mmol/L ABG O2 Saturation 98.4 H (94-97) % Hemoglobin 8.5 L (13.0-17.5) gm/dL Sodium (137-145) mmol/L Chloride (98-107) mmol/L BUN (9-20) mg/dL Glucose (74-99) mg/dL POC Glucose (mg/dL) 138 H 156 H (70-110) mg/dL Calcium (8.4-10.2) mg/dL Albumin (3.5-5.0) g/dL 09/18/24 Range/Units 06:18 RBC (4.40-5.60) 10*6/uL Hgb (13.0-17.0) g/dL Hct (39.6-50.0) % MCV (80.0-97.0) fL MCH (27.0-32.0) pg MCHC (32.0-37.0) g/dL MPV (9.5-12.2) fL Immature Gran # (0.00-0.04) 10*3/uL Lymphocytes # (0.90-5.00) 10*3/uL ABG pH (7.35-7.45) ABG HCO3 (21-25) mmol/L ABG Total CO2 (19-24) mmol/L ABG O2 Saturation (94-97) % Hemoglobin (13.0-17.5) gm/dL Sodium (137-145) mmol/L Chloride (98-107) mmol/L BUN (9-20) mg/dL Glucose (74-99) mg/dL POC Glucose (mg/dL) 130 H (70-110) mg/dL Calcium (8.4-10.2) mg/dL Albumin (3.5-5.0) g/dL Microbiology - Last 24 Hours (Table) 09/12/24 20:13 Blood Culture - Final Blood Assessment and Plan Assessment: #. Acute hypoxic respiratory failure requiring BiPAP in the setting of poorly differentiated non-small cell lung cancer #. Bilateral pleural effusion status post thoracentesis x 2 #. Moderate sized pericardial effusion #. Hyponetremia in the setting of malignancy Previous pathology report for pleural fluid analysis on 08/20/2024 showed no cytologic malignant cells identified. Cytology from 09/16/2024 pending. If pleural fluid worsens, will consider Pleurx catheter placement. Bilateral pleural effusion likely related moderate-sized pericardial effusion especially if there is persistent negative cytology. Will await results for thoracentesis pathology report. Evaluate need for potential pericardial window. Patient scheduled for radiation treatment yesterday however it was canceled due to patient requiring BiPAP for acute hypoxic respiratory failure. Patient was placed on nasal cannula but resumed back on BiPAP today due to no improvement in his mentation. Will likely need to postpone radiation treatment until he is off BiPAP. - echocardiogram ordered.
--- NOTE | 2024-09-18 16:39 | P.PN ---
Subjective Progress Note Date: 09/18/24 Patient is a 74-year-old male with past medical history significant hypertension, hyperlipidemia, diabetes mellitus, atrial fibrillation anticoagulated Eliquis, heart failure, COPD, former tobacco use, and also recent diagnosis of lung cancer. Chest CT from his previous hospitalization earlier this August remarkable for heterogenous mass in the lingula measuring 5.2 x 5 x 8.5 cm. Additional 1.8 cm nodule in the left upper lobe concerning for metastasis. Enlarged mediastinal and left hilar lymph nodes and possible cardiophrenic lymph node. Moderate pericardial effusion. Nonspecific hypodense lesion in the right kidney. Bilateral pleural effusions, moderate on the left and small on the right. Did have a left-sided thoracentesis done on 08/20/2024 and a total of 1.7 L was removed from the pleural space. Pathology was nondiagnostic for malignancy. Pleural fluid was an exudate based on lights criteria. Patient does have history of heart failure. Most recent available echocardiogram from his previous hospitalization here estimating left ventricular ejection fraction of 45 to 50%. Mild MR and TR. Mild aortic stenosis. Moderate pulmonary hypertension with an RVSP 53 mmHg. Also, a mode rate-sized pericardial effusion was noted. CT performed at outside facility concerning for additional osseous involvement of the right iliac bone with associated soft tissue extension and asymmetric enlargement of the right iliac musculature, right rib 9 fracture, possibly pathologic. Small pericardial effusion was also partially visualized. Patient ended up having biopsy of right iliac bone positive for metastatic poorly differentiated non-small cell carcinoma. He has been following with radiation oncology for palliative radiation. Patient return to the emergency department yesterday evening complaining of increasing worsening shortness of breath since his hospital discharge approximately 2 and half weeks ago. He was at his primary care provider's office and noted to be hypotensive. Chronic cough with occasional yellow-green sputum production. No hemoptysis. No reported fevers. Denies abdominal pain, nausea or vomiting, diarrhea. Also, increased lower extremity swelling and o rthopnea. Patient was placed on BiPAP in the ED. Workup including a chest x- ray remarkable for increased in size of left-sided opacification within the left hemithorax. Increase in pleural effusion with superimposed noted lingular mass. Trace right-sided pleural effusion. Labs including CBC with a WBC count of 6, hemoglobin stable at 9.7 g/dL, platelets 336. CMP: Sodium 131, potassium 4.8, chloride 86, serum bicarb 36, BUN 24, creatinine 0.91, glucose 152. Lactic 1.6. Troponin less than 0.012. NT proBNP elevated at 6320. Patient received a one- time dose of 80 mg of IV Lasix in the ED. He is currently being evaluated in room 27. He is on BiPAP with settings 12/5 and FiO2 35%. Does not appear to be any respiratory distress. Able to carry out full conversation. States he is currently undergoing radiation treatments on outpatient basis and has 5 rounds of radiation left. He has not started any chemotherapy. Endorses above- mentioned symptoms. Denies any chest pain. Denies missing any doses of his diuretics. He has bilateral lower extremity edema. His current heart rhythm is atrial fibrillation with controlled ventricular response. Blood pressure is normotensive. He has been peeing often and has an external urinary catheter. 09/14/2024, the patient is off the BiPAP and the patient is currently on oxygen and he is on 3 L of oxygen nasal cannula with a pulse ox of 99%. I performed a bedside thoracentesis this patient and a total of 2 L of pleural fluid was aspi rated without any complications. The follow-up chest x-ray showed improvement in the left lung findings. There is also a persistent left-sided pleural effusion/mass in the left lung base. There is blunting of the left costophrenic angle. The patient tolerated the procedure well. The sodium is at 132, BUN 23 with a creatinine of 0.7. White cell count of 6 with a hemoglobin of 8.4. No other new complaints otherwise for now. The patient is on empiric antibiotic coverage with IV cefepime. The patient is also on Lasix 40 mg IV every 12 hours. The patient is in negative fluid balance. Awake and alert and communicating. On today's evaluation of 09/15/2024, the patient is being seen for a follow-up. The patient is postthoracentesis. A total of 2 L of fluid was aspirated from the left lung and the patient is currently stable on 2 L of oxygen by nasal cannula with a pulse ox of 99%. Remains on IV Lasix. Continues to produce excellent urine output and the patient has been in negative fluid balance. The white cell count is 5.1 with a hemoglobin 8.7 and the platelet count 328. So dium is at 130, BUN 23 and creatinine 0.8 and a serum bicarb is at 33. No other significant events otherwise for now. Much improved following the thoracentesis. Seen today on 09/16/2024, patient is comfortable, does not seem to be in distress. Presently on room air, O2 saturations in the 90s. Patient did have thoracentesis done by Dr. Kuo he had 2 L removed from the left pleural space. Seen today on 09/17/2024, remains fairly comfortable, not in distress, cytology on the pleural effusion is still pending. Patient had 2 L of fluid removed from his left pleural space few days ago, patient is on 2 L nasal cannula with O2 sat of 93% WBC count is 5.7 hemoglobin 8.2 electrolytes are normal renal profile is normal. Today's head CT showed moderate generalized atrophy, no acute bleed or mass effect. The patient is seen today September 18, 2024 in follow-up on the selective care unit. He is currently resting in bed. Remains somewhat lethargic and restless. tombstone erector helper is at the bedside. He is maintaining O2 saturations in the high 90s on 2 L/min per nasal cannula. He will be placed on BiPAP at 35% FiO2. Sputum culture revealed no growth. Blood culture revealed no growth. Glucose 144. Ammonia level less than 9. He remains on DuoNeb inhalations. Remains on IV diuretics. Continued on cefepime. Anticoagulated with Eliquis. No accurate intake and output. Objective - Vital Signs Vital signs: Vital Signs Temp 98.5 F 09/18/24 15:17 Pulse 87 09/18/24 15:17 Resp 18 09/18/24 15:17 BP 93/59 09/18/24 15:17 Pulse Ox 100 09/18/24 15:17 FiO2 35 09/18/24 15:17 Intake & Output 09/17/24 09/18/24 09/18/24 18:59 06:59 18:59 Intake Total 120 Balance 120 Weight 90.3 kg 90.3 kg Intake: Oral 120 Other: Voiding Method External Catheter Diaper Diaper External Catheter External Catheter # Voids 1 2 1 # Bowel Movements 1 - Exam GENERAL EXAM: Lethargic, restless 74-year-old male, on BiPAP at 35% FiO2. HEAD: Normocephalic. EYES: Normal reaction of pupils, equal size. NOSE: Clear with pink turbinates. THROAT: No erythema or exudates. NECK: No masses, no JVD. CHEST: No chest wall deformity. LUNGS: Equal air entry with crackles in the left lung base. CVS: S1 and S2 normal with no audible murmur, irregular rhythm. ABDOMEN: No hepatosplenomegaly, normal bowel sounds, no guarding or rigidity. SPINE: No scoliosis or deformity SKIN: No rashes CENTRAL NERVOUS SYSTEM: No focal deficits, tone is normal in all 4 extremities. EXTREMITIES: There is 1+ peripheral edema. No clubbing, no cyanosis. Peripher al pulses are intact. - Labs CBC & Chem 7: 09/17/24 08:59 09/17/24 07:23 Labs: Abnormal Lab Results - Last 24 Hours (Table) 09/17/24 09/17/24 09/17/24 Range/Units 16:36 16:46 20:53 ABG pH 7.47 H (7.35-7.45) ABG HCO3 32 H (21-25) mmol/L ABG Total CO2 33 H (19-24) mmol/L ABG O2 Saturation 98.4 H (94-97) % Hemoglobin 8.5 L (13.0-17.5) gm/dL POC Glucose (mg/dL) 138 H 156 H (70-110) mg/dL 09/18/24 09/18/24 Range/Units 06:18 11:41 ABG pH (7.35-7.45) ABG HCO3 (21-25) mmol/L ABG Total CO2 (19-24) mmol/L ABG O2 Saturation (94-97) % Hemoglobin (13.0-17.5) gm/dL POC Glucose (mg/dL) 130 H 144 H (70-110) mg/dL Microbiology - Last 24 Hours (Table) 09/12/24 20:13 Blood Culture - Final Blood Assessment and Plan Assessment: Acute hypoxic respiratory failure secondary to bilateral pleural effusions status post thoracentesis, patient was found to have exudative pleural effusion on the left patient had thoracentesis x 2 History of congestive heart failure and reduced ejection fraction Right iliac bone metastatic deposits Moderate size pericardial effusion Ex-smoker Chronic obstructive pulmonary disease presently inactive Chronic atrial fibrillation anticoagulated Type 2 diabetes Hyponatremia likely secondary to hypervolemia 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 Number of minutes spent on the visit: 10 Dictation was produced using [employer] dictation software. Please excuse any grammatical, word or spelling errors.
[2024-09-18 16:46] LABS: Glucose,Whole Blood 176 mg/dL (70-110)
[2024-09-18 20:57] LABS: Glucose,Whole Blood 173 mg/dL (70-110)
[2024-09-18] MEDS: ALPRAZolam 0.25 MG TAB PO PRN (22:43)
[2024-09-19 06:20] LABS: Glucose,Whole Blood 153 mg/dL (70-110)
--- NOTE | 2024-09-19 07:17 | XR ---
EXAMINATION TYPE: XR chest 1V portable DATE OF EXAM: 09/19/2024 7:03 AM COMPARISON: Chest radiographs from 09/14/2024, CT chest 325 TECHNIQUE: XR chest 1V portable Portable AP radiograph of the chest. CLINICAL INDICATION:Male, 74 years old with history of pleural effusion; FINDINGS: Lungs/Pleura: The right lung is clear. No pneumothorax. Near complete opacification of the left hemit horax which is new from prior exam. There is abrupt cut off of the left mainstem bronchus suggested. Pulmonary vascularity: Unremarkable. Heart/mediastinum: Cardiomediastinal silhouette is enlarged and partially obscured due to overlying a nd adjacent opacities. Musculoskeletal: No acute osseous pathology. IMPRESSION: New near complete opacification of left hemithorax from prior exam. There appears to be cut off of th e left mainstem bronchus. Findings suggest obstruction of the left mainstem bronchus from known hilar mass versus mucous plugging. Opacification likely related to a combination of known pulmonary mass a nd atelectasis with pleural effusion. Consider bronchoscopy for further evaluation. [facility], , 09/19/2024 7:15 AM
--- NOTE | 2024-09-19 09:03 | P.PN ---
Subjective Progress Note Date: 09/18/24 This is a 74-year-old male who was admitted with bilateral pleural effusion also with features of acute respiratory failure and was considering possible hospice for informational. Patient reports he would like to continue with treatment and is requesting to speak with oncology and radiation oncology as he was reportedly only left with for radiation treatments. Patient is significantly weak and is status post thoracentesis while awaiting fluid culture and cytology. Pulmonary is following closely and weaning FiO2 as tolerated. Patient evaluated by PT/OT therapy and will likely need rehab. Patient to complete radiation treatments prior to going to physical therapy [facility]. 09/17/2024 Patient is seen in follow-up today with multiple consultations following. Radiation oncology as well as oncology consulted as patient would like to continue with treatment and has 4 remaining sessions left from radiation. Awaiting callback from scheduling to determine time of treatment. Per nursing staff patient is more confused today and will obtain CT brain as well as ABG. Patient is continued on oxygen with no reports of worsening shortness of breath. Pulmonary also following as patient is status post thoracentesis with approximately 2 L removed from the left and awaiting cytology at this time. Patient is afebrile with no reports of chest pain or palpitations. Patient reports tolerating diet and denies any nausea or vomiting. Would recommend PT/OT therapy daily as well as sitting up in the chair frequently. 09/18/2024 Patient is seen in follow-up today and mentation is waxing and waning although patient's mentation is deteriorating he is more obtunded and restless is being placed on BiPAP with poor oxygen saturations. Multiple family members at the bedside with questions and concerns that were answered to the best of our ability. Patient was scheduled to undergo radiation treatment although unstable due to requiring BiPAP. Overall prognosis is extremely poor and guarded at this time. Review of systems: Constitutional: No reports of fatigue, fever, or chills Cardiovascular: No reports of chest pain or palpitations Respiratory: reports of continued increased shortness of breath with cough GI: No reports of nausea, vomiting, or diarrhea : No reports of dysuria or retention Neurovascular: reports of weakness and extreme exertion with shortness of breath All medications have been reviewed Physical exam: Gen: This is a 74-year-old male who is in bed, restless, anxious, somewhat confused, awake, alert and oriented x 1-2 at times well-developed, elderly appearing, ill-appearing, obese HEENT: Head is atraumatic, normocephalic. Pupils equal, round. Sclerae is anicteric. NECK: Supple. No JVD. No lymphadenopathy. No thyromegaly. LUNGS: Diminished breath sounds bilaterally with some scattered rhonchi, expiratory wheezing, and crackles noted at the bases. No intercostal retractions., increasing respiratory demand, Now on BiPAP HEART: S1, S2 are muffled ABDOMEN: Soft. Bowel sounds are present. No masses. No tenderness. EXTREMITIES: No pedal edema. No calf tenderness. NEUROLOGICAL: Patient is awake, alert and oriented x 1-2., Confused, restless at times and anxious, cranial nerves 2 through 12 are grossly intact. Diffusely weak Assessment: Large bilateral pleural effusion, left more than right with status post thoracentesis on the left with approximately 2 L removed, cytology pending Acute respiratory failure secondary to above as well as lung cancer, now requiring BiPAP History of congestive heart failure with mildly reduced EF Poorly differentiated non-small cell lung cancer history, scheduled for 4 radiation treatments left History of atrial fibrillation History of coronary artery disease History of COPD, not in exacerbation Diabetes mellitus, type II, uncontrolled with hyper and hypoglycemia Former smoker Anxiety/depression Obesity with a BMI of 30.6 GI prophylaxis DVT prophylaxis No code Plan: Patient was initially discussing possible hospice informational for lung cancer. Patient reported to case management that he would like to discuss with oncology and radiation oncology as he only had 4 treatments left of radiation therapy and would like to resume. Patient was scheduled for radiation although unable to perform as patient is now maintained on BiPAP Patient was evaluated by physical therapy recommending rehab although patient needs to be agreeable that he will not receive oncological care during rehab. Patient will likely complete 4 rounds of radiation here before considering going to ECF. Recommend PT/OT therapy daily Per nursing staff patient is somewhat more confused and acting strange at times, restless, more anxious, CT brain was negative, ammonia level within normal limits Patient in increased respiratory distress and more confused, being placed on BiPAP per pulmonary Continue supportive care Radiation oncology/hematology following and awaiting a treatment time for radiation, not able to perform as patient is now on BiPAP and not stable Due to multiple complex medical issues and recent diagnosis, overall prognosis is poor and guarded at this time. Hospice should be considered The impression and plan of care has been dictated by Palak Sim, Nurse Practitioner as directed. Dr. Tiburcio MD I have performed a history and examination and MDM of this patient, discussed the same with the dictator, and agree with the dictator's assessment and plan as written ,documented as a scribe. Based on total visit time, I have performed more than 50% of the visit. Objective - Vital Signs Vital signs: Vital Signs Temp 98.5 F 09/18/24 15:17 Pulse 87 09/18/24 15:17 Resp 18 09/18/24 15:17 BP 93/59 09/18/24 15:17 Pulse Ox 100 09/18/24 15:17 FiO2 35 09/18/24 15:17 Intake & Output 09/17/24 09/18/24 09/18/24 18:59 06:59 18:59 Intake Total 120 Balance 120 Weight 90.3 kg 90.3 kg Intake: Oral 120 Other: Voiding Method External Catheter Diaper Diaper External Catheter External Catheter # Voids 1 2 1 # Bowel Movements 1 - Labs CBC & Chem 7: 09/17/24 08:59 09/17/24 07:23 Labs: Abnormal Lab Results - Last 24 Hours (Table) 09/17/24 09/18/24 09/18/24 Range/Units 20:53 06:18 11:41 POC Glucose (mg/dL) 156 H 130 H 144 H (70-110) mg/dL 09/18/24 Range/Units 16:44 POC Glucose (mg/dL) 176 H (70-110) mg/dL Microbiology - Last 24 Hours (Table) 09/12/24 20:13 Blood Culture - Final Blood
[2024-09-19 11:47] LABS: Glucose,Whole Blood 184 mg/dL (70-110)
--- NOTE | 2024-09-19 15:14 | CT ---
EXAMINATION TYPE: CT chest wo con DATE OF EXAM: 09/19/2024 COMPARISON: 08/20/2024 CLINICAL INDICATION: Male, 74 years old with history of Recurrent left pleural effusion; PHH, Recurre nt left pleural effusion. TECHNIQUE: CT scan of the thorax is performed without IV contrast. CT DLP: 670.[address] CTDI: mGy Automated exposure control for dose reduction was used. FINDINGS: There is a large left pleural effusion which has increased significantly. There is a mild increase in the right of the moderate pleural effusion. There is a moderate pericardial effusion. There is left lower lobe consolidation or mass unchanged compared to previous. Evaluation for mediast inal hilar adenopathy is limited due to lack of IV contrast material. The left upper lobe lung mass was increased in the interval from 18 mm to 23 mm. There are 2 new 5 mm nodules in the right lung. There is marked cardiomegaly. Limited scanning of the upper abdomen reveals a large 5.7 cm right adrenal mass. There are no focal osseous lesions. IMPRESSION: 1. Large and increasing left pleural effusion. 2. Mild to moderate increasing right pleural effusion. 3 Growing left upper lobe lung mass as described above. 4. New right lung nodules. 5. Large right adrenal mass. 5.7 cm. 6. Ascites. 7. Moderate pericardial effusion. [facility], , 09/19/2024 3:11 PM
--- NOTE | 2024-09-19 15:24 | P.GSCN ---
History of Present Illness Consult date: 09/19/24 Reason for Consult: Recurrent left pleural effusion, Pleurx catheter placement Requesting physician: Carla Lr History of present illness: This is a 74-year-old gentleman who is a poor historian with a past medical hi story significant for hypertension, hyperlipidemia, diabetes mellitus, atrial fibrillation on Eliquis for anticoagulation, heart failure, chronic obstructive pulmonary disease, former tobacco use, and also recent diagnosis of lung cancer. Chest CT from his previous hospitalization earlier this August remarkable for heterogenous mass in the lingula measuring 5.2 x 5 x 8.5 cm. Additional 1.8 cm nodule in the left upper lobe concerning for metastasis. Enlarged mediastinal and left hilar lymph nodes and possible cardiophrenic lymph node. Moderate pericardial effusion. Nonspecific hypodense lesion in the right kidney. Bilateral pleural effusions, moderate on the left and small on the right. Due to the findings of a moderate left-sided pleural effusion he underwent a left- sided thoracentesis which was completed on August 20, 2024 with 1.7 L of pleural fluid drained. The cytology from the pleural fluid was nondiagnostic for malignancy. The patient presented to the emergency department here at [facility] on September 12, 2024 with complaints of worsening shortness of breath over a 2-week period since he has been discharged. Due to the patient being a poor historian most of his history has been obtained from his chart. On presentation to the patient did endorse a productive cough with green sputum, denied hemoptysis, fever, chills, abdominal pain, vomiting, nausea, chest pain, melena, or peripheral edema. A chest x-ray was completed which showed an increase in size of the previously seen opacification within the left hemithorax which may relate to increase in pleural effusion superimposed on known lingular mass. It also showed a right trace pleural effusion. A twelve-lead EKG was completed which showed atrial fibrillation with rapid ventricular response with a heart rate of 103 bpm. On September 13, 2024 an ultrasound of the left chest was completed which showed a pleural effusion pocket on the left side measuring 7.4 cm. Subsequently on September 14, 2024 the patient underwent a left thoracentesis completed by Dr. Shukla with 2000 mL of turbid colored fluid drained without difficulty. The cytology for the pleural fluid drained on September 14, 2024 remains pending. A chest x-ray was completed today September 19, 2024 which revealed a new near complete opacification of the left hemithorax from prior exam, there appears to be a cut off of the left mediastinum bronchus, findings suggest obstruction of the left mainstream bronchus from known hilar mass versus mucous plugging. Opacification likely related to a combination of known pulmonary mass, atelectasis and pleural effusion. Due to the findings on today's x-ray a consult was placed to Dr. Austin Donnelly from cardiothoracic surgery for further evaluation and treatment recommendations including placement of left Pleurx catheter. Review of Systems Due to the patient being a poor historian, a review of systems was completed from his history on his chart. Past Medical History Past Medical History: Atrial Fibrillation, Coronary Artery Disease (CAD), Cancer, COPD, Diabetes Mellitus, GERD/Reflux, Hyperlipidemia Additional Past Medical History / Comment(s): type 2 DM, hiatal hernia, significant for large colon polyps, multiple removed, moderate size pericardial effusion, microcytic, hyperchromic anemia History of Any Multi-Drug Resistant Organisms: None Reported Past Surgical History: Hernia Repair Additional Past Surgical History / Comment(s): loop recorder, hernia x 3,, multiple colon polyps removed Past Anesthesia/Blood Transfusion Reactions: No Reported Reaction Past Psychological History: No Psychological Hx Reported, Depression Smoking Status: Former smoker Past Alcohol Use History: Rare Past Drug Use History: None Reported - Past Family History Mother Family Medical History: Cancer (Colon cancer) Additional Family Medical History / Comment(s): Colon cancer Father Family Medical History: COPD, Pneumonia Medications and Allergies Home Medications Medication Instructions Recorded Confirmed Type Acetaminophen-Codeine 300-30mg 1 tab PO Q6H PRN 08/20/24 09/13/24 History [Tylenol w/codeine #3] Albuterol Inhaler [Ventolin Hfa 2 puff INHALATION RT-Q4H PRN 08/20/24 09/13/24 History Inhaler] Apixaban [Eliquis] 5 mg PO BID 08/20/24 09/13/24 History Celecoxib [CeleBREX] 200 mg PO DAILY 08/20/24 09/13/24 History Cyclobenzaprine [Flexeril] 10 mg PO BID PRN 08/20/24 09/13/24 History Fluticasone Nasal [place] [Flonase 1 spray EA NOSTRIL BID PRN 08/20/24 09/13/24 History Nasal [place]] Gabapentin 600 mg PO Q8H PRN 08/20/24 09/13/24 History Ipratropium-Albuterol Nebulize 3 ml INHALATION RT-TID 08/20/24 09/13/24 History [Duoneb 0.5 mg-3 mg/3 ml Soln] PARoxetine [Paxil] 20 mg PO DAILY 08/20/24 09/13/24 History Pioglitazone [Actos] 30 mg PO DAILY 08/20/24 09/13/24 History Simvastatin [Zocor] 20 mg PO DAILY 08/20/24 09/13/24 History glipiZIDE XL [Glucotrol XL] 10 mg PO BID 08/20/24 09/13/24 History metFORMIN HCL [Glucophage] 1,000 mg PO BID 08/20/24 09/13/24 History Dapagliflozin Propanediol [Farxiga] 10 mg PO DAILY 30 Days #30 tab 08/26/24 09/13/24 Rx Ferrous Sulfate [Iron (65 MG 325 mg PO W/LUNCH 30 Days #30 tab 08/26/24 09/13/24 Rx Elemental)] Furosemide [Lasix] 20 mg PO DAILY 30 Days #30 tab 08/26/24 09/13/24 Rx Lidocaine 4% Patch 1 patch TOPICAL HS 30 Days #30 08/26/24 09/13/24 Rx patch Metoprolol Tartrate [Lopressor] 50 mg PO BID 30 Days #60 tab 08/26/24 09/13/24 Rx Spironolactone [Aldactone] 12.5 mg PO DAILY 30 Days #15 tab 08/26/24 09/13/24 Rx Furosemide [Lasix] 40 mg PO DIRECTED 09/13/24 09/13/24 History Sulfamethox-Tmp 800-160Mg [Bactrim 1 tab PO DIRECTED 09/13/24 09/13/24 History DS 800-160 mg] ondansetron HCL [Zofran] 8 mg PO Q12HR PRN 09/13/24 09/13/24 History Allergies Allergy/AdvReac Type Severity Reaction Status Date / Time No Known Allergies Allergy Verified 09/13/24 11:45 Surgical - Exam Vital Signs Temp Pulse Resp BP Pulse Ox 98 F 95 18 88/58 78 L 09/12/24 17:56 09/12/24 17:56 09/12/24 17:56 09/12/24 17:56 09/12/24 17:56 - General well developed, well nourished, no distress, no pain - Eyes PERRL, normal ocular movement, no pale, no icteric - ENT normal pinna, normal nares, normal mucosa, no hearing loss, no congestion - Neck Neck is supple, no lymphadenopathy. no masses, no bruits, trachea midline, no venous distension - Respiratory Respirations symmetrical and nonlabored with BiPAP support, current BiPAP settings 12/5, rate 10, FiO2 35%. Diminished to his right lobes. No wheezes, rhonchi or crackles. - Cardiovascular Regular rhythm and rate. S1 and S2 present, negative for S3, gallop or murmur. - Abdomen Abdomen is soft, slightly distended, and nontender. Active bowel sounds present all 4 abdominal quadrants. No guarding or rigidity. - Genitourinary Deferred. External catheter in place - Rectum Deferred - Integumentary Skin is warm and dry. No clubbing or cyanosis present. +1 peripheral edema no rash, no growths, no abnormal pigmentation - Neurologic Episodes of confusion. No focal deficits. - Musculoskeletal Moves all 4 extremities with equal strength bilateral. Generalized weakness. - Psychiatric no oriented to time, oriented to person, oriented to place, speech is normal, no memory intact Results - Labs 09/17/24 08:59 09/17/24 07:23 Abnormal Lab Results - Last 24 Hours (Table) 09/18/24 09/18/24 09/19/24 Range/Units 16:44 20:57 06:19 POC Glucose (mg/dL) 176 H 173 H 153 H (70-110) mg/dL 09/19/24 Range/Units 11:46 POC Glucose (mg/dL) 184 H (70-110) mg/dL - Imaging Chest x-ray: report reviewed, image reviewed CT scan - chest: report reviewed, image reviewed Assessment and Plan Assessment: Recurrent left pleural effusion Acute hypoxic respiratory failure secondary to bilateral pleural effusions st atus post thoracentesis, patient was found to have exudative pleural effusion on the left patient had thoracentesis x 2 History of congestive heart failure and reduced ejection fraction Right iliac bone metastatic deposits Moderate size pericardial effusion Hyperlipidemia Remote history of nicotine dependence Chronic obstructive pulmonary disease Chronic atrial fibrillation, on Eliquis for anticoagulation Diabetes mellitus type 2, recent hemoglobin A1c 7.5% Hyponatremia likely secondary to hypervolemia 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 His chart and diagnostics reviewed. His case was discussed in detail with Dr. Austin Donnelly from cardiothoracic surgery. We will place his Eliquis on hold at this time in anticipation for placement of left Pleurx catheter placement on Monday, September 23, 2024. The patient will be scheduled for left Pleurx catheter placement to be placed by Dr. Brian Plaza on Monday, September 23, 2024. We will obtain a CT scan without contrast of the chest. More rec ommendations to follow based on patient's clinical course. Medical management of other comorbidities per internal medicine, and pulmonary/critical care service. Thank you for this consult and we look forward to working with you in the care of this patient. I have personally seen and examined the patient, performed the documentation and the assessment and plan as written. Number of minutes spent on the visit: 30. JESUS Gibbs
--- NOTE | 2024-09-19 15:58 | P.PN ---
Subjective Progress Note Date: 09/19/24 Principal diagnosis: Acute hypoxic respiratory failure secondary to poorly differentiated non-small cell lung cancer and pleural effusions Patient is a 74-year-old male with past medical history significant hypertension, hyperlipidemia, diabetes mellitus, atrial fibrillation an ticoagulated Eliquis, heart failure, COPD, former tobacco use, and also recent diagnosis of lung cancer. Chest CT from his previous hospitalization earlier this August remarkable for heterogenous mass in the lingula measuring 5.2 x 5 x 8.5 cm. Additional 1.8 cm nodule in the left upper lobe concerning for metastasis. Enlarged mediastinal and left hilar lymph nodes and possible cardiophrenic lymph node. Moderate pericardial effusion. Nonspecific hypodense lesion in the right kidney. Bilateral pleural effusions, moderate on the left and small on the right. Did have a left-sided thoracentesis done on 08/20/2024 and a total of 1.7 L was removed from the pleural space. Pathology was nondiagn ostic for malignancy. Pleural fluid was an exudate based on lights criteria. Patient does have history of heart failure. Most recent available echocardiogram from his previous hospitalization here estimating left ventricular ejection fraction of 45 to 50%. Mild MR and TR. Mild aortic stenosis. Moderate pulmonary hypertension with an RVSP 53 mmHg. Also, a moderate-sized pericardial effusion was noted. CT performed at outside facility concerning for additional osseous involvement of the right iliac bone with associated soft tissue extension and asymmetric enlargement of the right iliac musculature, right rib 9 fracture, possibly pathologic. Small pericardial effusion was also partially visualized. Patient ended up having biopsy of right iliac bone positive for metastatic poorly differentiated non-small cell carcinoma. He has been following with radiation oncology for palliative rad iation. Patient return to the emergency department yesterday evening complaining of increasing worsening shortness of breath since his hospital discharge approximately 2 and half weeks ago. He was at his primary care provider's office and noted to be hypotensive. Chronic cough with occasional yellow-green sputum production. No hemoptysis. No reported fevers. Denies abdominal pain, nausea or vomiting, diarrhea. Also, increased lower extremity swelling and orthopnea. Patient was placed on BiPAP in the ED. Workup including a chest x- ray remarkable for increased in size of left-sided opacification within the left hemithorax. Increase in pleural effusion with superimposed noted lingular mass. Trace right-sided pleural effusion. Labs including CBC with a WBC count of 6, hemoglobin stable at 9.7 g/dL, platelets 336. CMP: Sodium 131, potassium 4.8, chloride 86, serum bicarb 36, BUN 24, creatinine 0.91, glucose 152. Lactic 1.6. Troponin less than 0.012. NT proBNP elevated at 6320. Patient received a one- time dose of 80 mg of IV Lasix in the ED. He is currently being evaluated in room 27. He is on BiPAP with settings 12/5 and FiO2 35%. Does not appear to be any respiratory distress. Able to carry out full conversation. States he is currently undergoing radiation treatments on outpatient basis and has 5 rounds of radiation left. He has not started any chemotherapy. Endorses above- mentioned symptoms. Denies any chest pain. Denies missing any doses of his diuretics. He has bilateral lower extremity edema. His current heart rhythm is atrial fibrillation with controlled ventricular response. Blood pressure is normotensive. He has been peeing often and has an external urinary catheter. 09/14/2024, the patient is off the BiPAP and the patient is currently on oxygen and he is on 3 L of oxygen nasal cannula with a pulse ox of 99%. I performed a bedside thoracentesis this patient and a total of 2 L of pleural fluid was aspirated without any complications. The follow-up chest x-ray showed improvement in the left lung findings. There is also a persistent left-sided pleural effusion/mass in the left lung base. There is blunting of the left costophrenic angle. The patient tolerated the procedure well. The sodium is at 132, BUN 23 with a creatinine of 0.7. White cell count of 6 with a hemoglobin of 8.4. No other new complaints otherwise for now. The patient is on empiric antibiotic coverage with IV cefepime. The patient is also on Lasix 40 mg IV every 12 hours. The patient is in negative fluid balance. Awake and alert and communicating. On today's evaluation of 09/15/2024, the patient is being seen for a follow-up. The patient is postthoracentesis. A total of 2 L of fluid was aspirated from the left lung and the patient is currently stable on 2 L of oxygen by nasal cannula with a pulse ox of 99%. Remains on IV Lasix. Continues to produce excellent urine output and the patient has been in negative fluid balance. The white cell count is 5.1 with a hemoglobin 8.7 and the platelet count 328. Sodium is at 130, BUN 23 and creatinine 0.8 and a serum bicarb is at 33. No other significant events otherwise for now. Much improved following the thoracentesis. Seen today on 09/16/2024, patient is comfortable, does not seem to be in distress. Presently on room air, O2 saturations in the 90s. Patient did have thoracentesis done by Dr. Kuo he had 2 L removed from the left pleural space. Seen today on 09/17/2024, remains fairly comfortable, not in distress, cytology on the pleural effusion is still pending. Patient had 2 L of fluid removed from his left pleural space few days ago, patient is on 2 L nasal cannula with O2 sat of 93% WBC count is 5.7 hemoglobin 8.2 electrolytes are normal renal profile is normal. Today's head CT showed moderate generalized atrophy, no acute bleed or mass effect. Patient was seen today on 09/19/2024, patient is a bit confused, his confusion seems to be getting worse, not in distress, although he is on 2 L nasal cannula, O2 saturations are 97%, his mental status seems to wax and wane, CT of the brain showed no metastasis. Follow-up chest x-ray today showed complete opacification of the left lung, hence I consulted cardiothoracic surgery for Pleurx catheter placement, this will likely be done by Monday. In the meantime if the patient gets any deterioration in his pulmonary status, could consider bedside thoracentesis. Objective - Vital Signs Vital signs: Vital Signs Temp 97.7 F 09/19/24 11:45 Pulse 77 09/19/24 15:20 Resp 22 09/19/24 15:20 BP 95/58 09/19/24 15:20 Pulse Ox 97 09/19/24 15:20 FiO2 35 09/19/24 13:34 Intake & Output 09/18/24 09/19/24 09/19/24 18:59 06:59 18:59 Output Total 550 Balance -550 Weight 90.3 kg 91 kg Output: Urine 550 Other: Voiding Method Diaper Diaper Diaper External Catheter External Catheter External Catheter # Voids 1 # Bowel Movements 1 - Exam GENERAL EXAM: 74-year-old in no distress on 2 L nasal cannula HEAD: Normocephalic and atraumatic EYES: Normal reaction of pupils, equal size. NOSE: Clear with pink turbinates. THROAT: No erythema or exudates. NECK: No masses, no JVD. CHEST: No chest wall deformity. LUNGS: diminished breath sounds at the left side, no rhonchi no wheezes CVS: S1 and S2 normal with no audible murmur, irregular rhythm. No extra heart sounds ABDOMEN: No hepatosplenomegaly, active bowel sounds, no guarding or rigidity. SKIN: No rashes CENTRAL NERVOUS SYSTEM: Confused otherwise no focal deficit EXTREMITIES: 1+ bipedal edema - Labs CBC & Chem 7: 09/17/24 08:59 09/17/24 07:23 Labs: Abnormal Lab Results - Last 24 Hours (Table) 09/18/24 09/18/24 09/19/24 Range/Units 16:44 20:57 06:19 POC Glucose (mg/dL) 176 H 173 H 153 H (70-110) mg/dL 09/19/24 Range/Units 11:46 POC Glucose (mg/dL) 184 H (70-110) mg/dL Assessment and Plan Assessment: Impression: Acute hypoxic respiratory failure Bilateral pleural effusions status post thoracentesis, patient was found to have exudative pleural effusion on the left patient had thoracentesis x 2 History of congestive heart failure and reduced ejection fraction Right iliac bone metastatic deposits Moderate size pericardial effusion Ex-smoker Chronic obstructive pulmonary disease presently inactive Chronic atrial fibrillation anticoagulated Type 2 diabetes Hyponatremia likely secondary to hypervolemia possible SIADH secondary to malignancy Moderate pulmonary hypertension Recommendation: Cytology is pending However considering the recurrence of his pleural effusion within a relatively short period of time and large volume noted on the left lung, patient may benefit from Pleurx catheter placement. Continue present supportive care measures Continue to titrate oxygen presently is on room air Continue Lasix 40 mg twice daily Hold anticoagulation now since may be considered for Pleurx catheter early next week Overall long-term prognosis is poor, patient has multiple complex issues as noted above. We will continue to follow Time with Patient: Less than 30
--- NOTE | 2024-09-19 16:29 | P.PN ---
Subjective Progress Note Date: 09/19/24 Patient seen and evaluated bedside. Patient currently on BiPAP 35% at 02/21. Chest x-ray displaying near complete opacification of the left hemothorax. Objective - Vital Signs Vital signs: Vital Signs Temp 97.7 F 09/19/24 04:00 Pulse 98 09/19/24 04:00 Resp 24 09/19/24 04:00 BP 101/65 09/19/24 04:00 Pulse Ox 98 09/19/24 04:00 FiO2 35 09/19/24 04:00 Intake & Output 09/18/24 09/19/24 09/19/24 18:59 06:59 18:59 Output Total 550 Balance -550 Weight 90.3 kg 91 kg Output: Urine 550 Other: Voiding Method Diaper Diaper External Catheter External Catheter # Voids 1 # Bowel Movements 1 - Exam Vitals: Signs Reviewed Physical Exam: General: confused, on BiPAP, AAO x 1 Cardiovascular: S1 S2 reg, no murmur Lungs: CTA bilateral, no rhonchi, no rales Abdominal: soft, non-tender to palpataion Extremities: no gross muscle atrophy, no edema, no contractures - Labs CBC & Chem 7: 09/17/24 08:59 09/17/24 07:23 Labs: Abnormal Lab Results - Last 24 Hours (Table) 09/18/24 09/18/24 09/18/24 Range/Units 11:41 16:44 20:57 POC Glucose (mg/dL) 144 H 176 H 173 H (70-110) mg/dL 09/19/24 Range/Units 06:19 POC Glucose (mg/dL) 153 H (70-110) mg/dL Microbiology - Last 24 Hours (Table) 09/12/24 20:13 Blood Culture - Final Blood Assessment and Plan Assessment: #. Acute hypoxic respiratory failure requiring BiPAP in the setting of poorly differentiated non-small cell lung cancer #. Bilateral pleural effusion status post thoracentesis x 2 #. Moderate sized pericardial effusion #. Hyponetremia in the setting of malignancy Previous pathology report for pleural fluid analysis on 08/20/2024 showed no cytologic malignant cells identified. Cytology from 09/16/2024 pending. If pleural fluid worsens, will consider Pleurx catheter placement. Bilateral pleural effusion likely related moderate-sized pericardial effusion especially if there is persistent negative cytology. Will await results for thoracentesis pathology report. Evaluate need for potential pericardial window. Patient scheduled for radiation treatment yesterday however it was canceled due to patient requiring BiPAP for acute hypoxic respiratory failure. Patient was placed on nasal cannula but resumed back on BiPAP today due to no improvement in his mentation. Will likely need to postpone radiation treatment until he is off BiPAP. - echocardiogram pending. - Vascular surgery consulted for PleurX cathether, scheduled for Monday. Eliquis will be placed on hold.
[2024-09-19 16:53] LABS: Glucose,Whole Blood 141 mg/dL (70-110)
--- NOTE | 2024-09-19 18:59 | CA ---
Transthoracic Echo Report Name: Kd Pugh Age: 74 Gender: M : 1950 Exam Date: 09/19/2024 14:04 Exam Location: [facility] Ht (in): 69 Wt (lb): 199 Ordering Physician: Jm Coyle MD Attending/Referring Phys: Chief Console Operator Fransisco Grey, CAROL Procedure CPT: Indications: pericardial effusion Cardiac Hx: Limited for pericardial effusion/ PT on BIPAP Technical Quality: Fair Contrast 1: Total Dose (mL): Contrast 2: Total Dose (mL): MEASUREMENTS (Male / Female) Normal Values FINDINGS Left Ventricle Right Ventricle Reduced right ventricular global systolic function. Right Atrium Left Atrium Mitral Valve Aortic Valve Tricuspid Valve Pulmonic Valve Pericardium Moderate pericardial effusion with mild respiratory variation of Tricuspid valve. Normal respiratory variation of the Mitral valve. Aorta CONCLUSIONS Moderate pericardial effusion without any evidence of tamponade physiology Previewed by: Dr. Dillon Yeh MD (Electronically Signed) Final Date: 19 September 2024 18:58
[2024-09-19 20:09] LABS: Glucose,Whole Blood 196 mg/dL (70-110)
--- NOTE | 2024-09-19 23:13 | P.PN ---
Subjective Progress Note Date: 09/19/24 This is a 74-year-old male who was admitted with bilateral pleural effusion also with features of acute respiratory failure and was considering possible hospice for informational. Patient reports he would like to continue with treatment and is requesting to speak with oncology and radiation oncology as he was reportedly only left with for radiation treatments. Patient is significantly weak and is status post thoracentesis while awaiting fluid culture and cytology. Pulmonary is following closely and weaning FiO2 as tolerated. Patient evaluated by PT/OT therapy and will likely need rehab. Patient to complete radiation treatments prior to going to physical therapy [facility]. 09/17/2024 Patient is seen in follow-up today with multiple consultations following. Radiation oncology as well as oncology consulted as patient would like to continue with treatment and has 4 remaining sessions left from radiation. Awaiting callback from scheduling to determine time of treatment. Per nursing staff patient is more confused today and will obtain CT brain as well as ABG. Patient is continued on oxygen with no reports of worsening shortness of breath. Pulmonary also following as patient is status post thoracentesis with approximately 2 L removed from the left and awaiting cytology at this time. Patient is afebrile with no reports of chest pain or palpitations. Patient reports tolerating diet and denies any nausea or vomiting. Would recommend PT/OT therapy daily as well as sitting up in the chair frequently. 09/18/2024 Patient is seen in follow-up today and mentation is waxing and waning although patient's mentation is deteriorating he is more obtunded and restless is being placed on BiPAP with poor oxygen saturations. Multiple family members at the bedside with questions and concerns that were answered to the best of our ability. Patient was scheduled to undergo radiation treatment although unstable due to requiring BiPAP. Overall prognosis is extremely poor and guarded at this time. 09/19/2024 Patient is seen in follow-up today in mentation remains confused and altered although appears more alert when on BiPAP. Patient is exhausted and lethargic although somewhat arousable. Patient not tolerating much oral intake and is being evaluated by pulmonary and a consult to CT surgery was placed as chest x- ray shows near complete opacification of the left and discussing possible need for Thora vent and possible thoracentesis. Patient is afebrile at this time. No plans for radiation currently. Review of systems: Unable to completely assess as patient is confused and lethar gic All medications have been reviewed Physical exam: Gen: This is a 74-year-old male who is in bed, sleeping, less restless although having waxing and waning periods of continued confusion, alert and oriented x 1- 2 at times well-developed, elderly appearing, ill-appearing, obese HEENT: Head is atraumatic, normocephalic. Pupils equal, round. Sclerae is anicteric. NECK: Supple. No JVD. No lymphadenopathy. No thyromegaly. LUNGS: Diminished breath sounds bilaterally with some scattered rhonchi, expiratory wheezing, and crackles noted at the bases. No intercostal retractions., increasing respiratory demand, Now on BiPAP HEART: S1, S2 are muffled ABDOMEN: Soft. Bowel sounds are present. No masses. No tenderness. EXTREMITIES: No pedal edema. No calf tenderness. NEUROLOGICAL: Patient is awake, alert and oriented x 1-2., Confused, restless at times and anxious, cranial nerves 2 through 12 are grossly intact. Diffusely weak Assessment: Large bilateral pleural effusion, left more than right with status post thoracentesis on the left with approximately 2 L removed, cytology pending Acute respiratory failure secondary to above as well as lung cancer, now requiring BiPAP History of congestive heart failure with mildly reduced EF Poorly differentiated non-small cell lung cancer history, scheduled for 4 radiation treatments left History of atrial fibrillation History of coronary artery disease History of COPD, not in exacerbation Diabetes mellitus, type II, uncontrolled with hyper and hypoglycemia Former smoker Anxiety/depression Obesity with a BMI of 30.6 GI prophylaxis DVT prophylaxis No code Plan: Patient was initially discussing possible hospice informational for lung cancer. Patient reported to case management that he would like to discuss with oncology and radiation oncology as he only had 4 treatments left of radiation therapy and would like to resume. Patient was scheduled for radiation although unable to perform as patient is now maintained on BiPAP Patient was evaluated by physical therapy recommending rehab although patient needs to be agreeable that he will not receive oncological care during rehab. Patient will likely complete 4 rounds of radiation here before considering going to ECF. Recommend PT/OT therapy daily Per nursing staff patient mentation continues to wax and wane and continues to be more confused when off of BiPAP,, restless at times, CT brain was negative, ammonia level within normal limits Patient in increased respiratory distress and more confused, being continued on BiPAP per pulmonary Chest x-ray this morning shows near complete opacification on the left and CT surgery was consulted for possible Thora vent placement which may occur on Monday. Tentatively discussing a repeat thoracentesis with pulmonary as well. Continue supportive care Radiation oncology/hematology following and was scheduled to undergo palliative radiation although is unstable and continued on BiPAP at this time Due to multiple complex medical issues and recent diagnosis, overall prognosis is poor and guarded at this time. Hospice should be considered The impression and plan of care has been dictated by Palak Sim, Nurse Practitioner as directed. Dr. Tiburcio MD I have performed a history and examination and MDM of this patient, discussed the same with the dictator, and agree with the dictator's assessment and plan as written ,documented as a scribe. Based on total visit time, I have performed more than 50% of the visit. Objective - Vital Signs Vital signs: Vital Signs Temp 98.0 F 09/19/24 19:56 Pulse 99 09/19/24 21:33 Resp 17 09/19/24 21:33 BP 94/59 09/19/24 19:56 Pulse Ox 99 09/19/24 19:56 FiO2 35 09/19/24 13:34 Intake & Output 09/19/24 09/19/24 09/20/24 06:59 18:59 06:59 Output Total 550 Balance -550 Weight 91 kg Output: Urine 550 Other: Voiding Method Diaper Diaper Diaper External Catheter External Catheter External Catheter # Voids 1 - Labs CBC & Chem 7: 09/17/24 08:59 09/17/24 07:23 Labs: Abnormal Lab Results - Last 24 Hours (Table) 09/19/24 09/19/24 09/19/24 Range/Units 06:19 11:46 16:51 POC Glucose (mg/dL) 153 H 184 H 141 H (70-110) mg/dL 09/19/24 Range/Units 20:08 POC Glucose (mg/dL) 196 H (70-110) mg/dL
[2024-09-20 02:38] VITALS: RESP 22
[2024-09-20 06:05] LABS: Glucose,Whole Blood 143 mg/dL (70-110)
[2024-09-20 07:24] LABS: Basophils # (A) 0.01 10*3/uL (0.00-0.10); Basophils % (A) 0.2 %; Eosinophils # (A) 0.06 10*3/uL (0.04-0.35); Eosinophils % (A) 1.0 %; HCT 30.0 % (39.6-50.0); HGB 8.5 g/dL (13.0-17.0); Lymphocytes # (A) 0.39 10*3/uL (0.90-5.00); Lymphocytes % (A) 6.3 %; MCH 23.4 pg (27.0-32.0); MCHC 28.3 g/dL (32.0-37.0); MCV 82.4 fL (80.0-97.0); Monocytes # (A) 0.46 10*3/uL (0.20-1.00); Monocytes % (A) 7.4 %; Neutrophils # (A) 5.17 10*3/uL (1.80-7.70); Neutrophils % (A) 83.6 %; Platelet Count 266 10*3/uL (140-440); RBC 3.64 10*6/uL (4.40-5.60); RDW 17.7 % (11.5-14.5); WBC 6.18 10*3/uL (4.50-10.00)
[2024-09-20 07:31] LABS: INR 1.4 (<1.2); Partial Thromboplastin Time 32.7 sec (22.0-30.0); Prothrombin Time 15.1 sec (10.0-12.5)
[2024-09-20 07:45] LABS: African American GFR (CKD) >90 (>60 ml/min/1.73 sqM); Anion Gap 5 mmol/L; Blood Urea Nitrogen 44 mg/dL (9-20); Calcium 8.4 mg/dL (8.4-10.2); Carbon Dioxide 36 mmol/L (22-30); Chloride 94 mmol/L (98-107); Glucose 142 mg/dL (74-99); Magnesium 2.4 mg/dL (1.6-2.3); Non-African American GFR(CKD) 86 (>60 ml/min/1.73 sqM); Potassium 3.8 mmol/L (3.5-5.1); Sodium 135 mmol/L (137-145)
--- NOTE | 2024-09-20 08:04 | XR ---
EXAMINATION TYPE: XR chest 1V portable DATE OF EXAM: 09/20/2024 7:14 AM COMPARISON: Chest radiographs from from 09/19/2024. CLINICAL INDICATION: Male, 74 years old with history of Left pleural effusion; TECHNIQUE: XR chest 1V portable Frontal view of the chest. FINDINGS: Lungs/Pleura: Large left pleural effusion with associated atelectasis. There is no evidence of pleura l effusion, focal consolidation, or pneumothorax. Pulmonary vascularity: Unremarkable. Heart/mediastinum: Cardiomediastinal silhouette is obscured due to overlying and adjacent opacities. A loop recorder projects over the left thorax over the heart. Musculoskeletal: No acute osseous pathology. Other findings: None IMPRESSION: * Large left pleural effusion [facility], , 09/20/2024 8:02 AM
--- NOTE | 2024-09-20 08:26 | P.PN ---
Subjective Progress Note Date: 09/20/24 Principal diagnosis: Recurrent left pleural effusion. Past medical history significant for hypertension, hyperlipidemia, diabetes mellitus, atrial fibrillation on Eliquis for anticoagulation, heart failure, chronic obstructive pulmonary disease, former tobacco use, and also recent diagnosis of lung cancer. The patient was seen and examined in follow-up today September 20, 2024 at his bedside on the third floor cardiac stepdown unit. He is currently laying in bed, is awake, alert, and oriented x [address]. He is having periods of confusion. A sitter is present at his bedside. Oxygen saturations are 97% on 3 L nasal cannula. He denies any complaints of pain at this time, although is stating that he does get short winded with minimal activity. He is scheduled for a left Pleurx catheter placement on Monday, September 23, 2024 to be performed by Dr. Ross. Chest x-ray results reviewed. Objective - Vital Signs Vital signs: Vital Signs Temp 97.9 F 09/20/24 03:19 Pulse 92 09/20/24 03:19 Resp 22 09/20/24 03:19 BP 102/66 09/20/24 03:19 Pulse Ox 100 09/20/24 03:19 FiO2 35 09/20/24 04:29 Intake & Output 09/19/24 09/20/24 09/20/24 18:59 06:59 18:59 Weight 90.2 kg Other: Voiding Method Diaper Diaper External Catheter External Catheter # Voids 1 - Exam CONSTITUTIONAL: Appears comfortable, cooperative, no acute distress RESPIRATORY: Lungs sounds diminished bilaterally, left greater than right. Respirations symmetrical, nonlabored. Currently on 3 L nasal cannula with oxygen saturation 97%. Weak cough. CARDIOVASCULAR: S1, S2 present. Irregular rate and rhythm, atrial fibrillation on telemetry. Palpable peripheral pulses bilaterally. No calf pain or tenderness noted. GASTROINTESTINAL: Abdomen soft, nontender, slightly distended. Active bowel sounds present 4 quadrants. GENITOURINARY: External catheter in place. INTEGUMENTARY: Skin is warm and dry with no clubbing or cyanosis. NEUROLOGIC: No focal deficits. MUSKULOSKELETAL: Able to move all extremities, strength equal bilaterally, generalized weakness. PSYCHIATRIC: Alert and oriented to person and place. Episodes of confusion. - Allied health notes Allied health notes reviewed: nursing - Labs CBC & Chem 7: 09/20/24 06:26 09/20/24 06:26 Labs: Abnormal Lab Results - Last 24 Hours (Table) 09/19/24 09/19/24 09/19/24 Range/Units 11:46 16:51 20:08 RBC (4.40-5.60) 10*6/uL Hgb (13.0-17.0) g/dL Hct (39.6-50.0) % MCH (27.0-32.0) pg MCHC (32.0-37.0) g/dL MPV (9.5-12.2) fL Immature Gran # (0.00-0.04) 10*3/uL Lymphocytes # (0.90-5.00) 10*3/uL PT (10.0-12.5) sec INR (<1.2) APTT (22.0-30.0) sec Sodium (137-145) mmol/L Chloride (98-107) mmol/L Carbon Dioxide (22-30) mmol/L BUN (9-20) mg/dL Glucose (74-99) mg/dL POC Glucose (mg/dL) 184 H 141 H 196 H (70-110) mg/dL Magnesium (1.6-2.3) mg/dL 09/20/24 09/20/24 09/20/24 Range/Units 06:00 06:26 06:26 RBC 3.64 L (4.40-5.60) 10*6/uL Hgb 8.5 L (13.0-17.0) g/dL Hct 30.0 L (39.6-50.0) % MCH 23.4 L (27.0-32.0) pg MCHC 28.3 L (32.0-37.0) g/dL MPV 9.0 L (9.5-12.2) fL Immature Gran # 0.09 H (0.00-0.04) 10*3/uL Lymphocytes # 0.39 L (0.90-5.00) 10*3/uL PT (10.0-12.5) sec INR (<1.2) APTT (22.0-30.0) sec Sodium 135 L (137-145) mmol/L Chloride 94 L (98-107) mmol/L Carbon Dioxide 36 H (22-30) mmol/L BUN 44 H (9-20) mg/dL Glucose 142 H (74-99) mg/dL POC Glucose (mg/dL) 143 H (70-110) mg/dL Magnesium 2.4 H (1.6-2.3) mg/dL 09/20/24 Range/Units 07:03 RBC (4.40-5.60) 10*6/uL Hgb (13.0-17.0) g/dL Hct (39.6-50.0) % MCH (27.0-32.0) pg MCHC (32.0-37.0) g/dL MPV (9.5-12.2) fL Immature Gran # (0.00-0.04) 10*3/uL Lymphocytes # (0.90-5.00) 10*3/uL PT 15.1 H (10.0-12.5) sec INR 1.4 H (<1.2) APTT 32.7 H (22.0-30.0) sec Sodium (137-145) mmol/L Chloride (98-107) mmol/L Carbon Dioxide (22-30) mmol/L BUN (9-20) mg/dL Glucose (74-99) mg/dL POC Glucose (mg/dL) (70-110) mg/dL Magnesium (1.6-2.3) mg/dL - Imaging and Cardiology Chest x-ray: report reviewed, image reviewed Assessment and Plan Assessment: Recurrent left pleural effusion Acute hypoxic respiratory failure secondary to bilateral pleural effusions status post thoracentesis, patient was found to have exudative pleural effusion on the left patient had thoracentesis x 2 History of congestive heart failure and reduced ejection fraction Right iliac bone metastatic deposits Moderate size pericardial effusion Hyperlipidemia Remote history of nicotine dependence Chronic obstructive pulmonary disease Chronic atrial fibrillation, on Eliquis for anticoagulation Diabetes mellitus type 2, recent hemoglobin A1c 7.5% Hyponatremia likely secondary to hypervolemia possible SIADH secondary to malignancy Moderate pulmonary hypertension GERD Depression on Paxil as an outpatient Plan: The patient is scheduled for placement of left Pleurx catheter on Monday, September 23, 2024 to be performed by Dr. Ross from thoracic surgery. Continue to monitor daily chest x-rays. Medical management of other comorbidities per internal medicine and pulmonary/ critical care medicine. Continue to hold Eliquis in anticipation for the Pleurx catheter placement on Monday, September 23, 2024. N.p.o. after midnight on September 23, 2024. More recommendations to follow based on patient's clinical course. Time with Patient: Less than 30
[2024-09-20 09:59] VITALS: BP 107/71; PULSE 104; TEMP 97.8
[2024-09-20 11:51] LABS: Glucose,Whole Blood 139 mg/dL (70-110)
--- NOTE | 2024-09-20 14:33 | P.DS ---
Providers Date of admission: 09/12/24 22:09 Expected date of discharge: 09/20/24 Attending physician: Crispin Dey Consults: 09/12/24 22:09 Consult Physician Urgent Consulting Provider: Armando Shukla Consult Reason/Comments: Lung CA, right pleural effusion Do you want consulting provider notified?: Yes, Notify in am 09/16/24 11:50 Consult Physician Urgent Consulting Provider: Leobardo Witt Consult Reason/Comments: lung Ca Do you want consulting provider notified?: Yes 09/16/24 13:47 Consult Physician Urgent Consulting Provider: Loree Abraham Consult Reason/Comments: lung ca, radiation Do you want consulting provider notified?: Yes 09/19/24 11:40 Consult Physician Routine Consulting Provider: Austin Donnelly Consult Reason/Comments: Pleurx catheter Do you want consulting provider notified?: Already Contacted Primary care physician: Wellington Smiley Hospital Course: Final diagnosis Discharge disposition Patient is being transferred to [facility] services with comfort measures. Total time taken is greater than 35 minutes. Hospital course This is a 74-year-old male who was admitted with bilateral pleural effusion also with features of acute respiratory failure and was considering possible hospice for informational. Patient reports he would like to continue with treatment and is requesting to speak with oncology and radiation oncology as he was reportedly only left with for radiation treatments. Patient is significantly weak and is status post thoracentesis while awaiting fluid culture and cytology. Pulmonary is following closely and weaning FiO2 as tolerated. Patient evaluated by PT/OT therapy and will likely need rehab. Patient to complete radiation treatments prior to going to physical therapy [facility]. 09/17/2024 Patient is seen in follow-up today with multiple consultations following. Radiation oncology as well as oncology consulted as patient would like to continue with treatment and has 4 remaining sessions left from radiation. Awaiting callback from scheduling to determine time of treatment. Per nursing staff patient is more confused today and will obtain CT brain as well as ABG. Patient is continued on oxygen with no reports of worsening shortness of breath. Pulmonary also following as patient is status post thoracentesis with approximately 2 L removed from the left and awaiting cytology at this time. Patient is afebrile with no reports of chest pain or palpitations. Patient reports tolerating diet and denies any nausea or vomiting. Would recommend PT/OT therapy daily as well as sitting up in the chair frequently. 09/18/2024 Patient is seen in follow-up today and mentation is waxing and waning although patient's mentation is deteriorating he is more obtunded and restless is being placed on BiPAP with poor oxygen saturations. Multiple family members at the bedside with questions and concerns that were answered to the best of our ability. Patient was scheduled to undergo radiation treatment although unstable due to requiring BiPAP. Overall prognosis is extremely poor and guarded at this time. 09/19/2024 Patient is seen in follow-up today in mentation remains confused and altered although appears more alert when on BiPAP. Patient is exhausted and lethargic although somewhat arousable. Patient not tolerating much oral intake and is being evaluated by pulmonary and a consult to CT surgery was placed as chest x- ray shows near complete opacification of the left and discussing possible need for Thora vent and possible thoracentesis. Patient is afebrile at this time. No plans for radiation currently. 09/20/2024 Patient's family at bedside mentation continues to wax and wane although is worsening shortly after off BiPAP and becomes restless and increasingly short of breath and appears in pain. [facility] consulted again to further discuss with family on informational initially although started having an episode of increased respirations and significant restlessness and discuss further about GIP services. Family is agreeable and will be signing on to [facility]. Please refer to other consultation notes for further HPI. Physical exam: Gen: This is a 74-year-old male who is in bed, waxing and waning periods of continued confusion, alert and oriented x 1, more restless and anxious being placed back on BiPAP, well-developed, elderly appearing, ill-appearing, obese HEENT: Head is atraumatic, normocephalic. Pupils equal, round. Sclerae is anicteric. NECK: Supple. No JVD. No lymphadenopathy. No thyromegaly. LUNGS: Diminished breath sounds bilaterally with some scattered rhonchi, expiratory wheezing, and crackles noted at the bases. No intercostal retractions., increasing respiratory demand, Now on BiPAP again HEART: S1, S2 are muffled ABDOMEN: Soft. Bowel sounds are present. No masses. No tenderness. EXTREMITIES: No pedal edema. No calf tenderness. NEUROLOGICAL: Patient is awake, alert and oriented x 1-2., Confused, restless at times and anxious, cranial nerves 2 through 12 are grossly intact. Diffusely weak Assessment: Large bilateral pleural effusion, left more than right with status post thoracentesis on the left with approximately 2 L removed, cytology pending Acute respiratory failure secondary to above as well as lung cancer, now requiring BiPAP History of congestive heart failure with mildly reduced EF Poorly differentiated non-small cell lung cancer history, scheduled for 4 radiation treatments left History of atrial fibrillation History of coronary artery disease History of COPD, not in exacerbation Diabetes mellitus, type II, uncontrolled with hyper and hypoglycemia Former smoker Anxiety/depression Obesity with a BMI of 30.6 GI prophylaxis DVT prophylaxis No code Plan: Patient was initially discussing possible hospice informational again as patient's mentation continued to deteriorate as well as clinical picture. Patient is requiring BiPAP continuously and mentation quickly deteriorates while on nasal cannula. Patient is not eating and is continuing to report significant pain and discomfort. Patient's family is agreeable to initiate hospice and initially was discussing possibly going home with hospice although unsure if he would tolerate as he is desatting quickly and becoming more anxious and restless shortly off BiPAP. Patient meets inpatient criteria for GIP services per [facility] and will be transition to comfort care measures. Okay for morphine 4 mg every 2 hours as needed until hospice has transition the chart. May use IV Ativan as needed as well for anxiety. Overall prognosis is extremely poor at this time and hospice is appropriate. We will follow-up with [facility] hospice The impression and plan of care has been dictated by Palak Sim, Nurse Practitioner as directed. Dr. Tiburcio MD I have performed a history and examination and MDM of this patient, discussed the same with the dictator, and agree with the dictator's assessment and plan as written ,documented as a scribe. Based on total visit time, I have performed more than 50% of the visit. Patient Condition at Discharge: Stable Plan - Discharge Summary New Discharge Prescriptions: No Action Albuterol Inhaler [Ventolin Hfa Inhaler] 2 puff INHALATION RT-Q4H PRN PRN Reason: Shortness Of Breath Simvastatin [Zocor] 20 mg PO DAILY Pioglitazone [Actos] 30 mg PO DAILY Gabapentin 600 mg PO Q8H PRN PRN Reason: Neuropathy Fluticasone Nasal Barton [Flonase Nasal Barton] 1 spray EA NOSTRIL BID PRN PRN Reason: Allergy Symptoms Apixaban [Eliquis] 5 mg PO BID Ipratropium-Albuterol Nebulize [Duoneb 0.5 mg-3 mg/3 ml Soln] 3 ml INHALATION RT-TID Spironolactone [Aldactone] 12.5 mg PO DAILY 30 Days #15 tab Furosemide [Lasix] 20 mg PO DAILY 30 Days #30 tab Lidocaine 4% Patch 1 patch TOPICAL HS 30 Days #30 patch Cyclobenzaprine [Flexeril] 10 mg PO BID PRN PRN Reason: Muscle Spasm Acetaminophen-Codeine 300-30mg [Tylenol w/codeine #3] 1 tab PO Q6H PRN PRN Reason: Pain metFORMIN HCL [Glucophage] 1,000 mg PO BID Celecoxib [CeleBREX] 200 mg PO DAILY glipiZIDE XL [Glucotrol XL] 10 mg PO BID PARoxetine [Paxil] 20 mg PO DAILY Dapagliflozin Propanediol [Farxiga] 10 mg PO DAILY 30 Days #30 tab Ferrous Sulfate [Iron (65 MG Elemental)] 325 mg PO W/LUNCH 30 Days #30 tab Metoprolol Tartrate [Lopressor] 50 mg PO BID 30 Days #60 tab Sulfamethox-Tmp 800-160Mg [Bactrim DS 800-160 mg] 1 tab PO DIRECTED ondansetron HCL [Zofran] 8 mg PO Q12HR PRN PRN Reason: Nausea And Vomiting Furosemide [Lasix] 40 mg PO DIRECTED Discharge Medication List Acetaminophen-Codeine 300-30mg [Tylenol w/codeine #3] 1 tab PO Q6H PRN 08/20/24 [History] Albuterol Inhaler [Ventolin Hfa Inhaler] 2 puff INHALATION RT-Q4H PRN 08/20/24 [History] Apixaban [Eliquis] 5 mg PO BID 08/20/24 [History] Celecoxib [CeleBREX] 200 mg PO DAILY 08/20/24 [History] Cyclobenzaprine [Flexeril] 10 mg PO BID PRN 08/20/24 [History] Fluticasone Nasal Barton [Flonase Nasal Barton] 1 spray EA NOSTRIL BID PRN 08/20/24 [History] Gabapentin 600 mg PO Q8H PRN 08/20/24 [History] Ipratropium-Albuterol Nebulize [Duoneb 0.5 mg-3 mg/3 ml Soln] 3 ml INHALATION RT-TID 08/20/24 [History] PARoxetine [Paxil] 20 mg PO DAILY 08/20/24 [History] Pioglitazone [Actos] 30 mg PO DAILY 08/20/24 [History] Simvastatin [Zocor] 20 mg PO DAILY 08/20/24 [History] glipiZIDE XL [Glucotrol XL] 10 mg PO BID 08/20/24 [History] metFORMIN HCL [Glucophage] 1,000 mg PO BID 08/20/24 [History] Dapagliflozin Propanediol [Farxiga] 10 mg PO DAILY 30 Days #30 tab 08/26/24 [Rx] Ferrous Sulfate [Iron (65 MG Elemental)] 325 mg PO W/LUNCH 30 Days #30 tab 08/26/24 [Rx] Furosemide [Lasix] 20 mg PO DAILY 30 Days #30 tab 08/26/24 [Rx] Lidocaine 4% Patch 1 patch TOPICAL HS 30 Days #30 patch 08/26/24 [Rx] Metoprolol Tartrate [Lopressor] 50 mg PO BID 30 Days #60 tab 08/26/24 [Rx] Spironolactone [Aldactone] 12.5 mg PO DAILY 30 Days #15 tab 08/26/24 [Rx] Furosemide [Lasix] 40 mg PO DIRECTED 09/13/24 [History] Sulfamethox-Tmp 800-160Mg [Bactrim DS 800-160 mg] 1 tab PO DIRECTED 09/13/24 [History] ondansetron HCL [Zofran] 8 mg PO Q12HR PRN 09/13/24 [History] Follow up Appointment(s)/Referral(s): Nonstaff,Physician [REFERRING] - 1-2 days
[2024-09-20] MEDS: MORPHINE SULFATE 4 MG/ML SYRINGE IVP STA (14:42)
--- NOTE | 2024-09-20 14:50 | P.PN ---
Subjective Progress Note Date: 09/20/24 Principal diagnosis: Acute hypoxic respiratory failure secondary to poorly differentiated non-small cell lung cancer and pleural effusions Patient is a 74-year-old male with past medical history significant hypertension, hyperlipidemia, diabetes mellitus, atrial fibrillation an ticoagulated Eliquis, heart failure, COPD, former tobacco use, and also recent diagnosis of lung cancer. Chest CT from his previous hospitalization earlier this August remarkable for heterogenous mass in the lingula measuring 5.2 x 5 x 8.5 cm. Additional 1.8 cm nodule in the left upper lobe concerning for metastasis. Enlarged mediastinal and left hilar lymph nodes and possible cardiophrenic lymph node. Moderate pericardial effusion. Nonspecific hypodense lesion in the right kidney. Bilateral pleural effusions, moderate on the left and small on the right. Did have a left-sided thoracentesis done on 08/20/2024 and a total of 1.7 L was removed from the pleural space. Pathology was nondiagn ostic for malignancy. Pleural fluid was an exudate based on lights criteria. Patient does have history of heart failure. Most recent available echocardiogram from his previous hospitalization here estimating left ventricular ejection fraction of 45 to 50%. Mild MR and TR. Mild aortic stenosis. Moderate pulmonary hypertension with an RVSP 53 mmHg. Also, a moderate-sized pericardial effusion was noted. CT performed at outside facility concerning for additional osseous involvement of the right iliac bone with associated soft tissue extension and asymmetric enlargement of the right iliac musculature, right rib 9 fracture, possibly pathologic. Small pericardial effusion was also partially visualized. Patient ended up having biopsy of right iliac bone positive for metastatic poorly differentiated non-small cell carcinoma. He has been following with radiation oncology for palliative rad iation. Patient return to the emergency department yesterday evening complaining of increasing worsening shortness of breath since his hospital discharge approximately 2 and half weeks ago. He was at his primary care provider's office and noted to be hypotensive. Chronic cough with occasional yellow-green sputum production. No hemoptysis. No reported fevers. Denies abdominal pain, nausea or vomiting, diarrhea. Also, increased lower extremity swelling and orthopnea. Patient was placed on BiPAP in the ED. Workup including a chest x- ray remarkable for increased in size of left-sided opacification within the left hemithorax. Increase in pleural effusion with superimposed noted lingular mass. Trace right-sided pleural effusion. Labs including CBC with a WBC count of 6, hemoglobin stable at 9.7 g/dL, platelets 336. CMP: Sodium 131, potassium 4.8, chloride 86, serum bicarb 36, BUN 24, creatinine 0.91, glucose 152. Lactic 1.6. Troponin less than 0.012. NT proBNP elevated at 6320. Patient received a one- time dose of 80 mg of IV Lasix in the ED. He is currently being evaluated in room 27. He is on BiPAP with settings 12/5 and FiO2 35%. Does not appear to be any respiratory distress. Able to carry out full conversation. States he is currently undergoing radiation treatments on outpatient basis and has 5 rounds of radiation left. He has not started any chemotherapy. Endorses above- mentioned symptoms. Denies any chest pain. Denies missing any doses of his diuretics. He has bilateral lower extremity edema. His current heart rhythm is atrial fibrillation with controlled ventricular response. Blood pressure is normotensive. He has been peeing often and has an external urinary catheter. 09/14/2024, the patient is off the BiPAP and the patient is currently on oxygen and he is on 3 L of oxygen nasal cannula with a pulse ox of 99%. I performed a bedside thoracentesis this patient and a total of 2 L of pleural fluid was aspirated without any complications. The follow-up chest x-ray showed improvement in the left lung findings. There is also a persistent left-sided pleural effusion/mass in the left lung base. There is blunting of the left costophrenic angle. The patient tolerated the procedure well. The sodium is at 132, BUN 23 with a creatinine of 0.7. White cell count of 6 with a hemoglobin of 8.4. No other new complaints otherwise for now. The patient is on empiric antibiotic coverage with IV cefepime. The patient is also on Lasix 40 mg IV every 12 hours. The patient is in negative fluid balance. Awake and alert and communicating. On today's evaluation of 09/15/2024, the patient is being seen for a follow-up. The patient is postthoracentesis. A total of 2 L of fluid was aspirated from the left lung and the patient is currently stable on 2 L of oxygen by nasal cannula with a pulse ox of 99%. Remains on IV Lasix. Continues to produce excellent urine output and the patient has been in negative fluid balance. The white cell count is 5.1 with a hemoglobin 8.7 and the platelet count 328. Sodium is at 130, BUN 23 and creatinine 0.8 and a serum bicarb is at 33. No other significant events otherwise for now. Much improved following the thoracentesis. Seen today on 09/16/2024, patient is comfortable, does not seem to be in distress. Presently on room air, O2 saturations in the 90s. Patient did have thoracentesis done by Dr. Kuo he had 2 L removed from the left pleural space. Seen today on 09/17/2024, remains fairly comfortable, not in distress, cytology on the pleural effusion is still pending. Patient had 2 L of fluid removed from his left pleural space few days ago, patient is on 2 L nasal cannula with O2 sat of 93% WBC count is 5.7 hemoglobin 8.2 electrolytes are normal renal profile is normal. Today's head CT showed moderate generalized atrophy, no acute bleed or mass effect. Patient was seen today on 09/19/2024, patient is a bit confused, his confusion seems to be getting worse, not in distress, although he is on 2 L nasal cannula, O2 saturations are 97%, his mental status seems to wax and wane, CT of the brain showed no metastasis. Follow-up chest x-ray today showed complete opacification of the left lung, hence I consulted cardiothoracic surgery for Pleurx catheter placement, this will likely be done by Monday. In the meantime if the patient gets any deterioration in his pulmonary status, could consider bedside thoracentesis. Seen today on 09/20/2024, patient is on BiPAP, not doing well, looks very confused, supposed to have Pleurx catheter placement on Monday, but I believe the patient is doing poorly, and I strongly recommending discussing his condition with family and addressing hospice. Objective - Vital Signs Vital signs: Vital Signs Temp 97.8 F 09/20/24 09:58 Pulse 104 H 09/20/24 14:00 Resp 22 09/20/24 14:00 BP 107/71 09/20/24 09:58 Pulse Ox 95 09/20/24 12:45 FiO2 35 09/20/24 11:42 Intake & Output 09/19/24 09/20/24 09/20/24 18:59 06:59 18:59 Weight 90.2 kg Other: Voiding Method Diaper Diaper Diaper External Catheter External Catheter External Catheter # Voids 1 - Exam GENERAL EXAM: 74-year-old in no distress on BiPAP HEAD: Normocephalic and atraumatic EYES: Normal reaction of pupils, equal size. NOSE: Clear with pink turbinates. THROAT: No erythema or exudates. NECK: No masses, no JVD. CHEST: No chest wall deformity. LUNGS: diminished breath sounds at the left side, no rhonchi no wheezes CVS: S1 and S2 normal with no audible murmur, irregular rhythm. No extra heart sounds ABDOMEN: No hepatosplenomegaly, active bowel sounds, no guarding or rigidity. SKIN: No rashes CENTRAL NERVOUS SYSTEM: Confused otherwise no focal deficit EXTREMITIES: 1+ bipedal edema - Labs CBC & Chem 7: 09/20/24 06:26 09/20/24 06:26 Labs: Abnormal Lab Results - Last 24 Hours (Table) 09/19/24 09/19/24 09/20/24 Range/Units 16:51 20:08 06:00 RBC (4.40-5.60) 10*6/uL Hgb (13.0-17.0) g/dL Hct (39.6-50.0) % MCH (27.0-32.0) pg MCHC (32.0-37.0) g/dL MPV (9.5-12.2) fL Immature Gran # (0.00-0.04) 10*3/uL Lymphocytes # (0.90-5.00) 10*3/uL PT (10.0-12.5) sec INR (<1.2) APTT (22.0-30.0) sec Sodium (137-145) mmol/L Chloride (98-107) mmol/L Carbon Dioxide (22-30) mmol/L BUN (9-20) mg/dL Glucose (74-99) mg/dL POC Glucose (mg/dL) 141 H 196 H 143 H (70-110) mg/dL Magnesium (1.6-2.3) mg/dL 09/20/24 09/20/24 09/20/24 Range/Units 06:26 06:26 07:03 RBC 3.64 L (4.40-5.60) 10*6/uL Hgb 8.5 L (13.0-17.0) g/dL Hct 30.0 L (39.6-50.0) % MCH 23.4 L (27.0-32.0) pg MCHC 28.3 L (32.0-37.0) g/dL MPV 9.0 L (9.5-12.2) fL Immature Gran # 0.09 H (0.00-0.04) 10*3/uL Lymphocytes # 0.39 L (0.90-5.00) 10*3/uL PT 15.1 H (10.0-12.5) sec INR 1.4 H (<1.2) APTT 32.7 H (22.0-30.0) sec Sodium 135 L (137-145) mmol/L Chloride 94 L (98-107) mmol/L Carbon Dioxide 36 H (22-30) mmol/L BUN 44 H (9-20) mg/dL Glucose 142 H (74-99) mg/dL POC Glucose (mg/dL) (70-110) mg/dL Magnesium 2.4 H (1.6-2.3) mg/dL 09/20/24 Range/Units 11:40 RBC (4.40-5.60) 10*6/uL Hgb (13.0-17.0) g/dL Hct (39.6-50.0) % MCH (27.0-32.0) pg MCHC (32.0-37.0) g/dL MPV (9.5-12.2) fL Immature Gran # (0.00-0.04) 10*3/uL Lymphocytes # (0.90-5.00) 10*3/uL PT (10.0-12.5) sec INR (<1.2) APTT (22.0-30.0) sec Sodium (137-145) mmol/L Chloride (98-107) mmol/L Carbon Dioxide (22-30) mmol/L BUN (9-20) mg/dL Glucose (74-99) mg/dL POC Glucose (mg/dL) 139 H (70-110) mg/dL Magnesium (1.6-2.3) mg/dL Assessment and Plan Assessment: Impression: Acute hypoxic respiratory failure Bilateral pleural effusions status post thoracentesis, patient was found to have exudative pleural effusion on the left patient had thoracentesis x 2 History of congestive heart failure and reduced ejection fraction Right iliac bone metastatic deposits Moderate size pericardial effusion Ex-smoker Chronic obstructive pulmonary disease presently inactive Chronic atrial fibrillation anticoagulated Type 2 diabetes Hyponatremia likely secondary to hypervolemia possible SIADH secondary to malignancy Moderate pulmonary hypertension Recommendation: Cytology is negative however 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 Overall prognosis is poor. Time with Patient: Less than 30
== END 2024-09-20 15:16 | disposition hospice, inpatient (51) | DRG 180 ==
LOC: EC 17:30 → 3SCARD 22:09
PROVIDERS: ADMIT Hospitalist; ATTEND Hospitalist
PROC: 5A09457 Assistance with Respiratory Ventilation, 24-96 Consecutive Hours, Continuous Positive Airway Pressure (ICD-10-PCS; 2024-09-12)
PROC: 0W9B3ZX Drainage of Left Pleural Cavity, Percutaneous Approach, Diagnostic (ICD-10-PCS; principal; 2024-09-14)
DX: C34.12 Malignant neoplasm of upper lobe, left bronchus or lung (principal); J96.21 Acute and chronic respiratory failure with hypoxia; G93.40 Encephalopathy, unspecified; J91.0 Malignant pleural effusion; C79.51 Secondary malignant neoplasm of bone; I31.39 Other pericardial effusion (noninflammatory); E22.2 Syndrome of inappropriate secretion of antidiuretic hormone; I50.22 Chronic systolic (congestive) heart failure; I11.0 Hypertensive heart disease with heart failure; E11.649 Type 2 diabetes mellitus with hypoglycemia without coma; I27.20 Pulmonary hypertension, unspecified; J44.9 Chronic obstructive pulmonary disease, unspecified; D50.9 Iron deficiency anemia, unspecified; Z68.30 Body mass index [BMI] 30.0-30.9, adult; F32.A Depression, unspecified; I48.20 Chronic atrial fibrillation, unspecified; J98.11 Atelectasis; E11.65 Type 2 diabetes mellitus with hyperglycemia; Z51.5 Encounter for palliative care; I95.9 Hypotension, unspecified; Z87.891 Personal history of nicotine dependence; Z66 Do not resuscitate; E66.9 Obesity, unspecified; F41.9 Anxiety disorder, unspecified; I25.10 Atherosclerotic heart disease of native coronary artery without angina pectoris; E78.5 Hyperlipidemia, unspecified; K21.9 Gastro-esophageal reflux disease without esophagitis; M84.48XD Pathological fracture, other site, subsequent encounter for fracture with routine healing; N28.9 Disorder of kidney and ureter, unspecified; Z79.01 Long term (current) use of anticoagulants; Z79.899 Other long term (current) drug therapy; Z79.84 Long term (current) use of oral hypoglycemic drugs; Z79.1 Long term (current) use of non-steroidal anti-inflammatories (NSAID)
CPT/HCPCS: 36415; 36600; 70450; 71045; 71250; 76604; 77387; 77412; 80048; 80053; 82140; 82805; 83605; 83735; 83880; 84484; 85025; 85610; 85730; 87040; 87070; 87205; 88108; 88305; 88341; 88342; 93005; 93308; 93970; 94640; 94660; 94760; 96374; 96375; 96376; 99291

== ENCOUNTER 2024-09-20 14:56 | Inpatient (IN) | payer MEDICAID, MEDICARE ==
[2024-09-20] MEDS ORDERED: LORazepam 1 MG/0.5 ML VIAL IV PRN (15:25)
[2024-09-20] MEDS ORDERED: ATROPINE OPHTH SOLN 1% 5ML BTL SUBLINGUAL PRN (15:25)
[2024-09-20] MEDS ORDERED: GLYCOPYRROLATE 0.2 MG/ML 2 ML VIAL IVP PRN (15:25)
[2024-09-20] MEDS ORDERED: ONDANSETRON 4 MG/2 ML VIAL IVP PRN (15:25)
[2024-09-20] MEDS: MORPHINE SULFATE 4 MG/ML SYRINGE IV PRN (16:40)
[2024-09-20] MEDS: SCOPOLAMINE 1 MG/72 HR PATCH TRANSDERM SCH (16:40)
[2024-09-20] MEDS: MORPHINE SULFATE 100 MG in SODIUM CHLORIDE 0.9% 90 ML IV SCH (16:41)
[2024-09-21 02:21] VITALS: RESP 12
[2024-09-21 05:07] VITALS: PULSE 120
--- NOTE | 2024-09-21 06:13 | P.HPIM ---
History of Present Illness H&P Date: 09/20/24 This is a 74-year-old male who was admitted with bilateral pleural effusion also with features of acute respiratory failure and was considering possible hospice for informational. Patient reports he would like to continue with treatment and is requesting to speak with oncology and radiation oncology as he was reportedly only left with for radiation treatments. Patient is significantly weak and is status post thoracentesis while awaiting fluid culture and cytology. Pulmonary is following closely and weaning FiO2 as tolerated. Patient evaluated by PT/OT therapy and will likely need rehab. Patient to complete radiation treatments prior to going to physical therapy [facility]. 09/17/2024 Patient is seen in follow-up today with multiple consultations following. Radiation oncology as well as oncology consulted as patient would like to continue with treatment and has 4 remaining sessions left from radiation. Awaiting callback from scheduling to determine time of treatment. Per nursing staff patient is more confused today and will obtain CT brain as well as ABG. Patient is continued on oxygen with no reports of worsening shortness of breath. Pulmonary also following as patient is status post thoracentesis with approximately 2 L removed from the left and awaiting cytology at this time. Patient is afebrile with no reports of chest pain or palpitations. Patient reports tolerating diet and denies any nausea or vomiting. Would recommend PT/OT therapy daily as well as sitting up in the chair frequently. 09/18/2024 Patient is seen in follow-up today and mentation is waxing and waning although patient's mentation is deteriorating he is more obtunded and restless is being placed on BiPAP with poor oxygen saturations. Multiple family members at the bedside with questions and concerns that were answered to the best of our ability. Patient was scheduled to undergo radiation treatment although unstable due to requiring BiPAP. Overall prognosis is extremely poor and guarded at this time. 09/19/2024 Patient is seen in follow-up today in mentation remains confused and altered a lthough appears more alert when on BiPAP. Patient is exhausted and lethargic although somewhat arousable. Patient not tolerating much oral intake and is being evaluated by pulmonary and a consult to CT surgery was placed as chest x- ray shows near complete opacification of the left and discussing possible need for Thora vent and possible thoracentesis. Patient is afebrile at this time. No plans for radiation currently. 09/20/2024 Patient seen and evaluated in follow-up clinically deteriorating requiring continuous BiPAP and family has met with hospice initially for an informational and is agreeable to hospice services and is now meeting [facility] criteria. Patient will be transition to [facility] comfort measures. Review of systems: Unable to completely assess as patient is confused and lethargic All medications have been reviewed Physical exam: Gen: This is a 74-year-old male who is in bed, sleeping, less restless although having waxing and waning periods of continued confusion, alert and oriented x 1- 2 at times well-developed, elderly appearing, ill-appearing, obese HEENT: Head is atraumatic, normocephalic. Pupils equal, round. Sclerae is anicteric. NECK: Supple. No JVD. No lymphadenopathy. No thyromegaly. LUNGS: Diminished breath sounds bilaterally with some scattered rhonchi, expiratory wheezing, and crackles noted at the bases. No intercostal retractions., increasing respiratory demand, Now on BiPAP HEART: S1, S2 are muffled ABDOMEN: Soft. Bowel sounds are present. No masses. No tenderness. EXTREMITIES: No pedal edema. No calf tenderness. NEUROLOGICAL: Patient is awake, alert and oriented x 1-2., Confused, restless at times and anxious, cranial nerves 2 through 12 are grossly intact. Diffusely weak Assessment: Large bilateral pleural effusion, left more than right with status post thoracentesis on the left with approximately 2 L removed, cytology pending Acute respiratory failure secondary to above as well as lung cancer, now requiring BiPAP History of congestive heart failure with mildly reduced EF Poorly differentiated non-small cell lung cancer history, scheduled for 4 radiation treatments left History of atrial fibrillation History of coronary artery disease History of COPD, not in exacerbation Diabetes mellitus, type II, uncontrolled with hyper and hypoglycemia Former smoker Anxiety/depression Obesity with a BMI of 30.6 GI prophylaxis DVT prophylaxis No code Plan: Patient continues to deteriorate requiring continuous BiPAP. Family met with hospice and are agreeable to [facility] admission with comfort measures only. Patient will likely continue on BiPAP until more comfortable and wean as tolerated. Continue with comfort measures only Overall prognosis is extremely poor, hospice is appropriate. The impression and plan of care has been dictated by Palak Sim, Nurse Practitioner as directed. Dr. Tiburcio MD I have performed a history and examination and MDM of this patient, discussed the same with the dictator, and agree with the dictator's assessment and plan as written ,documented as a scribe. Based on total visit time, I have performed more than 50% of the visit. Past Medical History Past Medical History: Atrial Fibrillation, Coronary Artery Disease (CAD), Cancer, COPD, Diabetes Mellitus, GERD/Reflux, Hyperlipidemia Additional Past Medical History / Comment(s): type 2 DM, hiatal hernia, significant for large colon polyps, multiple removed, moderate size pericardial effusion, microcytic, hyperchromic anemia History of Any Multi-Drug Resistant Organisms: None Reported Past Surgical History: Hernia Repair Additional Past Surgical History / Comment(s): loop recorder, hernia x 3,, multiple colon polyps removed Past Anesthesia/Blood Transfusion Reactions: No Reported Reaction Past Psychological History: No Psychological Hx Reported, Depression Smoking Status: Former smoker Past Alcohol Use History: Rare Past Drug Use History: None Reported - Past Family History Mother Family Medical History: Cancer (Colon cancer) Additional Family Medical History / Comment(s): Colon cancer Father Family Medical History: COPD, Pneumonia Medications and Allergies Home Medications Medication Instructions Recorded Confirmed Type Acetaminophen-Codeine 300-30mg 1 tab PO Q6H PRN 08/20/24 09/20/24 History [Tylenol w/codeine #3] Albuterol Inhaler [Ventolin Hfa 2 puff INHALATION RT-Q4H PRN 08/20/24 09/20/24 History Inhaler] Apixaban [Eliquis] 5 mg PO BID 08/20/24 09/20/24 History Celecoxib [CeleBREX] 200 mg PO DAILY 08/20/24 09/20/24 History Cyclobenzaprine [Flexeril] 10 mg PO BID PRN 08/20/24 09/20/24 History Fluticasone Nasal Orgas [Flonase 1 spray EA NOSTRIL BID PRN 08/20/24 09/20/24 History Nasal Orgas] Gabapentin 600 mg PO Q8H PRN 08/20/24 09/20/24 History Ipratropium-Albuterol Nebulize 3 ml INHALATION RT-TID 08/20/24 09/20/24 History [Duoneb 0.5 mg-3 mg/3 ml Soln] PARoxetine [Paxil] 20 mg PO DAILY 08/20/24 09/20/24 History Pioglitazone [Actos] 30 mg PO DAILY 08/20/24 09/20/24 History Simvastatin [Zocor] 20 mg PO DAILY 08/20/24 09/20/24 History glipiZIDE XL [Glucotrol XL] 10 mg PO BID 08/20/24 09/20/24 History metFORMIN HCL [Glucophage] 1,000 mg PO BID 08/20/24 09/20/24 History Dapagliflozin Propanediol [Farxiga] 10 mg PO DAILY 30 Days #30 tab 08/26/24 09/20/24 Rx Ferrous Sulfate [Iron (65 MG 325 mg PO W/LUNCH 30 Days #30 tab 08/26/24 09/20/24 Rx Elemental)] Furosemide [Lasix] 20 mg PO DAILY 30 Days #30 tab 08/26/24 09/20/24 Rx Lidocaine 4% Patch 1 patch TOPICAL HS 30 Days #30 08/26/24 09/20/24 Rx patch Metoprolol Tartrate [Lopressor] 50 mg PO BID 30 Days #60 tab 08/26/24 09/20/24 Rx Spironolactone [Aldactone] 12.5 mg PO DAILY 30 Days #15 tab 08/26/24 09/20/24 Rx Furosemide [Lasix] 40 mg PO DIRECTED 09/13/24 09/20/24 History Sulfamethox-Tmp 800-160Mg [Bactrim 1 tab PO DIRECTED 09/13/24 09/20/24 History DS 800-160 mg] ondansetron HCL [Zofran] 8 mg PO Q12HR PRN 09/13/24 09/20/24 History Allergies Allergy/AdvReac Type Severity Reaction Status Date / Time No Known Allergies Allergy Verified 09/13/24 11:45 Physical Exam Vitals: Vital Signs Pulse Resp Pulse Ox 09/21/24 05:06 120 H 12 09/21/24 02:20 109 H 12 09/21/24 00:00 106 H 13 09/20/24 20:00 111 H 14 09/20/24 16:53 104 H 22 100 Intake and Output 09/20/24 09/20/24 09/21/24 14:59 22:59 06:59 Output Total 450 Balance -450 Output: Urine 450 Other: Weight 90.2 kg 90.2 kg
--- NOTE | 2024-09-22 16:33 | P.DS ---
Providers Date of admission: 09/20/24 15:22 Attending physician: Crispin Dey Primary care physician: Wellington Smiley Hospital Course: Final Diagnosis Large bilateral pleural effusion, left more than right with status post thoracentesis on the left with approximately 2 L removed, cytology pending Acute respiratory failure secondary to above as well as lung cancer, now requiring BiPAP History of congestive heart failure with mildly reduced EF Poorly differentiated non-small cell lung cancer history, scheduled for 4 radiation treatments left History of atrial fibrillation History of coronary artery disease History of COPD, not in exacerbation Diabetes mellitus, type II, uncontrolled with hyper and hypoglycemia Former smoker Anxiety/depression Obesity with a BMI of 30.6 GI prophylaxis DVT prophylaxis No code Patient with inpatient hospice on 09/21/2024 at 0910. Preliminary cause of ; lung cancer Hospital Course This is a 74-year-old male who was admitted with bilateral pleural effusion also with features of acute respiratory failure and was considering possible hospice for informational. Patient reports he would like to continue with treatment and is requesting to speak with oncology and radiation oncology as he was reportedly only left with for radiation treatments. Patient is significantly weak and is status post thoracentesis while awaiting fluid culture and cytology. Pulmonary is following closely and weaning FiO2 as tolerated. Patient evaluated by PT/OT therapy and will likely need rehab. Patient to complete radiation treatments prior to going to physical therapy [facility]. 09/17/2024 Patient is seen in follow-up today with multiple consultations following. Radiation oncology as well as oncology consulted as patient would like to continue with treatment and has 4 remaining sessions left from radiation. Awaiting callback from scheduling to determine time of treatment. Per nursing staff patient is more confused today and will obtain CT brain as well as ABG. Patient is continued on oxygen with no reports of worsening shortness of breath. Pulmonary also following as patient is status post thoracentesis with approximately 2 L removed from the left and awaiting cytology at this time. Patient is afebrile with no reports of chest pain or palpitations. Patient reports tolerating diet and denies any nausea or vomiting. Would recommend PT/OT therapy daily as well as sitting up in the chair frequently. 09/18/2024 Patient is seen in follow-up today and mentation is waxing and waning although patient's mentation is deteriorating he is more obtunded and restless is being placed on BiPAP with poor oxygen saturations. Multiple family members at the bedside with questions and concerns that were answered to the best of our ability. Patient was scheduled to undergo radiation treatment although unstable due to requiring BiPAP. Overall prognosis is extremely poor and guarded at this time. 09/19/2024 Patient is seen in follow-up today in mentation remains confused and altered although appears more alert when on BiPAP. Patient is exhausted and lethargic although somewhat arousable. Patient not tolerating much oral intake and is being evaluated by pulmonary and a consult to CT surgery was placed as chest x-r ay shows near complete opacification of the left and discussing possible need for Thora vent and possible thoracentesis. Patient is afebrile at this time. No plans for radiation currently. 09/20/2024 Patient seen and evaluated in follow-up clinically deteriorating requiring continuous BiPAP and family has met with hospice initially for an informational and is agreeable to hospice services and is now meeting GIP criteria. Patient will be transition to [facility] GIP comfort measures. Thank you for allowing us to participate in the care of this patient. The impression and plan of care has been dictated by Kourtney Leonard, Nurse Practitioner as directed. Dr. Lizbeth MD I have performed a history and physical examination and medical decision making of this patient, discussed the same with the dictator, and agree with the dictators assessment and plan as written, documented as a scribe. Based on total visit time, I have performed more than 50% of this visit. Plan - Discharge Summary New Discharge Prescriptions: No Action Albuterol Inhaler [Ventolin Hfa Inhaler] 2 puff INHALATION RT-Q4H PRN PRN Reason: Shortness Of Breath Simvastatin [Zocor] 20 mg PO DAILY Pioglitazone [Actos] 30 mg PO DAILY Gabapentin 600 mg PO Q8H PRN PRN Reason: Neuropathy Fluticasone Nasal [place] [Flonase Nasal [place]] 1 spray EA NOSTRIL BID PRN PRN Reason: Allergy Symptoms Apixaban [Eliquis] 5 mg PO BID Ipratropium-Albuterol Nebulize [Duoneb 0.5 mg-3 mg/3 ml Soln] 3 ml INHALATION RT-TID Spironolactone [Aldactone] 12.5 mg PO DAILY 30 Days #15 tab Furosemide [Lasix] 20 mg PO DAILY 30 Days #30 tab Lidocaine 4% Patch 1 patch TOPICAL HS 30 Days #30 patch Cyclobenzaprine [Flexeril] 10 mg PO BID PRN PRN Reason: Muscle Spasm Acetaminophen-Codeine 300-30mg [Tylenol w/codeine #3] 1 tab PO Q6H PRN PRN Reason: Pain metFORMIN HCL [Glucophage] 1,000 mg PO BID Celecoxib [CeleBREX] 200 mg PO DAILY glipiZIDE XL [Glucotrol XL] 10 mg PO BID PARoxetine [Paxil] 20 mg PO DAILY Dapagliflozin Propanediol [Farxiga] 10 mg PO DAILY 30 Days #30 tab Ferrous Sulfate [Iron (65 MG Elemental)] 325 mg PO W/LUNCH 30 Days #30 tab Metoprolol Tartrate [Lopressor] 50 mg PO BID 30 Days #60 tab Sulfamethox-Tmp 800-160Mg [Bactrim DS 800-160 mg] 1 tab PO DIRECTED ondansetron HCL [Zofran] 8 mg PO Q12HR PRN PRN Reason: Nausea And Vomiting Furosemide [Lasix] 40 mg PO DIRECTED Discharge Medication List Acetaminophen-Codeine 300-30mg [Tylenol w/codeine #3] 1 tab PO Q6H PRN 08/20/24 [History] Albuterol Inhaler [Ventolin Hfa Inhaler] 2 puff INHALATION RT-Q4H PRN 08/20/24 [History] Apixaban [Eliquis] 5 mg PO BID 08/20/24 [History] Celecoxib [CeleBREX] 200 mg PO DAILY 08/20/24 [History] Cyclobenzaprine [Flexeril] 10 mg PO BID PRN 08/20/24 [History] Fluticasone Nasal [place] [Flonase Nasal [place]] 1 spray EA NOSTRIL BID PRN 08/20/24 [History] Gabapentin 600 mg PO Q8H PRN 08/20/24 [History] Ipratropium-Albuterol Nebulize [Duoneb 0.5 mg-3 mg/3 ml Soln] 3 ml INHALATION RT-TID 08/20/24 [History] PARoxetine [Paxil] 20 mg PO DAILY 08/20/24 [History] Pioglitazone [Actos] 30 mg PO DAILY 08/20/24 [History] Simvastatin [Zocor] 20 mg PO DAILY 08/20/24 [History] glipiZIDE XL [Glucotrol XL] 10 mg PO BID 08/20/24 [History] metFORMIN HCL [Glucophage] 1,000 mg PO BID 08/20/24 [History] Dapagliflozin Propanediol [Farxiga] 10 mg PO DAILY 30 Days #30 tab 08/26/24 [Rx] Ferrous Sulfate [Iron (65 MG Elemental)] 325 mg PO W/LUNCH 30 Days #30 tab 08/26/24 [Rx] Furosemide [Lasix] 20 mg PO DAILY 30 Days #30 tab 08/26/24 [Rx] Lidocaine 4% Patch 1 patch TOPICAL HS 30 Days #30 patch 08/26/24 [Rx] Metoprolol Tartrate [Lopressor] 50 mg PO BID 30 Days #60 tab 08/26/24 [Rx] Spironolactone [Aldactone] 12.5 mg PO DAILY 30 Days #15 tab 08/26/24 [Rx] Furosemide [Lasix] 40 mg PO DIRECTED 09/13/24 [History] Sulfamethox-Tmp 800-160Mg [Bactrim DS 800-160 mg] 1 tab PO DIRECTED 09/13/24 [History] ondansetron HCL [Zofran] 8 mg PO Q12HR PRN 09/13/24 [History] Discharge Disposition: - Preliminary Cause of Preliminary Cause of : Lung Cancer
== END 2024-09-21 12:55 | disposition expired | DRG 189 ==
LOC: 3SCARD 15:22
PROVIDERS: ADMIT Hospitalist; ATTEND Hospitalist
PROC: 5A09357 Assistance with Respiratory Ventilation, Less than 24 Consecutive Hours, Continuous Positive Airway Pressure (ICD-10-PCS; principal; 2024-09-20)
DX: J96.00 Acute respiratory failure, unspecified whether with hypoxia or hypercapnia (principal); C34.90 Malignant neoplasm of unspecified part of unspecified bronchus or lung; Z51.5 Encounter for palliative care; I50.22 Chronic systolic (congestive) heart failure; Z66 Do not resuscitate; J44.9 Chronic obstructive pulmonary disease, unspecified; E11.65 Type 2 diabetes mellitus with hyperglycemia; F32.A Depression, unspecified; E66.9 Obesity, unspecified; I48.91 Unspecified atrial fibrillation; F41.9 Anxiety disorder, unspecified; I25.10 Atherosclerotic heart disease of native coronary artery without angina pectoris; E78.5 Hyperlipidemia, unspecified; Z68.30 Body mass index [BMI] 30.0-30.9, adult; Z87.891 Personal history of nicotine dependence; Z79.84 Long term (current) use of oral hypoglycemic drugs; Z79.1 Long term (current) use of non-steroidal anti-inflammatories (NSAID); Z79.899 Other long term (current) drug therapy; Z79.01 Long term (current) use of anticoagulants; Z86.0100 Personal history of colon polyps, unspecified; Z82.5 Family history of asthma and other chronic lower respiratory diseases